=== PATIENT | male | born 1930 | race Caucasian/White ===

== ENCOUNTER 2017-07-23 19:34 | Inpatient (IN) | payer MEDICARE, OTHER ==
[~2017-07-23] VITALS: Ht 172.7 cm; Wt 128.9 kg
--- NOTE | 2017-07-23 19:27 | ER Report ---
History and Physical Time Seen By MD: 19:31 HPI/ROS CHIEF COMPLAINT: Fever, lethargy HISTORY OF PRESENT ILLNESS: 87-year-old male brought in by EMS from home with fever and lethargy since this morning. Patient states he was feeling well yesterday. Patient has a history of COPD, chronic renal failure, coronary artery disease, type II diabetes, insulin required, chronic lower extremity edema with cellulitis. Patient reports several family members have influenza. Patient was last seen back in December which time he had cellulitis of the left lower extremity and elevated white blood cell count and CRP. He was transferred over to the [facility] in [place]. He has a large bulky dressing on his left lower extremity at this time. He states that dressing was placed on Thursday of this week over at the [facility] in [place]. REVIEW OF SYSTEMS: Respiratory: As above Cardiovascular: No chest pain, no palpitations. Gastrointestinal: No vomiting, no abdominal pain. Musculoskeletal: No back pain. Allergies: Coded Allergies: No Known Drug Allergies (Unverified , 07/23/17) Home Meds Reported Medications Triamcinolone Acetonide 0.1% Cr 15 Gm Tube (TRIAMCINOLONE ACETONIDE 0.1% CREAM) 15 Gm Cream..g., 15 GM TP TID, TUBE 07/24/17 Sodium Chloride (SALINE NASAL SPRAY) 30 Ml [place], 2 SPRAY NS Q2H Y for CONGESTION, SPRAY 07/24/17 Lisinopril (LISINOPRIL) 10 Mg Tablet, 10 MG PO QDAY, TAB 07/24/17 Hum Insulin Nph/Reg Insulin Hm (NOVOLIN 70-30 100 UNIT/ML VIAL) 100 Unit/1 Ml Vial, 55 UNIT SQ BIDAC, VIAL 07/24/17 Hum Insulin Nph/Reg Insulin Hm (NOVOLIN 70-30 100 UNIT/ML VIAL) 100 Unit/1 Ml Vial, 70 UNIT SQ QAM, VIAL 07/24/17 Ammonium Lactate (Ammonium Lactate) 12 % Cream..g., 1 SHIV TOP BIDAC 07/24/17 Furosemide (FUROSEMIDE) 20 Mg Tablet, 3 TAB PO BID, TAB 07/24/17 Clobetasol Propionate 0.05% Lotion (CLOBETASOL PROPIONATE 0.05% LOTION) 59 Ml Lotion, 0 TP BID, BOT 01/29/16 Diphenhydramine Hcl (DIPHENHYDRAMINE HCL) 25 Mg Capsule, 25 MG PO BID Y for ITCHING, CAPSULE 01/29/16 Terazosin Hcl (TERAZOSIN HCL) 2 Mg Capsule, 2 MG PO BID, CAPSULE 01/29/16 Albuterol Sul Hfa 90 Mcg 8 Gm (VENTOLIN HFA 90 MCG 8 GM) 8.5 Gm Hfa.aer.ad, 1-2 PUFF IH Q3-4H Y for SHORTNESS OF BREATH 08/19/14 Acetaminophen With Codeine # 3 (TYLENOL WITH CODEINE #3 TABLET) 1 Each Tablet, 1 EACH PO QHS, TAB 01/18/14 Ranitidine Hcl (ZANTAC) 150 Mg Tablet, 150 MG PO QHS 01/18/14 Levothyroxine Sodium (SYNTHROID) 125 Mcg Tablet, 125 MCG PO QDAY 01/18/14 Simvastatin (SIMVASTATIN) 40 Mg Tablet, 20 MG PO HS, TAB 01/18/14 Aspirin (ASPIRIN EC) 81 Mg Tablet.dr, 81 MG PO QDAY, TAB 01/18/14 Allopurinol (ZYLOPRIM 300 MG TAB (OR EQUIV)) 300 Mg Tab, 300 MG PO DAILY, TAB 01/18/14 Gabapentin (GABAPENTIN) 300 Mg Capsule, 600 MG PO DAILY, CAPSULE 2 CAPS AM AND 1 CAP HS 01/18/14 Discontinued Reported Medications Insulin NPH Hum/Reg Insulin Hm (Humulin 70-30 Vial) 100 Unit/Ml (70-30) Vial, 70 UNITS SQ DAILY 12/22/16 Polyvinyl Alcohol (POLYVINYL ALCOHOL) 15 Ml Drops, 1-2 GTT OP BID Y for DRY EYE 12/22/16 Cyclosporine (RESTASIS) 1 Each Droperette, 1 EACH OP BID 12/22/16 Guaifenesin (Guaifenesin ER) 600 Mg Tab.er.12h, 400 MG PO TID Y for CONGESTION 01/29/16 Hydrocodone/Acetaminophen (Lortab 7.5-325 mg Tablet) 1 Each Tablet, 1 TAB PO Q4H Y for PAIN 01/29/16 Insulin Human Isophan/Regular (HUMULIN 70-30 VIAL) 100 Unit/Ml Vial, 60 UNIT SUBQ QHS, VIAL 01/18/14 Discontinued Scripts Vancomycin/0.9 % Sod Chloride (Vanco 1.5 gm/250 ml-0.9% NaCl) 1.5 Gram/250 Ml Plast..bag, 1.5 GM IV Q24H for 10 Days, BAG Prov:NORBERTO OBREGON MD 12/22/16 Piperacillin Sodium/Tazobactam (ZOSYN 2.25 GRAM VIAL) 2.25 Gm Vial, 2.25 GM IV Q6H for 10 Days, VIAL Prov:NORBERTO OBREGON MD 12/22/16 Enoxaparin Sodium (LOVENOX) 40 Mg/0.4 Ml Disp.syrin, 40 MG SC Q24H for 30 Days, Prov:NROBERTO OBREGON MD 12/22/16 Furosemide (LASIX) 40 Mg Tablet, 3 TAB PO DAILY for 30 Days, TAB Currently holding Lasix Prov:NORBERTO OBREGON MD 12/22/16 Past Medical/Surgical History Past medical history significant for oxygen-dependent COPD, hypothyroidism, coronary artery disease status post stent placement, hypertension, cholecystectomy, appendectomy, osteoarthritis, chronic back pain, left wrist fracture, diabetes mellitus type 2, and skin cancer since, cellulitis of lower extremities 12/29, transferred to [facility] in [place] Reviewed Nurses Notes: Yes Old Medical Records Reviewed: Yes Hx Smoking: No Smoking Status: Never Smoker Exposure to Second Hand Smoke?: No Hx Substance Use Disorder: No Hx Alcohol Use: No Constitutional Vital Sign - Last 24 Hours 07/23/17 07/23/17 07/23/17 07/23/17 19:37 19:43 19:46 19:49 Temp 100.7 Pulse 96 ??? Resp 20 23 B/P (MAP) 156/66 156/66 (96) Pulse Ox 96 97 O2 Delivery Nasal Cannula O2 Flow Rate 5.0 07/23/17 07/23/17 07/23/17 07/23/17 20:04 20:09 20:19 20:30 Pulse 91 90 Resp 15 32 B/P (MAP) 145/60 (88) 145/59 (87) Pulse Ox 96 96 07/23/17 07/23/17 07/23/17 07/23/17 20:34 20:45 20:45 20:49 Temp 98.7 98.7 Pulse 86 87 Resp 22 16 Pulse Ox 98 96 07/23/17 07/23/17 07/23/17 07/23/17 21:00 21:04 21:19 21:30 Pulse 87 84 Resp 29 11 B/P (MAP) 117/50 (72) 123/56 (78) Pulse Ox 97 96 07/23/17 07/23/17 07/23/17 07/23/17 21:35 21:50 22:00 22:05 Pulse 81 82 82 Resp 8 29 29 B/P (MAP) 120/70 (87) Pulse Ox 96 96 95 07/23/17 07/23/17 07/23/17 07/23/17 22:20 22:30 22:35 22:50 Pulse 82 82 81 Resp 31 30 27 B/P (MAP) 120/59 (79) Pulse Ox 94 95 97 07/23/17 07/23/17 07/23/17 07/23/17 22:55 23:00 23:10 23:25 Pulse 82 81 81 Resp 28 28 26 B/P (MAP) 147/70 (95) Pulse Ox 96 96 96 07/23/17 07/23/17 07/23/17 07/24/17 23:30 23:40 23:55 00:00 Pulse 80 76 Resp 28 26 B/P (MAP) 149/61 (90) 139/75 (96) Pulse Ox 99 97 07/24/17 07/24/17 07/24/17 00:10 00:25 00:30 Pulse 77 77 Resp 25 12 B/P (MAP) 140/47 (78) Pulse Ox 95 95 Physical Exam General Appearance: The patient is alert, has no immediate need for airway protection and no current signs of toxicity. Fever 101.9 HEENT: Pupils equal and round no injection. Oropharynx with mild erythema, no exudate or petechiae. Membranes are moist Respiratory: Chest is non tender, lungs are clear to auscultation. No wheezing or rails Cardiac: regular rate and rhythm Gastrointestinal: Abdomen is soft and non tender, no masses, bowel sounds normal. Musculoskeletal: Neck: Neck is supple and non tender. No lymphadenopathy, no JVD Extremities have full range of motion and are non tender. There is a large bulky dressing on the left lower extremity. There are chronic edematous changes. 2+ edema Skin: No rashes or lesions. DIFFERENTIAL DIAGNOSIS: After history and physical exam differential diagnosis was considered for adult fever including but not limited to viral syndromes including influenza, urinary tract infection, pneumonia and sepsis. Medical Decision Making Data Points Result Diagram: 07/23/17191407/23/171914 Laboratory Hematology Test 07/23/17 19:15 07/23/17 20:41 07/23/17 20:59 Red Blood Count 4.35 M/uL (4.00-5.60) Mean Corpuscular Volume 91.6 fL (80.0-96.0) Mean Corpuscular Hemoglobin 31.0 pg (26.0-33.0) Mean Corpuscular Hemoglobin Concent 33.8 g/dL (32.0-36.0) Red Cell Distribution Width 14.0 % (11.5-14.5) Mean Platelet Volume 6.9 fL (7.2-11.1) Neutrophils (%) (Auto) 69.8 % (39.4-72.5) Lymphocytes (%) (Auto) 15.5 % (17.6-49.6) Monocytes (%) (Auto) 12.5 % (4.1-12.4) Eosinophils (%) (Auto) 1.5 % (0.4-6.7) Basophils (%) (Auto) 0.7 % (0.3-1.4) Nucleated RBC Relative Count (auto) 0.0 /100WBC Neutrophils # (Auto) 7.3 K/uL (2.0-7.4) Lymphocytes # (Auto) 1.6 K/uL (1.3-3.6) Monocytes # (Auto) 1.3 K/uL (0.3-1.0) Eosinophils # (Auto) 0.2 K/uL (0.0-0.5) Basophils # (Auto) 0.1 K/uL (0.0-0.1) Nucleated RBC Absolute Count (auto) 0.00 K/uL Sodium Level 137 mmol/L (137-145) Potassium Level 4.1 mmol/L (3.5-5.0) Chloride Level 97 mmol/L (98-107) Carbon Dioxide Level 34 mmol/L (22-30) Blood Urea Nitrogen 27 mg/dl (9-21) Creatinine 2.10 mg/dl (0.66-1.25) Glomerular Filtration Rate Calc 30.2 Random Glucose 150 mg/dl (75-110) Lactate 1.0 mmol/L (0.7-2.1) Calcium Level 8.9 mg/dl (8.4-10.2) Total Bilirubin 0.4 mg/dl (0.2-1.3) Aspartate Amino Transf (AST/SGOT) 21 U/L (0-35) Alanine Aminotransferase (ALT/SGPT) 26 U/L (0-56) Alkaline Phosphatase 96 U/L (0-126) Troponin I < 0.012 ng/ml C-Reactive Protein 2.2 mg/dl (<1.0) Total Protein 7.0 gm/dl (6.3-8.2) Albumin 3.5 g/dl (3.5-5.0) Urine Color Yellow Urine Clarity Clear Urine pH 6.0 pH (4.8-9.5) Urine Specific [place] 1.009 Urine Protein 100 mg/dL (NEGATIVE) Urine Glucose (UA) Negative mg/dL (NEGATIVE) Urine Ketones Negative mg/dL (NEGATIVE) Urine Blood Large (NEGATIVE) Urine Nitrite Negative (NEGATIVE) Urine Bilirubin Negative (NEGATIVE) Urine Urobilinogen Negative mg/dL (0.2-1.9) Urine Leukocyte Esterase Negative (NEGATIVE) Urine RBC 337 /HPF (0-2/HPF) Urine WBC 4 /HPF (0-5/HPF) Urine Squamous Epithelial Cells None /LPF (</=FEW) Urine Bacteria Negative /HPF (NONE-FEW) Urine Hyaline Casts Few /LPF (NONE-FEW) Urine Mucus None /HPF (NONE-FEW) Influenza Virus Type A (PCR) Negative (NEGATIVE) Influenza Virus Type B (PCR) Negative (NEGATIVE) Chemistry Test 07/23/17 19:15 07/23/17 20:41 07/23/17 20:59 White Blood Count 10.5 k/uL (4.5-11.0) Red Blood Count 4.35 M/uL (4.00-5.60) Hemoglobin 13.5 g/dL (14.0-18.0) Hematocrit 39.9 % (42.0-52.0) Mean Corpuscular Volume 91.6 fL (80.0-96.0) Mean Corpuscular Hemoglobin 31.0 pg (26.0-33.0) Mean Corpuscular Hemoglobin Concent 33.8 g/dL (32.0-36.0) Red Cell Distribution Width 14.0 % (11.5-14.5) Platelet Count 223 K/uL (150-450) Mean Platelet Volume 6.9 fL (7.2-11.1) Neutrophils (%) (Auto) 69.8 % (39.4-72.5) Lymphocytes (%) (Auto) 15.5 % (17.6-49.6) Monocytes (%) (Auto) 12.5 % (4.1-12.4) Eosinophils (%) (Auto) 1.5 % (0.4-6.7) Basophils (%) (Auto) 0.7 % (0.3-1.4) Nucleated RBC Relative Count (auto) 0.0 /100WBC Neutrophils # (Auto) 7.3 K/uL (2.0-7.4) Lymphocytes # (Auto) 1.6 K/uL (1.3-3.6) Monocytes # (Auto) 1.3 K/uL (0.3-1.0) Eosinophils # (Auto) 0.2 K/uL (0.0-0.5) Basophils # (Auto) 0.1 K/uL (0.0-0.1) Nucleated RBC Absolute Count (auto) 0.00 K/uL Glomerular Filtration Rate Calc 30.2 Lactate 1.0 mmol/L (0.7-2.1) Calcium Level 8.9 mg/dl (8.4-10.2) Total Bilirubin 0.4 mg/dl (0.2-1.3) Aspartate Amino Transf (AST/SGOT) 21 U/L (0-35) Alanine Aminotransferase (ALT/SGPT) 26 U/L (0-56) Alkaline Phosphatase 96 U/L (0-126) Troponin I < 0.012 ng/ml C-Reactive Protein 2.2 mg/dl (<1.0) Total Protein 7.0 gm/dl (6.3-8.2) Albumin 3.5 g/dl (3.5-5.0) Urine Color Yellow Urine Clarity Clear Urine pH 6.0 pH (4.8-9.5) Urine Specific [place] 1.009 Urine Protein 100 mg/dL (NEGATIVE) Urine Glucose (UA) Negative mg/dL (NEGATIVE) Urine Ketones Negative mg/dL (NEGATIVE) Urine Blood Large (NEGATIVE) Urine Nitrite Negative (NEGATIVE) Urine Bilirubin Negative (NEGATIVE) Urine Urobilinogen Negative mg/dL (0.2-1.9) Urine Leukocyte Esterase Negative (NEGATIVE) Urine RBC 337 /HPF (0-2/HPF) Urine WBC 4 /HPF (0-5/HPF) Urine Squamous Epithelial Cells None /LPF (</=FEW) Urine Bacteria Negative /HPF (NONE-FEW) Urine Hyaline Casts Few /LPF (NONE-FEW) Urine Mucus None /HPF (NONE-FEW) Influenza Virus Type A (PCR) Negative (NEGATIVE) Influenza Virus Type B (PCR) Negative (NEGATIVE) Urinalysis Test 07/23/17 20:41 Urine Color Yellow Urine Clarity Clear Urine pH 6.0 pH (4.8-9.5) Urine Specific [place] 1.009 Urine Protein 100 mg/dL (NEGATIVE) Urine Glucose (UA) Negative mg/dL (NEGATIVE) Urine Ketones Negative mg/dL (NEGATIVE) Urine Blood Large (NEGATIVE) Urine Nitrite Negative (NEGATIVE) Urine Bilirubin Negative (NEGATIVE) Urine Urobilinogen Negative mg/dL (0.2-1.9) Urine Leukocyte Esterase Negative (NEGATIVE) Urine RBC 337 /HPF (0-2/HPF) Urine WBC 4 /HPF (0-5/HPF) Urine Squamous Epithelial Cells None /LPF (</=FEW) Urine Bacteria Negative /HPF (NONE-FEW) Urine Hyaline Casts Few /LPF (NONE-FEW) Urine Mucus None /HPF (NONE-FEW) EKG/Imaging EKG Interpretation 12 lead EK Rhythm: normal sinus rhythm with first-degree AV block [place]: normal QRS: normal ST segments: Diffuse nonspecific ST and T-wave changes, comparison to previous EKG dated 12/22/16, no significant overall change Imaging X-ray: Single view portable chest x-ray was obtained. I viewed the images myself on the PACS system. My interpretation of the images is: No infiltrate, no effusion, normal mediastinum, comparison to previous chest x-ray dated , no significant change. The radiologist interpretation had no clinically significant variation from this interpretation. ED Course/Re-evaluation Clinical Indication for ER IV: Hydration, IV Access ED Course Patient was admitted to an examination room and H&P was done. The differential diagnoses was considered. On clinical examination. Patient has stable vital signs on arrival. His pulse ox is normal at his usual 5 L. Saturations 96%. Patient with a fever noted by EMS of 101.9. Here we document 100.7. Patient's had altered mental status throughout the day. He has chronic open wounds in his left lower extremity being managed at the [facility] in [place]. Patient was transferred in December 2016 2 [facility] for cellulitis of his left lower extremity with an elevated white blood cell count of nearly 17,000, and elevated CRP. Tonight extensive evaluation shows a normal WBC count without left shift. His chest x- ray is clear. His urinalysis shows a scopic, hematuria without evidence of infection. A rapid influenza is negative. Patient was treated with 500 of normal saline IV and Tylenol. His fevers come down. His vital signs remained stable. I spoke with his family after all the diagnostic studies were performed. Discussed the results with them. His family is reluctant to take him home. They state he is unable to ambulate and care for himself. I stated that I do not see any fdc needs. At this time here. We will consider admission. [facility] not [facility] or see medical mean, I will speak with our hospitalist here at [facility] [place]. 07/23/2017 11:32:01 pm case was discussed with Dr. Roman medical staff command and control officer over at [facility] who declined to accept the patient for admission. She states she sees no obvious fdc needs. Decision to Disposition Date: Jul 23, 2017 Decision to Disposition Time: 22:14 Depart Departure Latest Vital Signs Vital Signs Date Time Temp Pulse Resp B/P (MAP) Pulse Ox O2 Delivery O2 Flow Rate FiO2 07/24/17 00:30 140/47 (78) 07/24/17 00:25 77 12 95 07/23/17 20:45 98.7 07/23/17 19:46 5.0 07/23/17 19:37 Nasal Cannula Impression: Primary Impression: Fever Additional Impressions: Weakness COPD (chronic obstructive pulmonary disease) Diabetes mellitus, type II, insulin dependent Condition: Improved Disposition: Admitted from ER Problem Qualifiers Primary Impression: Fever Fever type: unspecified Qualified Codes: R50.9 - Fever, unspecified Additional Impressions: COPD (chronic obstructive pulmonary disease) COPD type: unspecified COPD Qualified Codes: J44.9 - Chronic obstructive pulmonary disease, unspecified LIYA HERNANDEZ DO Jul 23, 2017 19:27
[~2017-07-23 19:34] MED LIST changes: -FURO-45 PO; -HUM100VI15 SQ; -LISI-362 PO; -OSEL30CA PO; -SODI30SP6 NS; -TRIA15CR40 TP; -[UNRECOGNIZED DRUG - CODE] TOP
[2017-07-23] MEDS ORDERED: ACETAMINOPHEN 325 MG TAB PO ONE (19:40)
[2017-07-23] MEDS ORDERED: NS(*) 0.9% 500 ML BAG 500 ML IV ONE (19:40)
[2017-07-23 19:54] LABS: PLATELET COUNT, AUTOMATED 223 K/uL (150-450)
[2017-07-23] MEDS ORDERED: SODIUM CHLORIDE 0.9% IV ONE (19:55)
--- NOTE | 2017-07-23 20:27 | EKG ---
FACILITY: [facility] PATIENT NAME: YUMIKO MONIQUE : [id number] MR: [id number] V: [id number] EXAM DATE: ORDERING PHYSICIAN: LIYA HERNANDEZ TECHNOLOGIST: PRESTON Test Reason : FEVER DYSPNEA Blood Pressure : / mmHG Vent. Rate : 094 BPM Atrial Rate : 094 BPM P-R Int : 258 ms QRS Dur : 102 ms QT Int : 356 ms P-R-T Axes : 056 -28 064 degrees QTc Int : 445 ms Sinus rhythm with 1st degree AV block Left axis deviation Nonspecific ST abnormality Abnormal ECG Confirmed by NORBERTO OBREGON ([id number] on 07/24/2017 6:04:01 AM Referred By: Confirmed By:NORBERTO OBREGON
--- NOTE | 2017-07-23 20:36 | RADIOLOGY IMAGING REPORT ---
[place] [facility] [place] NAME: Rizwan Huertas : 1930 MR: [id number] V: [id number] EXAM DATE: ORDERING PHYSICIAN: LIYA HERNANDEZ TECHNOLOGIST: Location: [facility] Patient: Rizwan Huertas : 1930 Visit/Account:[id number] Date of Sevice: 07/23/2017 Examination: CHEST SINGLE AP Comparison: 12/22/2016 and earlier. History: Fever. Findings: Cardiac silhouette is prominent but unchanged. Mild chronic interstitial thickening with n o definite new or enlarging consolidation or evidence of acute peribronchial inflammation. No pneumot horax, edema, or effusion. Osseous structures are intact. IMPRESSION: Chronic changes with no definite evidence of acute cardiopulmonary disease. Report Dictated By: Boo Dominguez MD at 07/23/2017 8:31 PM Report E-Signed By: Boo Dominguez MD at 07/23/2017 8:32 PM [id number]
[2017-07-24] MEDS ORDERED: HUM100VI15 SQ ×2 (00:39)
[2017-07-24] MEDS ORDERED: LISI-362 PO (00:39)
[2017-07-24] MEDS ORDERED: SODI30SP6 NS (00:39)
[2017-07-24] MEDS ORDERED: FURO-45 PO (00:39)
[2017-07-24] MEDS ORDERED: [UNRECOGNIZED DRUG - CODE] TOP (00:39)
[2017-07-24 01:09] VITALS: BP 148/57
--- NOTE | 2017-07-24 02:08 | History & Physical ---
History of Present Illness Chief Complaint Weak History of Present Illness 87yo male with PMHx significant for chronic lymphedema, type 2 DM, HTN, chronic renal failure, COPD, CAD, hypothyroidism. He reports onset of minimally productive cough, sore throat, feeling feverish, and weak over past 24-48 hours. He is usually able to ambulate around his home, but had become weak and unable to ambulate. He denies any N/V/diarrhea. He has chronic lymphedema of both LE and has wraps applied "every Thursday". He denied any significant changes in his legs.He denies any urinary complaints such as frequency, urgency, dysuria , hematuria. He was evaluated in the ER and found to have temperature of 100.7F. His WBC count was at upper limits of normal. CXR showed some chronic changes, but no definite infiltrate. His UA was remarkable for only a few WBCs, but significant hematuria. His influenza screen was negative. He was recommended for admission. History Problems: (1) Type 2 diabetes mellitus Status: Chronic (2) Diabetic neuropathy Status: Chronic (3) Gout Status: Chronic (4) Hypothyroid Status: Chronic (5) Coronary artery disease Status: Chronic (6) Essential hypertension Status: Chronic (7) COPD exacerbation Status: Chronic (8) BPH (benign prostatic hyperplasia) Status: Chronic (9) Chronic kidney disease (CKD) stage G3b/A1, moderately decreased glomerular filtration rate (GFR) between 30-44 mL/min/1.73 square meter and albuminuria creatinine ratio less than 30 mg/g Status: Chronic (10) Stented coronary artery Status: Chronic (11) History of cholecystectomy Status: Resolved (12) History of appendectomy Status: Resolved (13) History of tonsillectomy Status: Resolved Home Meds Reported Medications Sodium Chloride (SALINE NASAL SPRAY) 30 Ml [place], 2 SPRAY NS Q2H Y for CONGESTION, SPRAY 07/24/17 Lisinopril (LISINOPRIL) 10 Mg Tablet, 10 MG PO QDAY, TAB 07/24/17 Hum Insulin Nph/Reg Insulin Hm (NOVOLIN 70-30 100 UNIT/ML VIAL) 100 Unit/1 Ml Vial, 55 UNIT SQ BIDAC, VIAL 07/24/17 Hum Insulin Nph/Reg Insulin Hm (NOVOLIN 70-30 100 UNIT/ML VIAL) 100 Unit/1 Ml Vial, 70 UNIT SQ QAM, VIAL 07/24/17 Ammonium Lactate (Ammonium Lactate) 12 % Cream..g., 1 SHIV TOP BIDAC 07/24/17 Furosemide (FUROSEMIDE) 20 Mg Tablet, 3 TAB PO BID, TAB 07/24/17 Clobetasol Propionate 0.05% Lotion (CLOBETASOL PROPIONATE 0.05% LOTION) 59 Ml Lotion, 0 TP BID, BOT 01/29/16 Diphenhydramine Hcl (DIPHENHYDRAMINE HCL) 25 Mg Capsule, 25 MG PO BID Y for ITCHING, CAPSULE 01/29/16 Terazosin Hcl (TERAZOSIN HCL) 2 Mg Capsule, 2 MG PO BID, CAPSULE 01/29/16 Albuterol Sul Hfa 90 Mcg 8 Gm (VENTOLIN HFA 90 MCG 8 GM) 8.5 Gm Hfa.aer.ad, 1-2 PUFF IH Q3-4H Y for SHORTNESS OF BREATH 08/19/14 Acetaminophen With Codeine # 3 (TYLENOL WITH CODEINE #3 TABLET) 1 Each Tablet, 1 EACH PO QHS, TAB 01/18/14 Ranitidine Hcl (ZANTAC) 150 Mg Tablet, 150 MG PO QHS 01/18/14 Levothyroxine Sodium (SYNTHROID) 125 Mcg Tablet, 125 MCG PO QDAY 01/18/14 Simvastatin (SIMVASTATIN) 40 Mg Tablet, 20 MG PO HS, TAB 01/18/14 Aspirin (ASPIRIN EC) 81 Mg Tablet.dr, 81 MG PO QDAY, TAB 01/18/14 Allopurinol (ZYLOPRIM 300 MG TAB (OR EQUIV)) 300 Mg Tab, 300 MG PO DAILY, TAB 01/18/14 Gabapentin (GABAPENTIN) 300 Mg Capsule, 600 MG PO DAILY, CAPSULE 2 CAPS AM AND 1 CAP HS 01/18/14 Discontinued Reported Medications Insulin NPH Hum/Reg Insulin Hm (Humulin 70-30 Vial) 100 Unit/Ml (70-30) Vial, 70 UNITS SQ DAILY 12/22/16 Polyvinyl Alcohol (POLYVINYL ALCOHOL) 15 Ml Drops, 1-2 GTT OP BID Y for DRY EYE 12/22/16 Cyclosporine (RESTASIS) 1 Each Droperette, 1 EACH OP BID 12/22/16 Guaifenesin (Guaifenesin ER) 600 Mg Tab.er.12h, 400 MG PO TID Y for CONGESTION 01/29/16 Hydrocodone/Acetaminophen (Lortab 7.5-325 mg Tablet) 1 Each Tablet, 1 TAB PO Q4H Y for PAIN 01/29/16 Insulin Human Isophan/Regular (HUMULIN 70-30 VIAL) 100 Unit/Ml Vial, 60 UNIT SUBQ QHS, VIAL 01/18/14 Discontinued Scripts Vancomycin/0.9 % Sod Chloride (Vanco 1.5 gm/250 ml-0.9% NaCl) 1.5 Gram/250 Ml Plast..bag, 1.5 GM IV Q24H for 10 Days, BAG Prov:NORBERTO OBREGON MD 12/22/16 Piperacillin Sodium/Tazobactam (ZOSYN 2.25 GRAM VIAL) 2.25 Gm Vial, 2.25 GM IV Q6H for 10 Days, VIAL Prov:NORBERTO OBREGON MD 12/22/16 Enoxaparin Sodium (LOVENOX) 40 Mg/0.4 Ml Disp.syrin, 40 MG SC Q24H for 30 Days, Prov:NORBERTO OBREGON MD 12/22/16 Furosemide (LASIX) 40 Mg Tablet, 3 TAB PO DAILY for 30 Days, TAB Currently holding Lasix Prov:NORBERTO OBREGON MD 12/22/16 Allergies: Coded Allergies: No Known Drug Allergies (Unverified , 07/23/17) Patient History: FH: cancer Hx Smoking: Yes Smoking Status: Former Smoker Exposure to Second Hand Smoke?: No Caffeine Intake: Soda Caffeine/Cups Per Day: 2-3 Hx Alcohol Use: No Hx Substance Use Disorder: No Review of Systems Constitutional: Fever, Chills, No Weight Loss Neurological: Weakness, No Syncope Eyes: No Vision Change, No Loss of Vision ENT: Sinus Congestion, Sore Throat, No Hearing Loss Cardiovascular: No Chest Pain, No Palpitations Respiratory: Cough, Wheezing, No Shortness of Breath Gastrointestinal: No Nausea, No Vomiting, No Diarrhea, No Constipation, No Hematemesis, No Hematochezia, No Melena, No Abdominal Pain Genitourinary: No Dysuria, No Hematuria, No Urinary Incontinence Musculoskeletal: Pain, Impaired Mobility Exam Vital Signs Vital Signs Date Time Temp Pulse Resp B/P (MAP) Pulse Ox O2 Delivery O2 Flow Rate FiO2 07/24/17 01:09 98.6 70 18 148/57 (87) 97 Nasal Cannula 3.0 General Appearance: Alert, Awake, No Acute Distress Neuro: Other (generalized weakness, buit no focal motor deficits) Eyes: PERRLA ENT: Oropharynx Clear Neck: No Masses Cardiovascular: Regular Rate and Rhythm (with distant tones and soft systolic murmur) Respiratory: Other (fine rales at both bases with soft expiratory wheezes bilaterally) GI: Abd Soft and Non-Tender (obese) : No CVA Tenderness Lymph: No Adenopathy Extremities: Warm, Perfused, Edema (both LE) Integumentary: Other (chronic lymphedema changes both feet/toes with warty appearing changes to several toes/no open areas or drainage noted) Psych: Alert & Oriented X3 Medical Decision Making Data Points Result Diagram: 07/23/17191407/23/171914 Item Value Date Time Albumin 3.5 g/dl 07/23/171914 Total Protein 7.0 gm/dl 07/23/171914 Troponin I < 0.012 ng/ml 07/23/171914 Alkaline Phosphatase 96 U/L 07/23/171914 Alanine Aminotransferase (ALT/SGPT) 26 U/L 07/23/171914 Aspartate Amino Transf (AST/SGOT) 21 U/L 07/23/171914 Total Bilirubin 0.4 mg/dl 07/23/171914 Calcium Level 8.9 mg/dl 07/23/171914 Lactate 1.0 mmol/L 07/23/171914 Urine Color Yellow 07/23/172040 Urine Clarity Clear 07/23/172040 Urine pH 6.0 pH 07/23/17 204 Urine Specific [place] 1.009 07/23/172040 Urine Protein 100 mg/dL 07/23/17 204 Urine Glucose (UA) Negative mg/dL 07/23/17 2041 Urine Ketones Negative mg/dL 07/23/17 2041 Urine Blood Large 07/23/17 204 Urine Nitrite Negative 07/23/17 204 Urine Bilirubin Negative 07/23/17 204 Urine Urobilinogen Negative mg/dL 07/23/172040 Urine Leukocyte Esterase Negative 07/23/17 2041 Urine RBC 337 /HPF 07/23/172040 Urine WBC 4 /HPF 07/23/17 2041 Urine Squamous Epithelial Cells None /LPF 07/23/17 204 Urine Bacteria Negative /HPF 07/23/17 2041 Urine Hyaline Casts Few /LPF 07/23/172040 Urine Mucus None /HPF 07/23/172040 Influenza Virus Type A (PCR) Negative 07/23/172058 Influenza Virus Type B (PCR) Negative 07/23/172058 EKG / Imaging Imaging PATIENT NAME: Rizwan Huertas : 1930 MR: [id number] V: [id number] EXAM DATE: ORDERING PHYSICIAN: LIYA HERNANDEZ TECHNOLOGIST: Location: [facility] Patient: Rizwan Huertas : 1930 Visit/Account:[id number] Date of Sevice: 07/23/2017 Examination: CHEST SINGLE AP Comparison: 12/22/2016 and earlier. History: Fever. Findings: Cardiac silhouette is prominent but unchanged. Mild chronic interstitial thickening with no definite new or enlarging consolidation or evidence of acute peribronchial inflammation. No pneumothorax, edema, or effusion. Osseous structures are intact. IMPRESSION: Chronic changes with no definite evidence of acute cardiopulmonary disease. Report Dictated By: Boo Dominguez MD at 07/23/2017 8:31 PM Report E-Signed By: Boo Dominguez MD at 07/23/2017 8:32 PM [id number] Assessment and Plan Problems: (1) Fever Status: Acute Assessment & Plan: No definite etiology, but appears he probably has an acute viral syndrome. Blood cultures have been done. Will get urine culture as well. Re-check CXR in AM also. I do not see a specific need for antibiotics at this time. Watch closely. (2) Weakness Status: Acute Assessment & Plan: Due to acute illness. Will give gentle IV fluids. Treat symptoms as needed. May need to have PT/OT see him if not improving., (3) Type 2 diabetes mellitus Status: Chronic Assessment & Plan: ADA diet. Continue Humulin 70/30 30 units BID. Monitor glucoses and use SSI as needed. (4) Hypothyroid Status: Chronic Assessment & Plan: Continue replacement therapy. Check TSH. (5) COPD (chronic obstructive pulmonary disease) Onset Date: 08/16/2014 Status: Chronic Assessment & Plan: He appears reasonably stable from this standpoint. He is at his baseline O2 requirement. Will continue his albuterol. (6) Essential hypertension Status: Chronic Assessment & Plan: His BPs are in upper limits of acceptable. Will hold his lisinopril and terazosin for now. Watch closely and resume as needed. (7) Chronic kidney disease (CKD) stage G3b/A1, moderately decreased glomerular filtration rate (GFR) between 30-44 mL/min/1.73 square meter and albuminuria creatinine ratio less than 30 mg/g Status: Chronic Assessment & Plan: His creatinine (2.1) is near his baseline. Gentle IV fluids. Watch labs. (8) Chronic acquired lymphedema Status: Chronic Assessment & Plan: Will have PT wound care see to help with management. His legs do not appear to be acutely infected. (9) CAD (coronary artery disease) Status: Chronic Assessment & Plan: He has had previous stent. He is on aspirin and statin therapy. Venous Thromboembolism Antithrombotics Is Pt On Any Antithrombotics?: Yes Exam Sepsis Risk: No Definite Risk Problem Qualifiers (1) Fever: Fever type: unspecified Qualified Codes: R50.9 - Fever, unspecified (2) COPD (chronic obstructive pulmonary disease): COPD type: unspecified COPD Qualified Codes: J44.9 - Chronic obstructive pulmonary disease, unspecified NORBERTO OBREGON MD Jul 24, 2017 02:08
[2017-07-24] MEDS ORDERED: ALBUTEROL 2.5 MG/3 ML NEB NEB PRN (02:10)
[2017-07-24] MEDS: NS(*) 0.9% 1000 ML BAG 1,000 ML IV PRN ×2 (02:25→20:46)
[2017-07-24] MEDS ORDERED: TRIA15CR40 TP (03:37)
[2017-07-24] MEDS: LEVOTHYROXINE SOD 0.125 MG TAB PO SCH (05:42)
[2017-07-24 06:08] LABS: PLATELET COUNT, AUTOMATED 205 K/uL (150-450)
--- NOTE | 2017-07-24 07:03 | RADIOLOGY IMAGING REPORT ---
FACILITY: [facility] PATIENT NAME: Rziwan Huertas : 1930 MR: [id number] V: [id number] EXAM DATE: ORDERING PHYSICIAN: NORBERTO OBREGON TECHNOLOGIST: [place] [facility] [place] Patient: Rizwan Huertas : 1930 Visit/Account:[id number] Date of Sevice: 07/24/2017 CHEST PA AND LAT COMPARISONS: Single view chest dated July 23, 2017 ADDITIONAL PERTINENT HISTORY: Fever and weakness. FINDINGS: Cardiomediastinal silhouette: Negative. Pulmonary vasculature: Mild atherosclerotic disease of the thoracic arch. Lung love: Bibasilar regions of scarring left greater than right. Otherwise negative Pleural spaces: Negative. Osseous structures: Negative. Surrounding soft tissues: Negative. IMPRESSION: 1. Bibasilar regions of scarring. 2. No evidence of acute cardiopulmonary disease. Report Dictated By: Gage Morfin MD at 07/24/2017 6:57 AM Report E-Signed By: Gage Morfin MD at 07/24/2017 6:58 AM [id number]
[2017-07-24 07:27] VITALS: BP 147/63
[2017-07-24] MEDS: GABAPENTIN 300 MG CAP PO SCH ×2 (08:24→20:35)
[2017-07-24] MEDS: RANITIDINE HCL 150 MG TAB PO SCH ×2 (08:24→20:35)
[2017-07-24] MEDS: ALLOPURINOL 300 MG TAB PO SCH (08:24)
[2017-07-24] MEDS: ASPIRIN 81 MG ENTERIC COATED PO SCH (08:24)
[2017-07-24] MEDS: INS HUMAN ISOPH/INS REG 70/30 100 UNIT/ML 3ML VIAL SUBQ SCH ×2 (08:24→17:01)
[2017-07-24] MEDS: INSULIN HUM LISPRO 100 UN/ML 3 ML VIAL SUBQ PRN ×2 (08:25→12:22)
[2017-07-24] MEDS: ENOXAPARIN 40 MG/0.4ML SYR SC SCH (08:25)
[2017-07-24 09:38] VITALS: Ht 172.7 cm; Wt 128.9 kg
--- NOTE | 2017-07-24 10:33 | Hospitalist Progress Note ---
Subjective Progress Notes Subjective The patient states he is feeling a bit better. No fever since admission. Physical Exam Vital Signs Date Time Temp Pulse Resp B/P (MAP) Pulse Ox O2 Delivery O2 Flow Rate FiO2 07/24/17 09:00 84 Nasal Cannula 1.0 07/24/17 07:27 98.5 71 24 147/63 (91) Intake and Output 07/25/17 07:00 Intake Total 400 ml Balance 400 ml Intake Oral 400 ml # Voids 1 # Bowel Movements 2 General Appearance: Alert, Awake, No Acute Distress Neuro: No Gross deficits Eyes: PERRLA ENT: Normal Cardiovascular: Regular Rate and Rhythm (With 2/6 RAPHAEL heard best at the RUSB.) Respiratory: No Respiratory Distress, Other (Decreased breath sounds thro) GI: Soft and Non-Tender Extremities: Warm, Perfused, Edema, Other (Both LE with brawny discoloration and thickening and scaling of the skin. No open lesions noted. Edema is 1-2+. Feet with thickening of the skin distally and 2-3+ edema. L second toe with open area distally. Drainage is clear yellow. No redness noted.) Integumentary: Other (See above.) Psych: Appropriate Mood & Affect Result Diagram: 07/24/1753807/24/17538 Assessment and Plan Problems: (1) Fever Status: Acute Assessment & Plan: No definite etiology, but appears he probably has an acute viral syndrome. Blood and urine cultures have been done. Blood cultures negative so far. Re-check CXR is without any acute cardiopulmonary issue. I do not see a specific need for antibiotics at this time. Watch closely. (2) Weakness Status: Acute Assessment & Plan: Due to acute illness. Will give gentle IV fluids. Treat symptoms as needed. PT/OT to see him. (3) Type 2 diabetes mellitus Status: Chronic Assessment & Plan: ADA diet. Continue Humulin 70/30 30 units BID. Monitor glucoses and use SSI as needed. (4) Hypothyroid Status: Chronic Assessment & Plan: Continue replacement therapy. TSH pending. (5) COPD (chronic obstructive pulmonary disease) Onset Date: 08/16/2014 Status: Chronic Assessment & Plan: He appears reasonably stable from this standpoint. He is at his baseline O2 requirement. Will continue his albuterol. (6) Essential hypertension Status: Chronic Assessment & Plan: His BPs are in upper limits of acceptable. Will hold his lisinopril and terazosin for now. Watch closely and resume as needed. (7) Chronic kidney disease (CKD) stage G3b/A1, moderately decreased glomerular filtration rate (GFR) between 30-44 mL/min/1.73 square meter and albuminuria creatinine ratio less than 30 mg/g Status: Chronic Assessment & Plan: His creatinine (1.8) is at his baseline. Gentle IV fluids. Watch labs. (8) Chronic acquired lymphedema Status: Chronic Assessment & Plan: Will have PT wound care see to help with management. His legs do not appear to be acutely infected but he does have an open area on his L second toe. (9) CAD (coronary artery disease) Status: Chronic Assessment & Plan: He has had previous stent. He is on aspirin and statin therapy. Time Spent on Plan of Care: < 30 min Exam Sepsis Risk: No Definite Risk Problem Qualifiers (1) Fever: Fever type: unspecified Qualified Codes: R50.9 - Fever, unspecified (2) COPD (chronic obstructive pulmonary disease): COPD type: unspecified COPD Qualified Codes: J44.9 - Chronic obstructive pulmonary disease, unspecified SHASHI OBREGON MD Jul 24, 2017 10:33
[2017-07-24 11:44] VITALS: BP 135/57
[2017-07-24 14:56] VITALS: BP 119/60
[2017-07-24 18:55] VITALS: BP 163/63
[2017-07-24] MEDS: SIMVASTATIN 40 MG TAB PO SCH (20:35)
[2017-07-24] MEDS: BENZOCAINE/MENTHOL 1 EACH LOZG PO PRN (20:36)
[2017-07-24] MEDS: ACETAMINOPHEN 325 MG TAB PO PRN (20:46)
[2017-07-25] MEDS: BENZOCAINE/MENTHOL 1 EACH LOZG PO PRN ×3 (00:17→20:21)
[2017-07-25 05:12] VITALS: BP 169/74
[2017-07-25 06:13] LABS: PLATELET COUNT, AUTOMATED 189 K/uL (150-450)
[2017-07-25] MEDS: LEVOTHYROXINE SOD 0.125 MG TAB PO SCH (06:30)
[2017-07-25 07:36] VITALS: BP 164/83
[2017-07-25] MEDS: ACETAMINOPHEN 325 MG TAB PO PRN (08:04)
[2017-07-25] MEDS: INS HUMAN ISOPH/INS REG 70/30 100 UNIT/ML 3ML VIAL SUBQ SCH ×2 (08:08→16:30)
[2017-07-25] MEDS: ENOXAPARIN 40 MG/0.4ML SYR SC SCH (09:00)
[2017-07-25] MEDS ORDERED: FUROSEMIDE 40 MG TAB PO SCH (09:05)
[2017-07-25] MEDS: GABAPENTIN 300 MG CAP PO SCH ×2 (09:40→20:22)
[2017-07-25] MEDS: ASPIRIN 81 MG ENTERIC COATED PO SCH (09:41)
[2017-07-25] MEDS: ALLOPURINOL 300 MG TAB PO SCH (09:41)
[2017-07-25] MEDS: RANITIDINE HCL 150 MG TAB PO SCH ×2 (09:41→20:21)
[2017-07-25] MEDS: TERAZOSIN HCL 1 MG CAP PO SCH ×2 (09:41→20:22)
--- NOTE | 2017-07-25 10:44 | Hospitalist Progress Note ---
Subjective Progress Notes Subjective He has had some recurrent low grade fever. Now having sore throat/sinus congestion/occasional cough. Physical Exam Vital Signs Date Time Temp Pulse Resp B/P (MAP) Pulse Ox O2 Delivery O2 Flow Rate FiO2 07/25/17 08:30 99.5 07/25/17 07:36 96 20 164/83 (110) 94 Nasal Cannula 3.0 Intake and Output 07/26/17 07:00 Intake Total 1001 ml Balance 1001 ml Intake Oral 211 ml IV Total 790 ml # Voids 2 # Bowel Movements 1 General Appearance: Alert, Awake ENT: Other (oropharynx with mild erythema and posterior drainage noted) Neck: Other (no obvious adenopathy) Cardiovascular: Other (Regular distant tones soft systolic murmur) Respiratory: Other (fine soft rales at bases/soft expiratory wheeze) Chest: No Tenderness GI: Soft and Non-Tender Extremities: Warm, Perfused, Edema Integumentary: Other (lower extremities dressed) Psych: Alert & Oriented X3 Result Diagram: 07/25/1760407/25/17604 Assessment and Plan Problems: (1) Fever Status: Acute Assessment & Plan: No definite etiology, but appears he probably has an acute viral syndrome. Blood and urine cultures are negative thus far. Re-check CXR is without any acute cardiopulmonary issue. Will check rapid strep and re-check influenza screen. I do not see a specific need for antibiotics at this time. Watch closely. (2) Weakness Status: Acute Assessment & Plan: Due to acute illness. He has improved. Treat symptoms as needed. PT/OT seeing him. (3) Type 2 diabetes mellitus Status: Chronic Assessment & Plan: Adequate control. Continue ADA diet. Continue Humulin 70/30 30 units BID (this is reduced dose for him). Monitor glucoses and use SSI as needed. (4) Hypothyroid Status: Chronic Assessment & Plan: Continue replacement therapy. TSH normal at 1.19. (5) COPD (chronic obstructive pulmonary disease) Onset Date: 08/16/2014 Status: Chronic Assessment & Plan: He appears reasonably stable from this standpoint. He is at his baseline O2 requirement. Will continue his albuterol. (6) Essential hypertension Status: Chronic Assessment & Plan: His BPs are in upper limits of acceptable. Will resume his terazosin, but continue to hold the lisinopril for now. Watch closely and resume as needed. (7) Chronic kidney disease (CKD) stage G3b/A1, moderately decreased glomerular filtration rate (GFR) between 30-44 mL/min/1.73 square meter and albuminuria creatinine ratio less than 30 mg/g Status: Chronic Assessment & Plan: His creatinine (1.7) is probably a little better than his baseline. Will stop IV fluids. Watch labs. (8) Chronic acquired lymphedema Status: Chronic Assessment & Plan: Will have PT wound care see to help with management. His legs do not appear to be acutely infected, but he does have a small open area on his left second toe. Will resume his Lasix at slightly lower dose (start at 40mg daily). (9) CAD (coronary artery disease) Status: Chronic Assessment & Plan: He has had previous stent. He is on aspirin and statin therapy. Exam Sepsis Risk: No Definite Risk Problem Qualifiers (1) Fever: Fever type: unspecified Qualified Codes: R50.9 - Fever, unspecified (2) COPD (chronic obstructive pulmonary disease): COPD type: unspecified COPD Qualified Codes: J44.9 - Chronic obstructive pulmonary disease, unspecified NORBERTO OBREGON MD Jul 25, 2017 10:44
[2017-07-25 11:23] VITALS: BP 99/45
[2017-07-25] MEDS: OSELTAMIVIR PHOS 30 MG CAP PO SCH ×2 (13:44→20:21)
[2017-07-25 15:12] VITALS: BP 114/56
[2017-07-25 19:02] VITALS: BP 154/61
[2017-07-25] MEDS: SIMVASTATIN 40 MG TAB PO SCH (20:22)
[2017-07-25 23:02] VITALS: BP 141/55
[2017-07-26 02:50] VITALS: BP 147/65
[2017-07-26 06:00] LABS: PLATELET COUNT, AUTOMATED 186 K/uL (150-450)
[2017-07-26] MEDS: LEVOTHYROXINE SOD 0.125 MG TAB PO SCH (06:22)
[2017-07-26 07:41] VITALS: BP 130/61
[2017-07-26] MEDS: INS HUMAN ISOPH/INS REG 70/30 100 UNIT/ML 3ML VIAL SUBQ SCH ×2 (08:05→16:27)
[2017-07-26] MEDS: ENOXAPARIN 40 MG/0.4ML SYR SC SCH (09:00)
[2017-07-26] MEDS: GABAPENTIN 300 MG CAP PO SCH ×2 (10:00→20:26)
[2017-07-26] MEDS: ALLOPURINOL 300 MG TAB PO SCH (10:01)
[2017-07-26] MEDS: RANITIDINE HCL 150 MG TAB PO SCH ×2 (10:01→20:27)
[2017-07-26] MEDS: ASPIRIN 81 MG ENTERIC COATED PO SCH (10:02)
[2017-07-26] MEDS: OSELTAMIVIR PHOS 30 MG CAP PO SCH ×2 (10:03→20:26)
[2017-07-26] MEDS: BENZOCAINE/MENTHOL 1 EACH LOZG PO PRN ×2 (10:03→11:07)
[2017-07-26] MEDS ORDERED: FUROSEMIDE 40 MG TAB PO ONE (10:05)
[2017-07-26] MEDS ORDERED: TERAZOSIN HCL 1 MG CAP PO ONE (10:10)
[2017-07-26 11:07] VITALS: BP 130/63
[2017-07-26] MEDS: ACETAMIN/CODEINE #3 300-30 MG PO PRN ×2 (11:07→17:45)
--- NOTE | 2017-07-26 12:28 | Hospitalist Progress Note ---
Subjective Progress Notes Subjective The patient continues to feel weak. Has a cough which is now productive of a green sputum. Has been sitting in the chair more and his leg swelling is worse today. Physical Exam Vital Signs Date Time Temp Pulse Resp B/P (MAP) Pulse Ox O2 Delivery O2 Flow Rate FiO2 07/26/17 12:13 87 Nasal Cannula 3.0 07/26/17 11:07 97.5 73 22 130/63 (85) Intake and Output 07/27/17 07:00 Intake Total 1420 ml Balance 1420 ml Intake Oral 1420 ml General Appearance: Alert, Awake, No Acute Distress Neuro: No Gross deficits Eyes: PERRLA ENT: Moist Mucous Membranes Neck: No Masses Cardiovascular: Regular Rate and Rhythm, Other (Both LE wrapped. More edematous today bilaterally.) Respiratory: No Respiratory Distress, Other (Diminished breath sounds throughout with scattered wheezes.) GI: Soft and Non-Tender Extremities: Other (Wrapped. Feet with 3+ edema. LE with 1-2+ edema.) Integumentary: Generalized Fragile Skin Psych: Appropriate Mood & Affect Result Diagram: 07/26/1753207/26/17532 Assessment and Plan Problems: (1) Fever Status: Acute Assessment & Plan: Repeat influenza testing performed 07/25 after fever recurred. He is now positive for influenza B. Blood and urine cultures are negative thus far. Re-check CXR is without any acute cardiopulmonary issue. Rapid strep negative. I do not see a specific need for antibiotics at this time. Watch closely. (2) Weakness Status: Acute Assessment & Plan: Due to acute illness. He has improved. Treat symptoms as needed. PT/OT seeing him. (3) Type 2 diabetes mellitus Status: Chronic Assessment & Plan: Adequate control. Continue ADA diet. Continue Humulin 70/30 30 units BID (this is reduced dose for him). Monitor glucoses and use SSI as needed. (4) Hypothyroid Status: Chronic Assessment & Plan: Continue replacement therapy. TSH normal at 1.19. (5) COPD (chronic obstructive pulmonary disease) Onset Date: 08/16/2014 Status: Chronic Assessment & Plan: He appears reasonably stable from this standpoint. He is at his baseline O2 requirement. Will continue his albuterol. (6) Essential hypertension Status: Chronic Assessment & Plan: His BPs are in upper limits of acceptable. Will resume his terazosin with parameters, but continue to hold the lisinopril for now. Watch closely and resume as needed. (7) Chronic kidney disease (CKD) stage G3b/A1, moderately decreased glomerular filtration rate (GFR) between 30-44 mL/min/1.73 square meter and albuminuria creatinine ratio less than 30 mg/g Status: Chronic Assessment & Plan: His creatinine (1.7) is probably a little better than his baseline. Will stop IV fluids. Watch labs. (8) Chronic acquired lymphedema Status: Chronic Assessment & Plan: Will have PT wound care see to help with management. His legs do not appear to be acutely infected, but he does have a small open area on his left second toe. Will resume his Lasix at slightly lower dose. He is on 60mg bid at home. Will increase to 40mg bid today. (9) CAD (coronary artery disease) Status: Chronic Assessment & Plan: He has had previous stent. He is on aspirin and statin therapy. Time Spent on Plan of Care: < 30 min Exam Sepsis Risk: No Definite Risk Problem Qualifiers (1) Fever: Fever type: unspecified Qualified Codes: R50.9 - Fever, unspecified (2) COPD (chronic obstructive pulmonary disease): COPD type: unspecified COPD Qualified Codes: J44.9 - Chronic obstructive pulmonary disease, unspecified SHASHI OBREGON MD Jul 26, 2017 12:28
[2017-07-26 14:26] VITALS: BP 126/57
[2017-07-26] MEDS: FUROSEMIDE 40 MG TAB PO SCH (14:35)
[2017-07-26 18:22] VITALS: BP 146/66
[2017-07-26] MEDS: SIMVASTATIN 40 MG TAB PO SCH (20:27)
[2017-07-26] MEDS: TERAZOSIN HCL 1 MG CAP PO SCH (20:27)
[2017-07-26 23:21] VITALS: BP 124/50
[2017-07-27] MEDS: ACETAMIN/CODEINE #3 300-30 MG PO PRN ×2 (00:34→08:04)
[2017-07-27 02:40] VITALS: BP 119/50
[2017-07-27] MEDS: LEVOTHYROXINE SOD 0.125 MG TAB PO SCH (05:28)
[2017-07-27 06:12] LABS: PLATELET COUNT, AUTOMATED 170 K/uL (150-450)
[2017-07-27 07:41] VITALS: BP 131/61
[2017-07-27] MEDS: BENZOCAINE/MENTHOL 1 EACH LOZG PO PRN (08:04)
[2017-07-27] MEDS: INS HUMAN ISOPH/INS REG 70/30 100 UNIT/ML 3ML VIAL SUBQ SCH (08:44)
[2017-07-27] MEDS: RANITIDINE HCL 150 MG TAB PO SCH (08:45)
[2017-07-27] MEDS: ALLOPURINOL 300 MG TAB PO SCH (08:45)
[2017-07-27] MEDS: GABAPENTIN 300 MG CAP PO SCH (08:45)
[2017-07-27] MEDS: ASPIRIN 81 MG ENTERIC COATED PO SCH (08:45)
[2017-07-27] MEDS: OSELTAMIVIR PHOS 30 MG CAP PO SCH (08:45)
[2017-07-27] MEDS: ENOXAPARIN 40 MG/0.4ML SYR SC SCH (08:46)
[2017-07-27] MEDS: FUROSEMIDE 40 MG TAB PO SCH (08:47)
[2017-07-27] MEDS: TERAZOSIN HCL 1 MG CAP PO SCH (08:48)
[2017-07-27 10:52] VITALS: BP 125/56
--- NOTE | 2017-07-27 11:26 | Hospitalist Progress Note ---
Subjective Progress Notes Subjective This patient was admitted for fever and was found to be positive for influenza. He had no acute issues overnight. Patient Complains of: Cardiovascular: No: Chest Pain Respiratory: No: Shortness of Breath Physical Exam Vital Signs Date Time Temp Pulse Resp B/P (MAP) Pulse Ox O2 Delivery O2 Flow Rate FiO2 07/27/17 10:52 97.6 74 20 125/56 (79) 87 Nasal Cannula 3.0 Intake and Output 07/28/17 07:00 Intake Total 600 ml Balance 600 ml Intake Oral 600 ml # Voids 1 Result Diagram: 07/27/1752807/27/17528 Assessment and Plan Problems: (1) Influenza due to influenza virus, type B Assessment & Plan: He did present with fever and flu like symptoms. His initial testing was negative, but subsequent testing was positive for Influenza B. He is on treatment with Tamiflu. (2) Weakness Status: Acute Assessment & Plan: Physical and occupational therapy consults are ongoing. He may require further therapy. (3) Type 2 diabetes mellitus Status: Chronic Assessment & Plan: He is on chronic treatment with 70/30 insulin. We currently have him on the 70/30 with sliding scale level #2. (4) Hypothyroid Status: Chronic Assessment & Plan: He is on chronic treatment with Synthroid. (5) COPD (chronic obstructive pulmonary disease) Onset Date: 08/16/2014 Status: Chronic Assessment & Plan: He is on chronic treatment with albuterol. (6) Essential hypertension Status: Chronic Assessment & Plan: He is on chronic treatment with lisinopril, which is currently on hold secondary to low blood pressure. (7) Chronic kidney disease (CKD) stage G3b/A1, moderately decreased glomerular filtration rate (GFR) between 30-44 mL/min/1.73 square meter and albuminuria creatinine ratio less than 30 mg/g Status: Chronic (8) Chronic acquired lymphedema Status: Chronic Assessment & Plan: He is on chronic treatment with Lasix for this. We have also requested wound care. (9) CAD (coronary artery disease) Status: Chronic Assessment & Plan: He is on chronic treatment with aspirin and simvastatin. Exam Sepsis Risk: No Definite Risk Problem Qualifiers (1) COPD (chronic obstructive pulmonary disease): COPD type: unspecified COPD Qualified Codes: J44.9 - Chronic obstructive pulmonary disease, unspecified HILARIA BARRETO DO Jul 27, 2017 11:26
[2017-07-27] MEDS ORDERED: OSEL30CA PO (13:47)
--- NOTE | 2017-07-27 13:49 | Hospitalist Depart ---
Discharge Summary Reason for Hosp/Final Diag: (1) Influenza due to influenza virus, type B Hospital Course & Plan: He did present with fever and flu like symptoms. His initial testing was negative, but subsequent testing was positive for Influenza B. He is on treatment with Tamiflu. (2) Weakness Status: Acute Hospital Course & Plan: Physical and occupational therapy consults are complete. He has refused any ongoing rehab. (3) Type 2 diabetes mellitus Status: Chronic Hospital Course & Plan: He is on chronic treatment with 70/30 insulin. (4) Hypothyroid Status: Chronic Hospital Course & Plan: He is on chronic treatment with Synthroid. (5) COPD (chronic obstructive pulmonary disease) Onset Date: 08/16/2014 Status: Chronic Hospital Course & Plan: He is on chronic treatment with albuterol. (6) Essential hypertension Status: Chronic Hospital Course & Plan: He is on chronic treatment with lisinopril. (7) Chronic kidney disease (CKD) stage G3b/A1, moderately decreased glomerular filtration rate (GFR) between 30-44 mL/min/1.73 square meter and albuminuria creatinine ratio less than 30 mg/g Status: Chronic (8) Chronic acquired lymphedema Status: Chronic Hospital Course & Plan: He is on chronic treatment with Lasix for this. (9) CAD (coronary artery disease) Status: Chronic Hospital Course & Plan: He is on chronic treatment with aspirin and simvastatin. Departure Latest Vital Signs Vital Signs 07/27/17 10:52 Temp 97.6 Pulse 74 Resp 20 B/P (MAP) 125/56 (79) Pulse Ox 87 O2 Delivery Nasal Cannula O2 Flow Rate 3.0 Weight (Pounds): 284 Weight (Ounces): 2.0 Result Diagram: 07/27/1729 07/27/17528 Condition: Improved Discharge: Home, Self Care Discharge Instructions Home Meds Active Scripts Oseltamivir Phosphate (Oseltamivir Phosphate) 30 Mg Capsule, 30 MG PO BID, #10 CAPSULE Prov:ESTEVANHILARIA DO 07/27/17 Reported Medications Triamcinolone Acetonide 0.1% Cr 15 Gm Tube (TRIAMCINOLONE ACETONIDE 0.1% CREAM) 15 Gm Cream..g., 15 GM TP TID, TUBE 07/24/17 Sodium Chloride (SALINE NASAL SPRAY) 30 Ml [place], 2 SPRAY NS Q2H Y for CONGESTION, SPRAY 07/24/17 Lisinopril (LISINOPRIL) 10 Mg Tablet, 10 MG PO QDAY, TAB 07/24/17 Hum Insulin Nph/Reg Insulin Hm (NOVOLIN 70-30 100 UNIT/ML VIAL) 100 Unit/1 Ml Vial, 55 UNIT SQ BIDAC, VIAL 07/24/17 Hum Insulin Nph/Reg Insulin Hm (NOVOLIN 70-30 100 UNIT/ML VIAL) 100 Unit/1 Ml Vial, 70 UNIT SQ QAM, VIAL 07/24/17 Ammonium Lactate (Ammonium Lactate) 12 % Cream..g., 1 SHIV TOP BIDAC 07/24/17 Furosemide (FUROSEMIDE) 20 Mg Tablet, 3 TAB PO BID, TAB 07/24/17 Clobetasol Propionate 0.05% Lotion (CLOBETASOL PROPIONATE 0.05% LOTION) 59 Ml Lotion, 0 TP BID, BOT 01/29/16 Diphenhydramine Hcl (DIPHENHYDRAMINE HCL) 25 Mg Capsule, 25 MG PO BID Y for ITCHING, CAPSULE 01/29/16 Terazosin Hcl (TERAZOSIN HCL) 2 Mg Capsule, 2 MG PO BID, CAPSULE 01/29/16 Albuterol Sul Hfa 90 Mcg 8 Gm (VENTOLIN HFA 90 MCG 8 GM) 8.5 Gm Hfa.aer.ad, 1-2 PUFF IH Q3-4H Y for SHORTNESS OF BREATH 08/19/14 Ranitidine Hcl (ZANTAC) 150 Mg Tablet, 150 MG PO QHS 01/18/14 Levothyroxine Sodium (SYNTHROID) 125 Mcg Tablet, 125 MCG PO QDAY 01/18/14 Simvastatin (SIMVASTATIN) 40 Mg Tablet, 20 MG PO HS, TAB 01/18/14 Aspirin (ASPIRIN EC) 81 Mg Tablet.dr, 81 MG PO QDAY, TAB 01/18/14 Allopurinol (ZYLOPRIM 300 MG TAB (OR EQUIV)) 300 Mg Tab, 300 MG PO DAILY, TAB 01/18/14 Gabapentin (GABAPENTIN) 300 Mg Capsule, 600 MG PO DAILY, CAPSULE 2 CAPS AM AND 1 CAP HS 01/18/14 Discontinued Reported Medications Acetaminophen With Codeine # 3 (TYLENOL WITH CODEINE #3 TABLET) 1 Each Tablet, 1 EACH PO QHS, TAB 01/18/14 Insulin NPH Hum/Reg Insulin Hm (Humulin 70-30 Vial) 100 Unit/Ml (70-30) Vial, 70 UNITS SQ DAILY 12/22/16 Polyvinyl Alcohol (POLYVINYL ALCOHOL) 15 Ml Drops, 1-2 GTT OP BID Y for DRY EYE 12/22/16 Cyclosporine (RESTASIS) 1 Each Droperette, 1 EACH OP BID 12/22/16 Guaifenesin (Guaifenesin ER) 600 Mg Tab.er.12h, 400 MG PO TID Y for CONGESTION 01/29/16 Hydrocodone/Acetaminophen (Lortab 7.5-325 mg Tablet) 1 Each Tablet, 1 TAB PO Q4H Y for PAIN 01/29/16 Insulin Human Isophan/Regular (HUMULIN 70-30 VIAL) 100 Unit/Ml Vial, 60 UNIT SUBQ QHS, VIAL 01/18/14 Discontinued Scripts Vancomycin/0.9 % Sod Chloride (Vanco 1.5 gm/250 ml-0.9% NaCl) 1.5 Gram/250 Ml Plast..bag, 1.5 GM IV Q24H for 10 Days, BAG Prov:NORBERTO OBREGON MD 12/22/16 Piperacillin Sodium/Tazobactam (ZOSYN 2.25 GRAM VIAL) 2.25 Gm Vial, 2.25 GM IV Q6H for 10 Days, VIAL Prov:NORBERTO OBREGON MD 12/22/16 Enoxaparin Sodium (LOVENOX) 40 Mg/0.4 Ml Disp.syrin, 40 MG SC Q24H for 30 Days, Prov:NORBERTO OBREGON MD 12/22/16 Furosemide (LASIX) 40 Mg Tablet, 3 TAB PO DAILY for 30 Days, TAB Currently holding Lasix Prov:NORBERTO OBREGON MD 12/22/16 Diet: Diabetic Activity: As Tolerated Venous Thromboembolism Antithrombotics Is Pt On Any Antithrombotics?: Yes Problem Qualifiers (1) COPD (chronic obstructive pulmonary disease): COPD type: unspecified COPD Qualified Codes: J44.9 - Chronic obstructive pulmonary disease, unspecified HILARIA BARRETO DO Jul 27, 2017 13:49
== END 2017-07-27 14:41 | disposition home or self-care (01) | DRG 194 ==
LOC: ER 19:43 → MED 07-24 00:37 → OBSVTOIN 07-24 00:37 → INTOOBSV 07-24 00:37
PROVIDERS: ADMIT Internal Medicine; ATTEND Internal Medicine
DX: J10.1 Influenza due to other identified influenza virus with other respiratory manifestations (principal); Z68.41 Body mass index [BMI] 40.0-44.9, adult; E11.22 Type 2 diabetes mellitus with diabetic chronic kidney disease; I12.9 Hypertensive chronic kidney disease with stage 1 through stage 4 chronic kidney disease, or unspecified chronic kidney disease; N18.3 Chronic kidney disease, stage 3 (moderate); I25.10 Atherosclerotic heart disease of native coronary artery without angina pectoris; E03.9 Hypothyroidism, unspecified; J44.9 Chronic obstructive pulmonary disease, unspecified; E66.9 Obesity, unspecified; I89.0 Lymphedema, not elsewhere classified; E11.40 Type 2 diabetes mellitus with diabetic neuropathy, unspecified; Z99.81 Dependence on supplemental oxygen; Z95.1 Presence of aortocoronary bypass graft; Z79.4 Long term (current) use of insulin; Z90.49 Acquired absence of other specified parts of digestive tract; Z85.828 Personal history of other malignant neoplasm of skin
CPT/HCPCS: 36415; 36416; 71045; 71046; 81001; 82040; 82247; 82310; 82374; 82435; 82565; 82947; 82948; 83605; 84075; 84132; 84155; 84295; 84443; 84450; 84460; 84484; 84520; 85025; 86140; 87040; 87070; 87081; 87088; 87205; 87502; 87880; 93005; 94640; 96360; 96372; 97161; 97165; 99285; J7030; J7613

== ENCOUNTER → 2017-07-23 | Outpatient (CLI) | payer MEDICARE, OTHER ==
[~2017-07-23] MED LIST: ACET-3017 PO; ALBU8.5H12 IH; ALL300 PO; ASPI81TA86 PO; CEPH-13 PO; CETI-169 PO; CLOB59LO4 TP; CLOP75TA43 PO; CYCL1DRO6 OP; DIPH-464 PO; DIPH-740 PO; ENOX40DI8 SC; FURO-45 PO; FURO40TA35 PO; GABA-549 PO; GUAI600T84 PO; HUM100VI15 SQ; HUM100VI2 SQ; HUM100VI2 SUBQ; HYDR-318 PO; IBUP600T22 PO; KETC15T TP; LEVO-85 PO; LEVO125T77 PO; LISI-362 PO; LISI-374 PO; LOR5/325 PO; METO-257 PO; METO2.5T15 PO; MOX400 PO; ONDA4TAB PO; OSEL30CA PO; PIPE2.2512 IV; PRED-420 PO; PRED20TA6 PO; PROM-110 PO; RANI-324 PO; SIMV-54 PO; SODI30SP6 NS; TERA2CAP54 PO; TRIA100A TP; TRIA15CR40 TP; VANC1.5P9 IV; [UNRECOGNIZED DRUG - CODE] OP; [UNRECOGNIZED DRUG - CODE] PO; [UNRECOGNIZED DRUG - CODE] TOP
[2017-07-29 09:50] VITALS: BMI 39.6
== END ==
LOC: AMB 18:44
PROVIDERS: ATTEND Nurse Practitioner
DX: R53.1 Weakness (principal); R53.83 Other fatigue; R50.9 Fever, unspecified; R05 Cough; E11.9 Type 2 diabetes mellitus without complications; I10 Essential (primary) hypertension
CPT/HCPCS: A0425; A0427

== ENCOUNTER 2017-07-28 22:56 | Observation (INO) | payer MEDICARE, OTHER ==
[~2017-07-28] VITALS: Ht 180.3 cm; Wt 128.9 kg
[~2017-07-28 22:56] MED LIST changes: +FURO-45 PO; +HUM100VI15 SQ; +LISI-362 PO; +OSEL30CA PO; +SODI30SP6 NS; +TRIA15CR40 TP; +[UNRECOGNIZED DRUG - CODE] TOP
--- NOTE | 2017-07-28 23:06 | ER Report ---
History and Physical Time Seen By MD: 23:05 HPI/ROS CHIEF COMPLAINT: Weakness and disorientation HISTORY OF PRESENT ILLNESS: 87-year-old male with a history of COPD O2 dependent on 5 L by nasal cannula. Patient's a insulin-dependent diabetic. He was seen here recently abruptly 3 days ago and admitted for generalized weakness. Initial evaluation was unremarkable for any signs of infection. Repeat influenza test returned positive for flu B. He was discharged home yesterday on Tamiflu. Tonight his family notices he is weak and disoriented. Patient notes a mild cough. He's had some mild shortness of breath. He denies chest pain. REVIEW OF SYSTEMS: Respiratory: No cough, no dyspnea. Cardiovascular: No chest pain, no palpitations. Gastrointestinal: No vomiting, no abdominal pain. Musculoskeletal: No back pain. Allergies: Coded Allergies: No Known Drug Allergies (Unverified , 07/28/17) Home Meds Active Scripts Oseltamivir Phosphate (Oseltamivir Phosphate) 30 Mg Capsule, 30 MG PO BID, #10 CAPSULE Prov:HILARIA BARRETO DO 07/27/17 Reported Medications Triamcinolone Acetonide 0.1% Cr 15 Gm Tube (TRIAMCINOLONE ACETONIDE 0.1% CREAM) 15 Gm Cream..g., 15 GM TP TID, TUBE 07/24/17 Sodium Chloride (SALINE NASAL SPRAY) 30 Ml [place], 2 SPRAY NS Q2H Y for CONGESTION, SPRAY 07/24/17 Lisinopril (LISINOPRIL) 10 Mg Tablet, 10 MG PO QDAY, TAB 07/24/17 Hum Insulin Nph/Reg Insulin Hm (NOVOLIN 70-30 100 UNIT/ML VIAL) 100 Unit/1 Ml Vial, 55 UNIT SQ BIDAC, VIAL 07/24/17 Hum Insulin Nph/Reg Insulin Hm (NOVOLIN 70-30 100 UNIT/ML VIAL) 100 Unit/1 Ml Vial, 70 UNIT SQ QAM, VIAL 07/24/17 Ammonium Lactate (Ammonium Lactate) 12 % Cream..g., 1 SHIV TOP BIDAC 07/24/17 Furosemide (FUROSEMIDE) 20 Mg Tablet, 3 TAB PO BID, TAB 07/24/17 Clobetasol Propionate 0.05% Lotion (CLOBETASOL PROPIONATE 0.05% LOTION) 59 Ml Lotion, 0 TP BID, BOT 01/29/16 Diphenhydramine Hcl (DIPHENHYDRAMINE HCL) 25 Mg Capsule, 25 MG PO BID Y for ITCHING, CAPSULE 01/29/16 Terazosin Hcl (TERAZOSIN HCL) 2 Mg Capsule, 2 MG PO BID, CAPSULE 01/29/16 Albuterol Sul Hfa 90 Mcg 8 Gm (VENTOLIN HFA 90 MCG 8 GM) 8.5 Gm Hfa.aer.ad, 1-2 PUFF IH Q3-4H Y for SHORTNESS OF BREATH 08/19/14 Ranitidine Hcl (ZANTAC) 150 Mg Tablet, 150 MG PO QHS 01/18/14 Levothyroxine Sodium (SYNTHROID) 125 Mcg Tablet, 125 MCG PO QDAY 01/18/14 Simvastatin (SIMVASTATIN) 40 Mg Tablet, 20 MG PO HS, TAB 01/18/14 Aspirin (ASPIRIN EC) 81 Mg Tablet.dr, 81 MG PO QDAY, TAB 01/18/14 Allopurinol (ZYLOPRIM 300 MG TAB (OR EQUIV)) 300 Mg Tab, 300 MG PO DAILY, TAB 01/18/14 Gabapentin (GABAPENTIN) 300 Mg Capsule, 600 MG PO DAILY, CAPSULE 2 CAPS AM AND 1 CAP HS 01/18/14 Discontinued Reported Medications Acetaminophen With Codeine # 3 (TYLENOL WITH CODEINE #3 TABLET) 1 Each Tablet, 1 EACH PO QHS, TAB 01/18/14 Insulin NPH Hum/Reg Insulin Hm (Humulin 70-30 Vial) 100 Unit/Ml (70-30) Vial, 70 UNITS SQ DAILY 12/22/16 Polyvinyl Alcohol (POLYVINYL ALCOHOL) 15 Ml Drops, 1-2 GTT OP BID Y for DRY EYE 12/22/16 Cyclosporine (RESTASIS) 1 Each Droperette, 1 EACH OP BID 12/22/16 Guaifenesin (Guaifenesin ER) 600 Mg Tab.er.12h, 400 MG PO TID Y for CONGESTION 01/29/16 Hydrocodone/Acetaminophen (Lortab 7.5-325 mg Tablet) 1 Each Tablet, 1 TAB PO Q4H Y for PAIN 01/29/16 Insulin Human Isophan/Regular (HUMULIN 70-30 VIAL) 100 Unit/Ml Vial, 60 UNIT SUBQ QHS, VIAL 01/18/14 Discontinued Scripts Vancomycin/0.9 % Sod Chloride (Vanco 1.5 gm/250 ml-0.9% NaCl) 1.5 Gram/250 Ml Plast..bag, 1.5 GM IV Q24H for 10 Days, BAG Prov:NORBERTO OBREGON MD 12/22/16 Piperacillin Sodium/Tazobactam (ZOSYN 2.25 GRAM VIAL) 2.25 Gm Vial, 2.25 GM IV Q6H for 10 Days, VIAL Prov:NORBERTO OBREGON MD 12/22/16 Enoxaparin Sodium (LOVENOX) 40 Mg/0.4 Ml Disp.syrin, 40 MG SC Q24H for 30 Days, Prov:NORBERTO OBREGON MD 12/22/16 Furosemide (LASIX) 40 Mg Tablet, 3 TAB PO DAILY for 30 Days, TAB Currently holding Lasix Prov:NORBERTO OBREGON MD 12/22/16 Reviewed Nurses Notes: Yes Old Medical Records Reviewed: Yes Hx Smoking: Yes Smoking Status: Former Smoker Exposure to Second Hand Smoke?: No Hx Substance Use Disorder: No Hx Alcohol Use: No Constitutional Vital Sign - Last 24 Hours 07/28/17 07/28/17 07/28/17 07/28/17 22:56 23:06 23:09 23:11 Temp 98.6 Pulse ??? 63 60 Resp 24 B/P (MAP) 161/62 (95) 161/62 Pulse Ox 97 98 O2 Delivery Nasal Cannula 07/28/17 07/28/17 07/28/17 07/28/17 23:26 23:32 23:41 23:42 Pulse 61 54 Resp 75 B/P (MAP) 162/69 (100) Pulse Ox 97 100 O2 Flow Rate 4.0 07/28/17 07/28/17 07/28/17 07/28/17 23:45 23:45 23:56 23:57 Pulse 58 59 55 Resp 16 8 16 Pulse Ox 98 96 O2 Delivery Nasal Cannula O2 Flow Rate 4.0 07/29/17 07/29/17 07/29/17 07/29/17 00:00 00:11 00:26 00:30 Pulse 57 59 Resp 6 7 B/P (MAP) 162/69 (100) 160/72 (101) Pulse Ox 96 97 07/29/17 07/29/17 07/29/17 07/29/17 00:45 01:00 01:15 01:30 Pulse 61 54 60 61 Resp 20 10 10 16 B/P (MAP) 150/63 (92) 157/67 (97) Pulse Ox 97 97 98 96 07/29/17 07/29/17 07/29/17 01:45 02:30 02:35 Pulse 56 55 Resp 16 23 B/P (MAP) 174/60 (98) Pulse Ox 97 95 Physical Exam Vital signs stable, afebrile, pulse ox normal on his baseline O2 of 5 liters General Appearance: The patient is alert, has no immediate need for airway protection and no current signs of toxicity. Skin warm, dry, pink, alert and oriented HEENT: Pupils equal and round no injection. Oropharynx without redness or exudate, mucous. Membranes are moist Respiratory: Chest is non tender, faint expiratory wheezing throughout all lung love, no rales or rhonchi noted Cardiac: regular rate and rhythm Gastrointestinal: Abdomen is soft and non tender, no masses, bowel sounds normal. Musculoskeletal: Neck: Neck is supple and non tender. No JVD, no lymphadenopathy Extremities have full range of motion and are non tender. 2+ chronic edema bilaterally, unchanged from previous exam. 3 days ago. There are dressings on his left foot with serosanguineous drainage. Skin: No rashes or lesions. DIFFERENTIAL DIAGNOSIS: After history and physical exam differential diagnosis was considered for weakness including but not limited to electrolyte abnormality , depression, anxiety, CVA, spinal cord abnormality, and infectious causes. Medical Decision Making Data Points Result Diagram: 07/28/17232907/28/17 2330 Laboratory Hematology Test 07/28/17 23:30 Red Blood Count 3.95 M/uL (4.00-5.60) Mean Corpuscular Volume 91.6 fL (80.0-96.0) Mean Corpuscular Hemoglobin 30.5 pg (26.0-33.0) Mean Corpuscular Hemoglobin Concent 33.3 g/dL (32.0-36.0) Red Cell Distribution Width 13.7 % (11.5-14.5) Mean Platelet Volume 6.7 fL (7.2-11.1) Neutrophils (%) (Auto) 52.7 % (39.4-72.5) Lymphocytes (%) (Auto) 33.0 % (17.6-49.6) Monocytes (%) (Auto) 11.1 % (4.1-12.4) Eosinophils (%) (Auto) 2.4 % (0.4-6.7) Basophils (%) (Auto) 0.8 % (0.3-1.4) Nucleated RBC Relative Count (auto) 0.1 /100WBC Neutrophils # (Auto) 2.8 K/uL (2.0-7.4) Lymphocytes # (Auto) 1.8 K/uL (1.3-3.6) Monocytes # (Auto) 0.6 K/uL (0.3-1.0) Eosinophils # (Auto) 0.1 K/uL (0.0-0.5) Basophils # (Auto) 0.0 K/uL (0.0-0.1) Nucleated RBC Absolute Count (auto) 0.00 K/uL Sodium Level 138 mmol/L (137-145) Potassium Level 4.3 mmol/L (3.5-5.0) Chloride Level 99 mmol/L (98-107) Carbon Dioxide Level 31 mmol/L (22-30) Blood Urea Nitrogen 25 mg/dl (9-21) Creatinine 1.70 mg/dl (0.66-1.25) Glomerular Filtration Rate Calc 38.5 Random Glucose 74 mg/dl (75-110) Calcium Level 8.3 mg/dl (8.4-10.2) Total Bilirubin 0.2 mg/dl (0.2-1.3) Aspartate Amino Transf (AST/SGOT) 29 U/L (0-35) Alanine Aminotransferase (ALT/SGPT) 34 U/L (0-56) Alkaline Phosphatase 74 U/L (0-126) Troponin I < 0.012 ng/ml B-Type Natriuretic Peptide 68 pg/ml (0-100) Total Protein 5.7 gm/dl (6.3-8.2) Albumin 2.9 g/dl (3.5-5.0) Chemistry Test 07/28/17 23:30 White Blood Count 5.3 k/uL (4.5-11.0) Red Blood Count 3.95 M/uL (4.00-5.60) Hemoglobin 12.1 g/dL (14.0-18.0) Hematocrit 36.2 % (42.0-52.0) Mean Corpuscular Volume 91.6 fL (80.0-96.0) Mean Corpuscular Hemoglobin 30.5 pg (26.0-33.0) Mean Corpuscular Hemoglobin Concent 33.3 g/dL (32.0-36.0) Red Cell Distribution Width 13.7 % (11.5-14.5) Platelet Count 173 K/uL (150-450) Mean Platelet Volume 6.7 fL (7.2-11.1) Neutrophils (%) (Auto) 52.7 % (39.4-72.5) Lymphocytes (%) (Auto) 33.0 % (17.6-49.6) Monocytes (%) (Auto) 11.1 % (4.1-12.4) Eosinophils (%) (Auto) 2.4 % (0.4-6.7) Basophils (%) (Auto) 0.8 % (0.3-1.4) Nucleated RBC Relative Count (auto) 0.1 /100WBC Neutrophils # (Auto) 2.8 K/uL (2.0-7.4) Lymphocytes # (Auto) 1.8 K/uL (1.3-3.6) Monocytes # (Auto) 0.6 K/uL (0.3-1.0) Eosinophils # (Auto) 0.1 K/uL (0.0-0.5) Basophils # (Auto) 0.0 K/uL (0.0-0.1) Nucleated RBC Absolute Count (auto) 0.00 K/uL Glomerular Filtration Rate Calc 38.5 Calcium Level 8.3 mg/dl (8.4-10.2) Total Bilirubin 0.2 mg/dl (0.2-1.3) Aspartate Amino Transf (AST/SGOT) 29 U/L (0-35) Alanine Aminotransferase (ALT/SGPT) 34 U/L (0-56) Alkaline Phosphatase 74 U/L (0-126) Troponin I < 0.012 ng/ml B-Type Natriuretic Peptide 68 pg/ml (0-100) Total Protein 5.7 gm/dl (6.3-8.2) Albumin 2.9 g/dl (3.5-5.0) EKG/Imaging EKG Interpretation 12 lead EK Rhythm: Sinus bradycardia with first-degree AV block [place]: Left axis deviation QRS: normal ST segments: normal, comparison to previous EKG dated 07/23/16, no significant morphologic change. Previous rate was noted in the 90s Imaging X-ray: Single view portable chest x-ray was obtained. I viewed the images myself on the PACS system. My interpretation of the images is: Clear lung love, atelectasis left base, comparison to previous film 07/24/17, no significant change. The radiologist interpretation had no clinically significant variation from this interpretation. Results: CT scan of the head was obtained. The results of the study are Head CT scan without contrast COMPARISONS: January 17, 2014 HISTORY: Weakness, dizziness TECHNIQUE: Non-contrast head CT was performed with sagittal and coronal reformations. One of the following dose optimization techniques was utilized in the performance of this exam: automated exposure control; adjustment of the mA and/ or kV according to patient size; or use of iterative reconstruction technique. Specific details can be referenced in the facility's radiology CT exam operational policy. FINDINGS: There is no intracranial hemorrhage, hydrocephalus or midline shift. The basal cisterns, petty-white differentiation, and convexity sulci are maintained. Vascular calcifications noted. Cataract postsurgical change. Mild patchy white matter hypoattenuation. Clear mastoid air cells. Small focal dural calcification versus focal hyperostosis in the right lateral temporal region. Trace bilateral maxillary sinus fluid. Ethmoid sinus and left frontal sinus mucosal thickening. No acute osseous abnormality. Left frontal scalp dense sebaceous cyst noted. IMPRESSION: 1. No acute intracranial abnormality. 2. Mild chronic small vessel ischemic change. 3. Ethmoid and left frontal sinus mucosal thickening and trace bilateral maxillary sinus fluid. The study was read by the radiologist. I viewed the images myself on the PACS system. ED Course/Re-evaluation Clinical Indication for ER IV: Hydration, IV Access ED Course Patient was admitted to an examination room and H&P was done. The dental diagnoses was considered. Patient complaining of continued weakness. He has brief periods of disorientation of unclear etiology. Tonight his blood sugar was slightly low at 74. He was given apple juice. His glucose was rechecked at 84. There were no significant improvement of his mental status. I do not think that this is the etiology. Patient has influenza B. He is been taking Tamiflu as prescribed. Remainder of his diagnostic studies are unremarkable. Chest x-ray is clear. EKG is unremarkable. Head CT is performed. She is negative as well. 07/29/2017 12:51:50 am case discussed with Dr. Young Garcia hospitalist on- call, who will evaluate the patient and consider admission. Decision to Disposition Date: Jul 29, 2017 Decision to Disposition Time: 00:17 Depart Departure Latest Vital Signs Vital Signs Date Time Temp Pulse Resp B/P (MAP) Pulse Ox O2 Delivery O2 Flow Rate FiO2 07/29/17 02:35 55 23 95 07/29/17 02:30 174/60 (98) 07/28/17 23:45 Nasal Cannula 4.0 07/28/17 23:09 98.6 Impression: Primary Impression: Weakness Additional Impressions: Altered mental status Influenza B COPD exacerbation Hypoglycemia Condition: Improved Disposition: Admitted from ER Problem Qualifiers Additional Impressions: Altered mental status Altered mental status type: disorientation Qualified Codes: R41.0 - Disorientation, unspecified LIYA HERNANDEZ DO Jul 28, 2017 23:06
[2017-07-28] MEDS ORDERED: NS(*) 0.9% 500 ML BAG 500 ML IV ONE (23:16)
[2017-07-28] MEDS ORDERED: ALBUTEROL/IPRATROPIUM 3 ML NEB NEB ONE (23:20)
[2017-07-28 23:45] LABS: PLATELET COUNT, AUTOMATED 173 K/uL (150-450)
--- NOTE | 2017-07-29 00:13 | RADIOLOGY IMAGING REPORT ---
FACILITY: [facility] [place] PATIENT NAME: Rizwan Huertas : 1930 MR: [id number] V: [id number] EXAM DATE: ORDERING PHYSICIAN: LIYA HERNANDEZ TECHNOLOGIST: Location: [facility] Patient: Rizwan Huertas : 1930 Visit/Account:[id number] Date of Sevice: 07/28/2017 SINGLE AP RADIOGRAPH OF THE CHEST 07/28/2017 11:47 PM. INDICATION: Respiratory distress. COMPARISON: 07/24/2017. FINDINGS: Mild elevation of the left hemidiaphragm similar to prior. Mild streaky left basilar opacification i s also similar to prior, likely scarring/atelectasis. No pleural effusion or pneumothorax. Heart size is normal. IMPRESSION: No acute abnormality or significant change. Report Dictated By: Eugene Sutton MD at 07/29/2017 12:08 AM Report E-Signed By: Eugene Sutton MD at 07/29/2017 12:09 AM WSN:[id number]
--- NOTE | 2017-07-29 00:36 | EKG ---
[facility] PATIENT NAME: YUMIKO MONIQUE : [id number] MR: [id number] V: [id number] EXAM DATE: ORDERING PHYSICIAN: LIYA HERNANDEZ TECHNOLOGIST: TIMA Test Reason : DYSPNEA, WEAKNESS Blood Pressure : / mmHG Vent. Rate : 055 BPM Atrial Rate : 055 BPM P-R Int : 384 ms QRS Dur : 106 ms QT Int : 432 ms P-R-T Axes : 041 -30 046 degrees QTc Int : 413 ms Sinus bradycardia with 1st degree AV block Left axis deviation Nonspecific ST findings Abnormal ECG Confirmed by NORBERTO OBREGON ([id number]) on 07/29/2017 2:00:24 PM Referred By: Confirmed By:NORBERTO OBREGON
[2017-07-29] MEDS ORDERED: ALBUTEROL 2.5 MG/3 ML NEB NEB PRN (01:35)
[2017-07-29] MEDS ORDERED: SALINE 0.65% NAS SPR 44 ML BTL ENA PRN (01:35)
[2017-07-29] MEDS ORDERED: INFLUENZA VIRUS VAC 0.5 ML SYR IM ONLY ONE (01:35)
--- NOTE | 2017-07-29 02:07 | History & Physical ---
History of Present Illness History of Present Illness 87yo male with PMHx significant for chronic lymphedema, type 2 DM, chronic renal failure and recent admission for influenza B who came to the ER for disorientation. Most of the history is from the [id number]. He was admitted 5 days ago and discharged 2 days ago on Tamiflu. Yesterday morning, he was a bit disorientated but improved throughout the day. Then last evening, he came to her door and said that something was wrong. They brought him to the ER. The patient reports that he has been having cough, chills and sweats at home. He reports that he doesn't feel like he can be taken care of at home the way he feels. The family hasn't noted any focal deficits. History Problems: (1) HTN (hypertension) Status: Chronic (2) Diabetic neuropathy Status: Chronic (3) Gout Status: Chronic (4) BPH (benign prostatic hyperplasia) Status: Chronic (5) Chronic acquired lymphedema Status: Chronic (6) CAD (coronary artery disease) Status: Chronic (7) Hypothyroid Status: Chronic Home Meds Active Scripts Oseltamivir Phosphate (Oseltamivir Phosphate) 30 Mg Capsule, 30 MG PO BID, #10 CAPSULE Prov:HILARIA BARRETO 07/27/17 Reported Medications Triamcinolone Acetonide 0.1% Cr 15 Gm Tube (TRIAMCINOLONE ACETONIDE 0.1% CREAM) 15 Gm Cream..g., 15 GM TP TID, TUBE 07/24/17 Sodium Chloride (SALINE NASAL SPRAY) 30 Ml [place], 2 SPRAY NS Q2H Y for CONGESTION, SPRAY 07/24/17 Lisinopril (LISINOPRIL) 10 Mg Tablet, 10 MG PO QDAY, TAB 07/24/17 Hum Insulin Nph/Reg Insulin Hm (NOVOLIN 70-30 100 UNIT/ML VIAL) 100 Unit/1 Ml Vial, 55 UNIT SQ BIDAC, VIAL 07/24/17 Hum Insulin Nph/Reg Insulin Hm (NOVOLIN 70-30 100 UNIT/ML VIAL) 100 Unit/1 Ml Vial, 70 UNIT SQ QAM, VIAL 07/24/17 Ammonium Lactate (Ammonium Lactate) 12 % Cream..g., 1 SHIV TOP BIDAC 07/24/17 Furosemide (FUROSEMIDE) 20 Mg Tablet, 3 TAB PO BID, TAB 07/24/17 Clobetasol Propionate 0.05% Lotion (CLOBETASOL PROPIONATE 0.05% LOTION) 59 Ml Lotion, 0 TP BID, BOT 01/29/16 Diphenhydramine Hcl (DIPHENHYDRAMINE HCL) 25 Mg Capsule, 25 MG PO BID Y for ITCHING, CAPSULE 01/29/16 Terazosin Hcl (TERAZOSIN HCL) 2 Mg Capsule, 2 MG PO BID, CAPSULE 01/29/16 Albuterol Sul Hfa 90 Mcg 8 Gm (VENTOLIN HFA 90 MCG 8 GM) 8.5 Gm Hfa.aer.ad, 1-2 PUFF IH Q3-4H Y for SHORTNESS OF BREATH 08/19/14 Ranitidine Hcl (ZANTAC) 150 Mg Tablet, 150 MG PO QHS 01/18/14 Levothyroxine Sodium (SYNTHROID) 125 Mcg Tablet, 125 MCG PO QDAY 01/18/14 Simvastatin (SIMVASTATIN) 40 Mg Tablet, 20 MG PO HS, TAB 01/18/14 Aspirin (ASPIRIN EC) 81 Mg Tablet.dr, 81 MG PO QDAY, TAB 01/18/14 Allopurinol (ZYLOPRIM 300 MG TAB (OR EQUIV)) 300 Mg Tab, 300 MG PO DAILY, TAB 01/18/14 Gabapentin (GABAPENTIN) 300 Mg Capsule, 600 MG PO DAILY, CAPSULE 2 CAPS AM AND 1 CAP HS 01/18/14 Discontinued Reported Medications Acetaminophen With Codeine # 3 (TYLENOL WITH CODEINE #3 TABLET) 1 Each Tablet, 1 EACH PO QHS, TAB 01/18/14 Insulin NPH Hum/Reg Insulin Hm (Humulin 70-30 Vial) 100 Unit/Ml (70-30) Vial, 70 UNITS SQ DAILY 12/22/16 Polyvinyl Alcohol (POLYVINYL ALCOHOL) 15 Ml Drops, 1-2 GTT OP BID Y for DRY EYE 12/22/16 Cyclosporine (RESTASIS) 1 Each Droperette, 1 EACH OP BID 12/22/16 Guaifenesin (Guaifenesin ER) 600 Mg Tab.er.12h, 400 MG PO TID Y for CONGESTION 01/29/16 Hydrocodone/Acetaminophen (Lortab 7.5-325 mg Tablet) 1 Each Tablet, 1 TAB PO Q4H Y for PAIN 01/29/16 Insulin Human Isophan/Regular (HUMULIN 70-30 VIAL) 100 Unit/Ml Vial, 60 UNIT SUBQ QHS, VIAL 01/18/14 Discontinued Scripts Vancomycin/0.9 % Sod Chloride (Vanco 1.5 gm/250 ml-0.9% NaCl) 1.5 Gram/250 Ml Plast..bag, 1.5 GM IV Q24H for 10 Days, BAG Prov:NORBERTO OBREGON MD 12/22/16 Piperacillin Sodium/Tazobactam (ZOSYN 2.25 GRAM VIAL) 2.25 Gm Vial, 2.25 GM IV Q6H for 10 Days, VIAL Prov:NORBERTO OBREGON MD 12/22/16 Enoxaparin Sodium (LOVENOX) 40 Mg/0.4 Ml Disp.syrin, 40 MG SC Q24H for 30 Days, Prov:NORBERTO OBREGON MD 12/22/16 Furosemide (LASIX) 40 Mg Tablet, 3 TAB PO DAILY for 30 Days, TAB Currently holding Lasix Prov:NORBERTO OBREGON MD 12/22/16 Allergies: Coded Allergies: No Known Drug Allergies (Unverified , 07/28/17) Patient History: FH: cancer Hx Smoking: Yes Smoking Status: Former Smoker Exposure to Second Hand Smoke?: No Caffeine Intake: Soda Caffeine/Cups Per Day: 2-3 Hx Alcohol Use: No Hx Substance Use Disorder: No Review of Systems All Systems Reviewed/Normal: Yes, Except as Noted Exam Vital Signs Vital Signs Date Time Temp Pulse Resp B/P (MAP) Pulse Ox O2 Delivery O2 Flow Rate FiO2 07/28/17 23:57 55 16 07/28/17 23:45 98 Nasal Cannula 4.0 07/28/17 23:09 98.6 161/62 General Appearance: Alert, Awake, No Acute Distress Neuro: No Gross deficits, Other (He is slow to answer questions. He knows where he is, why he is here, the month and year. 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 No S1 or S2 audible) Respiratory: Clear to Auscultation GI: Other (Soft, non-distended. He reports diffuse tenderness with palpation, but it isn't reproducible. Hypoactive BS.) Extremities: Edema (He has nylons over the wraps. No soaking noted in the wrap. ) Medical Decision Making Data Points Result Diagram: 07/28/17232907/28/172329 Item Value Date Time White Blood Count 5.3 k/uL 07/28/172329 Neutrophils (%) (Auto) 52.7 % 07/28/172329 Lymphocytes (%) (Auto) 33.0 % 07/28/172329 Creatinine 1.90 mg/dl H 07/27/17 0529 Creatinine 1.70 mg/dl H 07/26/17 0533 Whole Blood Glucose 93 mg/DL 07/26/17 0745 Whole Blood Glucose 118 mg/DL H 07/26/17 1147 Whole Blood Glucose 115 mg/DL H 07/26/17 1625 Whole Blood Glucose 65 mg/DL L 07/26/172020 Random Glucose 61 mg/dl L 07/27/17 0529 Calcium Level 8.3 mg/dl L 07/28/172329 Total Bilirubin 0.2 mg/dl 07/28/172329 Aspartate Amino Transf (AST/SGOT) 29 U/L 07/28/172329 Alanine Aminotransferase (ALT/SGPT) 34 U/L 07/28/172329 Alkaline Phosphatase 74 U/L 07/28/172329 Creatinine 1.70 mg/dl H 07/28/172329 B-Type Natriuretic Peptide 68 pg/ml 07/28/172329 Troponin I < 0.012 ng/ml 07/28/172329 EKG / Imaging EKG Interpretation sinus arianne with 1st deg AV block. No obvious ST abnormalities. Imaging Head CT - pending CXR - No acute abnormality or significant change. Assessment and Plan Problems: (1) Altered mental status Status: Acute Assessment & Plan: It is difficult to discern if he is at his baseline. He knows where he is and why he is here. He also knows the date. His family is concerned that he is more confused. His labs appear at baseline. He has a non- focal exam. Will get a head CT. Will stop Tamiflu. (2) Influenza B Status: Acute Assessment & Plan: Tamiflu to be stopped for concern of causing "disorientation ". He will be in droplet isolation. (3) Type 2 diabetes mellitus Status: Chronic Assessment & Plan: His glucose is 74, which his family is concerned is low. The patient was that low during his previous admission without problems. Will hold the NPH for now and follow glucose AC and HS with SSI level 2 to cover. (4) Chronic acquired lymphedema Status: Chronic Assessment & Plan: He hasn't had his compression wraps or nylon changed since discharge. There is no obvious seepage through the dressing. He is afebrile and has a normal WBC. I can see through the nylon to the toes that don't appear cellulitic. Because of the extensive wraps and dressings, will ask PT to reevaluate the wraps and chronic wounds. Continue Lasix bid. (5) Diabetic neuropathy Status: Chronic Assessment & Plan: Continue gabapentin. (6) CAD (coronary artery disease) Status: Chronic Assessment & Plan: Continue ASA and simvastatin. (7) HTN (hypertension) Status: Chronic Assessment & Plan: Continue lisinopril with parameters. (8) BPH (benign prostatic hyperplasia) Status: Chronic Assessment & Plan: Continue terazosin. (9) Chronic kidney disease (CKD) stage G3b/A1, moderately decreased glomerular filtration rate (GFR) between 30-44 mL/min/1.73 square meter and albuminuria creatinine ratio less than 30 mg/g Status: Chronic Assessment & Plan: Baseline creatinine is 1.7-2.1. Will follow. Copies to: [facility] Venous Thromboembolism Antithrombotics Is Pt On Any Antithrombotics?: No Exam Sepsis Risk: No Definite Risk Problem Qualifiers (1) Altered mental status: Altered mental status type: disorientation Qualified Codes: R41.0 - Disorientation, unspecified SALVADOR GUEVARA MD Jul 29, 2017 02:07
--- NOTE | 2017-07-29 02:25 | RADIOLOGY IMAGING REPORT ---
FACILITY: [facility] [place] PATIENT NAME: Rizwan Huertas : 1930 MR: [id number] V: [id number] EXAM DATE: ORDERING PHYSICIAN: LIYA HERNANDEZ TECHNOLOGIST: Location: [facility] [place] Patient: Rizwan Huertas : 1930 Visit/Account:[id number] Date of Sevice: 07/29/[address] scan without contrast COMPARISONS: January 17, 2014 HISTORY: Weakness, dizziness TECHNIQUE: Non-contrast head CT was performed with sagittal and coronal reformations. One of the following dose optimization techniques was utilized in the performance of this exam: autom ated exposure control; adjustment of the mA and/or kV according to patient size; or use of iterative reconstruction technique. Specific details can be referenced in the facility's radiology CT exam ope rational policy. FINDINGS: There is no intracranial hemorrhage, hydrocephalus or midline shift. The basal cisterns, petty-white differentiation, and convexity sulci are maintained. Vascular calcifications noted. Cataract postsurg ical change. Mild patchy white matter hypoattenuation. Clear mastoid air cells. Small focal dural calcification versus focal hyperostosis in the right later al temporal region. Trace bilateral maxillary sinus fluid. Ethmoid sinus and left frontal sinus mucos al thickening. No acute osseous abnormality. Left frontal scalp dense sebaceous cyst noted. IMPRESSION: 1. No acute intracranial abnormality. 2. Mild chronic small vessel ischemic change. 3. Ethmoid and left frontal sinus mucosal thickening and trace bilateral maxillary sinus fluid. Report Dictated By: Raúl Goldberg MD at 07/29/2017 2:17 AM Report E-Signed By: Raúl Goldberg MD at 07/29/2017 2:21 AM WSN:[id number]
[2017-07-29 03:06] VITALS: BP 153/57
[2017-07-29] MEDS: LEVOTHYROXINE SOD 0.125 MG TAB PO SCH (06:21)
[2017-07-29] MEDS: ACETAMINOPHEN 325 MG TAB PO PRN ×2 (06:21→22:27)
[2017-07-29 07:35] VITALS: BP 136/55
[2017-07-29] MEDS: FUROSEMIDE 20 MG TAB PO SCH ×2 (08:45→13:21)
[2017-07-29] MEDS: ALLOPURINOL 300 MG TAB PO SCH (08:45)
[2017-07-29] MEDS: TERAZOSIN HCL 1 MG CAP PO SCH ×2 (08:45→22:28)
[2017-07-29] MEDS: LISINOPRIL 10 MG TAB PO SCH (08:45)
[2017-07-29] MEDS: GABAPENTIN 300 MG CAP PO SCH (08:45)
[2017-07-29] MEDS: ENOXAPARIN 30 MG/0.3 ML SYR SC SCH ×2 (08:45→08:50)
[2017-07-29] MEDS: ASPIRIN 81 MG ENTERIC COATED PO SCH (08:45)
[2017-07-29 09:50] VITALS: Ht 180.3 cm; Wt 128.9 kg
--- NOTE | 2017-07-29 12:05 | Hospitalist Progress Note ---
Subjective Progress Notes Subjective He is awake and alert. He reports feeling improved as compared to yesterday. Physical Exam Vital Signs Date Time Temp Pulse Resp B/P (MAP) Pulse Ox O2 Delivery O2 Flow Rate FiO2 07/29/17 07:41 94 Nasal Cannula 3.5 07/29/17 07:35 98.4 48 20 136/55 (82) Intake and Output 07/30/17 07:00 Intake Total 120 ml Balance 120 ml Intake Oral 120 ml # Voids 1 General Appearance: Alert, Awake Cardiovascular: Regular Rate and Rhythm (distant tones systolic murmur) Respiratory: Other (diminished breath sounds bilaterally) Chest: No Tenderness GI: Soft and Non-Tender Extremities: Warm, Edema Integumentary: Other (both lower extremities dressed/no drainage noted) Psych: Alert & Oriented X3 Result Diagram: 07/28/17232907/28/172329 Assessment and Plan Problems: (1) Altered mental status Status: Acute Assessment & Plan: He now appears at his baseline. His family is concerned that he has been more confused. His labs appear at baseline. He has a non- focal exam. Head CT is unremarkable. We did stop Tamiflu, which may have contributed to his decline. (2) Influenza B Status: Acute Assessment & Plan: Tamiflu has been stopped for concern of causing "disorientation". He has not had any fever. He is in droplet isolation. (3) Type 2 diabetes mellitus Status: Chronic Assessment & Plan: He has had some mild hypoglycemia (mid-70s). We will hold the NPH for now and follow glucose AC and HS with SSI level 2 to cover. (4) Chronic acquired lymphedema Status: Chronic Assessment & Plan: He hasn't had his compression wraps or nylon changed since discharge. There is no drainage through the dressing. He is afebrile and has a normal WBC. Will have PT reevaluate the wraps and chronic wounds. Continue Lasix. (5) Diabetic neuropathy Status: Chronic Assessment & Plan: Continue gabapentin. (6) CAD (coronary artery disease) Status: Chronic Assessment & Plan: Continue ASA and simvastatin. (7) HTN (hypertension) Status: Chronic Assessment & Plan: Continue lisinopril with parameters. (8) BPH (benign prostatic hyperplasia) Status: Chronic Assessment & Plan: Continue terazosin. (9) Chronic kidney disease (CKD) stage G3b/A1, moderately decreased glomerular filtration rate (GFR) between 30-44 mL/min/1.73 square meter and albuminuria creatinine ratio less than 30 mg/g Status: Chronic Assessment & Plan: Baseline creatinine is 1.7-2.1 and is 1.7 today. Will follow. Exam Sepsis Risk: No Definite Risk Problem Qualifiers (1) Altered mental status: Altered mental status type: disorientation Qualified Codes: R41.0 - Disorientation, unspecified NORBERTO OBREGON MD Jul 29, 2017 12:05
[2017-07-29 15:17] VITALS: BP 154/68
[2017-07-29 19:59] VITALS: BP 156/67
[2017-07-29] MEDS: RANITIDINE HCL 150 MG TAB PO SCH (22:27)
[2017-07-29] MEDS: SIMVASTATIN 40 MG TAB PO SCH (22:27)
[2017-07-29] MEDS: INSULIN HUM LISPRO 100 UN/ML 3 ML VIAL SUBQ PRN (22:30)
[2017-07-29 23:19] VITALS: BP 166/67
[2017-07-30 03:24] VITALS: BP 164/77
[2017-07-30] MEDS: LEVOTHYROXINE SOD 0.125 MG TAB PO SCH (05:56)
[2017-07-30] MEDS: ACETAMINOPHEN 325 MG TAB PO PRN (05:56)
[2017-07-30 06:16] LABS: PLATELET COUNT, AUTOMATED 181 K/uL (150-450)
[2017-07-30 08:11] VITALS: BP 171/68
[2017-07-30] MEDS: ASPIRIN 81 MG ENTERIC COATED PO SCH (08:15)
[2017-07-30] MEDS: LISINOPRIL 10 MG TAB PO SCH (08:15)
[2017-07-30] MEDS: GABAPENTIN 300 MG CAP PO SCH (08:15)
[2017-07-30] MEDS: ENOXAPARIN 30 MG/0.3 ML SYR SC SCH (08:16)
[2017-07-30] MEDS: TERAZOSIN HCL 1 MG CAP PO SCH ×2 (08:16→21:18)
[2017-07-30] MEDS: FUROSEMIDE 20 MG TAB PO SCH ×2 (08:16→13:38)
[2017-07-30] MEDS: ALLOPURINOL 300 MG TAB PO SCH (08:16)
--- NOTE | 2017-07-30 09:52 | EKG ---
FACILITY: [facility] [place] PATIENT NAME: YUMIKO MONIQUE : [id number] MR: [id number] V: [id number] EXAM DATE: ORDERING PHYSICIAN: SALVADOR GUEVARA TECHNOLOGIST: KAITLIN Taveras Reason : BRADYCARDIA Blood Pressure : / mmHG Vent. Rate : 050 BPM Atrial Rate : 046 BPM P-R Int : 000 ms QRS Dur : 100 ms QT Int : 450 ms P-R-T Axes : 000 -21 038 degrees QTc Int : 410 ms Sinus bradycardia with a second degree AV block mobitz II No ST-T abnormalities Now with a second degree AV block mobitz II Confirmed by SALVADOR GUEVARA ([id number]) on 07/30/2017 4:05:11 PM Referred By: PAOLA Confirmed By:SALVADOR GUEVARA
[2017-07-30 11:02] VITALS: BP 165/63
[2017-07-30] MEDS: INSULIN HUM LISPRO 100 UN/ML 3 ML VIAL SUBQ PRN ×2 (11:38→16:40)
[2017-07-30 15:06] VITALS: BP 173/74
--- NOTE | 2017-07-30 16:13 | Hospitalist Progress Note ---
Subjective Progress Notes Subjective The patient is without any specific complaints. He had heart rates down to the low 30's overnight with 2 second pauses, per staff. Physical Exam Vital Signs Date Time Temp Pulse Resp B/P (MAP) Pulse Ox O2 Delivery O2 Flow Rate FiO2 07/30/17 15:06 98.1 55 20 173/74 (107) 96 Nasal Cannula 2.5 Intake and Output 07/31/17 07:00 Intake Total 0 ml Balance 0 ml Intake Oral 0 ml # Voids 3 General Appearance: Alert, Awake, No Acute Distress Neuro: Other (Slow to answer questions, but answers them appropriately. He knows where he is and why he is here) Cardiovascular: Other (Bradycardic) Result Diagram: 07/30/1753507/30/17535 Assessment and Plan Problems: (1) Altered mental status Status: Acute Assessment & Plan: He now appears at his baseline. His family is concerned that he has been more confused. His labs appear at baseline. He has a non- focal exam. Head CT is unremarkable. We did stop Tamiflu, which may have contributed to his decline. He has been bradycardic overnight. See below. (2) Bradycardia Status: Acute Assessment & Plan: He was noted to have heart rates down to the low 30's occasionally overnight. His BP has been stable and his mental status unchanged. BUN/Cr is at his baseline or better. ECG is c/w a new 2nd degree AV block Mobitz II. The patient baseline has a 1st AV block, and was not this bradycardic on his recent admission last week. Certainly, it could be from Tamiflu. I spoke with the patient about the potential need for a pacemaker and he refused. I spoke with the patient's son and he is coming to the hospital from [place] to speak with the patient. [facility] (3) Influenza B Status: Acute Assessment & Plan: Tamiflu has been stopped for concern of causing "disorientation". He has not had any fever. He is in droplet isolation. (4) Type 2 diabetes mellitus Status: Chronic Assessment & Plan: He has had some mild hypoglycemia (mid-70s). We are holding the NPH for now and following glucose AC and HS with SSI level 2 to cover. (5) Chronic acquired lymphedema Status: Chronic Assessment & Plan: Therapy is doing the dressing changes and applying the wraps. No concern for infection. Continue Lasix. (6) Diabetic neuropathy Status: Chronic Assessment & Plan: Continue gabapentin. (7) CAD (coronary artery disease) Status: Chronic Assessment & Plan: Continue ASA and simvastatin. (8) HTN (hypertension) Status: Chronic Assessment & Plan: Continue lisinopril with parameters. (9) BPH (benign prostatic hyperplasia) Status: Chronic Assessment & Plan: Continue terazosin. (10) Chronic kidney disease (CKD) stage G3b/A1, moderately decreased glomerular filtration rate (GFR) between 30-44 mL/min/1.73 square meter and albuminuria creatinine ratio less than 30 mg/g Status: Chronic Assessment & Plan: Baseline creatinine is 1.7-2.1 and is 1.5 today. Will follow. Exam Sepsis Risk: No Definite Risk Problem Qualifiers (1) Altered mental status: Altered mental status type: disorientation Qualified Codes: R41.0 - Disorientation, unspecified SALVADOR GUEVARA MD Jul 30, 2017 16:13
[2017-07-30 20:39] VITALS: BP 158/57
[2017-07-30] MEDS: SIMVASTATIN 40 MG TAB PO SCH (21:18)
[2017-07-30] MEDS: RANITIDINE HCL 150 MG TAB PO SCH (21:18)
[2017-07-30 22:35] VITALS: BP 161/62
[2017-07-31 03:23] VITALS: BP 134/109
[2017-07-31] MEDS: LEVOTHYROXINE SOD 0.125 MG TAB PO SCH (05:50)
[2017-07-31 07:32] VITALS: BP 156/69
[2017-07-31] MEDS: GABAPENTIN 300 MG CAP PO SCH (08:37)
[2017-07-31] MEDS: FUROSEMIDE 20 MG TAB PO SCH (08:37)
[2017-07-31] MEDS: ALLOPURINOL 300 MG TAB PO SCH (08:37)
[2017-07-31] MEDS: LISINOPRIL 10 MG TAB PO SCH (08:37)
[2017-07-31] MEDS: TERAZOSIN HCL 1 MG CAP PO SCH (08:37)
[2017-07-31] MEDS: ENOXAPARIN 30 MG/0.3 ML SYR SC SCH (08:38)
[2017-07-31] MEDS: ASPIRIN 81 MG ENTERIC COATED PO SCH (08:38)
--- NOTE | 2017-07-31 10:53 | Hospitalist Depart ---
Discharge Summary Reason for Hosp/Final Diag: (1) Altered mental status Status: Acute Hospital Course & Plan: He did present with altered mental status. His head CT was unremarkable. There was concern that Tamiflu was contributing to the confusion, this was discontinued. He mental status is now at baseline. (2) Bradycardia Status: Acute Hospital Course & Plan: He was noted to be bradycardic at times. He was noticed to have second degree type one block. His heart rate is now stable in the 50-60's and is asymptomatic. Pharmacy did not that Tamiflu can contribute to bradycardia. This medication was discontinued as above. He will follow up with cardiology as an outpatient. (3) Influenza B Status: Acute Hospital Course & Plan: He was diagnosed with Influenza type B during his last admission. Tamiflu was discontinued as noted above secondary to confusion. (4) Type 2 diabetes mellitus Status: Chronic Hospital Course & Plan: He did report taking 70-30 Insulin as an outpatient. This was held on admission secondary to hypoglycemia. His sugars were stable during admission. His 70-30 Insulin will be stopped and recommend further outpatient monitoring. (5) Chronic acquired lymphedema Status: Chronic Hospital Course & Plan: He is on chronic treatment with Lasix. (6) Diabetic neuropathy Status: Chronic Hospital Course & Plan: He is on chronic treatment with gabapentin. (7) CAD (coronary artery disease) Status: Chronic Hospital Course & Plan: He is on chronic treatment with ASA and simvastatin. (8) HTN (hypertension) Status: Chronic Hospital Course & Plan: He is on chronic treatment with lisinopril. (9) BPH (benign prostatic hyperplasia) Status: Chronic Hospital Course & Plan: He is on chronic treatment with terazosin. (10) Chronic kidney disease (CKD) stage G3b/A1, moderately decreased glomerular filtration rate (GFR) between 30-44 mL/min/1.73 square meter and albuminuria creatinine ratio less than 30 mg/g Status: Chronic Hospital Course & Plan: Baseline creatinine is 1.7-2.1 and is 1.5 yesterday. Departure Latest Vital Signs Vital Signs 07/31/17 07/31/17 07:32 07:36 Temp 98.4 Pulse 62 Resp 20 B/P (MAP) 156/69 (98) Pulse Ox 91 O2 Delivery Nasal Cannula O2 Flow Rate 3.0 Weight (Pounds): 284 Weight (Ounces): 2.0 Result Diagram: 07/30/17 0536 07/30/1736 Condition: Improved Discharge: Home, Self Care PT/OT Follow Up For: PT Evaluation and Treat, OT Evaluation and Treat Home Health RN Follow Up For: Nursing Assessment Discharge Instructions Home Meds Reported Medications Triamcinolone Acetonide 0.1% Cr 15 Gm Tube (TRIAMCINOLONE ACETONIDE 0.1% CREAM) 15 Gm Cream..g., 15 GM TP TID, TUBE 07/24/17 Sodium Chloride (SALINE NASAL SPRAY) 30 Ml [place], 2 SPRAY NS Q2H Y for CONGESTION, SPRAY 07/24/17 Lisinopril (LISINOPRIL) 10 Mg Tablet, 10 MG PO QDAY, TAB 07/24/17 Ammonium Lactate (Ammonium Lactate) 12 % Cream..g., 1 SHIV TOP BIDAC 07/24/17 Furosemide (FUROSEMIDE) 20 Mg Tablet, 3 TAB PO BID, TAB 07/24/17 Clobetasol Propionate 0.05% Lotion (CLOBETASOL PROPIONATE 0.05% LOTION) 59 Ml Lotion, 0 TP BID, BOT 01/29/16 Terazosin Hcl (TERAZOSIN HCL) 2 Mg Capsule, 2 MG PO BID, CAPSULE 01/29/16 Albuterol Sul Hfa 90 Mcg 8 Gm (VENTOLIN HFA 90 MCG 8 GM) 8.5 Gm Hfa.aer.ad, 1-2 PUFF IH Q3-4H Y for SHORTNESS OF BREATH 08/19/14 Ranitidine Hcl (ZANTAC) 150 Mg Tablet, 150 MG PO QHS 01/18/14 Levothyroxine Sodium (SYNTHROID) 125 Mcg Tablet, 125 MCG PO QDAY 01/18/14 Simvastatin (SIMVASTATIN) 40 Mg Tablet, 20 MG PO HS, TAB 01/18/14 Aspirin (ASPIRIN EC) 81 Mg Tablet.dr, 81 MG PO QDAY, TAB 01/18/14 Allopurinol (ZYLOPRIM 300 MG TAB (OR EQUIV)) 300 Mg Tab, 300 MG PO DAILY, TAB 01/18/14 Gabapentin (GABAPENTIN) 300 Mg Capsule, 600 MG PO DAILY, CAPSULE 2 CAPS AM AND 1 CAP HS 01/18/14 Discontinued Reported Medications Hum Insulin Nph/Reg Insulin Hm (NOVOLIN 70-30 100 UNIT/ML VIAL) 100 Unit/1 Ml Vial, 55 UNIT SQ BIDAC, VIAL 07/24/17 Hum Insulin Nph/Reg Insulin Hm (NOVOLIN 70-30 100 UNIT/ML VIAL) 100 Unit/1 Ml Vial, 70 UNIT SQ QAM, VIAL 07/24/17 Diphenhydramine Hcl (DIPHENHYDRAMINE HCL) 25 Mg Capsule, 25 MG PO BID Y for ITCHING, CAPSULE 01/29/16 Acetaminophen With Codeine # 3 (TYLENOL WITH CODEINE #3 TABLET) 1 Each Tablet, 1 EACH PO QHS, TAB 01/18/14 Insulin NPH Hum/Reg Insulin Hm (Humulin 70-30 Vial) 100 Unit/Ml (70-30) Vial, 70 UNITS SQ DAILY 12/22/16 Polyvinyl Alcohol (POLYVINYL ALCOHOL) 15 Ml Drops, 1-2 GTT OP BID Y for DRY EYE 12/22/16 Cyclosporine (RESTASIS) 1 Each Droperette, 1 EACH OP BID 12/22/16 Guaifenesin (Guaifenesin ER) 600 Mg Tab.er.12h, 400 MG PO TID Y for CONGESTION 01/29/16 Hydrocodone/Acetaminophen (Lortab 7.5-325 mg Tablet) 1 Each Tablet, 1 TAB PO Q4H Y for PAIN 01/29/16 Insulin Human Isophan/Regular (HUMULIN 70-30 VIAL) 100 Unit/Ml Vial, 60 UNIT SUBQ QHS, VIAL 01/18/14 Discontinued Scripts Oseltamivir Phosphate (Oseltamivir Phosphate) 30 Mg Capsule, 30 MG PO BID, #10 CAPSULE Prov:HILARIA BARRETO DO 07/27/17 Vancomycin/0.9 % Sod Chloride (Vanco 1.5 gm/250 ml-0.9% NaCl) 1.5 Gram/250 Ml Plast..bag, 1.5 GM IV Q24H for 10 Days, BAG Prov:NORBERTO OBREGON MD 12/22/16 Piperacillin Sodium/Tazobactam (ZOSYN 2.25 GRAM VIAL) 2.25 Gm Vial, 2.25 GM IV Q6H for 10 Days, VIAL Prov:NORBERTO OBREGON MD 12/22/16 Enoxaparin Sodium (LOVENOX) 40 Mg/0.4 Ml Disp.syrin, 40 MG SC Q24H for 30 Days, Prov:NORBERTO OBREGON MD 12/22/16 Furosemide (LASIX) 40 Mg Tablet, 3 TAB PO DAILY for 30 Days, TAB Currently holding Lasix Prov:NORBERTO OBREGON MD 12/22/16 Diet: Diabetic Activity: As Tolerated Venous Thromboembolism Antithrombotics Is Pt On Any Antithrombotics?: No [id number] Certification Face to Face Home Health Certification Institutional Provider conducted the [id number] encounter. Electronic Undersigning Physician Certifies Home Health. I certify that the patient has been under my care and that I had a [id number] encounter that meets the physician [id number] encounter requirements with this patient. This patient is home-bound due to safety issues and continues to require assistance with ADL's. I certify that based on my findings, that Nursing, Aides and the following Home Health services are medically necessary: Medical Necessity: Nursing, Rehab Date Face to Face Conducted: Jul 31, 2017 Problem Qualifiers (1) Altered mental status: Altered mental status type: disorientation Qualified Codes: R41.0 - Disorientation, unspecified (2) HTN (hypertension): Hypertension type: essential hypertension Qualified Codes: I10 - Essential ( primary) hypertension HILARIA BARRETO DO Jul 31, 2017 10:53
== END 2017-07-31 10:38 | disposition home health service (06) ==
LOC: ER 23:17 → INTOOBSV 07-29 02:45 → MED 07-29 02:45
PROVIDERS: ADMIT Internal Medicine; ATTEND Internal Medicine
DX: J11.1 Influenza due to unidentified influenza virus with other respiratory manifestations (principal); J44.1 Chronic obstructive pulmonary disease with (acute) exacerbation; E11.649 Type 2 diabetes mellitus with hypoglycemia without coma; F41.0 Panic disorder [episodic paroxysmal anxiety]; R53.1 Weakness; I44.0 Atrioventricular block, first degree; R00.1 Bradycardia, unspecified; I25.10 Atherosclerotic heart disease of native coronary artery without angina pectoris; I10 Essential (primary) hypertension; I89.0 Lymphedema, not elsewhere classified; E11.40 Type 2 diabetes mellitus with diabetic neuropathy, unspecified; N40.0 Benign prostatic hyperplasia without lower urinary tract symptoms; E11.22 Type 2 diabetes mellitus with diabetic chronic kidney disease; I12.9 Hypertensive chronic kidney disease with stage 1 through stage 4 chronic kidney disease, or unspecified chronic kidney disease; N18.3 Chronic kidney disease, stage 3 (moderate)
CPT/HCPCS: 36415; 36416; 70450; 71045; 81001; 82948; 83880; 84484; 85025; 87088; 93005; 94640; 96372; 97110; 97116; 97161; 97165; 97597; 99285; A9270; G0378; J1815; J7040; J7620; 82040; 82247; 82310; 82374; 82435; 82565; 82947; 84075; 84132; 84155; 84295; 84450; 84460; 84520; J1650

== ENCOUNTER 2017-08-17 22:57 | Inpatient (IN) | payer MEDICARE, OTHER ==
[~2017-08-17] VITALS: Ht 180.3 cm; Wt 129.8 kg
--- NOTE | 2017-08-18 00:33 | RADIOLOGY IMAGING REPORT ---
FACILITY: [facility] PATIENT NAME: Rizwan Huertas : 1930 MR: [id number] V: [id number] EXAM DATE: ORDERING PHYSICIAN: TONY JOHNSON TECHNOLOGIST: Location: [facility] Patient: Rizwan Huertas : 1930 Visit/Account:[id number] Date of Sevice: 08/17/2017 PORTABLE CHEST: Indication: Altered mental status and weakness. Technique: A single frontal film was obtained. Comparison: 07/28/2017 Skeletal and soft tissue structures: Intact and unremarkable. Heart and mediastinum: There is stable mild cardiomegaly. Lung love: Fairly well expanded. There are stable chronic interstitial changes. There is stable par enchymal scarring at the left base. No acute parenchymal process is clearly identified. Pleural spaces: Unremarkable and unchanged. Impression: No acute interval change. Report Dictated By: Matthew Luevano MD at 08/18/2017 12:27 AM Report E-Signed By: Matthew Luevano MD at 08/18/2017 12:29 AM WSN:[id number]
[2017-08-18 00:51] LABS: PLATELET COUNT, AUTOMATED 224 K/uL (150-450)
[2017-08-18 00:54] LABS: INR 1.25
--- NOTE | 2017-08-18 01:00 | ER Report ---
History and Physical Time Seen By MD: 00:57 (Initial time not accurate patient seen at time of arrival) Hx. of Stated Complaint: Family reports weakness. HPI/ROS Patient presents with significant generalized weakness and confusion. Patient's grandson states patient has been significantly weak all day and has gotten worse as the day progressed. He was scheduled be seen at the [facility] in [place] earlier today but he was so weak they were unable to get him into the car to transfer him there for his appointment. At one point he was found what I understand is lying on the couch somewhat confused with his oxygen off. Just prior to arrival he was requiring significant assistance to get up and get to the bathroom which is not his normal baseline. He also seems somewhat confused throughout the day. Apparently he's had no nausea or vomiting. Unclear in his urine output. He's got chronic lower extremity swelling with wraps and the grandson doesn't believe that the swelling is any significantly different or the redness that he notes. Patient has had no significant cough or shortness of breath. He is not complaining of a headache to his family but patient does tell me his had a little bit of a headache but he doesn't have one. History of present illness limited 2nd to patient's altered mental status. When I did obtain was obtained from family members. Allergies: Coded Allergies: No Known Drug Allergies (Unverified , 07/28/17) Home Meds Reported Medications Triamcinolone Acetonide 0.1% Cr 15 Gm Tube (TRIAMCINOLONE ACETONIDE 0.1% CREAM) 15 Gm Cream..g., 15 GM TP TID, TUBE 07/24/17 Sodium Chloride (SALINE NASAL SPRAY) 30 Ml [place], 2 SPRAY NS Q2H Y for CONGESTION, SPRAY 07/24/17 Lisinopril (LISINOPRIL) 10 Mg Tablet, 10 MG PO QDAY, TAB 07/24/17 Ammonium Lactate (Ammonium Lactate) 12 % Cream..g., 1 SHIV TOP BIDAC 07/24/17 Furosemide (FUROSEMIDE) 20 Mg Tablet, 3 TAB PO BID, TAB 07/24/17 Clobetasol Propionate 0.05% Lotion (CLOBETASOL PROPIONATE 0.05% LOTION) 59 Ml Lotion, 0 TP BID, BOT 01/29/16 Terazosin Hcl (TERAZOSIN HCL) 2 Mg Capsule, 2 MG PO BID, CAPSULE 01/29/16 Albuterol Sul Hfa 90 Mcg 8 Gm (VENTOLIN HFA 90 MCG 8 GM) 8.5 Gm Hfa.aer.ad, 1-2 PUFF IH Q3-4H Y for SHORTNESS OF BREATH 08/19/14 Ranitidine Hcl (ZANTAC) 150 Mg Tablet, 150 MG PO QHS 01/18/14 Levothyroxine Sodium (SYNTHROID) 125 Mcg Tablet, 125 MCG PO QDAY 01/18/14 Simvastatin (SIMVASTATIN) 40 Mg Tablet, 20 MG PO HS, TAB 01/18/14 Aspirin (ASPIRIN EC) 81 Mg Tablet.dr, 81 MG PO QDAY, TAB 01/18/14 Allopurinol (ZYLOPRIM 300 MG TAB (OR EQUIV)) 300 Mg Tab, 300 MG PO DAILY, TAB 01/18/14 Gabapentin (GABAPENTIN) 300 Mg Capsule, 600 MG PO DAILY, CAPSULE 2 CAPS AM AND 1 CAP HS 01/18/14 Past Medical/Surgical History Reviewed in EMR Reviewed Nurses Notes: Yes Old Medical Records Reviewed: Yes Social History of Was at home with family Hx Smoking: Yes Smoking Status: Former Smoker Exposure to Second Hand Smoke?: No Hx Substance Use Disorder: No Hx Alcohol Use: No Constitutional Vital Sign - Last 24 Hours 08/17/17 08/17/17 08/17/17 08/17/17 23:09 23:11 23:12 23:20 Temp 98.8 Pulse 66 66 Resp 16 17 B/P (MAP) 112/52 112/42 (65) 113/82 (92) Pulse Ox 92 92 O2 Delivery Nasal Cannula 08/17/17 08/17/17 08/17/17 08/18/17 23:27 23:42 23:57 00:00 Pulse 65 64 63 Resp 22 10 B/P (MAP) 119/46 (70) Pulse Ox 92 92 08/18/17 08/18/17 08/18/17 08/18/17 00:05 00:20 00:25 00:54 Pulse 63 63 64 Resp 6 16 21 B/P (MAP) 110/44 (66) Pulse Ox 93 93 93 08/18/17 08/18/17 08/18/17 08/18/17 01:00 01:05 01:20 01:37 Pulse ??? B/P (MAP) 106/40 (62) ???/??? (1517) 99/37 (57) Pulse Ox 91 08/18/17 08/18/17 08/18/17 08/18/17 01:40 01:47 01:50 02:00 Pulse 61 Resp 25 B/P (MAP) 100/39 (59) 100/43 (62) 97/52 (67) Pulse Ox 94 08/18/17 08/18/17 08/18/17 08/18/17 02:05 02:20 02:23 02:35 Pulse 59 61 63 Resp 10 B/P (MAP) 65/51 (56) 113/51 (71) Pulse Ox 94 94 93 Physical Exam Physical exam: Vital signs noted. General: Patient alert [and in no acute distress]. Appears somewhat ill. Skin: Warm, dry marked erythema and edema bilateral lower extremities no noted warmth. Lower extremities when wrapped mild drainage noted in the wrapping the left lower extremity but no obvious purulent discharge or drainage noted.. Head: [Normocephalic, atraumatic]. Eye: [Normal conjunctiva]. ENMT: [Oral mucosa moist, no pharyngeal erythema or exudate]. Neck: [Supple, trachea midline]. Cardiovascular: [Regular rate and rhythm without gallops murmurs or rubs.]. Respiratory: [Lungs clear to auscultation bilaterally with nonlabored respirations. Breath sounds are equal with symmetric expansion]. Gastrointestinal: [Abdomen soft, nontender. Normal bowel sounds with no organomegaly. No guarding or rebound]. Musculoskeletal: Moves all extremities equally. Marked edema in the lower extremities no focal unilateral weakness. Neurologic: Patient is alert oriented to person and place but can't give me the exact date. No focal neurologic abnormalities. Cranial nerves grossly intact Psychiatric: Patient is cooperative with a somewhat flat affect Medical Decision Making Data Points Result Diagram: 08/18/17 0015 08/18/17 0015 Laboratory Hematology Test 08/18/17 00:15 Red Blood Count 3.85 M/uL (4.00-5.60) Mean Corpuscular Volume 92.0 fL (80.0-96.0) Mean Corpuscular Hemoglobin 30.4 pg (26.0-33.0) Mean Corpuscular Hemoglobin Concent 33.0 g/dL (32.0-36.0) Red Cell Distribution Width 14.3 % (11.5-14.5) Mean Platelet Volume 7.9 fL (7.2-11.1) Neutrophils (%) (Auto) 83.0 % (39.4-72.5) Lymphocytes (%) (Auto) 10.2 % (17.6-49.6) Monocytes (%) (Auto) 6.3 % (4.1-12.4) Eosinophils (%) (Auto) 0.1 % (0.4-6.7) Basophils (%) (Auto) 0.4 % (0.3-1.4) Nucleated RBC Relative Count (auto) 0.0 /100WBC Neutrophils # (Auto) 22.1 K/uL (2.0-7.4) Lymphocytes # (Auto) 2.7 K/uL (1.3-3.6) Monocytes # (Auto) 1.7 K/uL (0.3-1.0) Eosinophils # (Auto) 0.0 K/uL (0.0-0.5) Basophils # (Auto) 0.1 K/uL (0.0-0.1) Nucleated RBC Absolute Count (auto) 0.00 K/uL Peripheral Blood Smear Yes Y/N Prothrombin Time 15.9 seconds (12.0-14.4) Prothromb Time International Ratio 1.25 Activated Partial Thromboplast Time 33 seconds (23-35) Sodium Level 136 mmol/L (137-145) Potassium Level 4.6 mmol/L (3.5-5.0) Chloride Level 100 mmol/L (98-107) Carbon Dioxide Level 25 mmol/L (22-30) Blood Urea Nitrogen 38 mg/dl (9-21) Creatinine 2.80 mg/dl (0.66-1.25) Glomerular Filtration Rate Calc 21.6 Random Glucose 246 mg/dl (75-110) Lactate 2.5 mmol/L (0.7-2.1) Calcium Level 8.6 mg/dl (8.4-10.2) Total Bilirubin 0.4 mg/dl (0.2-1.3) Aspartate Amino Transf (AST/SGOT) 23 U/L (0-35) Alanine Aminotransferase (ALT/SGPT) 26 U/L (0-56) Alkaline Phosphatase 68 U/L (0-126) Troponin I 2.250 ng/ml Total Protein 5.5 gm/dl (6.3-8.2) Albumin 2.8 g/dl (3.5-5.0) Chemistry Test 08/18/17 00:15 White Blood Count 26.6 k/uL (4.5-11.0) Red Blood Count 3.85 M/uL (4.00-5.60) Hemoglobin 11.7 g/dL (14.0-18.0) Hematocrit 35.5 % (42.0-52.0) Mean Corpuscular Volume 92.0 fL (80.0-96.0) Mean Corpuscular Hemoglobin 30.4 pg (26.0-33.0) Mean Corpuscular Hemoglobin Concent 33.0 g/dL (32.0-36.0) Red Cell Distribution Width 14.3 % (11.5-14.5) Platelet Count 224 K/uL (150-450) Mean Platelet Volume 7.9 fL (7.2-11.1) Neutrophils (%) (Auto) 83.0 % (39.4-72.5) Lymphocytes (%) (Auto) 10.2 % (17.6-49.6) Monocytes (%) (Auto) 6.3 % (4.1-12.4) Eosinophils (%) (Auto) 0.1 % (0.4-6.7) Basophils (%) (Auto) 0.4 % (0.3-1.4) Nucleated RBC Relative Count (auto) 0.0 /100WBC Neutrophils # (Auto) 22.1 K/uL (2.0-7.4) Lymphocytes # (Auto) 2.7 K/uL (1.3-3.6) Monocytes # (Auto) 1.7 K/uL (0.3-1.0) Eosinophils # (Auto) 0.0 K/uL (0.0-0.5) Basophils # (Auto) 0.1 K/uL (0.0-0.1) Nucleated RBC Absolute Count (auto) 0.00 K/uL Peripheral Blood Smear Yes Y/N Prothrombin Time 15.9 seconds (12.0-14.4) Prothromb Time International Ratio 1.25 Activated Partial Thromboplast Time 33 seconds (23-35) Glomerular Filtration Rate Calc 21.6 Lactate 2.5 mmol/L (0.7-2.1) Calcium Level 8.6 mg/dl (8.4-10.2) Total Bilirubin 0.4 mg/dl (0.2-1.3) Aspartate Amino Transf (AST/SGOT) 23 U/L (0-35) Alanine Aminotransferase (ALT/SGPT) 26 U/L (0-56) Alkaline Phosphatase 68 U/L (0-126) Troponin I 2.250 ng/ml Total Protein 5.5 gm/dl (6.3-8.2) Albumin 2.8 g/dl (3.5-5.0) Coagulation Test 08/18/17 00:15 Prothrombin Time 15.9 seconds Prothromb Time International Ratio 1.25 Activated Partial Thromboplast Time 33 seconds ED Course/Re-evaluation ED Course 87-year-old gentleman with generalized weakness and confusion. Afebrile at home and afebrile here. His denied any significant chest pain or shortness of breath. EKG without any acute changes. Labs show a elevated white count with left shift, acute on chronic renal insufficiency bump in his creatinine and a markedly elevated troponin. I don't believe at this time patient has any significant acute acute coronary syndrome or indications for thrombolytics emergent transfer to cardiology. Patient has chronic lower extremity redness and swelling in no obvious evidence of acute cellulitis or infection at this time. Chest x-ray clear without evidence of pneumonia. He did recently have influenza so not repeated today. Discussed with Dr. Hernández about possible antibiotics and without obvious source will often this time. Started IV fluids secondary to acute on chronic renal insufficiency and admitted in stable condition. Decision to Disposition Date: Aug 18, 2017 Decision to Disposition Time: 01:00 Depart Departure Latest Vital Signs Vital Signs Date Time Temp Pulse Resp B/P (MAP) Pulse Ox O2 Delivery O2 Flow Rate FiO2 08/18/17 02:35 63 10 93 08/18/17 02:23 113/51 (71) 08/17/17 23:09 98.8 Nasal Cannula Impression: Primary Impression: Acute on chronic renal insufficiency Additional Impressions: Confusion Generalized weakness Elevated troponin Condition: Improved Disposition: Admitted from ER Problem Qualifiers TONY JOHNSON MD Aug 18, 2017 01:00
[2017-08-18] MEDS ORDERED: NS(*) 0.9% 1000 ML BAG 1,000 ML IV ONE (02:10)
--- NOTE | 2017-08-18 03:21 | EKG ---
FACILITY: [facility] - [place] PATIENT NAME: YUMIKO MONIQUE : [id number] MR: [id number] V: [id number] EXAM DATE: ORDERING PHYSICIAN: TONY JOHNSON TECHNOLOGIST: TIMA Test Reason : WEAKNESS Blood Pressure : / mmHG Vent. Rate : 065 BPM Atrial Rate : 258 BPM P-R Int : 324 ms QRS Dur : 102 ms QT Int : 392 ms P-R-T Axes : 032 -24 040 degrees QTc Int : 407 ms Junctional rhythm Abnormal ECG When compared with ECG of 30-JUL-2017 09:29, Previous ECG has undetermined rhythm, needs review Confirmed by HILARIA BARRETO ([id number]) on 08/18/2017 4:13:56 AM Referred By: Confirmed By:HILARIA BARRETO
[2017-08-18 03:39] VITALS: BP 104/84
--- NOTE | 2017-08-18 03:39 | History & Physical ---
History of Present Illness Chief Complaint Altered mental status History of Present Illness This patient was brought to the emergency room after family found him disoriented and without his oxygen. It is believed that he was without oxygen for several hours through the night. The family put it back on him, but he remained confused so they brought him in for evaluation. This has been his third admission for similar symptoms in the last 2 months. History Problems: (1) CAD (coronary artery disease) Status: Chronic (2) Chronic acquired lymphedema Status: Chronic (3) COPD exacerbation Status: Chronic (4) Essential hypertension Status: Chronic (5) Chronic kidney disease (CKD) stage G3b/A1, moderately decreased glomerular filtration rate (GFR) between 30-44 mL/min/1.73 square meter and albuminuria creatinine ratio less than 30 mg/g Status: Chronic (6) BPH (benign prostatic hyperplasia) Status: Chronic (7) Type 2 diabetes mellitus Status: Chronic (8) Hypothyroid Status: Chronic (9) Stented coronary artery Status: Chronic (10) History of cholecystectomy Status: Resolved (11) History of appendectomy Status: Resolved (12) History of tonsillectomy Status: Resolved Home Meds Reported Medications Triamcinolone Acetonide 0.1% Cr 15 Gm Tube (TRIAMCINOLONE ACETONIDE 0.1% CREAM) 15 Gm Cream..g., 15 GM TP TID, TUBE 07/24/17 Sodium Chloride (SALINE NASAL SPRAY) 30 Ml [place], 2 SPRAY NS Q2H Y for CONGESTION, SPRAY 07/24/17 Lisinopril (LISINOPRIL) 10 Mg Tablet, 10 MG PO QDAY, TAB 07/24/17 Ammonium Lactate (Ammonium Lactate) 12 % Cream..g., 1 SHIV TOP BIDAC 07/24/17 Furosemide (FUROSEMIDE) 20 Mg Tablet, 3 TAB PO BID, TAB 07/24/17 Clobetasol Propionate 0.05% Lotion (CLOBETASOL PROPIONATE 0.05% LOTION) 59 Ml Lotion, 0 TP BID, BOT 01/29/16 Terazosin Hcl (TERAZOSIN HCL) 2 Mg Capsule, 2 MG PO BID, CAPSULE 01/29/16 Albuterol Sul Hfa 90 Mcg 8 Gm (VENTOLIN HFA 90 MCG 8 GM) 8.5 Gm Hfa.aer.ad, 1-2 PUFF IH Q3-4H Y for SHORTNESS OF BREATH 08/19/14 Ranitidine Hcl (ZANTAC) 150 Mg Tablet, 150 MG PO QHS 01/18/14 Levothyroxine Sodium (SYNTHROID) 125 Mcg Tablet, 125 MCG PO QDAY 01/18/14 Simvastatin (SIMVASTATIN) 40 Mg Tablet, 20 MG PO HS, TAB 01/18/14 Aspirin (ASPIRIN EC) 81 Mg Tablet.dr, 81 MG PO QDAY, TAB 01/18/14 Allopurinol (ZYLOPRIM 300 MG TAB (OR EQUIV)) 300 Mg Tab, 300 MG PO DAILY, TAB 01/18/14 Gabapentin (GABAPENTIN) 300 Mg Capsule, 600 MG PO DAILY, CAPSULE 2 CAPS AM AND 1 CAP HS 01/18/14 Allergies: Coded Allergies: No Known Drug Allergies (Unverified , 07/28/17) Patient History: FH: cancer Hx Smoking: Yes Smoking Status: Former Smoker Exposure to Second Hand Smoke?: No Caffeine Intake: Soda Caffeine/Cups Per Day: 2-3 Hx Alcohol Use: No Hx Substance Use Disorder: No Review of Systems All Systems Reviewed/Normal: Yes, Except as Noted Neurological: Confusion, Weakness Exam Vital Signs Vital Signs Date Time Temp Pulse Resp B/P (MAP) Pulse Ox O2 Delivery O2 Flow Rate FiO2 08/18/17 03:39 97.9 57 20 104/84 (91) 99 Nasal Cannula 3.0 Neuro: No Gross deficits Eyes: PERRLA Cardiovascular: Regular Rate and Rhythm, No JVD Respiratory: Clear to Auscultation Extremities: Edema Integumentary: No Cyanosis Medical Decision Making Data Points Result Diagram: 08/18/17 0015 08/18/17 001 Item Value Date Time Lactate 2.5 mmol/L H 08/18/17 001 Item Value Date Time Troponin I 2.250 ng/ml *H 08/18/17 001 EKG / Imaging EKG Interpretation EKG reviewed. Imaging Chest x-ray reviewed. Assessment and Plan Problems: (1) Altered mental status Status: Acute Assessment & Plan: He did present with altered mental status. This is now his third admission since the beginning of the year with a similar presentation. He had a head CT during his last admission, and this was normal. His grandson reports that his mentation has improved since being back on oxygen and receiving IV fluids. (2) Elevated troponin Status: Acute Assessment & Plan: His initial troponin is elevated, but he had no complaints of chest pain and his EKG shows only nonspecific findings. He was off his oxygen for an extended period of time and also has renal failure. We will trend his troponin and continue his aspirin. (3) Generalized weakness Status: Acute Assessment & Plan: Physical and occupational therapy consults have been ordered. (4) Acute renal failure Assessment & Plan: He does have an acute rise in his creatinine above baseline. We are treating him with IV fluids and repeat chemistries are pending. (5) Bradycardia Status: Acute Assessment & Plan: He was noted to have bradycardia during his last admission and was scheduled to have a Holter monitor at the [facility] yesterday. He was unable to keep that appointment. (6) CAD (coronary artery disease) Status: Chronic Assessment & Plan: He is on chronic treatment with aspirin and simvastatin. (7) Essential hypertension Status: Chronic Assessment & Plan: He is on chronic treatment with lisinopril, which has been held secondary to renal failure. (8) Chronic acquired lymphedema Status: Chronic Assessment & Plan: He is on chronic treatment with Lasix, which has been held secondary to renal failure. (9) Hypothyroid Status: Chronic Assessment & Plan: He is on chronic treatment with Synthroid. A TSH was normal during his last admission. (10) Type 2 diabetes mellitus Status: Chronic Assessment & Plan: He had been on insulin, but this was stopped during his last admission secondary to hypoglycemia. His family reports that his sugars have been less than 200 without treatment. (11) BPH (benign prostatic hyperplasia) Status: Chronic Assessment & Plan: He is on chronic treatment with terazosin. Venous Thromboembolism Antithrombotics Is Pt On Any Antithrombotics?: No Exam Sepsis Risk: Severe Sepsis Risk HILARIA BARRETO DO Aug 18, 2017 03:39
[2017-08-18 07:18] LABS: PLATELET COUNT, AUTOMATED 214 K/uL (150-450)
[2017-08-18 07:43] VITALS: BP 120/53
[2017-08-18] MEDS: ALLOPURINOL 300 MG TAB PO SCH (08:30)
[2017-08-18] MEDS: ASPIRIN 81 MG ENTERIC COATED PO SCH (08:30)
[2017-08-18] MEDS: LEVOTHYROXINE SOD 0.125 MG TAB PO SCH (08:31)
[2017-08-18] MEDS: GABAPENTIN 300 MG CAP PO SCH (08:32)
[2017-08-18] MEDS: INSULIN HUM LISPRO 100 UN/ML 3 ML VIAL SUBQ PRN ×3 (08:33→20:44)
[2017-08-18] MEDS ORDERED: INFLUENZA VIRUS VAC 0.5 ML SYR IM ONLY ONE (09:00)
[2017-08-18] MEDS: CILASTATIN IVPB SCH ×3 (10:44→22:51)
[2017-08-18] MEDS: NS 0.9% IVPB SCH ×3 (10:44→22:51)
[2017-08-18] MEDS: IMIPENEM IVPB SCH ×3 (10:44→22:51)
[2017-08-18 10:55] VITALS: BP 128/46
[2017-08-18] MEDS ORDERED: VANCOMYCIN IVPB ONE (11:00)
[2017-08-18] MEDS ORDERED: [UNRECOGNIZED DRUG - OTHER] IVPB ONE (11:00)
--- NOTE | 2017-08-18 12:10 | Hospitalist Progress Note ---
Subjective Progress Notes Subjective He is without complaints, but staff report that he continues to not be very interactive. No problems overnight. Physical Exam Vital Signs Date Time Temp Pulse Resp B/P (MAP) Pulse Ox O2 Delivery O2 Flow Rate FiO2 08/18/17 10:55 97.8 64 26 128/46 (73) 95 Nasal Cannula 2.5 Intake and Output 08/19/17 07:00 Intake Total 800 ml Output Total 200 ml Balance 600 ml Intake Oral 800 ml Output Urine Total 200 ml General Appearance: Alert, Awake, No Acute Distress Neuro: Other (He answers simple questions, but not speaking much.) Extremities: Other (Left dorado and foot are erythematous and warm. He reports pain with squeezing of the right foot/dorado. Most caudal erythema border marked. ) Result Diagram: 08/18/17 0705 08/18/17 1106 Assessment and Plan Problems: (1) Cellulitis Status: Acute Assessment & Plan: He has erythema, warmth and it tender in the LLE. He has an elevated wbc with bandemia. BP/P stable. Primaxin and Vancomycin started. (2) Altered mental status Status: Acute Assessment & Plan: Likely, secondary to cellulitis. This is now his third admission since the beginning of the year with a similar presentation. He had a head CT during his last admission, and this was normal. His grandson reported in the ER that his mentation was improving since being back on oxygen and receiving IV fluids. He will need a OT/PT when mental status a bit more improved. (3) Elevated troponin Status: Acute Assessment & Plan: His initial troponin is elevated, but he had no complaints of chest pain and his EKG shows only nonspecific findings. He was off his oxygen for an extended period of time and also has renal failure. LIkely, cellulitis has put a strain on the heart. We will trend his troponin and continue his aspirin. He might need a stress test as an outpatient. (4) Generalized weakness Status: Acute Assessment & Plan: Physical and occupational therapy consults have been ordered. (5) Acute renal failure Assessment & Plan: He does have an acute rise in his creatinine above baseline. Potassium stable. Will follow closely. (6) Bradycardia Status: Acute Assessment & Plan: He was noted to have bradycardia during his last admission and was scheduled to have a Holter monitor at the CT yesterday. He was unable to keep that appointment. His family would, potentially, like Cardiology to see him when he is an inpatient. The patient is too confused at this time and it likely be more appropriate as an outpatient. (7) CAD (coronary artery disease) Status: Chronic Assessment & Plan: He is on chronic treatment with aspirin and simvastatin. (8) Essential hypertension Status: Chronic Assessment & Plan: He is on chronic treatment with lisinopril, which has been held secondary to renal failure. (9) Chronic acquired lymphedema Status: Chronic Assessment & Plan: He is on chronic treatment with Lasix, which has been held secondary to renal failure. (10) Hypothyroid Status: Chronic Assessment & Plan: He is on chronic treatment with Synthroid. A TSH was normal during his last admission. (11) Type 2 diabetes mellitus Status: Chronic Assessment & Plan: He had been on insulin, but this was stopped during his last admission secondary to hypoglycemia. His family reports that his sugars have been less than 200 without treatment. Will follow [facility] HS glucose with SSI to cover. (12) BPH (benign prostatic hyperplasia) Status: Chronic Assessment & Plan: He is on chronic treatment with terazosin. Exam Sepsis Risk: Severe Sepsis Risk Problem Qualifiers (1) Cellulitis: Site of cellulitis of extremity: lower extremity Laterality: left SALVADOR GUEVARA MD Aug 18, 2017 12:09
[2017-08-18 13:01] VITALS: Ht 180.3 cm; Wt 129.8 kg
[2017-08-18] MEDS: NS(*) 0.9% 1000 ML BAG 1,000 ML IV PRN (15:40)
[2017-08-18 15:41] VITALS: BP 120/54
[2017-08-18] MEDS ORDERED: NS(*) 0.9% 500 ML BAG 500 ML IV ONE (17:00)
[2017-08-18] MEDS: TERAZOSIN HCL 1 MG CAP PO SCH (20:41)
[2017-08-18] MEDS: SIMVASTATIN 20 MG TAB PO SCH (20:41)
[2017-08-18 20:51] VITALS: BP 124/53
[2017-08-18 22:49] VITALS: BP 123/56
[2017-08-19] MEDS: NS(*) 0.9% 1000 ML BAG 1,000 ML IV PRN (03:44)
[2017-08-19] MEDS: NS 0.9% IVPB SCH ×4 (03:45→21:24)
[2017-08-19] MEDS: IMIPENEM IVPB SCH ×4 (03:45→21:24)
[2017-08-19] MEDS: CILASTATIN IVPB SCH ×4 (03:45→21:24)
[2017-08-19 03:46] VITALS: BP 126/56
[2017-08-19 05:45] LABS: PLATELET COUNT, AUTOMATED 202 K/uL (150-450)
[2017-08-19 07:39] VITALS: BP 126/60
[2017-08-19] MEDS: TERAZOSIN HCL 1 MG CAP PO SCH ×2 (08:27→21:23)
[2017-08-19] MEDS: LEVOTHYROXINE SOD 0.125 MG TAB PO SCH (08:27)
[2017-08-19] MEDS: ALLOPURINOL 300 MG TAB PO SCH (08:27)
[2017-08-19] MEDS: ASPIRIN 81 MG ENTERIC COATED PO SCH (08:27)
[2017-08-19] MEDS: GABAPENTIN 300 MG CAP PO SCH (08:27)
[2017-08-19] MEDS: INSULIN HUM LISPRO 100 UN/ML 3 ML VIAL SUBQ PRN ×4 (08:28→21:32)
[2017-08-19] MEDS ORDERED: NS(*) 0.9% 1000 ML BAG 1,000 ML IV PRN (11:42)
[2017-08-19 12:14] VITALS: BP 116/56
[2017-08-19] MEDS: ACETAMIN/CODEINE #3 300-30 MG PO PRN ×2 (12:22→18:26)
[2017-08-19] MEDS ORDERED: VANCOMYCIN(*) 1 GM VIAL 2 GM in NS(*) 0.9% 250 ML BAG 250 ML IVPB SCH (15:00)
--- NOTE | 2017-08-19 15:20 | Hospitalist Progress Note ---
Subjective Progress Notes Subjective He reports feeling improved today. He denies any CP. Physical Exam Vital Signs Date Time Temp Pulse Resp B/P (MAP) Pulse Ox O2 Delivery O2 Flow Rate FiO2 08/19/17 12:14 97.8 75 14 116/56 (76) 96 Nasal Cannula 2.5 Intake and Output 08/20/17 07:00 Intake Total 1822 ml Balance 1822 ml Intake Oral 480 ml IV Total 1342 ml # Voids 3 # Bowel Movements 1 General Appearance: Alert, Awake Cardiovascular: Other (distant tones with systolic murmur) Respiratory: Other (decreased breath sounds bilaterally) Extremities: Warm, Perfused, Edema (with dramatic chronic lymphedema changes both LE with worse on left) Integumentary: Other (erythema has receded slightly from margins marked yesterday) Result Diagram: 08/19/1751408/19/17514 Assessment and Plan Problems: (1) Cellulitis Status: Acute Assessment & Plan: He presented with erythema, warmth and tenderness in the LLE. He had an elevated WBC count. He is currently on IV Primaxin and Vancomycin. He is clinically improving. (2) Altered mental status Status: Acute Assessment & Plan: Improved. Likely, secondary to cellulitis. This is now his third admission since the beginning of the year with a similar presentation. He had a head CT during his last admission and this was normal. His grandson reported in the ER that his mentation was improving since being back on oxygen and receiving IV fluids. OT/PT to see. (3) Elevated troponin Status: Acute Assessment & Plan: His initial troponin was significantly elevated. He had no complaints of chest pain. His EKG showed only nonspecific findings. He was off his oxygen for an extended period of time. This could potentially be a primary ischemic event, but could also be :strain" related to the acute illness. He might need a stress test as an outpatient after acute illness is resolved. (4) Generalized weakness Status: Acute Assessment & Plan: Physical and occupational therapy consults have been ordered. (5) Acute renal failure Assessment & Plan: Improved. Creatinine is 2.8 today. He did have an acute rise in his creatinine above baseline (~2.0). Potassium stable. Will follow closely. (6) Bradycardia Status: Acute Assessment & Plan: He was noted to have bradycardia during his last admission and was scheduled to have a Holter monitor at the [place] yesterday. He was unable to keep that appointment. May be able to have cardiology see him while an inpatient. (7) CAD (coronary artery disease) Status: Chronic Assessment & Plan: He is on chronic treatment with aspirin and simvastatin. (8) Essential hypertension Status: Chronic Assessment & Plan: He is on chronic treatment with lisinopril, which has been held secondary to renal failure. (9) Chronic acquired lymphedema Status: Chronic Assessment & Plan: He is on chronic treatment with Lasix, which has been held secondary to renal failure. (10) Hypothyroid Status: Chronic Assessment & Plan: He is on chronic treatment with Synthroid. A TSH was normal during his last admission. (11) Type 2 diabetes mellitus Status: Chronic Assessment & Plan: He had been on insulin, but this was stopped during his last admission secondary to hypoglycemia. His family reports that his sugars have been less than 200 without treatment. Will follow [facility] HS glucose with SSI to cover. (12) BPH (benign prostatic hyperplasia) Status: Chronic Assessment & Plan: He is on chronic treatment with terazosin. Exam Sepsis Risk: No Definite Risk Problem Qualifiers (1) Cellulitis: Site of cellulitis of extremity: lower extremity Laterality: left NORBERTO OBREGON MD Aug 19, 2017 15:20
[2017-08-19 15:50] VITALS: BP 123/58
--- NOTE | 2017-08-19 16:09 | Medical Nutrition Therapy ---
Nutrition Anthropometrics Height (Inches): 71.00 Height (Calculated Centimeters: 180.707249 Weight (Pounds): 286 Weight (Calculated Kilograms): 129.784 BMI Calculated: 39.88 Francisco Nutrition Score: Adequate Francisco Nutrition Risk Score: 17 Dietary Referral Nutrition Risk Factors: Nutrition Risk Comment: Physical Findings Physical Appearance: Obese BMI 30-39 Skin Appearance Skin Appearance: Edema Edema Location Modifier: Both Edema Location: Lower Extremity Type of Edema: Degree of Edema: 3+ Gastrointestinal Symptoms GI Symtoms: Tube Present: Bowel Sounds: Recent Bowel Pattern: Stool Characteristics: Nutritional Diagnosis Nutritional Risk Acuity 1: Acute/ES Renal Nutritional Risk Acuity 3: Fair Appetite Past Medical History: Skin Cam CAD, T2DM, hypercholesterolemia, COPD, CKD-3, HTN, hypothyroidism, chronic aquired lymphedema, BPH, Gout, diabetic neuropathy Nutritional Acuity: 1-High Nutrition Diagnosis: Inconsistent Carb. Intake Nutrition Etiology: Physiological Causes Nutrition Problem/Etiology/Sym: AEB BG ranging 170-240's Adjusted Energy Requirement Re: 2085 (H-B) Protein Requirement: 78 (.6gm/kg) Fluid Requirement: 2580 (20ml/kg) Diet Type: Diabetic Nutrition Intervention: Cont diet as ordered, Encourage intake Nutrition Monitoring & Eval Nutrition Goals: Eat 75-100% Meal Nutrition Follow-Up: Fair Intake RD Patient Assessment Time: [address] Assessment Type: RD Assessment Patient Nutrition Acuity: 1-High Follow Up Date: Aug 21, 2017 Nutritional Comment: 3 Pt admitted for AMS. Pt had been off O2 for several hours. Pt has hx of CKD and currenly is being treated for ARF. Alb 2.8, BUN43, Creat 3.2 BG 200's. Pt on ADA diet, no intake reported at this time. Will cont to monitor and encourage intake. 08/19 Pt cont on diabetic diet eating 25- 100% of meals. ARF is improving Creat 2.8. BG cont elevated ranging 170-240's. Pt cont on insulin. BMI in class 2 obesity range. Pt has 3+ edema LE. Anticipate wt loss when edema resolves. Will cont to monitor and encourage intake. DONALD GROVES Aug 19, 2017 16:09
[2017-08-19] MEDS: SIMVASTATIN 20 MG TAB PO SCH (21:24)
[2017-08-19 21:55] VITALS: BP 123/49
[2017-08-19 23:08] VITALS: BP 124/55
[2017-08-20] MEDS: ACETAMIN/CODEINE #3 300-30 MG PO PRN (01:05)
[2017-08-20 03:11] VITALS: BP 143/54
[2017-08-20] MEDS: CILASTATIN IVPB SCH ×4 (03:19→23:13)
[2017-08-20] MEDS: NS 0.9% IVPB SCH ×4 (03:19→23:13)
[2017-08-20] MEDS: IMIPENEM IVPB SCH ×4 (03:19→23:13)
[2017-08-20 06:20] LABS: PLATELET COUNT, AUTOMATED 192 K/uL (150-450)
[2017-08-20 07:43] VITALS: BP 135/62
[2017-08-20] MEDS: ALLOPURINOL 300 MG TAB PO SCH (08:55)
[2017-08-20] MEDS: LEVOTHYROXINE SOD 0.125 MG TAB PO SCH (08:55)
[2017-08-20] MEDS: GABAPENTIN 300 MG CAP PO SCH (08:55)
[2017-08-20] MEDS: ASPIRIN 81 MG ENTERIC COATED PO SCH (08:55)
[2017-08-20] MEDS: TERAZOSIN HCL 1 MG CAP PO SCH ×2 (08:56→20:37)
[2017-08-20] MEDS: INSULIN HUM LISPRO 100 UN/ML 3 ML VIAL SUBQ PRN ×4 (08:56→20:41)
[2017-08-20 11:51] VITALS: BP 118/53
--- NOTE | 2017-08-20 12:21 | Hospitalist Progress Note ---
Subjective Progress Notes Subjective No new complaints. Physical Exam Vital Signs Date Time Temp Pulse Resp B/P (MAP) Pulse Ox O2 Delivery O2 Flow Rate FiO2 08/20/17 11:51 97.6 54 16 118/53 (74) 94 Nasal Cannula 2.0 Intake and Output 08/21/17 07:00 Intake Total 120 ml Balance 120 ml Intake Oral 120 ml # Voids 1 General Appearance: Alert, Awake, No Acute Distress, Other (Sitting in the chair.) Neuro: No Gross deficits Cardiovascular: Regular Rate and Rhythm Respiratory: Clear to Auscultation GI: Soft and Non-Tender Lymph: Cervical Nodes Benign Extremities: Warm, Perfused, Edema (Lymphedema bilaterally. ), Other (L leg with redness and increased warmth lower leg laterally. Redness has receded from previously drawn lines.) Integumentary: Other (See above.) Psych: Alert & Oriented X3, Appropriate Mood & Affect Result Diagram: 08/20/1761408/20/17614 Assessment and Plan Problems: (1) Cellulitis Status: Acute Assessment & Plan: He presented with erythema, warmth and tenderness in the LLE. He had an elevated WBC count. He is currently on IV Primaxin and Vancomycin. He is clinically improving. (2) Altered mental status Status: Acute Assessment & Plan: Improved. Likely, secondary to cellulitis. This is now his third admission since the beginning of the year with a similar presentation. He had a head CT during his last admission and this was normal. His grandson reported in the ER that his mentation was improving since being back on oxygen and receiving IV fluids. OT/PT to see. (3) Elevated troponin Status: Acute Assessment & Plan: His initial troponin was significantly elevated. He had no complaints of chest pain. His EKG showed only nonspecific findings. He was off his oxygen for an extended period of time. This could potentially be a primary ischemic event, but could also be :strain" related to the acute illness. He might need a stress test as an outpatient after acute illness is resolved. (4) Generalized weakness Status: Acute Assessment & Plan: Physical and occupational therapy consults have been ordered. (5) Acute renal failure Assessment & Plan: Improved. Creatinine is 2.7 today. He did have an acute rise in his creatinine above baseline (~2.0). Potassium stable. Will follow closely. (6) Bradycardia Status: Acute Assessment & Plan: He was noted to have bradycardia during his last admission and was scheduled to have a Holter monitor at the [place] yesterday. He was unable to keep that appointment. May be able to have cardiology see him while an inpatient. (7) CAD (coronary artery disease) Status: Chronic Assessment & Plan: He is on chronic treatment with aspirin and simvastatin. (8) Essential hypertension Status: Chronic Assessment & Plan: He is on chronic treatment with lisinopril, which has been held secondary to renal failure. (9) Chronic acquired lymphedema Status: Chronic Assessment & Plan: He is on chronic treatment with Lasix, which has been held secondary to renal failure. (10) Hypothyroid Status: Chronic Assessment & Plan: He is on chronic treatment with Synthroid. A TSH was normal during his last admission. (11) Type 2 diabetes mellitus Status: Chronic Assessment & Plan: He had been on insulin, but this was stopped during his last admission secondary to hypoglycemia. His family reports that his sugars have been less than 200 without treatment. Will follow AC HS glucose with SSI to cover. (12) BPH (benign prostatic hyperplasia) Status: Chronic Assessment & Plan: He is on chronic treatment with terazosin. Time Spent on Plan of Care: < 30 min Exam Sepsis Risk: No Definite Risk Problem Qualifiers (1) Cellulitis: Site of cellulitis of extremity: lower extremity Laterality: left SHASHI OBREGON MD Aug 20, 2017 12:21
[2017-08-20] MEDS ORDERED: LIDOCAINE MPF 1% 5 ML VIAL ONE (15:29)
[2017-08-20] MEDS ORDERED: NS 0.9% 20 ML SDV 20 ML ONE (15:29)
--- NOTE | 2017-08-20 17:03 | RADIOLOGY IMAGING REPORT ---
FACILITY: [facility] PATIENT NAME: Rizwan Huertas : 1930 MR: [id number] V: [id number] EXAM DATE: ORDERING PHYSICIAN: TETE MULLER TECHNOLOGIST: Location: [facility] - [place] Patient: Rizwan Huertas : 1930 Visit/Account:[id number] Date of Sevice: 08/20/2017 Exam type: PICC LINE INSERTION, PICC LINE PLACEMENT History: Need IV antibiotics, unable to obtain IV Comparison: None. Findings: Informed consent was obtained. The patient's left arm was prepped and draped in usual sterile fashio n. Local anesthesia was accomplished with 1% lidocaine. Under sonographic and fluoroscopic guidance a 44 cm long trimmed 5 Guinean double lumen power PICC was inserted via the patent left basilic vein with the distal tip resting in the superior vena cava. Both lumens of power PICC were flushed with 5 mL of saline flush. Proximal portion PICC line was adhered to the patient's arm with a sterile dres sing. The procedure was accomplished without apparent cortication. The sonographic images were save d to PACS. The fluoroscopy dose area product was 136.38 micro-Hunt per meter squared. IMPRESSION: 1. Successful placement of a 44 cm long trimmed 5 Guinean double lumen power PICC inserted via the pa tent left basilic vein with the distal tip resting in superior vena cava. Report Dictated By: Yumiko Gaytan MD at 08/20/2017 4:56 PM Report E-Signed By: Yumiko Gaytan MD at 08/20/2017 4:58 PM WSN:[email or web address]
--- NOTE | 2017-08-20 17:03 | RADIOLOGY IMAGING REPORT ---
FACILITY: [facility] - [place] PATIENT NAME: Rizwan Huertas : 1930 MR: [id number] V: [id number] EXAM DATE: ORDERING PHYSICIAN: TETE MULLER TECHNOLOGIST: Location: [facility] - [place] Patient: Rizwan Huertas : 1930 Visit/Account:[id number] Date of Sevice: 08/20/2017 Exam type: PICC LINE INSERTION, PICC LINE PLACEMENT History: Need IV antibiotics, unable to obtain IV Comparison: None. Findings: Informed consent was obtained. The patient's left arm was prepped and draped in usual sterile fashio n. Local anesthesia was accomplished with 1% lidocaine. Under sonographic and fluoroscopic guidance a 44 cm long trimmed 5 Azerbaijani double lumen power PICC was inserted via the patent left basilic vein with the distal tip resting in the superior vena cava. Both lumens of power PICC were flushed with 5 mL of saline flush. Proximal portion PICC line was adhered to the patient's arm with a sterile dres sing. The procedure was accomplished without apparent cortication. The sonographic images were save d to PACS. The fluoroscopy dose area product was 136.38 micro-Hunt per meter squared. IMPRESSION: 1. Successful placement of a 44 cm long trimmed 5 Azerbaijani double lumen power PICC inserted via the pa tent left basilic vein with the distal tip resting in superior vena cava. Report Dictated By: Yumiko Gaytan MD at 08/20/2017 4:56 PM Report E-Signed By: Yumiko Gaytan MD at 08/20/2017 4:58 PM WSN:[email or web address]
[2017-08-20] MEDS ORDERED: VANCOMYCIN(*) 1 GM VIAL 2 GM in NS(*) 0.9% 250 ML BAG 250 ML IVPB SCH (18:00)
[2017-08-20 19:36] VITALS: BP 119/98
[2017-08-20] MEDS: SIMVASTATIN 20 MG TAB PO SCH (20:37)
[2017-08-21] MEDS: IMIPENEM IVPB SCH ×4 (03:24→22:14)
[2017-08-21] MEDS: CILASTATIN IVPB SCH ×4 (03:24→22:14)
[2017-08-21] MEDS: NS 0.9% IVPB SCH ×4 (03:24→22:14)
[2017-08-21 05:44] LABS: PLATELET COUNT, AUTOMATED 218 K/uL (150-450)
[2017-08-21 06:29] VITALS: BP 131/55
[2017-08-21] MEDS: LEVOTHYROXINE SOD 0.125 MG TAB PO SCH (08:36)
[2017-08-21] MEDS: TERAZOSIN HCL 1 MG CAP PO SCH ×2 (08:36→21:08)
[2017-08-21] MEDS: GABAPENTIN 300 MG CAP PO SCH (08:36)
[2017-08-21] MEDS: ALLOPURINOL 300 MG TAB PO SCH (08:36)
[2017-08-21] MEDS: ASPIRIN 81 MG ENTERIC COATED PO SCH (08:38)
[2017-08-21] MEDS: INSULIN HUM LISPRO 100 UN/ML 3 ML VIAL SUBQ PRN ×3 (11:33→21:09)
--- NOTE | 2017-08-21 11:41 | Hospitalist Progress Note ---
Subjective Progress Notes Subjective He reports no significant changes. No fever. No chest pain. He wants to start "moving". Physical Exam Vital Signs Date Time Temp Pulse Resp B/P (MAP) Pulse Ox O2 Delivery O2 Flow Rate FiO2 08/21/17 08:36 94 Nasal Cannula 2.0 08/21/17 06:29 98.4 64 18 131/55 (80) Intake and Output 08/22/17 07:00 Intake Total 236 ml Balance 236 ml Intake Oral 236 ml General Appearance: Alert, Awake Cardiovascular: Other (Fairly regular with distant tones possible soft systolic murmur) Respiratory: Other (decreased breath sounds bilaterally) GI: Soft and Non-Tender Extremities: Warm, Perfused, Edema (chronic 2-3+ both LE, but worse on left) Integumentary: Other (Chronic lymphedema changes with some persistent erythema left lower extremity - slightly less than marked margins) Result Diagram: 08/21/1734 08/21/17533 Assessment and Plan Problems: (1) Cellulitis Status: Acute Assessment & Plan: He presented with erythema, warmth and tenderness in the LLE. He had an elevated WBC count. He is currently on IV Primaxin and Vancomycin. He is clinically improving, albeit slowly. Will most likely need ongoing IV antibiotics. (2) Altered mental status Status: Acute Assessment & Plan: Improved. Likely, secondary to cellulitis. This is now his third admission since the beginning of the year with a similar presentation. He had a head CT during his last admission and this was normal. His grandson reported in the ER that his mentation was improving since being back on oxygen and receiving IV fluids. OT/PT seeing him. They are recommending short term subacute rehab - will see if he can go to [facility]. (3) Elevated troponin Status: Acute Assessment & Plan: His initial troponin was significantly elevated. He had no complaints of chest pain. His EKG showed only nonspecific findings. He was off his oxygen for an extended period of time. This could potentially be a primary ischemic event, but could also be "strain" related to the acute illness. He might need a stress test as an outpatient after acute illness is resolved. (4) Generalized weakness Status: Acute Assessment & Plan: Physical and occupational therapy consults have been ordered. (5) Acute renal failure Assessment & Plan: Improved. Creatinine is 2.2 today. He did have an acute rise in his creatinine above baseline (~2.0). Potassium stable. Will follow closely. (6) Bradycardia Status: Acute Assessment & Plan: He was noted to have bradycardia during his last admission and was scheduled to have a Holter monitor at the [place] yesterday. He was unable to keep that appointment. May be able to have cardiology see him while an inpatient. (7) CAD (coronary artery disease) Status: Chronic Assessment & Plan: He is on chronic treatment with aspirin and simvastatin. (8) Essential hypertension Status: Chronic Assessment & Plan: He is on chronic treatment with lisinopril, which has been held secondary to renal failure. (9) Chronic acquired lymphedema Status: Chronic Assessment & Plan: He is on chronic treatment with Lasix, which has been held secondary to renal failure. (10) Hypothyroid Status: Chronic Assessment & Plan: He is on chronic treatment with Synthroid. A TSH was normal during his last admission. (11) Type 2 diabetes mellitus Status: Chronic Assessment & Plan: He had been on insulin, but this was stopped during his last admission secondary to hypoglycemia. His family reports that his sugars have been less than 200 without treatment. Most readings here have been 180- 230. Will add low dose Lantus. Will follow AC HS glucose with SSI to cover. (12) BPH (benign prostatic hyperplasia) Status: Chronic Assessment & Plan: He is on chronic treatment with terazosin. Exam Sepsis Risk: No Definite Risk Problem Qualifiers (1) Cellulitis: Site of cellulitis of extremity: lower extremity Laterality: left NORBERTO OBREGON MD Aug 21, 2017 11:41
[2017-08-21 15:08] VITALS: BP 157/79
--- NOTE | 2017-08-21 16:01 | Medical Nutrition Therapy ---
Nutrition Anthropometrics Height (Inches): 71.00 Height (Calculated Centimeters: 180.672275 Weight (Pounds): 286 Weight (Calculated Kilograms): 129.784 BMI Calculated: 39.88 Francisco Nutrition Score: Adequate Francisco Nutrition Risk Score: 20 Dietary Referral Nutrition Risk Factors: Nutrition Risk Comment: Physical Findings Physical Appearance: Obese BMI 30-39 Skin Appearance Skin Appearance: Edema Edema Location Modifier: Both Edema Location: Lower Extremity Type of Edema: Degree of Edema: 4+ Gastrointestinal Symptoms GI Symtoms: Tube Present: Bowel Sounds: Recent Bowel Pattern: Stool Characteristics: Nutritional Diagnosis Nutritional Risk Acuity 1: Acute/ES Renal Nutritional Risk Acuity 3: Fair Appetite Past Medical History: Skin Cam CAD, T2DM, hypercholesterolemia, COPD, CKD-3, HTN, hypothyroidism, chronic aquired lymphedema, BPH, Gout, diabetic neuropathy Nutritional Acuity: 1-High Nutrition Diagnosis: Inconsistent Carb. Intake Nutrition Etiology: Physiological Causes Nutrition Problem/Etiology/Sym: AEB BG ranging 170-240's Adjusted Energy Requirement Re: 2085 (H-B) Protein Requirement: 78 (.6gm/kg) Fluid Requirement: 2580 (20ml/kg) Diet Type: Diabetic Nutrition Intervention: Cont diet as ordered, Encourage intake Nutrition Monitoring & Eval Nutrition Goals: Eat 75-100% Meal RD Patient Assessment Time: [address] Assessment Type: RD Re-Assessment Patient Nutrition Acuity: 1-High Follow Up Date: Aug 24, 2017 Nutritional Comment: 3 Pt admitted for AMS. Pt had been off O2 for several hours. Pt has hx of CKD and currenly is being treated for ARF. Alb 2.8, BUN43, Creat 3.2 BG 200's. Pt on ADA diet, no intake reported at this time. Will cont to monitor and encourage intake. 08/19 Pt cont on diabetic diet eating 25- 100% of meals. ARF is improving Creat 2.8. BG cont elevated ranging 170-240's. Pt cont on insulin. BMI in class 2 obesity range. Pt has 3+ edema LE. Anticipate wt loss when edema resolves. Will cont to monitor and encourage intake. 08/21 Pt cont on diabetic diet. Intake averge 68%. Creatinine has improved but cont elevated at 2.2. BG ranging in 200's. Edema has increased to 4+ LE. No new wt. Anticipate wt loss when edema resolved. Cont to monitor and encourage intake. DONALD GROVES Aug 21, 2017 16:01
[2017-08-21] MEDS ORDERED: VANCOMYCIN(*) 1 GM VIAL 1 GM, VANCOMYCIN (*) 0.5 GM VIAL 0.5 GM in NS(*) 0.9% 250 ML BA... IVPB SCH (18:30)
[2017-08-21 20:53] VITALS: BP 163/60
[2017-08-21] MEDS ORDERED: INSULIN GLARGINE 100 U/ML 3 ML PEN SUBQ SCH (21:00)
[2017-08-21] MEDS: SIMVASTATIN 20 MG TAB PO SCH (21:08)
[2017-08-21 23:00] VITALS: BP 154/65
[2017-08-22] MEDS: IMIPENEM IVPB SCH ×2 (03:50→09:58)
[2017-08-22] MEDS: CILASTATIN IVPB SCH ×2 (03:50→09:58)
[2017-08-22] MEDS: NS 0.9% IVPB SCH ×2 (03:50→09:58)
[2017-08-22 05:42] VITALS: BP 149/69
[2017-08-22 06:18] LABS: PLATELET COUNT, AUTOMATED 247 K/uL (150-450)
[2017-08-22 07:23] VITALS: BP 159/71
[2017-08-22] MEDS: ALLOPURINOL 300 MG TAB PO SCH (08:45)
[2017-08-22] MEDS: LEVOTHYROXINE SOD 0.125 MG TAB PO SCH (08:45)
[2017-08-22] MEDS: ASPIRIN 81 MG ENTERIC COATED PO SCH (08:45)
[2017-08-22] MEDS: GABAPENTIN 300 MG CAP PO SCH (08:46)
[2017-08-22] MEDS: TERAZOSIN HCL 1 MG CAP PO SCH (08:46)
--- NOTE | 2017-08-22 10:14 | Hospitalist Depart ---
Discharge Summary Reason for Hosp/Final Diag: (1) Cellulitis Status: Acute Hospital Course & Plan: He was found to have a cellulitis of the left lower leg. He has been on treatment with Primaxin and vancomycin. His cultures have been negative. (2) Altered mental status Status: Acute Hospital Course & Plan: Improved. Likely, secondary to cellulitis. This is now his third admission since the beginning of the year with a similar presentation. He had a head CT during his last admission and this was normal. (3) Elevated troponin Status: Acute Hospital Course & Plan: His initial troponin was significantly elevated. He had no complaints of chest pain. His EKG showed only nonspecific findings. He was off his oxygen for an extended period of time. This could potentially be a primary ischemic event, but could also be "strain" related to the acute illness. He might need a stress test as an outpatient after acute illness is resolved. (4) Generalized weakness Status: Acute Hospital Course & Plan: Physical and occupational therapy consults have been ordered. (5) Acute renal failure Hospital Course & Plan: Improved with IV fluids. (6) Bradycardia Status: Acute Hospital Course & Plan: He was noted to have bradycardia during his last admission and was scheduled to have a Holter monitor at the [place], but was unable to keep that appointment. (7) CAD (coronary artery disease) Status: Chronic Hospital Course & Plan: He is on chronic treatment with aspirin and simvastatin. (8) Essential hypertension Status: Chronic Hospital Course & Plan: He is on chronic treatment with lisinopril, which has been held secondary to renal failure. (9) Chronic acquired lymphedema Status: Chronic Hospital Course & Plan: He is on chronic treatment with Lasix, which has been held secondary to renal failure. (10) Hypothyroid Status: Chronic Hospital Course & Plan: He is on chronic treatment with Synthroid. A TSH was normal during his last admission. (11) Type 2 diabetes mellitus Status: Chronic Hospital Course & Plan: He had been on insulin, but this was stopped during his last admission secondary to hypoglycemia. His family reports that his sugars have been less than 200 without treatment. He is currently on Lantus and sliding scale level #1. (12) BPH (benign prostatic hyperplasia) Status: Chronic Hospital Course & Plan: He is on chronic treatment with terazosin. Departure Latest Vital Signs Vital Signs 08/22/17 07:23 Temp 98.2 Pulse 69 Resp 14 B/P (MAP) 159/71 (100) Pulse Ox 94 O2 Delivery Nasal Cannula O2 Flow Rate 2.0 Weight (Pounds): 286 Weight (Ounces): 2.0 Result Diagram: 08/22/1755408/22/17554 Condition: Improved Discharge: [facility] PT/OT Follow Up For: PT Evaluation and Treat, OT Evaluation and Treat Follow-Up Labs: Finger Sticks Discharge Instructions Home Meds Reported Medications Triamcinolone Acetonide 0.1% Cr 15 Gm Tube (TRIAMCINOLONE ACETONIDE 0.1% CREAM) 15 Gm Cream..g., 15 GM TP TID, TUBE 07/24/17 Sodium Chloride (SALINE NASAL SPRAY) 30 Ml [place], 2 SPRAY NS Q2H Y for CONGESTION, SPRAY 07/24/17 Lisinopril (LISINOPRIL) 10 Mg Tablet, 10 MG PO QDAY, TAB 07/24/17 Ammonium Lactate (Ammonium Lactate) 12 % Cream..g., 1 SHIV TOP BIDAC 07/24/17 Furosemide (FUROSEMIDE) 20 Mg Tablet, 3 TAB PO BID, TAB 07/24/17 Clobetasol Propionate 0.05% Lotion (CLOBETASOL PROPIONATE 0.05% LOTION) 59 Ml Lotion, 0 TP BID, BOT 01/29/16 Terazosin Hcl (TERAZOSIN HCL) 2 Mg Capsule, 2 MG PO BID, CAPSULE 01/29/16 Albuterol Sul Hfa 90 Mcg 8 Gm (VENTOLIN HFA 90 MCG 8 GM) 8.5 Gm Hfa.aer.ad, 1-2 PUFF IH Q3-4H Y for SHORTNESS OF BREATH 08/19/14 Ranitidine Hcl (ZANTAC) 150 Mg Tablet, 150 MG PO QHS 01/18/14 Levothyroxine Sodium (SYNTHROID) 125 Mcg Tablet, 125 MCG PO QDAY 01/18/14 Simvastatin (SIMVASTATIN) 40 Mg Tablet, 20 MG PO HS, TAB 01/18/14 Aspirin (ASPIRIN EC) 81 Mg Tablet.dr, 81 MG PO QDAY, TAB 01/18/14 Allopurinol (ZYLOPRIM 300 MG TAB (OR EQUIV)) 300 Mg Tab, 300 MG PO DAILY, TAB 01/18/14 Gabapentin (GABAPENTIN) 300 Mg Capsule, 600 MG PO DAILY, CAPSULE 2 CAPS AM AND 1 CAP HS 01/18/14 Diet: Regular Activity: With Walker Special Instructions: Venous Thromboembolism Antithrombotics Is Pt On Any Antithrombotics?: No Problem Qualifiers (1) Cellulitis: Site of cellulitis of extremity: lower extremity Laterality: left HILARIA BARRETO DO Aug 22, 2017 10:14
[2017-08-22] MEDS: INSULIN HUM LISPRO 100 UN/ML 3 ML VIAL SUBQ PRN (11:40)
[2017-08-22 11:49] VITALS: BP 165/68
== END 2017-08-22 14:16 | DRG 603 ==
LOC: ER 23:14 → MED 08-18 02:37
PROVIDERS: ADMIT Family Medicine; ATTEND Family Medicine
DX: L03.116 Cellulitis of left lower limb (principal); N17.9 Acute kidney failure, unspecified; E11.22 Type 2 diabetes mellitus with diabetic chronic kidney disease; E11.65 Type 2 diabetes mellitus with hyperglycemia; I12.9 Hypertensive chronic kidney disease with stage 1 through stage 4 chronic kidney disease, or unspecified chronic kidney disease; N18.3 Chronic kidney disease, stage 3 (moderate); I25.10 Atherosclerotic heart disease of native coronary artery without angina pectoris; R00.1 Bradycardia, unspecified; I89.0 Lymphedema, not elsewhere classified; R53.1 Weakness; E03.9 Hypothyroidism, unspecified; N40.0 Benign prostatic hyperplasia without lower urinary tract symptoms; J44.9 Chronic obstructive pulmonary disease, unspecified; R79.89 Other specified abnormal findings of blood chemistry; Z95.5 Presence of coronary angioplasty implant and graft; Z87.891 Personal history of nicotine dependence; Z90.49 Acquired absence of other specified parts of digestive tract; Z99.81 Dependence on supplemental oxygen
CPT/HCPCS: 36415; 36416; 36569; 71045; 76937; 80202; 81001; 82040; 82247; 82310; 82374; 82435; 82550; 82565; 82947; 82948; 83605; 84075; 84132; 84155; 84295; 84450; 84460; 84484; 84520; 85025; 85610; 85730; 87040; 87088; 93005; 96360; 97161; 97165; 99285; C1751; J0743; J1815; J2001; J3370; J7030; J7040; J7050

== ENCOUNTER → 2017-08-17 | Outpatient (CLI) | payer MEDICARE, OTHER ==
[2017-08-18 13:01] VITALS: BMI 39.9
== END ==
LOC: AMB 22:24
PROVIDERS: ATTEND Nurse Practitioner
DX: R41.0 Disorientation, unspecified (principal); R53.1 Weakness; R53.83 Other fatigue; R60.9 Edema, unspecified; E10.65 Type 1 diabetes mellitus with hyperglycemia
CPT/HCPCS: A0425; A0427

== ENCOUNTER 2017-08-22 14:12 | Inpatient (IN) | payer MEDICARE, OTHER ==
[2017-08-18 13:01] VITALS: Ht 180.3 cm; Wt 140.6 kg
[~2017-08-22] VITALS: Ht 180.3 cm; Wt 140.6 kg
[2017-08-22 14:37] VITALS: BP 155/63
[2017-08-22] MEDS ORDERED: LEVOTHYROXINE SOD 0.125 MG TAB PO SCH (14:58)
[2017-08-22] MEDS ORDERED: VANCOMYCIN(*) 1 GM VIAL 1 GM, VANCOMYCIN (*) 0.5 GM VIAL 0.5 GM in NS(*) 0.9% 250 ML BA... IVPB SCH (14:58)
--- NOTE | 2017-08-22 15:29 | Consultant Pharmacy Review ---
[employer] Review Medication Review Do All Mecications have a Diag: Yes Beers Criteria Medication 2014 Alpha 1 Blockers: Terazosin (BPH) Sliding Scale Insulin: Slidin Scale Insulin (Type 2 Diabetes) Disease-Drug Interactions History of Falls/Fractures: Opioids Other General Cautions Lexicomp Interaction Analysis A = No known interaction C = Monitor therapy X = Avoid combination B = No action needed D = Consider therapy modification Drugs in this analysis: Allopurinol; Aspirin; HumaLOG; Hytrin (CAN); Lantus; Neurontin; Primaxin (CAN); Simvastatin; Synthroid; Tylenol with Codeine #3; Vancomycin * Drug-Drug Interactions D Neurontin (TECHNICIAN INVENTORY SPECIALIST Depressants) Tylenol with Codeine #3 (Opioid Analgesics) C Aspirin (Salicylates) HumaLOG (Blood Glucose Lowering Agents) Depends on Dose C Aspirin (Salicylates) Lantus (Blood Glucose Lowering Agents) Depends on Dose C HumaLOG (Hypoglycemia-Associated Agents) Lantus (Antidiabetic Agents) C HumaLOG (Hypoglycemia-Associated Agents) Lantus (Hypoglycemia-Associated Agents) Pneumococcal Vaccine HX Pneumo Vac ([id number]): Yes (@VA) Comments Regarding the Review Patient is a candidate for the Pneumovax 23 if it has been at least 1 year from Prevnar 13 vaccine. Re-evaluate Tylenol #3 use in 2 weeks. Recommend checking WBG levels as it doesn't appear that they are ordered and patient is on Lantus at bedtime and Humalog sliding scale. Notified? MD Notified?: No TORY GUILLERMO Aug 22, 2017 15:29
[2017-08-22] MEDS: NS(*) 0.9% 250 ML BAG 250 ML IVPB PRN (16:19)
[2017-08-22] MEDS: IMIPENEM IVPB SCH ×2 (16:19→21:47)
[2017-08-22] MEDS: CILASTATIN IVPB SCH ×2 (16:19→21:47)
[2017-08-22] MEDS: NS 0.9% IVPB SCH ×2 (16:19→21:47)
[2017-08-22] MEDS: ACETAMIN/CODEINE #3 300-30 MG PO PRN (17:42)
[2017-08-22] MEDS: INSULIN HUM LISPRO 100 UN/ML 3 ML VIAL SUBQ PRN ×2 (17:42→21:47)
[2017-08-22] MEDS: INSULIN GLARGINE 100 U/ML 3 ML PEN SUBQ SCH (21:46)
[2017-08-22] MEDS: TERAZOSIN HCL 1 MG CAP PO SCH (21:46)
[2017-08-22] MEDS: SIMVASTATIN 20 MG TAB PO SCH (21:46)
[2017-08-23] MEDS: NS 0.9% IVPB SCH ×4 (04:40→21:42)
[2017-08-23] MEDS: IMIPENEM IVPB SCH ×4 (04:40→21:42)
[2017-08-23] MEDS: CILASTATIN IVPB SCH ×4 (04:40→21:42)
[2017-08-23] MEDS: ACETAMIN/CODEINE #3 300-30 MG PO PRN ×3 (05:38→22:48)
[2017-08-23] MEDS: LEVOTHYROXINE SOD 0.125 MG TAB PO SCH (05:38)
--- NOTE | 2017-08-23 06:32 | ECF H&P BLANK ---
[facility] H&P UPDATE History of Present Illness Chief Complaint Altered mental status History of Present Illness This patient was brought to the emergency room after family found him disoriented and without his oxygen. It is believed that he was without oxygen for several hours through the night. The family put it back on him, but he remained confused so they brought him in for evaluation. This has been his third admission for similar symptoms in the last 2 months. History Problems: (1) CAD (coronary artery disease) Status: Chronic (2) Chronic acquired lymphedema Status: Chronic (3) COPD exacerbation Status: Chronic (4) Essential hypertension Status: Chronic (5) Chronic kidney disease (CKD) stage G3b/A1, moderately decreased glomerular filtration rate (GFR) between 30-44 mL/min/1.73 square meter and albuminuria creatinine ratio less than 30 mg/g Status: Chronic (6) BPH (benign prostatic hyperplasia) Status: Chronic (7) Type 2 diabetes mellitus Status: Chronic (8) Hypothyroid Status: Chronic (9) Stented coronary artery Status: Chronic (10) History of cholecystectomy Status: Resolved (11) History of appendectomy Status: Resolved (12) History of tonsillectomy Status: Resolved Home Meds Reported Medications Triamcinolone Acetonide 0.1% Cr 15 Gm Tube (TRIAMCINOLONE ACETONIDE 0.1% CREAM) 15 Gm Cream..g., 15 GM TP TID, TUBE 07/24/17 Sodium Chloride (SALINE NASAL SPRAY) 30 Ml [place], 2 SPRAY NS Q2H Y for CONGESTION, SPRAY 07/24/17 Lisinopril (LISINOPRIL) 10 Mg Tablet, 10 MG PO QDAY, TAB 07/24/17 Ammonium Lactate (Ammonium Lactate) 12 % Cream..g., 1 SHIV TOP BIDAC 07/24/17 Furosemide (FUROSEMIDE) 20 Mg Tablet, 3 TAB PO BID, TAB 07/24/17 Clobetasol Propionate 0.05% Lotion (CLOBETASOL PROPIONATE 0.05% LOTION) 59 Ml Lotion, 0 TP BID, BOT 01/29/16 Terazosin Hcl (TERAZOSIN HCL) 2 Mg Capsule, 2 MG PO BID, CAPSULE 01/29/16 Albuterol Sul Hfa 90 Mcg 8 Gm (VENTOLIN HFA 90 MCG 8 GM) 8.5 Gm Hfa.aer.ad, 1-2 PUFF IH Q3-4H Y for SHORTNESS OF BREATH 3//15 Ranitidine Hcl (ZANTAC) 150 Mg Tablet, 150 MG PO QHS 01/18/14 Levothyroxine Sodium (SYNTHROID) 125 Mcg Tablet, 125 MCG PO QDAY 01/18/14 Simvastatin (SIMVASTATIN) 40 Mg Tablet, 20 MG PO HS, TAB 01/18/14 Aspirin (ASPIRIN EC) 81 Mg Tablet.dr, 81 MG PO QDAY, TAB 01/18/14 Allopurinol (ZYLOPRIM 300 MG TAB (OR EQUIV)) 300 Mg Tab, 300 MG PO DAILY, TAB 01/18/14 Gabapentin (GABAPENTIN) 300 Mg Capsule, 600 MG PO DAILY, CAPSULE 2 CAPS AM AND 1 CAP HS 01/18/14 Allergies: Coded Allergies: No Known Drug Allergies (Unverified , 07/28/17) Patient History: FH: cancer Hx Smoking: Yes Smoking Status: Former Smoker Exposure to Second Hand Smoke?: No Caffeine Intake: Soda Caffeine/Cups Per Day: 2-3 Hx Alcohol Use: No Hx Substance Use Disorder: No Review of Systems All Systems Reviewed/Normal: Yes, Except as Noted Neurological: Confusion, Weakness Exam Vital Signs Vital Signs Date Time Temp Pulse Resp B/P (MAP) Pulse Ox O2 Delivery O2 Flow Rate FiO2 08/18/17 03:39 97.9 57 20 104/84 (91) 99 Nasal Cannula 3.0 Neuro: No Gross deficits Eyes: PERRLA Cardiovascular: Regular Rate and Rhythm, No JVD Respiratory: Clear to Auscultation Extremities: Edema Integumentary: No Cyanosis Medical Decision Making Data Points Result Diagram: 08/18/175 08/18/1714 Item Value Date Time Lactate 2.5 mmol/L H 08/18/17 001 Item Value Date Time Troponin I 2.250 ng/ml *H 08/18/17 001 EKG / Imaging EKG Interpretation EKG reviewed. Imaging Chest x-ray reviewed. Assessment and Plan Problems: (1) Altered mental status Status: Acute Assessment & Plan: He did present with altered mental status. This is now his third admission since the beginning of the year with a similar presentation. He had a head CT during his last admission, and this was normal. His grandson reports that his mentation has improved since being back on oxygen and receiving IV fluids. (2) Elevated troponin Status: Acute Assessment & Plan: His initial troponin is elevated, but he had no complaints of chest pain and his EKG shows only nonspecific findings. He was off his oxygen for an extended period of time and also has renal failure. We will trend his troponin and continue his aspirin. (3) Generalized weakness Status: Acute Assessment & Plan: Physical and occupational therapy consults have been ordered. (4) Acute renal failure Assessment & Plan: He does have an acute rise in his creatinine above baseline. We are treating him with IV fluids and repeat chemistries are pending. (5) Bradycardia Status: Acute Assessment & Plan: He was noted to have bradycardia during his last admission and was scheduled to have a Holter monitor at the [place] yesterday. He was unable to keep that appointment. (6) CAD (coronary artery disease) Status: Chronic Assessment & Plan: He is on chronic treatment with aspirin and simvastatin. (7) Essential hypertension Status: Chronic Assessment & Plan: He is on chronic treatment with lisinopril, which has been held secondary to renal failure. (8) Chronic acquired lymphedema Status: Chronic Assessment & Plan: He is on chronic treatment with Lasix, which has been held secondary to renal failure. (9) Hypothyroid Status: Chronic Assessment & Plan: He is on chronic treatment with Synthroid. A TSH was normal during his last admission. (10) Type 2 diabetes mellitus Status: Chronic Assessment & Plan: He had been on insulin, but this was stopped during his last admission secondary to hypoglycemia. His family reports that his sugars have been less than 200 without treatment. (11) BPH (benign prostatic hyperplasia) Status: Chronic Assessment & Plan: He is on chronic treatment with terazosin. Venous Thromboembolism Antithrombotics Is Pt On Any Antithrombotics?: No Exam Sepsis Risk: Severe Sepsis Risk HILARIA BARRETO DO Aug 18, 2017 03:39 <Electronically signed by HILARIA BARRETO DO> D/ [id number] BARAK/BRAN CC: The above acute care issues are resolving and/or stable. Patient requires correction and/or skilled rehabilitation and is ready for admission to Extended Care. Any change in condition is described below. HILARIA BARRETO DO Aug 23, 2017 06:32
[2017-08-23 08:00] VITALS: BP 145/63
[2017-08-23] MEDS: ALLOPURINOL 300 MG TAB PO SCH (08:35)
[2017-08-23] MEDS: ASPIRIN 81 MG ENTERIC COATED PO SCH (08:36)
[2017-08-23] MEDS: GABAPENTIN 300 MG CAP PO SCH (08:36)
[2017-08-23] MEDS: TERAZOSIN HCL 1 MG CAP PO SCH ×2 (08:37→21:42)
--- NOTE | 2017-08-23 08:48 | Medical Nutrition Therapy ---
Nutrition Anthropometrics Height (Inches): 71 Weight (Pounds): 306 Weight (Calculated Kilograms): 138.799 BMI Calculated: 39.88 Francisco Nutrition Score: Adequate Francisco Nutrition Risk Score: 17 Dietary Referral Nutrition Risk Factors: Nutrition Risk Comment: Physical Findings Physical Appearance: Morbidly Obese 40+ Skin Appearance Skin Appearance: Edema Edema Location Modifier: Both Edema Location: Lower Extremity Type of Edema: Degree of Edema: 3+ Gastrointestinal Symptoms GI Symtoms: Tube Present: Bowel Sounds: Recent Bowel Pattern: Stool Characteristics: Nutritional Diagnosis Nutritional Risk Acuity 1: Acute/ES Renal Nutritional Risk Acuity 3: Fair Appetite Past Medical History: Skin Cam CAD, T2DM, hypercholesterolemia, COPD, CKD-3, HTN, hypothyroidism, chronic aquired lymphedema, BPH, Gout, diabetic neuropathy Nutritional Acuity: 1-High Nutrition Diagnosis: Decreased Nutrient Needs Nutrition Etiology: Physiological Causes Nutrition Problem/Etiology/Sym: Decreased protein needs related to physiological causes as evidenced by ARF and lab values; creatinine 1.9 and BUN 34 Adjusted Energy Requirement Re: 2074 ([id number]) Protein Requirement: 64 (64-103 (.5-.8 g/kg for ARF)) Fluid Requirement: 2580 (20 ml/kg) Diet Type: Diabetic Nutrition Intervention: Cont diet as ordered, Encourage intake Nutrition Monitoring & Eval RD Patient Assessment Time: [address] Assessment Type: RD Assessment Patient Nutrition Acuity: 1-High Follow Up Date: Aug 25, 2017 Nutritional Comment: 08/23 Pt transferred to [facility] for ongoing rehab. Original admit was for AMS, cellulitis and ARF. PMH of T2DM with BG ranges from 170-240's. Currently on ADA diet. BMI in morbid obesity category but pt has lost around 30# since admit in December 2016. Please obtain new wt. Notable labs include low H/H, Na 135, BUN 34, creatinine 1.9, glc 150, tot pro 5.1 and alb 2.4. Will cont to monitor and encourage intake. ROSEANN LOCKETT Aug 23, 2017 08:48
[2017-08-23] MEDS: INSULIN HUM LISPRO 100 UN/ML 3 ML VIAL SUBQ PRN ×3 (11:56→21:42)
[2017-08-23 15:15] VITALS: BP 152/63
[2017-08-23] MEDS: VANCOMYCIN(*) 1 GM VIAL 1 GM, VANCOMYCIN (*) 0.5 GM VIAL 0.25 GM in NS(*) 0.9% 250 ML B... IVPB SCH (18:30)
[2017-08-23] MEDS: SIMVASTATIN 20 MG TAB PO SCH (21:42)
[2017-08-23] MEDS: INSULIN GLARGINE 100 U/ML 3 ML PEN SUBQ SCH (21:42)
[2017-08-24] MEDS: NS 0.9% IVPB SCH ×4 (04:27→21:41)
[2017-08-24] MEDS: CILASTATIN IVPB SCH ×4 (04:27→21:41)
[2017-08-24] MEDS: IMIPENEM IVPB SCH ×4 (04:27→21:41)
[2017-08-24] MEDS: LEVOTHYROXINE SOD 0.125 MG TAB PO SCH (06:13)
[2017-08-24] MEDS: ACETAMIN/CODEINE #3 300-30 MG PO PRN ×2 (06:13→21:40)
[2017-08-24 07:50] VITALS: BP 127/51
[2017-08-24] MEDS: ALLOPURINOL 300 MG TAB PO SCH (09:06)
[2017-08-24] MEDS: GABAPENTIN 300 MG CAP PO SCH (09:06)
[2017-08-24] MEDS: TERAZOSIN HCL 1 MG CAP PO SCH ×2 (09:06→21:40)
[2017-08-24] MEDS: ASPIRIN 81 MG ENTERIC COATED PO SCH (09:06)
[2017-08-24] MEDS: INSULIN HUM LISPRO 100 UN/ML 3 ML VIAL SUBQ PRN ×2 (12:37→21:40)
[2017-08-24 15:43] VITALS: BP 158/62
--- NOTE | 2017-08-24 16:03 | OT ECF NOTE ---
Type of Note: Initial Note Primary Medical Diagnosis: Generalized weakness s/p hospital admission for cellulitis, AMS, elevated troponin, acute renal failure Occupational Therapy Evaluation Date: 08/24/17 SUBJECTIVE: [facility]. Admission to [facility] 08/22/17. Prior Level of Function: Pt reports independence with bathing and toileting. His son/family assist with all LB dressing and all IADLs. Prior Living Status: Single level house Living with family Assist by family Community Services: Home health care No known needs Home Accessibility: Stairs with rails All needs on one level Walk-in shower Tub/shower combination Equipment Owned: Front wheeled walker Cane Tub/shower chair Extended tub bench-Pt reports bench is too large for bathtub Medical Complications/Past Medical History: Bradycardia, CAD, HTN, chronic lymphedema, hypothyroid, Type 2 DM Psychosocial Support: Supportive son and family who patient lives with Pain Scale (0-10): Pt reports "pain all over" No numerical rating provided OBJECTIVE: Strength: MMT: Right Left Shoulder Flexion WFL WFL Elbow Flexion WFL WFL Wrist Extension WFL WFL Distribution Collection Operator WFL WFL (5= normal, 4= good, 3= fair, 2= poor, 1= trace) ROM: Both upper extremities, WFL Functional Transfer: Assistive Device: Front wheeled walker, Gait belt Transfer Ability: SBA ADL: Upper body dressing: Assistive device: Upper body dressing ability: N/T Lower body dressing: Assistive device: None Lower body dressing ability: Minimum assistance Toileting: Assistive device: Toileting ability: N/T Grooming/hygiene: Assistive device: Grooming ability: N/T Bathing: Assistive device: Bathing ability: Refusing shower date of evaluation Standardized Assessment: Margareth Index of Activities of Daily Livin/20 upon initial evaluation () ASSESSMENT: Rizwan presents to [facility] with generalized weakness and decreased ability to safety ambulate functional distances and complete ADLs (I)ly. At [facility] , pt was (I) with toileting and bathing. Currently, he requires SBA for ambulation and Min A for ADLs. He will benefit from skilled OT services to improve activity tolerance and optimize (I) for engagement in ADLs prior to discharge home. Problem List/Current Limitations: Pain Decreased activity tolerance Generalized weakness Short Term Goals: 1) Pt will be independent UB dressing. 2) Pt will be Min A LB dressing. 3) Pt will be Mod (I) toileting. 4) Pt will be Independent grooming. 5) Pt Margareth Index of ADLs score will improve by 2 points. 6) Pt will be Min A shower task. Skilled Nursing Goals: Discharge home with assist from family and services. Patient Goals: "Walk again" Rehabilitation Prognosis: Good Barriers to Discharge: Pain, Medical history PLAN: The patient will benefit from skilled occupational therapy services 5 times per week for 2 weeks including: Ther ex ADL training Safety training Ther act IADL training Transfer training Bed mobility Thank you for this referral. If you have any questions, concerns, or comments about this report or plan, please contact me at . Melinda Monson MS, OTR/L Occupational Therapist [facility]
--- NOTE | 2017-08-24 16:44 | PT ECF NOTE ---
Type of Note: Initial Note Primary Medical Diagnosis: Altered Mental Status, Generalize Weakness Physical Therapy Evaluation Date: 08/24/17 SUBJECTIVE: [facility]ization: [facility] 08/18/17-08/22/17 Prior Level of Function: SBA/Maria L with RW and assistance from family Prior Living Status: Single level house, Living with family, Assist by family Community Services: Home health assisted Accessibility: 5 stairs with rails Equipment Owned: Front wheeled walker, Cane Medical Complications/Past Medical History: See EMR Psychosocial Support: Supportive son and family Pain Scale (0-10): 8/10 bilateral LEs OBJECTIVE: Strength: Right Lower Extremity: DF: 5/5 Knee flexion: 4/5 Knee extension: 4/5 Hip flexion: 3+/5 Left Lower Extremity: DF: 5/5 Knee flexion: 4/5 Knee extension: 4/5 Hip flexion:<3/5 ROM: WFL Sensation: Not formally assessed, bilateral compression wraps in place Other Neuro findings: N/A Bed Mobility: NT, pt up in chair Transfers: SBA with RW Gait: SBA/CGA with RW Stairs: NT Timed Up and Go (>12 seconds indicated increased risk for falls): 25 seconds , decreased safety with turns ASSESSMENT: Pt presents today with overall decreased tolerance to functional activity and increased fall risk. Pt demonstrates good sequencing with STS transfers but requires increased time, SBA. CGA provided during TUG test as the pt demonstrates decreased safety and impaired dynamic balance with attempt at rapid turns with RW. SBA for ambulation x200' with use of RW, pt required 2 standing rest breaks with SPO2 88% on 2L O2. Pt will benefit from skilled PT services to increase independence with functional mobility and decrease risk of falls prior to d/c home. 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 PT completed conservative, selective debridement of non-viable tissue and slough with tweezers and scissors to the depth of the subcutaneous tissue. Wound base revealed with granulation present in base. PT placed collagen with silver in the wound base and covered the wound with a bandaid. PT to f/u 08/28/17. Pt with chronic lymphedema related changes to bilateral distal LEs and feet. Today the patient's LE demonstrate diffuse weeping edema with large blisters on bilateral shins. All blisters were open at time of evaluation therefore PT assisted in evacuating areas of serous fluid prior to application of LE wraps. Bilateral LEs cleansed with sterile gauze and saline and then treated with vaseline based moisture barrier cream. Bilateral LEs wrapped in retrograde fashion with coflex 2 stage compression wraps. PT recommends that wraps remain in place until Thursday, and educated nursing on alerting PT if the wraps become saturated prior to that time. Problem List/Current Limitations: Pain Decreased activity stephan Decreased strength Decreased balance Short Term Goals: 1: Pt to complete bed mobility with Maria L 2: Pt to complete transfers with Maria L and least restrictive AD 3: Pt to ambulate 400' with SBA and least restrictive AD 4: Pt to ambulate 50' with Maria L and least restrictive AD 5: Pt to asc/desc 4 stairs with SBA [facility] Goals: Pt to discharge home with a decreased need of assistance from others Patient Goals: Discharge Home Rehabilitation Prognosis: Good Barriers for Discharge: Decreased safety awareness at times. PLAN: The patient will benefit from skilled physical therapy services 5 times per week for 2 weeks including: Therapeutic Exercise Therapeutic Activities Transfer Training Gait Training Stair Training Manual Therapy Safety Training Neuromuscular Re-educ. Pt/Caregiver Training Bed Mobility Thank you for this referral. If you have any questions, concerns, or comments about this report or plan, please contact me at . Jennifer Mittal, PT, DPT MTDD
[2017-08-24] MEDS: VANCOMYCIN(*) 1 GM VIAL 1 GM, VANCOMYCIN (*) 0.5 GM VIAL 0.25 GM in NS(*) 0.9% 250 ML B... IVPB SCH (18:28)
[2017-08-24] MEDS: SIMVASTATIN 20 MG TAB PO SCH (21:40)
[2017-08-24] MEDS: INSULIN GLARGINE 100 U/ML 3 ML PEN SUBQ SCH (21:40)
[2017-08-24] MEDS: NS(*) 0.9% 250 ML BAG 250 ML IVPB PRN (21:53)
[2017-08-25] MEDS: CILASTATIN IVPB SCH (04:43)
[2017-08-25] MEDS: IMIPENEM IVPB SCH (04:43)
[2017-08-25] MEDS: NS 0.9% IVPB SCH (04:43)
[2017-08-25] MEDS: LEVOTHYROXINE SOD 0.125 MG TAB PO SCH (05:44)
[2017-08-25] MEDS: ACETAMIN/CODEINE #3 300-30 MG PO PRN (05:44)
[2017-08-25 07:45] VITALS: BP 120/54
[2017-08-25] MEDS: TERAZOSIN HCL 1 MG CAP PO SCH ×2 (08:46→20:47)
[2017-08-25] MEDS: GABAPENTIN 300 MG CAP PO SCH (08:46)
[2017-08-25] MEDS: ASPIRIN 81 MG ENTERIC COATED PO SCH (08:46)
[2017-08-25] MEDS: ALLOPURINOL 300 MG TAB PO SCH (08:46)
[2017-08-25] MEDS: IMIPENEM/CILASTA(*) 500MG VIAL 300 MG in NS(*) 0.9% 100 ML BAG 100 ML IVPB SCH ×3 (10:11→21:18)
[2017-08-25] MEDS: INSULIN HUM LISPRO 100 UN/ML 3 ML VIAL SUBQ PRN ×2 (12:09→20:50)
--- NOTE | 2017-08-25 12:52 | Medical Nutrition Therapy ---
Nutrition Anthropometrics Height (Inches): 71 Weight (Pounds): 306 Weight (Calculated Kilograms): 138.799 BMI Calculated: 39.88 Francisco Nutrition Score: Adequate Francisco Nutrition Risk Score: 17 Dietary Referral Nutrition Risk Factors: Nutrition Risk Comment: Physical Findings Physical Appearance: Morbidly Obese 40+ Skin Appearance Skin Appearance: Edema Edema Location Modifier: Both Edema Location: Lower Extremity Type of Edema: Degree of Edema: 3+ Gastrointestinal Symptoms GI Symtoms: Tube Present: Bowel Sounds: Recent Bowel Pattern: Stool Characteristics: Nutrition/Food History Good Nutritional Diagnosis Nutritional Risk Acuity 1: Acute/ES Renal Nutritional Risk Acuity 4: Good Appetite Past Medical History: Skin Cam CAD, T2DM, hypercholesterolemia, COPD, CKD-3, HTN, hypothyroidism, chronic aquired lymphedema, BPH, Gout, diabetic neuropathy Nutritional Acuity: 1-High Nutrition Diagnosis: Decreased Nutrient Needs Nutrition Etiology: Physiological Causes Nutrition Problem/Etiology/Sym: Decreased protein needs related to physiological causes as evidenced by ARF and lab values; creatinine 1.9 and BUN 34 Adjusted Energy Requirement Re: 2074 ([id number]) Protein Requirement: 64 (64-103 (.5-.8 g/kg for ARF)) Fluid Requirement: 2580 (20 ml/kg) Diet Type: Diabetic Nutrition Intervention: Cont diet as ordered, Encourage intake Nutrition Monitoring & Eval Nutrition Goals: Eat 50-100% Meal RD Patient Assessment Time: [address] Assessment Type: RD Re-Assessment Patient Nutrition Acuity: 1-High Follow Up Date: Sep 01, 2017 Nutritional Comment: 08/23 Pt transferred to [facility] for ongoing rehab. Original admit was for AMS, cellulitis and ARF. PMH of T2DM with BG ranges from 170-240's. Currently on ADA diet. BMI in morbid obesity category but pt has lost around 30# since admit in December 2016. Please obtain new wt. Notable labs include low H/H, Na 135, BUN 34, creatinine 1.9, glc 150, tot pro 5.1 and alb 2.4. Will cont to monitor and encourage intake. 08/25 Alb 2.4, Glu 159. Lantus 10u q HS, Lispro SSI. Continues receiving Diabetic diet. Appetite and intake excellent with meals consumed at 75-100%. Monitor intake, labs, etc. LES RICARDO Aug 25, 2017 12:52
[2017-08-25 16:30] VITALS: BP 152/59
[2017-08-25] MEDS ORDERED: VANCOMYCIN 1 GM ADDVIAL 1 GM in NS(*) 0.9% 250 ML ADDVAN BAG 250 ML IVPB SCH (18:35)
[2017-08-25] MEDS: VANCOMYCIN 1 GM ADDVIAL 1 GM in NS(*) 0.9% 250 ML ADDVAN BAG 250 ML IVPB SCH (18:46)
[2017-08-25] MEDS: SIMVASTATIN 20 MG TAB PO SCH (20:48)
[2017-08-25] MEDS: INSULIN GLARGINE 100 U/ML 3 ML PEN SUBQ SCH (20:50)
[2017-08-26] MEDS: IMIPENEM/CILASTA(*) 500MG VIAL 300 MG in NS(*) 0.9% 100 ML BAG 100 ML IVPB SCH ×4 (03:49→21:50)
[2017-08-26] MEDS: LEVOTHYROXINE SOD 0.125 MG TAB PO SCH (05:52)
[2017-08-26 08:00] VITALS: BP 155/61
[2017-08-26] MEDS ORDERED: PNEUMOCOC VAC POLY 25MCG/0.5ML IM ONLY ONE (09:00)
[2017-08-26] MEDS: ASPIRIN 81 MG ENTERIC COATED PO SCH (09:07)
[2017-08-26] MEDS: GABAPENTIN 300 MG CAP PO SCH (09:07)
[2017-08-26] MEDS: TERAZOSIN HCL 1 MG CAP PO SCH ×2 (09:07→20:47)
[2017-08-26] MEDS: ALLOPURINOL 300 MG TAB PO SCH (09:08)
[2017-08-26 15:35] VITALS: BP 147/62
--- NOTE | 2017-08-26 16:11 | Hospitalist Progress Note ---
Subjective Progress Notes Subjective The patient denies new complaints. Legs are swelling a bit off of Lasix. Physical Exam Vital Signs Date Time Temp Pulse Resp B/P (MAP) Pulse Ox O2 Delivery O2 Flow Rate FiO2 08/26/17 13:05 93 Nasal Cannula 1.5 08/26/17 08:00 98.8 80 20 155/61 (92) Intake and Output 08/27/17 07:00 Intake Total 163 ml Balance 163 ml IV Total 163 ml # Voids 1 General Appearance: Alert, Awake, No Acute Distress, Afebrile Eyes: PERRLA Cardiovascular: Regular Rate and Rhythm (Loud systolic murmur without thrill.) , Other (Edema is 2+ to knee. ) Respiratory: No Respiratory Distress, Clear to Auscultation GI: Soft and Non-Tender, Other (Obese.) Lymph: Cervical Nodes Benign Extremities: Warm, Edema (2+. Feet wrapped. Unwrapped upper L leg. No further redness noted. ) Integumentary: Other (Chronic venous stasis changes.) Psych: Appropriate Mood & Affect Assessment and Plan Problems: (1) Generalized weakness Status: Acute Assessment & Plan: The patient was transferred to [facility] for ongoing IV abs and rehabilitation. Physical and occupational therapy are working with him. (2) Cellulitis Status: Acute Assessment & Plan: He was found to have a cellulitis of the left lower leg. He has been on treatment with Primaxin and vancomycin. His cultures have been negative. He will need to complete a 14 day course of antibiotics and his initial day of abs was 08/18. (3) Elevated troponin Status: Acute Assessment & Plan: His initial troponin was significantly elevated. He had no complaints of chest pain. His EKG showed only nonspecific findings. He was off his oxygen for an extended period of time. This could potentially be a primary ischemic event, but could also be "strain" related to the acute illness. He might need a stress test as an outpatient after acute illness is resolved. (4) Altered mental status Status: Acute Assessment & Plan: Improved. Likely, secondary to cellulitis. This is now his third admission since the beginning of the year with a similar presentation. He had a head CT during his last admission and this was normal. (5) Acute renal failure Assessment & Plan: Improved with IV fluids. Will repeat labs in am. (6) Bradycardia Status: Acute Assessment & Plan: He was noted to have bradycardia during his last admission and was scheduled to have a Holter monitor at the [place], but was unable to keep that appointment. (7) CAD (coronary artery disease) Status: Chronic Assessment & Plan: He is on chronic treatment with aspirin and simvastatin. (8) Essential hypertension Status: Chronic Assessment & Plan: He is on chronic treatment with lisinopril, which has been held secondary to renal failure. (9) Chronic acquired lymphedema Status: Chronic Assessment & Plan: He is on chronic treatment with Lasix, which has been held secondary to renal failure. (10) Hypothyroid Status: Chronic Assessment & Plan: He is on chronic treatment with Synthroid. A TSH was normal during his last admission. (11) Type 2 diabetes mellitus Status: Chronic Assessment & Plan: He had been on insulin, but this was stopped during his last admission secondary to hypoglycemia. His family reports that his sugars have been less than 200 without treatment. He is currently on Lantus 10u at HS and sliding scale level #1. (12) BPH (benign prostatic hyperplasia) Status: Chronic Assessment & Plan: He is on chronic treatment with terazosin. Time Spent on Plan of Care: < 30 min SHASHI OBREGON MD Aug 26, 2017 16:11
[2017-08-26] MEDS: INSULIN HUM LISPRO 100 UN/ML 3 ML VIAL SUBQ PRN (16:48)
[2017-08-26] MEDS: VANCOMYCIN 1 GM ADDVIAL 1 GM in NS(*) 0.9% 250 ML ADDVAN BAG 250 ML IVPB SCH (19:01)
[2017-08-26] MEDS: INSULIN GLARGINE 100 U/ML 3 ML PEN SUBQ SCH (20:47)
[2017-08-26] MEDS: ACETAMIN/CODEINE #3 300-30 MG PO PRN (20:47)
[2017-08-26] MEDS: SIMVASTATIN 20 MG TAB PO SCH (20:48)
[2017-08-27] MEDS: IMIPENEM/CILASTA(*) 500MG VIAL 300 MG in NS(*) 0.9% 100 ML BAG 100 ML IVPB SCH ×4 (03:38→21:08)
[2017-08-27] MEDS: LEVOTHYROXINE SOD 0.125 MG TAB PO SCH (05:38)
[2017-08-27 06:14] LABS: PLATELET COUNT, AUTOMATED 282 K/uL (150-450)
[2017-08-27 08:00] VITALS: BP 153/59
[2017-08-27] MEDS: FUROSEMIDE 40 MG TAB PO SCH (09:00)
[2017-08-27] MEDS: ASPIRIN 81 MG ENTERIC COATED PO SCH (09:00)
[2017-08-27] MEDS: TERAZOSIN HCL 1 MG CAP PO SCH ×2 (09:01→21:08)
[2017-08-27] MEDS: GABAPENTIN 300 MG CAP PO SCH (09:01)
[2017-08-27] MEDS: ALLOPURINOL 300 MG TAB PO SCH (09:01)
[2017-08-27] MEDS: ACETAMIN/CODEINE #3 300-30 MG PO PRN ×2 (09:02→21:08)
[2017-08-27] MEDS ORDERED: ALTEPLASE RECOMB 2 MG VIAL IVP PRN (15:05)
[2017-08-27] MEDS ORDERED: WATER STERILE 10 ML VIAL IVP PRN (15:15)
[2017-08-27 16:00] VITALS: BP 156/60
[2017-08-27] MEDS: INSULIN HUM LISPRO 100 UN/ML 3 ML VIAL SUBQ PRN (16:27)
[2017-08-27] MEDS: VANCOMYCIN 1 GM ADDVIAL 1 GM in NS(*) 0.9% 250 ML ADDVAN BAG 250 ML IVPB SCH (19:00)
[2017-08-27] MEDS: INSULIN GLARGINE 100 U/ML 3 ML PEN SUBQ SCH (21:08)
[2017-08-27] MEDS: SIMVASTATIN 20 MG TAB PO SCH (21:09)
[2017-08-28] MEDS: IMIPENEM/CILASTA(*) 500MG VIAL 300 MG in NS(*) 0.9% 100 ML BAG 100 ML IVPB SCH ×4 (04:00→21:31)
[2017-08-28] MEDS: NS(*) 0.9% 250 ML BAG 250 ML IVPB PRN (04:27)
[2017-08-28] MEDS: LEVOTHYROXINE SOD 0.125 MG TAB PO SCH (05:58)
[2017-08-28 08:00] VITALS: BP 141/56
--- NOTE | 2017-08-28 08:34 | OT ECF NOTE ---
Type of Note: Discharge Note Primary Medical Diagnosis: Generalized weakness s/p hospital admission for cellulitis, AMS, elevated troponin, acute renal failure Occupational Therapy Evaluation Date: 08/24/17 SUBJECTIVE: Prior Hospitalization: [facility] 08/17/17-08/22/17. Admission to [facility] 08/22/17. Prior Level of Function: Pt reports independence with bathing and toileting. His son/family assist with all LB dressing and all IADLs. Prior Living Status: Single level house Living with family Assist by family Community Services: Home health care No known needs Home Accessibility: Stairs with rails All needs on one level Walk-in shower Tub/shower combination Equipment Owned: Front wheeled walker Cane Tub/shower chair Extended tub bench-Pt reports bench is too large for bathtub Medical Complications/Past Medical History: Bradycardia, CAD, HTN, chronic lymphedema, hypothyroid, Type 2 DM Psychosocial Support: Supportive son and family who patient lives with Pain Scale (0-10): Pt reports "pain all over" No numerical rating provided OBJECTIVE: Strength: MMT: Right Left Shoulder Flexion WFL WFL Elbow Flexion WFL WFL Wrist Extension WFL WFL Pot Feeder WFL WFL (5= normal, 4= good, 3= fair, 2= poor, 1= trace) ROM: Both upper extremities, WFL Functional Transfer: Assistive Device: Front wheeled walker, Gait belt Transfer Ability: Mod I ADL: Upper body dressing: Assistive device: Upper body dressing ability: I Lower body dressing: Assistive device: None Lower body dressing ability: Minimum assistance Toileting: Assistive device: Toileting ability: Mod I Grooming/hygiene: Assistive device: Grooming ability: I Bathing: Assistive device: Bathing ability: Refusing shower date of evaluation Standardized Assessment: Margareth Index of Activities of Daily Livin/20 upon initial evaluation (). on 08/28/16. ASSESSMENT: Rizwan presents to [facility] with generalized weakness and decreased ability to safety ambulate functional distances and complete ADLs (I)ly. At [facility] , pt was (I) with toileting and bathing. Currently, he requires SBA for ambulation and Min A for ADLs. He will benefit from skilled OT services to improve activity tolerance and optimize (I) for engagement in ADLs prior to discharge home. Problem List/Current Limitations: Pain Decreased activity tolerance Generalized weakness Short Term Goals: 1) Pt will be independent UB dressing. Goal Met. 2) Pt will be Min A LB dressing. Goal Met. 3) Pt will be Mod (I) toileting. Goal Met. 4) Pt will be Independent grooming. Goal met. 5) Pt Margareth Index of ADLs score will improve by 2 points.Goal met. . 6) Pt will be Min A shower task. Not performed with OT. Usp Goals: Discharge home with assist from family and HH services. Patient Goals: "Walk again" Rehabilitation Prognosis: Good Barriers to Discharge: Pain, Medical history PLAN: The patient will d/c to home with HH care when cleared medically and by PT services. Thank you for this referral. If you have any questions, concerns, or comments about this report or plan, please contact me at . Sigrid Garcia, OTR/L Occupational Therapy [facility]
[2017-08-28] MEDS: ALLOPURINOL 300 MG TAB PO SCH (09:21)
[2017-08-28] MEDS: ASPIRIN 81 MG ENTERIC COATED PO SCH (09:21)
[2017-08-28] MEDS: FUROSEMIDE 40 MG TAB PO SCH (09:21)
[2017-08-28] MEDS: GABAPENTIN 300 MG CAP PO SCH (09:21)
[2017-08-28] MEDS: TERAZOSIN HCL 1 MG CAP PO SCH ×2 (09:21→21:07)
[2017-08-28 16:45] VITALS: BP 126/76
[2017-08-28] MEDS: VANCOMYCIN 1 GM ADDVIAL 1 GM in NS(*) 0.9% 250 ML ADDVAN BAG 250 ML IVPB SCH (18:43)
[2017-08-28] MEDS: INSULIN GLARGINE 100 U/ML 3 ML PEN SUBQ SCH (21:07)
[2017-08-28] MEDS: SIMVASTATIN 20 MG TAB PO SCH (21:11)
[2017-08-29] MEDS: ACETAMIN/CODEINE #3 300-30 MG PO PRN ×2 (04:45→21:23)
[2017-08-29] MEDS: IMIPENEM/CILASTA(*) 500MG VIAL 300 MG in NS(*) 0.9% 100 ML BAG 100 ML IVPB SCH ×4 (04:45→21:23)
[2017-08-29] MEDS: LEVOTHYROXINE SOD 0.125 MG TAB PO SCH (06:22)
[2017-08-29 07:35] VITALS: BP 133/54
[2017-08-29] MEDS: FUROSEMIDE 40 MG TAB PO SCH (09:38)
[2017-08-29] MEDS: GABAPENTIN 300 MG CAP PO SCH (09:38)
[2017-08-29] MEDS: ALLOPURINOL 300 MG TAB PO SCH (09:38)
[2017-08-29] MEDS: ASPIRIN 81 MG ENTERIC COATED PO SCH (09:38)
[2017-08-29] MEDS: TERAZOSIN HCL 1 MG CAP PO SCH ×2 (09:43→21:23)
[2017-08-29 17:32] VITALS: BP 151/64
[2017-08-29 18:49] LABS: PLATELET COUNT, AUTOMATED 262 K/uL (150-450)
[2017-08-29] MEDS: VANCOMYCIN 1 GM ADDVIAL 1 GM in NS(*) 0.9% 250 ML ADDVAN BAG 250 ML IVPB SCH (19:38)
[2017-08-29] MEDS: SIMVASTATIN 20 MG TAB PO SCH (21:23)
[2017-08-29] MEDS: INSULIN HUM LISPRO 100 UN/ML 3 ML VIAL SUBQ PRN (21:24)
[2017-08-29] MEDS: INSULIN GLARGINE 100 U/ML 3 ML PEN SUBQ SCH (21:24)
[2017-08-30] MEDS: IMIPENEM/CILASTA(*) 500MG VIAL 300 MG in NS(*) 0.9% 100 ML BAG 100 ML IVPB SCH ×4 (04:29→21:38)
[2017-08-30] MEDS: LEVOTHYROXINE SOD 0.125 MG TAB PO SCH (05:19)
[2017-08-30 07:30] VITALS: BP 116/40
[2017-08-30] MEDS: TERAZOSIN HCL 1 MG CAP PO SCH ×2 (09:04→21:38)
[2017-08-30] MEDS: ASPIRIN 81 MG ENTERIC COATED PO SCH (09:05)
[2017-08-30] MEDS: ALLOPURINOL 300 MG TAB PO SCH (09:05)
[2017-08-30] MEDS: FUROSEMIDE 40 MG TAB PO SCH (09:05)
[2017-08-30] MEDS: GABAPENTIN 300 MG CAP PO SCH (09:05)
[2017-08-30] MEDS: ACETAMIN/CODEINE #3 300-30 MG PO PRN ×2 (12:01→21:38)
[2017-08-30 16:40] VITALS: BP 161/53
[2017-08-30] MEDS: VANCOMYCIN 1 GM ADDVIAL 1 GM in NS(*) 0.9% 250 ML ADDVAN BAG 250 ML IVPB SCH (18:43)
[2017-08-30] MEDS: SIMVASTATIN 20 MG TAB PO SCH (21:38)
[2017-08-30] MEDS: INSULIN GLARGINE 100 U/ML 3 ML PEN SUBQ SCH (21:38)
[2017-08-30] MEDS: INSULIN HUM LISPRO 100 UN/ML 3 ML VIAL SUBQ PRN (21:39)
[2017-08-31] MEDS: IMIPENEM/CILASTA(*) 500MG VIAL 300 MG in NS(*) 0.9% 100 ML BAG 100 ML IVPB SCH ×4 (04:20→21:42)
[2017-08-31] MEDS: NS(*) 0.9% 250 ML BAG 250 ML IVPB PRN (04:20)
[2017-08-31] MEDS: LEVOTHYROXINE SOD 0.125 MG TAB PO SCH (05:13)
[2017-08-31] MEDS: ACETAMIN/CODEINE #3 300-30 MG PO PRN ×2 (05:13→21:43)
[2017-08-31 07:30] VITALS: BP 143/56
[2017-08-31] MEDS: GABAPENTIN 300 MG CAP PO SCH (08:57)
[2017-08-31] MEDS: ALLOPURINOL 300 MG TAB PO SCH (08:57)
[2017-08-31] MEDS: ASPIRIN 81 MG ENTERIC COATED PO SCH (08:58)
[2017-08-31] MEDS: FUROSEMIDE 40 MG TAB PO SCH (08:58)
[2017-08-31] MEDS: TERAZOSIN HCL 1 MG CAP PO SCH ×2 (08:58→21:43)
[2017-08-31] MEDS ORDERED: PNEUMOCOC VAC POLY 25MCG/0.5ML IM ONLY ONE (09:00)
[2017-08-31 16:20] VITALS: BP 156/58
[2017-08-31] MEDS: VANCOMYCIN 1 GM ADDVIAL 1 GM in NS(*) 0.9% 250 ML ADDVAN BAG 250 ML IVPB SCH (19:31)
[2017-08-31] MEDS: SIMVASTATIN 20 MG TAB PO SCH (21:43)
[2017-08-31] MEDS: INSULIN GLARGINE 100 U/ML 3 ML PEN SUBQ SCH (21:43)
[2017-08-31] MEDS: INSULIN HUM LISPRO 100 UN/ML 3 ML VIAL SUBQ PRN (21:45)
[2017-09-01] MEDS: IMIPENEM/CILASTA(*) 500MG VIAL 300 MG in NS(*) 0.9% 100 ML BAG 100 ML IVPB SCH ×2 (04:11→10:01)
[2017-09-01] MEDS: LEVOTHYROXINE SOD 0.125 MG TAB PO SCH (06:25)
[2017-09-01 08:05] VITALS: BP 139/59
[2017-09-01] MEDS: ACETAMIN/CODEINE #3 300-30 MG PO PRN (08:28)
[2017-09-01] MEDS: FUROSEMIDE 40 MG TAB PO SCH (09:23)
[2017-09-01] MEDS: ALLOPURINOL 300 MG TAB PO SCH (09:23)
[2017-09-01] MEDS: GABAPENTIN 300 MG CAP PO SCH (09:24)
[2017-09-01] MEDS: ASPIRIN 81 MG ENTERIC COATED PO SCH (09:25)
[2017-09-01] MEDS: TERAZOSIN HCL 1 MG CAP PO SCH ×2 (09:25→21:29)
--- NOTE | 2017-09-01 10:26 | Medical Nutrition Therapy ---
Nutrition Anthropometrics Height (Inches): 71 Weight (Pounds): 310 Weight (Calculated Kilograms): 140.614 BMI Calculated: 39.88 Francisco Nutrition Score: Adequate Francisco Nutrition Risk Score: 17 Dietary Referral Nutrition Risk Factors: Nutrition Risk Comment: Physical Findings Physical Appearance: Morbidly Obese 40+ Skin Appearance Skin Appearance: Edema Edema Location Modifier: Both Edema Location: Upper Extremity Type of Edema: Degree of Edema: 1+ Gastrointestinal Symptoms GI Symtoms: Tube Present: Bowel Sounds: Recent Bowel Pattern: Stool Characteristics: Nutritional Diagnosis Nutritional Risk Acuity 1: Acute/ES Renal Nutritional Risk Acuity 4: Good Appetite Past Medical History: Skin Cam CAD, T2DM, hypercholesterolemia, COPD, CKD-3, HTN, hypothyroidism, chronic aquired lymphedema, BPH, Gout, diabetic neuropathy Nutritional Acuity: 1-High Nutrition Diagnosis: Decreased Nutrient Needs Nutrition Etiology: Physiological Causes Nutrition Problem/Etiology/Sym: Decreased protein needs related to physiological causes as evidenced by ARF and lab values; creatinine 1.9 and BUN 34 Adjusted Energy Requirement Re: 2074 ([id number]) Protein Requirement: 64 (64-103 (.5-.8 g/kg for ARF)) Fluid Requirement: 2580 (20 ml/kg) Diet Type: Diabetic Nutrition Intervention: Cont diet as ordered, Encourage intake Nutrition Monitoring & Eval Nutrition Goals: Eat 75-100% Meal Nutrition Follow-Up: Good Intake RD Patient Assessment Time: [address] Assessment Type: RD Re-Assessment Patient Nutrition Acuity: 1-High Follow Up Date: Sep 08, 2017 Nutritional Comment: 08/23 Pt transferred to [facility] for ongoing rehab. Original admit was for AMS, cellulitis and ARF. PMH of T2DM with BG ranges from 170-240's. Currently on ADA diet. BMI in morbid obesity category but pt has lost around 30# since admit in December 2016. Please obtain new wt. Notable labs include low H/H, Na 135, BUN 34, creatinine 1.9, glc 150, tot pro 5.1 and alb 2.4. Will cont to monitor and encourage intake. 08/25 Alb 2.4, Glu 159. Lantus 10u q HS, Lispro SSI. Continues receiving Diabetic diet. Appetite and intake excellent with meals consumed at 75-100%. Monitor intake, labs, etc. 09/01 Pt cont good intake ranging 95-100%. Pt on ADA diet. BG is WNR before brkft then is mildly elevated up to 180's. Alb 2.4. wt is up 4#. pt cont 3+ edema LE, 1+ UE. Pt is on a duiretic. Anticipate wt loss when edema resolves. Cont to monitor and encourage intake. DONALD GROVES Sep 01, 2017 10:25
[2017-09-01 17:00] VITALS: BP 150/60
[2017-09-01] MEDS: SIMVASTATIN 20 MG TAB PO SCH (21:29)
[2017-09-01] MEDS: INSULIN GLARGINE 100 U/ML 3 ML PEN SUBQ SCH (21:29)
[2017-09-02] MEDS: LEVOTHYROXINE SOD 0.125 MG TAB PO SCH (05:06)
[2017-09-02] MEDS: ACETAMIN/CODEINE #3 300-30 MG PO PRN (07:18)
[2017-09-02 07:20] VITALS: BP 156/57
[2017-09-02] MEDS: ALLOPURINOL 300 MG TAB PO SCH (08:48)
[2017-09-02] MEDS: ASPIRIN 81 MG ENTERIC COATED PO SCH (08:48)
[2017-09-02] MEDS: FUROSEMIDE 40 MG TAB PO SCH (08:48)
[2017-09-02] MEDS: GABAPENTIN 300 MG CAP PO SCH (08:48)
[2017-09-02] MEDS: TERAZOSIN HCL 1 MG CAP PO SCH ×2 (08:51→20:41)
[2017-09-02] MEDS: INSULIN HUM LISPRO 100 UN/ML 3 ML VIAL SUBQ PRN (12:11)
[2017-09-02] MEDS ORDERED: FUROSEMIDE 20 MG TAB PO SCH (16:00)
--- NOTE | 2017-09-02 16:01 | Hospitalist Progress Note ---
Subjective Progress Notes Subjective The patient is concerned about leaving due to increased weight. Physical Exam Vital Signs Date Time Temp Pulse Resp B/P (MAP) Pulse Ox O2 Delivery O2 Flow Rate FiO2 09/02/17 07:27 92 Nasal Cannula 2.0 09/02/17 07:20 98.2 70 18 156/57 (90) Intake and Output 09/03/17 07:00 Intake Total 720 ml Balance 720 ml Intake Oral 720 ml # Voids 1 General Appearance: Alert, Awake, No Acute Distress, Afebrile Neuro: No Gross deficits Eyes: PERRLA Cardiovascular: Regular Rate and Rhythm (With loud systolic murmur.) Respiratory: No Respiratory Distress, Other (Decreased breath sounds throughout. No rales, rhonchi or wheezing.) GI: Soft and Non-Tender Extremities: Warm, Edema (Bilaterally. Both LE wrapped.) Integumentary: Other (Both LE wrapped. L arm with bandage in place.) Psych: Alert & Oriented X3, Appropriate Mood & Affect Result Diagram: 08/29/17182608/29/171826 Assessment and Plan Problems: (1) Generalized weakness Status: Acute Assessment & Plan: The patient was transferred to [facility] for ongoing IV abs and rehabilitation. Physical and occupational therapy are working with him. (2) Cellulitis Status: Acute Assessment & Plan: He was found to have a cellulitis of the left lower leg. He has been on treatment with Primaxin and vancomycin. His cultures have been negative. He has completed a 14 day course of antibiotics and his initial day of abs was 08/18. Will recheck labs in the am. (3) Elevated troponin Status: Acute Assessment & Plan: His initial troponin was significantly elevated. He had no complaints of chest pain. His EKG showed only nonspecific findings. He was off his oxygen for an extended period of time. This could potentially be a primary ischemic event, but could also be "strain" related to the acute illness. He might need a stress test as an outpatient after acute illness is resolved. (4) Altered mental status Status: Acute Assessment & Plan: Improved. Likely, secondary to cellulitis. This is now his third admission since the beginning of the year with a similar presentation. He had a head CT during his last admission and this was normal. (5) Acute renal failure Assessment & Plan: Improved with IV fluids. Will repeat labs in am. (6) Bradycardia Status: Acute Assessment & Plan: He was noted to have bradycardia during his last admission and was scheduled to have a Holter monitor at the [facility], but was unable to keep that appointment. (7) CAD (coronary artery disease) Status: Chronic Assessment & Plan: He is on chronic treatment with aspirin and simvastatin. (8) Essential hypertension Status: Chronic Assessment & Plan: He is on chronic treatment with lisinopril, which has been held secondary to renal failure. (9) Chronic acquired lymphedema Status: Chronic Assessment & Plan: He is on chronic treatment with Lasix, which was held initially secondary to renal failure and severe pulmonary hyertension. Restarted last week. Will increase dose today. (10) Hypothyroid Status: Chronic Assessment & Plan: He is on chronic treatment with Synthroid. A TSH was normal during his last admission. (11) Type 2 diabetes mellitus Status: Chronic Assessment & Plan: He had been on insulin, but this was stopped during his last admission secondary to hypoglycemia. His family reports that his sugars have been less than 200 without treatment. He is currently on Lantus 10u at HS and sliding scale level #1. (12) BPH (benign prostatic hyperplasia) Status: Chronic Assessment & Plan: He is on chronic treatment with terazosin. Time Spent on Plan of Care: < 30 min SHASHI OBREGON MD Sep 02, 2017 16:01
[2017-09-02 17:00] VITALS: BP 148/68
[2017-09-02] MEDS: INSULIN GLARGINE 100 U/ML 3 ML PEN SUBQ SCH (20:41)
[2017-09-02] MEDS: SIMVASTATIN 20 MG TAB PO SCH (20:41)
[2017-09-03] MEDS: LEVOTHYROXINE SOD 0.125 MG TAB PO SCH (05:40)
--- NOTE | 2017-09-03 07:11 | Pharmacy Note ---
Pharmacy Note Note: Patient still with significant pain so will renew Tylenol #3 for another 14 days. TORY GUILLERMO Sep 03, 2017 07:10
[2017-09-03 07:39] LABS: PLATELET COUNT, AUTOMATED 231 K/uL (150-450)
[2017-09-03] MEDS ORDERED: INSU100I30 SUBQ (07:51)
[2017-09-03 08:05] VITALS: BP 144/58
--- NOTE | 2017-09-03 08:05 | Hospitalist Depart ---
Discharge Summary Reason for Hosp/Final Diag: (1) Generalized weakness Status: Acute Hospital Course & Plan: The patient was transferred to [facility] for ongoing IV antibiotics and rehabilitation. Physical and occupational therapy worked with him throughout his stay. He showed slow, but continual improvement. He will continue to have home health for nursing and PT at home. (2) Cellulitis Status: Acute Hospital Course & Plan: He was found to have a cellulitis of the left lower leg. He completed treatment with Primaxin and vancomycin. His cultures have been negative. His WBC count has remained normal. He has not had any fever. He does have chronic lymphedema, which has complicated his resolution. (3) Elevated troponin Status: Acute Hospital Course & Plan: His initial troponin was significantly elevated. He had no complaints of chest pain. His EKG showed only nonspecific findings. He was off his oxygen for an extended period of time. This could potentially be a primary ischemic event, but could also be "strain" related to the acute illness and hypoxia. He might need a stress test as an outpatient. He will follow up with the [facility] and/or Dr. Kramer to discuss ongoing management. (4) Altered mental status Status: Acute Hospital Course & Plan: Resolved. Likely, secondary to cellulitis and/or hypoxia. This is now his third admission since the beginning of the year with a similar presentation. He had a head CT during his last admission and this was normal. (5) Acute renal failure Hospital Course & Plan: Improved with IV fluids. His baseline creatinine is in 1.7-1.9 range. His creatinine at the time of discharge is 1.8. (6) Bradycardia Status: Acute Hospital Course & Plan: He was noted to have bradycardia during his last admission and was scheduled to have a Holter monitor at the [facility], but was unable to keep that appointment. He will be following up with the [facility] and/or Dr. Kramer as an outpatient (7) CAD (coronary artery disease) Status: Chronic Hospital Course & Plan: He is on chronic treatment with aspirin and simvastatin. (8) Essential hypertension Status: Chronic Hospital Course & Plan: He had previously been on chronic treatment with lisinopril, which has been held secondary to renal failure. His BPs have been under reasonable control off the lisinopril. (9) Chronic acquired lymphedema Status: Chronic Hospital Course & Plan: He is on chronic treatment with Lasix, which was held initially secondary to renal failure. Restarted last week. His electrolytes and renal function have remained fairly stable. [facility] Kramer as an outpatient. (10) Hypothyroid Status: Chronic Hospital Course & Plan: He is on chronic treatment with Synthroid. A TSH was normal during his last admission. (11) Type 2 diabetes mellitus Status: Chronic Hospital Course & Plan: He had been on insulin, but this was stopped during his last admission secondary to hypoglycemia. His family reports that his sugars have been less than 200 without treatment. He is currently on Lantus 10units at . (12) BPH (benign prostatic hyperplasia) Status: Chronic Hospital Course & Plan: He is on chronic treatment with terazosin. Departure Weight (Pounds): 310 Weight (Ounces): 2.0 Result Diagram: 09/03/17 0727 09/03/17 0657 Item Value Date Time Albumin 2.4 g/dl L 08/29/17 182 Total Protein 5.1 gm/dl L 08/29/17 182 Alkaline Phosphatase 83 U/L 08/29/171826 Alanine Aminotransferase (ALT/SGPT) 26 U/L 08/29/171826 Aspartate Amino Transf (AST/SGOT) 13 U/L 08/29/171826 Total Bilirubin 0.2 mg/dl 08/29/171826 Calcium Level 8.2 mg/dl L 08/29/171826 Random Glucose 131 mg/dl H 08/29/171826 Glomerular Filtration Rate Calc 31.9 08/29/17 182 Creatinine 2.00 mg/dl H 08/29/17 182 Blood Urea Nitrogen 15 mg/dl 08/29/171826 Carbon Dioxide Level 28 mmol/L 08/29/171826 Chloride Level 103 mmol/L 08/29/171826 Potassium Level 4.5 mmol/L 08/29/171826 Sodium Level 138 mmol/L 08/29/171826 White Blood Count 10.1 k/uL 08/29/171826 Hemoglobin 11.4 g/dL L 08/29/171826 Hematocrit 33.3 % L 08/29/171826 Platelet Count 262 K/uL 08/29/171826 Condition: Improved PT/OT Follow Up For: PT For Strengthening Home Health RN Follow Up For: Nursing Assessment Home Health [facility] O[facility]ATOR Follow Up For: ADL Assistance Follow-Up Labs: Finger Sticks (4 times a day (before meals and at bedtime)) Time Spent: > 30 min Discharge Instructions Home Meds Active Scripts Insulin Glargine,Hum.rec.anlog (LANTUS SOLOSTAR) 100 Unit/1 Ml Insuln.pen, 10 UNIT SUBQ QHS, #1 VIAL 1 Refill Prov:NORBERTO OBREGON MD 09/03/17 Reported Medications Triamcinolone Acetonide 0.1% Cr 15 Gm Tube (TRIAMCINOLONE ACETONIDE 0.1% CREAM) 15 Gm Cream..g., 15 GM TP TID, TUBE 07/24/17 Sodium Chloride (SALINE NASAL SPRAY) 30 Ml [place], 2 SPRAY NS Q2H Y for CONGESTION, SPRAY 07/24/17 Ammonium Lactate (Ammonium Lactate) 12 % Cream..g., 1 SHIV TOP BIDAC 07/24/17 Furosemide (FUROSEMIDE) 20 Mg Tablet, 3 TAB PO BID, TAB 07/24/17 Clobetasol Propionate 0.05% Lotion (CLOBETASOL PROPIONATE 0.05% LOTION) 59 Ml Lotion, 0 TP BID, BOT 01/29/16 Terazosin Hcl (TERAZOSIN HCL) 2 Mg Capsule, 2 MG PO BID, CAPSULE 01/29/16 Albuterol Sul Hfa 90 Mcg 8 Gm (VENTOLIN HFA 90 MCG 8 GM) 8.5 Gm Hfa.aer.ad, 1-2 PUFF IH Q3-4H Y for SHORTNESS OF BREATH 08/19/14 Ranitidine Hcl (ZANTAC) 150 Mg Tablet, 150 MG PO QHS 01/18/14 Levothyroxine Sodium (SYNTHROID) 125 Mcg Tablet, 125 MCG PO QDAY 01/18/14 Simvastatin (SIMVASTATIN) 40 Mg Tablet, 20 MG PO HS, TAB 01/18/14 Aspirin (ASPIRIN EC) 81 Mg Tablet.dr, 81 MG PO QDAY, TAB 01/18/14 Allopurinol (ZYLOPRIM 300 MG TAB (OR EQUIV)) 300 Mg Tab, 300 MG PO DAILY, TAB 01/18/14 Gabapentin (GABAPENTIN) 300 Mg Capsule, 600 MG PO DAILY, CAPSULE 2 CAPS AM AND 1 CAP HS 01/18/14 Discontinued Reported Medications Lisinopril (LISINOPRIL) 10 Mg Tablet, 10 MG PO QDAY, TAB 07/24/17 Diet: Diabetic, No Added Salt (ELENO) Activity: As Tolerated Special Instructions: follow up appointment made with Dr Kramer September 14, at 1040 Continue home oxygen Copies to: [facility]; HILARIA KRAMER MD Venous Thromboembolism Antithrombotics Is Pt On Any Antithrombotics?: Yes (aspirin) [id number] Certification Face to Face Home Health Certification Institutional Provider conducted the [id number] encounter. Electronic Undersigning Physician Certifies Home Health. I certify that the patient has been under my care and that I had a [id number] encounter that meets the physician [id number] encounter requirements with this patient. This patient is home-bound due to safety issues and continues to require assistance with ADL's. I certify that based on my findings, that Nursing, Aides and the following Home Health services are medically necessary: Nursing and Physical Therapy Medical Necessity: Nursing, Rehab Date Face to Face Conducted: Sep 03, 2017 NORBERTO OBREGON MD Sep 03, 2017 08:05
[2017-09-03] MEDS: GABAPENTIN 300 MG CAP PO SCH (08:22)
[2017-09-03] MEDS: ASPIRIN 81 MG ENTERIC COATED PO SCH (08:22)
[2017-09-03] MEDS: ALLOPURINOL 300 MG TAB PO SCH (08:22)
[2017-09-03] MEDS: ACETAMIN/CODEINE #3 300-30 MG PO PRN (08:22)
[2017-09-03] MEDS: TERAZOSIN HCL 1 MG CAP PO SCH (08:22)
--- NOTE | 2017-09-03 14:21 | PT ECF NOTE ---
Type of Note: Discharge Summary Primary Medical Diagnosis: Altered Mental Status, Generalized Weakness Physical Therapy Evaluation Date: 09/03/17 SUBJECTIVE: Prior Hospitalization: [facility] 08/18/17-08/22/17 Prior Level of Function: SBA/Jacky with RW and assistance from family Prior Living Status: Single level house, Living with family, Assist by family Community Services: Home health correction Accessibility: 5 stairs with rails Equipment Owned: Front wheeled walker, Cane Medical Complications/Past Medical History: See EMR Psychosocial Support: Supportive son and family Pain Scale (0-10): 8/10 bilateral LEs OBJECTIVE: Strength: Right Lower Extremity: DF: 5/5 Knee flexion: 4/5 Knee extension: 4/5 Hip flexion: 3+/5 Left Lower Extremity: DF: 5/5 Knee flexion: 4/5 Knee extension: 4/5 Hip flexion:<3/5 ROM: WFL Sensation: WNL Other Neuro findings: N/A Bed Mobility: ModA, pt plans to sleep in recliner Transfers: Jacky with RW Gait: Jacky x50 with RW', SBA x400' with RW Stairs: SBA x 4 stairs Timed Up and Go (>12 seconds indicated increased risk for falls): 17 seconds ASSESSMENT: The patient met all PT functional mobility goals and is safe to d/c home from a mobility standpoint with [facility] services and assistance from family. He demonstrates improved functional activity tolerance and decreased risk of falls. His LEs demonstrate decreased edema and improvement in wound size. Information has been shared with [facility] services regarding wound care, it is recommended that he f/u with outpatient lymphedema treatment upon d/c from [facility]. Problem List/Current Limitations: Pain Decreased activity stephan Decreased strength Decreased balance Short Term Goals: (all goals met) 1: Pt to complete bed mobility with Jacky 2: Pt to complete transfers with Jacky and least restrictive AD 3: Pt to ambulate 400' with SBA and least restrictive AD 4: Pt to ambulate 50' with Jacky and least restrictive AD 5: Pt to asc/desc 4 stairs with SBA Long-Term Goals: Pt to discharge home with a decreased need of assistance from others (met) Patient Goals: Discharge Home (met) PLAN: The patient will be discharged home with [facility] services as well as assistance from family. Thank you for this referral. If you have any questions, concerns, or comments about this report or plan, please contact me at . Jennifer Mittal, PT, DPT [facility]
== END 2017-09-03 10:45 | disposition home or self-care (01) | DRG 603 ==
LOC: ECF 14:12
PROVIDERS: ADMIT Family Medicine; ATTEND Family Medicine
PROC: 0JDR3ZZ Extraction of Left Foot Subcutaneous Tissue and Fascia, Percutaneous Approach (ICD-10-PCS; 2017-08-24)
PROC: 0JDP3ZZ Extraction of Left Lower Leg Subcutaneous Tissue and Fascia, Percutaneous Approach (ICD-10-PCS; principal; 2017-08-26)
PROC: 0JDR3ZZ Extraction of Left Foot Subcutaneous Tissue and Fascia, Percutaneous Approach (ICD-10-PCS; 2017-08-28)
PROC: 0HDLXZZ Extraction of Left Lower Leg Skin, External Approach (ICD-10-PCS; 2017-08-28)
PROC: 0JDP3ZZ Extraction of Left Lower Leg Subcutaneous Tissue and Fascia, Percutaneous Approach (ICD-10-PCS; 2017-09-01)
PROC: 0JDR3ZZ Extraction of Left Foot Subcutaneous Tissue and Fascia, Percutaneous Approach (ICD-10-PCS; 2017-09-01)
PROC: 0HDLXZZ Extraction of Left Lower Leg Skin, External Approach (ICD-10-PCS; 2017-09-01)
DX: L03.116 Cellulitis of left lower limb (principal); N17.9 Acute kidney failure, unspecified; E11.22 Type 2 diabetes mellitus with diabetic chronic kidney disease; I12.9 Hypertensive chronic kidney disease with stage 1 through stage 4 chronic kidney disease, or unspecified chronic kidney disease; N18.3 Chronic kidney disease, stage 3 (moderate); I25.10 Atherosclerotic heart disease of native coronary artery without angina pectoris; R53.1 Weakness; I89.0 Lymphedema, not elsewhere classified; R09.02 Hypoxemia; E03.9 Hypothyroidism, unspecified; N40.0 Benign prostatic hyperplasia without lower urinary tract symptoms; R00.1 Bradycardia, unspecified; Z95.5 Presence of coronary angioplasty implant and graft; Z90.49 Acquired absence of other specified parts of digestive tract; Z99.81 Dependence on supplemental oxygen; Z87.891 Personal history of nicotine dependence
CPT/HCPCS: 36415; 36416; 80202; 82040; 82247; 82310; 82374; 82435; 82565; 82947; 82948; 84075; 84132; 84155; 84295; 84450; 84460; 84520; 85025; 97161; 97165; J0743; J1815; J2997; J3370; J7050

== ENCOUNTER → 2017-12-29 | Outpatient (CLI) | payer MEDICARE, OTHER ==
[2017-08-18 13:01] VITALS: BMI 39.9
[~2017-12-29] MED LIST changes: +INSU100I30 SUBQ; -RANI-324 PO; +RANI-366 PO
--- NOTE | 2017-12-29 13:49 | RADIOLOGY IMAGING REPORT ---
FACILITY: [facility] PATIENT NAME: Rizwan Huertas : 1930 MR: [id number] V: [id number] EXAM DATE: ORDERING PHYSICIAN: JUNAID MAX TECHNOLOGIST: [place] [facility] [place]iz[place] Hu[place] : 1930 Visit/Account:[id number] Date of Sevice: 12/29/2017 ABDOMEN/PELVIS W/O CONTRAST HISTORY: Hematuria TECHNIQUE: CT abdomen and pelvis without intravenous contrast. Contiguous axial images of the abdom en and pelvis was performed from the lung bases to the symphysis pubis. One of the following dose optimization techniques was utilized in the performance of this exam: Autom ated exposure control; adjustment of the mA and/or kV according to the patient's size; or use of an i terative reconstruction technique. Specific details can be referenced in the facility's radiology C T exam operational policy. CONTRAST: None. COMPARISON: CT scan 11/15/2014 FINDINGS: Visualized lung bases: There is significant calcified atherosclerotic disease of the LAD and aortic valve. 6 mm left lower lobe micronodule is stable. Hepatobiliary: Gallbladder is absent. Spleen: Negative. Adrenals: 9 mm left adrenal nodule is noted likely an adenoma and stable from prior exam. 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 Kidneys/: High density material in the right kidney and collecting system suggestive of hemorrhage . 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 Lesion is n ot well characterized without contrast. Probable cyst superior pole right kidney image 57 measures 3.9 x 2.6 cm. Probable cyst anterior lowe r pole right kidney image 74 measures 4.2 x 3 cm. Pancreas: Negative. GI: Negative. Vessels/spaces/nodes: Atherosclerotic calcifications noted. Bones/soft tissues: Sclerotic foci in the L2 and L3 vertebral bodies are stable dating back to 2014. IMPRESSION: 1. 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 Study was performed without contrast slightly limiting interpretation. Despite this limi tation, there is hemorrhage in the right renal collecting system emanating from the lower pole and ex tending into the right renal pelvis. Subtle mass in the right kidney lower pole collecting system is noted. Recommend urologic consultation for management. 2. 2 probable benign right renal cortical cysts. 3. Numerous other chronic findings detailed above. Report Dictated By: Jacob Mejia MD at 12/29/2017 1:29 PM Report E-Signed By: Jacob Mejia MD at 12/29/2017 1:45 PM WSN:[email or web address]
== END ==
LOC: CT 12:10
PROVIDERS: ATTEND Physician Assistant Medical
DX: Q61.8 Other cystic kidney diseases (principal); Z90.49 Acquired absence of other specified parts of digestive tract
CPT/HCPCS: 74176

== ENCOUNTER 2017-12-30 23:01 | Emergency (ER) | payer MEDICARE, OTHER ==
[2017-08-18 13:01] VITALS: Wt 114.8 kg
--- NOTE | 2017-12-30 23:16 | ER Report ---
History and Physical Time Seen By MD: 23:16 Hx. of Stated Complaint: Pt fell backwards and hit head. HPI/ROS CHIEF COMPLAINT: fell and hit head HISTORY OF PRESENT ILLNESS: This is an 87 year old male. He fell backward when the steps broke down and threw him back. He hit his head, but did not lose consciousness. He denies any other pain other than a cut on the back of his head. He could not get up so ended up laying there for several hours, perhaps about 3 hours. He has some diffuse aches and pains, but nothing severe. He denies shortness of breath or chest pain. He has no abdominal pain. No headache. No nausea or vomiting. No vision changes. He says he has chronic kidney problems. He has some swelling in legs chronically and tender growths on his feet which do cause some balance problems for him. Allergies: Coded Allergies: No Known Drug Allergies (Unverified , 07/28/17) Home Meds Active Scripts Insulin Glargine 100 Un/Ml Pen (LANTUS SOLOSTAR PEN) 100 Unit/1 Ml Insuln.pen, 10 UNIT SUBQ QHS, #1 VIAL 1 Refill Prov:NORBERTO OBREGON MD 09/03/17 Reported Medications Triamcinolone Acetonide 0.1% Cr 15 Gm Tube (TRIAMCINOLONE ACETONIDE 0.1% CREAM) 15 Gm Cream..g., 15 GM TP TID, TUBE 07/24/17 Sodium Chloride (SALINE NASAL SPRAY) 30 Ml [employer] Mdl, 2 SPRAY NS Q2H Y for CONGESTION, SPRAY 07/24/17 Ammonium Lactate (Ammonium Lactate) 12 % Cream..g., 1 SHIV TOP BIDAC 07/24/17 Furosemide (FUROSEMIDE) 20 Mg Tablet, 3 TAB PO BID, TAB 07/24/17 Clobetasol Propionate 0.05% Lotion (CLOBETASOL PROPIONATE 0.05% LOTION) 59 Ml Lotion, 0 TP BID, BOT 01/29/16 Terazosin Hcl (TERAZOSIN HCL) 2 Mg Capsule, 2 MG PO BID, CAPSULE 01/29/16 Albuterol Sul Hfa 90 Mcg 8 Gm (VENTOLIN HFA 90 MCG 8 GM) 8.5 Gm Hfa.aer.ad, 1-2 PUFF IH Q3-4H Y for SHORTNESS OF BREATH 08/19/14 Ranitidine Hcl (ZANTAC) 150 Mg Tablet, 150 MG PO QHS 01/18/14 Levothyroxine Sodium (SYNTHROID) 125 Mcg Tablet, 125 MCG PO QDAY 01/18/14 Simvastatin (SIMVASTATIN) 40 Mg Tablet, 20 MG PO HS, TAB 01/18/14 Allopurinol (ZYLOPRIM 300 MG TAB (OR EQUIV)) 300 Mg Tab, 300 MG PO DAILY, TAB 01/18/14 Gabapentin (GABAPENTIN) 300 Mg Capsule, 600 MG PO DAILY, CAPSULE 2 CAPS AM AND 1 CAP HS 01/18/14 Discontinued Reported Medications Aspirin (ASPIRIN EC) 81 Mg Tablet.dr, 81 MG PO QDAY, TAB 01/18/14 Reviewed Nurses Notes: Yes Hx Smoking: Yes Smoking Status: Former Smoker Exposure to Second Hand Smoke?: No Hx Substance Use Disorder: No Hx Alcohol Use: No Constitutional Vital Sign - Last 24 Hours 12/30/17 12/30/17 12/30/17 12/30/17 23:07 23:07 23:10 23:15 Temp 98.0 Pulse 75 Resp 16 B/P (MAP) 149/81 149/81 (103) 160/76 (104) Pulse Ox 89 O2 Delivery Nasal Cannula O2 Flow Rate 3.0 12/30/17 12/30/17 12/30/17 12/30/17 23:16 23:31 23:36 23:45 Pulse 68 65 64 B/P (MAP) 145/62 (89) Pulse Ox 98 98 98 12/31/17 12/31/17 12/31/17 12/31/17 00:00 00:06 00:15 00:21 Pulse 67 B/P (MAP) 153/65 (94) 149/69 (95) Pulse Ox 100 99 12/31/17 12/31/17 12/31/17 00:25 00:30 00:45 Pulse 64 76 B/P (MAP) 148/68 (94) 149/71 (97) Pulse Ox 100 Physical Exam General Appearance: The patient is alert. No acute distress. Non-toxic in appearance, but is disheveled. Eyes: Pupils are equal, round. Reactive to light. No pallor, injection or icterus. Extraocular movements are intact. ENT: Mucous membranes are moist. Normal oral mucosa. Posterior oropharynx is normal. Neck: Supple and non tender. No lymphadenopathy. Respiratory: Breathing easily and unlabored. Lungs are clear to auscultation. Cardiovascular: Regular rate and rhythm. Has a murmur present in the chest, holosystolic murmur, patient states this is chronic for years. Normal capillary refill. Has chronic edema in the lower legs bilaterally. Gastrointestinal: Abdomen is soft and non tender. Nondistended. Normal active bowel sounds. Neurological: Alert and oriented x3. No focal neurologic deficits Skin: Warm and dry. Laceration about 2cm posterior occipital scalp. Musculoskeletal: Diffuse discomfort, but no focal tenderness anywhere. DIFFERENTIAL DIAGNOSIS: After history and physical exam, differential diagnosis was considered for head injury after fall, cervical collar placed in room, and laying for a while with concern for possible rhabdo. Medical Decision Making Data Points Result Diagram: 12/30/17 1564 12/30/17 2334 Laboratory Hematology Test 12/30/17 23:34 Red Blood Count 4.39 M/uL (4.00-5.60) Mean Corpuscular Volume 89.2 fL (80.0-96.0) Mean Corpuscular Hemoglobin 29.7 pg (26.0-33.0) Mean Corpuscular Hemoglobin Concent 33.3 g/dL (32.0-36.0) Red Cell Distribution Width 14.1 % (11.5-14.5) Mean Platelet Volume 6.8 fL (7.2-11.1) Neutrophils (%) (Auto) 65.5 % (39.4-72.5) Lymphocytes (%) (Auto) 22.4 % (17.6-49.6) Monocytes (%) (Auto) 9.7 % (4.1-12.4) Eosinophils (%) (Auto) 1.4 % (0.4-6.7) Basophils (%) (Auto) 1.0 % (0.3-1.4) Nucleated RBC Relative Count (auto) 0.0 /100WBC Neutrophils # (Auto) 8.9 K/uL (2.0-7.4) Lymphocytes # (Auto) 3.0 K/uL (1.3-3.6) Monocytes # (Auto) 1.3 K/uL (0.3-1.0) Eosinophils # (Auto) 0.2 K/uL (0.0-0.5) Basophils # (Auto) 0.1 K/uL (0.0-0.1) Nucleated RBC Absolute Count (auto) 0.01 K/uL Sodium Level 137 mmol/L (137-145) Potassium Level 4.3 mmol/L (3.5-5.0) Chloride Level 97 mmol/L (98-107) Carbon Dioxide Level 34 mmol/L (22-30) Blood Urea Nitrogen 33 mg/dl (9-21) Creatinine 2.80 mg/dl (0.66-1.25) Glomerular Filtration Rate Calc 21.6 Random Glucose 204 mg/dl (75-110) Calcium Level 8.5 mg/dl (8.4-10.2) Total Bilirubin 0.3 mg/dl (0.2-1.3) Aspartate Amino Transf (AST/SGOT) 21 U/L (0-35) Alanine Aminotransferase (ALT/SGPT) 24 U/L (0-56) Alkaline Phosphatase 89 U/L (0-126) Total Creatine Kinase 211 U/L (55-170) Total Protein 6.3 g/dl (6.3-8.2) Albumin 3.4 g/dl (3.5-5.0) Chemistry Test 12/30/17 23:34 White Blood Count 13.6 k/uL (4.5-11.0) Red Blood Count 4.39 M/uL (4.00-5.60) Hemoglobin 13.0 g/dL (14.0-18.0) Hematocrit 39.1 % (42.0-52.0) Mean Corpuscular Volume 89.2 fL (80.0-96.0) Mean Corpuscular Hemoglobin 29.7 pg (26.0-33.0) Mean Corpuscular Hemoglobin Concent 33.3 g/dL (32.0-36.0) Red Cell Distribution Width 14.1 % (11.5-14.5) Platelet Count 245 K/uL (150-450) Mean Platelet Volume 6.8 fL (7.2-11.1) Neutrophils (%) (Auto) 65.5 % (39.4-72.5) Lymphocytes (%) (Auto) 22.4 % (17.6-49.6) Monocytes (%) (Auto) 9.7 % (4.1-12.4) Eosinophils (%) (Auto) 1.4 % (0.4-6.7) Basophils (%) (Auto) 1.0 % (0.3-1.4) Nucleated RBC Relative Count (auto) 0.0 /100WBC Neutrophils # (Auto) 8.9 K/uL (2.0-7.4) Lymphocytes # (Auto) 3.0 K/uL (1.3-3.6) Monocytes # (Auto) 1.3 K/uL (0.3-1.0) Eosinophils # (Auto) 0.2 K/uL (0.0-0.5) Basophils # (Auto) 0.1 K/uL (0.0-0.1) Nucleated RBC Absolute Count (auto) 0.01 K/uL Glomerular Filtration Rate Calc 21.6 Calcium Level 8.5 mg/dl (8.4-10.2) Total Bilirubin 0.3 mg/dl (0.2-1.3) Aspartate Amino Transf (AST/SGOT) 21 U/L (0-35) Alanine Aminotransferase (ALT/SGPT) 24 U/L (0-56) Alkaline Phosphatase 89 U/L (0-126) Total Creatine Kinase 211 U/L (55-170) Total Protein 6.3 g/dl (6.3-8.2) Albumin 3.4 g/dl (3.5-5.0) EKG/Imaging Imaging CT obtained: Head and cervical spine. Results: normal. The study was read by the radiologist and was discussed with me. ED Course/Re-evaluation ED Course Labs show the abnormal kidney function, and small elevation in the CPK. Gave a 500cc bolus of normal saline, but small amount so as not to overload him. CT scans of neck and head were negative. 3 brando placed in laceration of scalp after cleaning. Decision to Disposition Date: Dec 31, 2017 Decision to Disposition Time: 00:50 Depart Departure Latest Vital Signs Vital Signs Date Time Temp Pulse Resp B/P (MAP) Pulse Ox O2 Delivery O2 Flow Rate FiO2 12/31/17 00:45 76 149/71 (97) 100 12/30/17 23:07 3.0 12/30/17 23:07 98.0 16 Nasal Cannula Impression: Primary Impression: Occipital scalp laceration Condition: Improved Disposition: HOME OR SELF-CARE Patient Instructions: Laceration (ED) Additional Instructions: Wound Care: Wash the wound once a day with soap and water. Dry the wound and apply a small amount of antibiotic ointment with a clean dressing. If the dressing becomes wet or dirty, repeat cleaning and dressing as above. No soaking the wound; no swimming. Brando need to be removed in 7 days. Pain Control: Use Tylenol or ibuprofen for pain. Using and ice pack can help reduce swelling Problem Qualifiers Primary Impression: Occipital scalp laceration Encounter type: initial encounter Qualified Codes: S01.01XA - Laceration without foreign body of scalp, initial encounter JAD ROSARIO MD Dec 30, 2017 23:16
[2017-12-30 23:42] LABS: PLATELET COUNT, AUTOMATED 245 K/uL (150-450)
[2017-12-31] MEDS ORDERED: NS(*) 0.9% 500 ML BAG 500 ML IV ONE (00:05)
[2017-12-31] MEDS ORDERED: DIPHTH/TETANUS/ACEL. PERTUSSIS IM ONLY ONE (00:40)
[2017-12-31 00:45] VITALS: BP 149/71
--- NOTE | 2017-12-31 06:04 | RADIOLOGY IMAGING REPORT ---
[place] [facility] [place] NAME: Rizwan Huertas : 1930 MR: [id number] V: [id number] EXAM DATE: ORDERING PHYSICIAN: JAD ROSARIO TECHNOLOGIST: Location: [facility] Patient: Rizwan Huertas : 1930 Visit/Account:[id number] Date of Sevice: 12/30/[address] scan without contrast COMPARISONS: July 29, 2017 ADDITIONAL PERTINENT HISTORY: Fall, hitting head TECHNIQUE: Multiple axial images were obtained from the skull base to the vertex without IV contrast . One of the following dose optimization techniques was utilized in the performance of this exam: Aut omated exposure control; adjustment of the mA and/or kV according to the patient's size; or use of an iterative reconstruction technique. Specific details can be referenced in the facility's radiology CT exam operational policy. FINDINGS: Midline shift: Negative Ventricles: Negative Brain parenchyma: Patchy hypoattenuation within the periventricular and subcortical white matter, no nspecific but compatible with small vessel ischemic change on a chronic basis. No intraparenchymal he morrhage or mass effect. Extra-axial spaces: Mild to moderate cerebral atrophy. Intracranial vasculature: Cavernous internal carotid and distal vertebral artery calcifications. Oth erwise negative Osseous structures: Negative Paranasal sinuses and mastoid air cells: Mild lobular mucosal thickening involving both maxillary si nuses. Moderate mucosal thickening involving the left frontal sinus. Surrounding soft tissues and orbits: Left parietal scalp soft tissue hematoma. IMPRESSION: 1. Left parietal scalp soft tissue hematoma. 2. No evidence of acute intracranial pathology. 3. Age related changes as described above. Report Dictated By: Gage Morfin MD at 12/31/2017 12:18 AM Report E-Signed By: Gage Morfin MD at 12/31/2017 12:21 AM WSN:[id number]
--- NOTE | 2017-12-31 06:05 | RADIOLOGY IMAGING REPORT ---
FACILITY: [facility] - [place] PATIENT NAME: Rizwan Huertas : 1930 MR: [id number] V: [id number] EXAM DATE: ORDERING PHYSICIAN: JAD ROSARIO TECHNOLOGIST: Location: [facility] [place] Patient: Rizwan Huertas : 1930 Visit/Account:[id number] Date of Sevice: 12/30/2017 C-SPINE W/O CONTRAST COMPARISONS: None. ADDITIONAL PERTINENT HISTORY: Fall, hitting head TECHNIQUE: Multiple axial images were obtained from the skull base through the upper thoracic spine with coronal and sagittal reformatted images obtained without IV contrast. One of the following dose optimization techniques was utilized in the performance of this exam: Automated exposure control; adj ustment of the mA and/or kV according to the patient's size; or use of an iterative reconstruction t echnique. Specific details can be referenced in the facility's radiology CT exam operational policy. FINDINGS. Vertebral body heights and alignment: Mild anterior listhesis of C3 on C4. Vertebral bodies: Anteriorly directed osteophytes at multiple levels. Facet hypertrophic changes. No bony fractures involving the cervical spine. Disc spaces: Disc space narrowing at multiple levels. No significant disc bulge or disc protrusion. B allegra neural foraminal narrowing at multiple levels. Cranial cervical junction: Negative. Cervical thoracic junction: Negative. Surrounding soft tissues: Mild atherosclerotic disease of the arterial vasculature of the neck. Lung apices: Negative. IMPRESSION: 1. Spondylitic change involving the cervical spine. 2. No acute appearing bony abnormalities. Report Dictated By: Gage Morfin MD at 12/31/2017 12:27 AM Report E-Signed By: Gage Morfin MD at 12/31/2017 12:31 AM WSN:[id number]
== END 2017-12-31 00:56 | disposition home or self-care (01) ==
LOC: ER 23:09
DX: S01.01XA Laceration without foreign body of scalp, initial encounter (principal)
CPT/HCPCS: 12001; 70450; 72125; 82550; 85025; 90471; 90715; 99284; J7040; L0172; 82040; 82247; 82310; 82374; 82435; 82565; 82947; 84075; 84132; 84155; 84295; 84450; 84460; 84520

== ENCOUNTER → 2018-05-01 | Outpatient (CLI) | payer MEDICARE, OTHER ==
[~2018-05-01] MED LIST changes: +NPH,100V12 SQ; +[UNRECOGNIZED DRUG - MIXTURE]
[2018-05-02 10:57] VITALS: BMI 36.4
== END ==
LOC: AMB 14:03
PROVIDERS: ATTEND Nurse Practitioner
DX: R53.1 Weakness (principal); R50.9 Fever, unspecified; R61 Generalized hyperhidrosis
CPT/HCPCS: A0425; A0427

== ENCOUNTER → 2018-06-28 | Outpatient (CLI) | payer MEDICARE, OTHER ==
[2018-05-02 10:57] VITALS: BMI 36.4
[~2018-06-28] MED LIST changes: +ALLO100T70 PO; +FURO20TA19 PO; +INSU100I30 SQ; +TERA1CAP38 PO
== END ==
LOC: US 03:18
PROVIDERS: ATTEND Family Medicine
DX: I34.0 Nonrheumatic mitral (valve) insufficiency (principal); I35.0 Nonrheumatic aortic (valve) stenosis; I33.0 Acute and subacute infective endocarditis
CPT/HCPCS: 36415; 87040; 93306

== ENCOUNTER 2018-07-15 21:04 | Inpatient (IN) | payer MEDICARE, OTHER ==
[2018-05-02 10:57] VITALS: Ht 180.3 cm; Wt 116.6 kg
[~2018-07-15] VITALS: Ht 180.3 cm; Wt 116.6 kg
--- NOTE | 2018-07-15 21:01 | ER Report ---
History and Physical Time Seen By MD: 21:08 HPI/ROS CHIEF COMPLAINT: Fever, altered mental status HISTORY OF PRESENT ILLNESS: 88-year-old male brought in by EMS from home with altered mental status and fever. Patient's been having vomiting and diarrhea for 2 days. Tonight, the patient spiked a fever and became altered for his family. They called EMS to bring him in for evaluation. Usually has an infection. When he has altered mental status. Patient seems in good spirits. On arrival. He finished his IV antibiotics Rocephin for his endocarditis. He subsequently had an outpatient ultrasound/echo of his heart which was unremarkable. He was given the all clear by Dr. Espinoza. REVIEW OF SYSTEMS: Respiratory: No cough, no dyspnea. Cardiovascular: No chest pain, no palpitations. Gastrointestinal: No vomiting, no abdominal pain. Musculoskeletal: No back pain. Allergies: Coded Allergies: No Known Drug Allergies (Unverified , 07/28/17) Home Meds Active Scripts Furosemide (LASIX) 20 Mg Tablet, 3 TAB PO QDAY, #90 TAB Prov:TETE [facility] 05/31/18 Allopurinol (ALLOPURINOL) 100 Mg Tablet, 100 MG PO QDAY, #30 TAB Prov:TETE MULLER [facility] 05/31/18 Insulin Glargine 100 Un/Ml Pen (LANTUS SOLOSTAR PEN) 100 Unit/1 Ml Insuln.pen, 10 UNIT SQ QHS, #3 PEN Prov:TETE MULLER [facility] 05/31/18 Terazosin Hcl (TERAZOSIN HCL) 1 Mg Capsule, 3 MG PO BID, #180 CAPSULE Prov:TETE MULLER [facility] 05/31/18 Gabapentin (GABAPENTIN) 300 Mg Capsule, 300 MG PO BID, #60 CAPSULE Prov:TETE MULLER [facility] 05/31/18 Reported Medications Aspirin (ASPIRIN EC) 81 Mg Tablet.dr, 81 MG PO QDAY, TAB 05/17/18 Acetaminophen With Codeine # 3 (TYLENOL WITH CODEINE #3 TABLET) 1 Each Tablet, 1 EACH PO PRN for PAIN, TAB 05/07/18 Triamcinolone Acetonide 0.1% Cr 15 Gm Tube (TRIAMCINOLONE ACETONIDE 0.1% CREAM) 15 Gm Cream..g., 15 GM TP TID, TUBE 07/24/17 Sodium Chloride (SALINE NASAL SPRAY) 30 Ml [place], 2 SPRAY NS Q2H PRN for RINKUGE STION, SPRAY 07/24/17 Ammonium Lactate (Ammonium Lactate) 12 % Cream..g., 1 SHIV TOP BIDAC 07/24/17 Clobetasol Propionate 0.05% Lotion (CLOBETASOL PROPIONATE 0.05% LOTION) 59 Ml Lotion, 0 TP BID, BOT 01/29/16 Ranitidine Hcl (ZANTAC) 150 Mg Tablet, 150 MG PO QHS 01/18/14 Levothyroxine Sodium (SYNTHROID) 125 Mcg Tablet, 125 MCG PO QDAY 01/18/14 Simvastatin (SIMVASTATIN) 40 Mg Tablet, 20 MG PO HS, TAB 01/18/14 Past Medical/Surgical History Problem list copied from 05/31/18 discharge summary (1) Sepsis Status: Acute Hospital Course & Plan: He presented with confusion, fever, weakness and new erythema on his RLE extending to his anterior abdominal wall. He grew Streptococcus pseudoporcinus from 2 of 2 blood cultures in the aerobic and anaerobic bottles. He was in the ICU until 05/03. He was initially on treatment with cefepime and vancomycin, but was eventually switched to IV Rocephin based on susceptibilities. He was transferred to ECF for intermediate accountant antibiotic therapy. He has a PICC line in place in his left arm. Per ID, he will need 30 days of antibiotics starting when his blood cultures became negative (05/03/18). His last dose of Rocephin will be 06/01/18. He will follow up with [facility] ID clinic in [place]. (2) Cellulitis Status: Acute Hospital Course & Plan: As above. (3) Bacterial endocarditis Status: Acute Hospital Course & Plan: An echocardiogram was obtained when he was found to have positive cultures. This did show a vegetation on the aortic valve. He also has what we presume to be a new murmur. I did review his case with both cardiology and infectious disease. At this time he can follow up for a transesophageal echocardiogram as an outpatient. ID recommended that he be placed on ceftriaxone for 30 days and follow up with them as an outpatient. (Dr. Mitchell from the [facility]) He was transferred to ECF for ongoing antibiotics. (4) Chronic acquired lymphedema Status: Chronic Hospital Course & Plan: He has managed with wrapping his feet/legs. He has been on Lasix 60mg daily. His weight was up several Kgs so his Lasix was increased last week to 60mg bid during admission. He will resume his usual once daily Lasix dose secondary to increased creatinine level. This is his home dose although he admits that he often does not take the second dose so that does not have to get up to urinate as much at night. He agreed to increasing the dose last week to try and get the swelling down. His weight has improved daily. (5) Hypothyroid Status: Chronic Hospital Course & Plan: Continue replacement therapy. (6) Type 2 diabetes mellitus Status: Chronic Hospital Course & Plan: He is on chronic treatment with Lantus 10units at night. He will resume his usual regimen at home. He should follow up with PCP for blood sugars. (7) Chronic renal failure Status: Chronic Hospital Course & Plan: His last creatinine was 2.7, but appears to be similar to our only reading since his nephrectomy (2.8). I would suspect his new baseline is in this 2.5-3.0 range since his recent nephrectomy. He will lower his Lasix dose secondary to elevated creatinine. (8) Status post nephrectomy Status: Resolved Hospital Course & Plan: He had a right nephrectomy approximately 5 months ago in [place], [place] and appears to have done fairly well. This has contributed to his chronic renal failure. (9) CAD (coronary artery disease) Status: Chronic Hospital Course & Plan: He has had previous PTCA with stent and been managed with simvastatin. (10) HTN (hypertension) Status: Chronic Hospital Course & Plan: He has been on terazosin (presumably also for BPH), and Lasix. His BPs remain elevated. He has bradycardia at times as well as chronic swelling of his legs limiting choices of antihypertensives. His terazosin was increased to 3mg bid. He will follow up with his PCP for further evaluation. (11) Gout Status: Chronic Hospital Course & Plan: He has been on allopurinol 300mg daily. Due to renal failure, this was reduced to 100mg daily. Reviewed Nurses Notes: Yes Old Medical Records Reviewed: Yes Hx Smoking: Yes Smoking Status: Former Smoker Exposure to Second Hand Smoke?: No Hx Substance Use Disorder: No Hx Alcohol Use: No Constitutional Vital Sign - Last 24 Hours 1/07/15/18 07/15/18 07/15/18 21:04 21:10 21:13 21:24 Temp 100.1 Pulse ??? 82 Resp 20 B/P (MAP) 158/72 (100) 158/72 Pulse Ox 93 O2 Delivery Oxy Mask O2 Flow Rate 4.0 07/15/18 07/15/18 07/15/18 21:34 22:00 22:04 Pulse 78 76 B/P (MAP) 148/66 (93) Pulse Ox 98 97 Physical Exam Vital signs stable, fever 102.5 General Appearance: The patient is alert, has no immediate need for airway protection and no current signs of toxicity. No acute distress, alert and oriented HEENT: Pupils equal and round no injection. Respiratory: [Chest is non tender, lungs are clear to auscultation.] Cardiac: [regular rate and rhythm] [ ] Gastrointestinal: [Abdomen is soft and non tender, no masses, bowel sounds normal.] [Musculoskeletal:] [Neck:] [Neck is supple and non tender.] [Extremities have full range of motion and are non tender.] [Skin:] [No rashes or lesions.] [ ] [DIFFERENTIAL DIAGNOSIS: After history and physical exam differential diagnosis was considered for] [ ] Medical Decision Making Data Points Result Diagram: 07/15/18203907/15/182039 Laboratory Hematology Test 07/15/18 20:40 07/15/18 21:15 07/15/18 21:31 07/15/18 22:18 Red Blood Count 4.71 M/uL (4.00-5.60) Mean Corpuscular Volume 90.9 fL (80.0-96.0) Mean Corpuscular Hemoglobin 30.3 pg (26.0-33.0) Mean Corpuscular Hemoglobin Concent 33.3 g/dL (32.0-36.0) Red Cell Distribution Width 14.6 % (11.5-14.5) Mean Platelet Volume 6.9 fL (7.2-11.1) Neutrophils (%) (Auto) 80.2 % (39.4-72.5) Lymphocytes (%) (Auto) 11.1 % (17.6-49.6) Monocytes (%) (Auto) 7.4 % (4.1-12.4) Eosinophils (%) (Auto) 0.9 % (0.4-6.7) Basophils (%) (Auto) 0.4 % (0.3-1.4) Nucleated RBC Relative Count (auto) 0.0 /100WBC Neutrophils # (Auto) 7.8 K/uL (2.0-7.4) Lymphocytes # (Auto) 1.1 K/uL (1.3-3.6) Monocytes # (Auto) 0.7 K/uL (0.3-1.0) Eosinophils # (Auto) 0.1 K/uL (0.0-0.5) Basophils # (Auto) 0.0 K/uL (0.0-0.1) Nucleated RBC Absolute Count (auto) 0.00 K/uL Sodium Level 141 mmol/L (137-145) Potassium Level 4.0 mmol/L (3.5-5.0) Chloride Level 107 mmol/L (98-107) Carbon Dioxide Level 32 mmol/L (22-30) Blood Urea Nitrogen 50 mg/dl (9-21) Creatinine 3.20 mg/dl (0.66-1.25) Glomerular Filtration Rate Calc 18.5 Random Glucose 187 mg/dl (75-110) Calcium Level 9.0 mg/dl (8.4-10.2) Total Bilirubin 0.3 mg/dl (0.2-1.3) Aspartate Amino Transf (AST/SGOT) 19 U/L (0-35) Alanine Aminotransferase (ALT/SGPT) 26 U/L (0-56) Alkaline Phosphatase 89 U/L (0-126) C-Reactive Protein 1.8 mg/dl (<1.0) Total Protein 6.7 g/dl (6.3-8.2) Albumin 3.6 g/dl (3.5-5.0) Influenza Virus Type A (PCR) Negative (NEGATIVE) Influenza Virus Type B (PCR) Negative (NEGATIVE) Lactate 1.5 mmol/L (0.7-2.1) Urine Color Yellow Urine Clarity Clear Urine pH 5.0 pH (4.8-9.5) Urine Specific [place] 1.013 Urine Protein 100 mg/dL (NEGATIVE) Urine Glucose (UA) 50 mg/dL (NEGATIVE) Urine Ketones Negative mg/dL (NEGATIVE) Urine Blood Negative (NEGATIVE) Urine Nitrite Negative (NEGATIVE) Urine Bilirubin Negative (NEGATIVE) Urine Urobilinogen Negative mg/dL (0.2-1.9) Urine Leukocyte Esterase Negative (NEGATIVE) Urine RBC 1 /HPF (0-2/HPF) Urine WBC 1 /HPF (0-5/HPF) Urine Squamous Epithelial Cells None /LPF (NONE-FEW) Urine Bacteria Few /HPF (NONE-FEW) Urine Mucus None /HPF (NONE-FEW) Chemistry Test 07/15/18 20:40 07/15/18 21:15 07/15/18 21:31 07/15/18 22:18 White Blood Count 9.7 k/uL (4.5-11.0) Red Blood Count 4.71 M/uL (4.00-5.60) Hemoglobin 14.3 g/dL (14.0-18.0) Hematocrit 42.8 % (42.0-52.0) Mean Corpuscular Volume 90.9 fL (80.0-96.0) Mean Corpuscular Hemoglobin 30.3 pg (26.0-33.0) Mean Corpuscular Hemoglobin Concent 33.3 g/dL (32.0-36.0) Red Cell Distribution Width 14.6 % (11.5-14.5) Platelet Count 268 K/uL (150-450) Mean Platelet Volume 6.9 fL (7.2-11.1) Neutrophils (%) (Auto) 80.2 % (39.4-72.5) Lymphocytes (%) (Auto) 11.1 % (17.6-49.6) Monocytes (%) (Auto) 7.4 % (4.1-12.4) Eosinophils (%) (Auto) 0.9 % (0.4-6.7) Basophils (%) (Auto) 0.4 % (0.3-1.4) Nucleated RBC Relative Count (auto) 0.0 /100WBC Neutrophils # (Auto) 7.8 K/uL (2.0-7.4) Lymphocytes # (Auto) 1.1 K/uL (1.3-3.6) Monocytes # (Auto) 0.7 K/uL (0.3-1.0) Eosinophils # (Auto) 0.1 K/uL (0.0-0.5) Basophils # (Auto) 0.0 K/uL (0.0-0.1) Nucleated RBC Absolute Count (auto) 0.00 K/uL Glomerular Filtration Rate Calc 18.5 Calcium Level 9.0 mg/dl (8.4-10.2) Total Bilirubin 0.3 mg/dl (0.2-1.3) Aspartate Amino Transf (AST/SGOT) 19 U/L (0-35) Alanine Aminotransferase (ALT/SGPT) 26 U/L (0-56) Alkaline Phosphatase 89 U/L (0-126) C-Reactive Protein 1.8 mg/dl (<1.0) Total Protein 6.7 g/dl (6.3-8.2) Albumin 3.6 g/dl (3.5-5.0) Influenza Virus Type A (PCR) Negative (NEGATIVE) Influenza Virus Type B (PCR) Negative (NEGATIVE) Lactate 1.5 mmol/L (0.7-2.1) Urine Color Yellow Urine Clarity Clear Urine pH 5.0 pH (4.8-9.5) Urine Specific [place] 1.013 Urine Protein 100 mg/dL (NEGATIVE) Urine Glucose (UA) 50 mg/dL (NEGATIVE) Urine Ketones Negative mg/dL (NEGATIVE) Urine Blood Negative (NEGATIVE) Urine Nitrite Negative (NEGATIVE) Urine Bilirubin Negative (NEGATIVE) Urine Urobilinogen Negative mg/dL (0.2-1.9) Urine Leukocyte Esterase Negative (NEGATIVE) Urine RBC 1 /HPF (0-2/HPF) Urine WBC 1 /HPF (0-5/HPF) Urine Squamous Epithelial Cells None /LPF (NONE-FEW) Urine Bacteria Few /HPF (NONE-FEW) Urine Mucus None /HPF (NONE-FEW) Urinalysis Test 07/15/18 22:18 Urine Color Yellow Urine Clarity Clear Urine pH 5.0 pH (4.8-9.5) Urine Specific [place] 1.013 Urine Protein 100 mg/dL (NEGATIVE) Urine Glucose (UA) 50 mg/dL (NEGATIVE) Urine Ketones Negative mg/dL (NEGATIVE) Urine Blood Negative (NEGATIVE) Urine Nitrite Negative (NEGATIVE) Urine Bilirubin Negative (NEGATIVE) Urine Urobilinogen Negative mg/dL (0.2-1.9) Urine Leukocyte Esterase Negative (NEGATIVE) Urine RBC 1 /HPF (0-2/HPF) Urine WBC 1 /HPF (0-5/HPF) Urine Squamous Epithelial Cells None /LPF (NONE-FEW) Urine Bacteria Few /HPF (NONE-FEW) Urine Mucus None /HPF (NONE-FEW) ED Course/Re-evaluation ED Course Patient was admitted to an examination room. H&P was done. The differential diagnosis was considered. Patient with fever and weakness. Patient with altered mental status. Patient underwent an extensive evaluation. There is some atelectasis in his left lung base, but he has no symptoms. Patient's been having vomiting and diarrhea for 2 days. He's been on creatinine are significantly elevated over his previous numbers suggesting moderate dehydration. 07/15/2018 10:57:[address] Hernández hospitalist on-call, who accepts the patient for admission for treatment of his dehydration and fever. Decision to Disposition Date: Jul 15, 2018 Decision to Disposition Time: 23:06 Depart Departure Latest Vital Signs Vital Signs Date Time Temp Pulse Resp B/P (MAP) Pulse Ox O2 Delivery O2 Flow Rate FiO2 07/15/18 22:04 76 97 07/15/18 22:00 148/66 (93) 07/15/18 21:24 4.0 07/15/18 21:13 100.1 20 Oxy Mask Core Temperature (Celsius): ??? Impression: Primary Impression: Fever Additional Impressions: Dehydration Lower extremity edema Vomiting and diarrhea Type 2 diabetes mellitus Condition: Improved Disposition: Admitted from ER Referrals: HILARIA MEDINA MD (PCP) Problem Qualifiers Primary Impression: Fever Fever type: unspecified Qualified Codes: R50.9 - Fever, unspecified Additional Impressions: Type 2 diabetes mellitus Diabetes mellitus detention insulin use: unspecified intermediate accountant insulin use status Diabetes mellitus complication status: with unspecified complications Qualified Codes: E11.8 - Type 2 diabetes mellitus with unspecified complications LIYA HERNANDEZ DO Jul 15, 2018 21:01
[2018-07-15] MEDS ORDERED: NS(*) 0.9% 1000 ML BAG 1,000 ML IV ONE (21:05)
[2018-07-15 21:31] LABS: PLATELET COUNT, AUTOMATED 268 K/uL (150-450)
--- NOTE | 2018-07-15 21:48 | RADIOLOGY IMAGING REPORT ---
FACILITY: [facility] [place] PATIENT NAME: Rizwan Huertas : 1930 MR: [id number] V: [id number] EXAM DATE: ORDERING PHYSICIAN: LIYA HERNANDEZ TECHNOLOGIST: Location: [facility] Patient: Rizwan Huertas : 1930 Visit/Account:[id number] Date of Sevice: 07/15/2018 EXAMINATION: Portable chest radiograph single view at 9:21 PM HISTORY: Fever. COMPARISON: 05/01/2018. FINDINGS: A single portable AP view of the chest is obtained. Lines/tubes: None. Lungs/pleura: Streaky opacity at the left lung base. No evidence of pneumothorax. Pulmonary vascular ity is within normal limits. Heart: Stable heart size. Mediastinum: Stable mediastinal contours. Bony structures/body wall: Negative. IMPRESSION: Subsegmental atelectasis at the left lung base. A small superimposed infiltrate is not excluded. Report Dictated By: Tony Guadalupe MD at 07/15/2018 9:43 PM Report E-Signed By: Tony Guadalupe MD at 07/15/2018 9:45 PM [id number]
[2018-07-15 23:57] VITALS: BP 154/71
[2018-07-16] MEDS ORDERED: NS(*) 0.9% 1000 ML BAG 1,000 ML IV PRN (00:41)
[2018-07-16] MEDS ORDERED: cefTRIAXone 2 GM VIAL IVP SCH (00:45)
[2018-07-16] MEDS ORDERED: INFLUENZA VIRUS VAC 0.5ML SYR IM ONLY ONE (00:45)
[2018-07-16] MEDS ORDERED: ACETAMINOPHEN 500 MG TAB PO PRN (00:45)
--- NOTE | 2018-07-16 01:01 | History & Physical ---
History of Present Illness Chief Complaint Fever History of Present Illness This patient presented to the emergency room with reports of fever and altered mental status. He was discharged several months ago after inpatient treatment for endocarditis. He completed 30 days of treatment with ceftriaxone, and had been doing well. He continues to receive home health for chronic wounds on his lower extremities. About 3 days ago he developed diarrhea and then started to be more confused. Today he developed fevers. History Problems: (1) Skin cancer Status: Chronic (2) Chronic kidney disease (CKD) stage G3b/A1, moderately decreased glomerular filtration rate (GFR) between 30-44 mL/min/1.73 square meter and albuminuria creatinine ratio less than 30 mg/g Status: Chronic (3) Essential hypertension Status: Chronic (4) Coronary artery disease Status: Chronic (5) Diabetic neuropathy Status: Chronic (6) BPH (benign prostatic hyperplasia) Status: Chronic (7) Gout Status: Chronic (8) Hypothyroid Status: Chronic (9) Bacterial endocarditis Status: Chronic (10) Type 2 diabetes mellitus Status: Chronic Home Meds Active Scripts Furosemide (LASIX) 20 Mg Tablet, 3 TAB PO QDAY, #90 TAB Prov:[facility] 05/31/18 Allopurinol (ALLOPURINOL) 100 Mg Tablet, 100 MG PO QDAY, #30 TAB Prov:[facility] 05/31/18 Insulin Glargine 100 Un/Ml Pen (LANTUS SOLOSTAR PEN) 100 Unit/1 Ml Insuln.pen, 10 UNIT SQ QHS, #3 PEN Prov:[facility] 05/31/18 Terazosin Hcl (TERAZOSIN HCL) 1 Mg Capsule, 3 MG PO BID, #180 CAPSULE Prov:[facility] 05/31/18 Gabapentin (GABAPENTIN) 300 Mg Capsule, 300 MG PO BID, #60 CAPSULE Prov:[facility] 05/31/18 Reported Medications Aspirin (ASPIRIN EC) 81 Mg Tablet.dr, 81 MG PO QDAY, TAB 05/17/18 Acetaminophen With Codeine # 3 (TYLENOL WITH CODEINE #3 TABLET) 1 Each Tablet, 1 EACH PO PRN for PAIN, TAB 05/07/18 Triamcinolone Acetonide 0.1% Cr 15 Gm Tube (TRIAMCINOLONE ACETONIDE 0.1% CREAM) 15 Gm Cream..g., 15 GM TP TID, TUBE 07/24/17 Sodium Chloride (SALINE NASAL SPRAY) 30 Ml [place], 2 SPRAY NS Q2H PRN for CONGESTION, SPRAY 07/24/17 Ammonium Lactate (Ammonium Lactate) 12 % Cream..g., 1 SHIV TOP BIDAC 07/24/17 Clobetasol Propionate 0.05% Lotion (CLOBETASOL PROPIONATE 0.05% LOTION) 59 Ml Lotion, 0 TP BID, BOT 01/29/16 Ranitidine Hcl (ZANTAC) 150 Mg Tablet, 150 MG PO QHS 01/18/14 Levothyroxine Sodium (SYNTHROID) 125 Mcg Tablet, 125 MCG PO QDAY 01/18/14 Simvastatin (SIMVASTATIN) 40 Mg Tablet, 20 MG PO HS, TAB 01/18/14 Allergies: Coded Allergies: No Known Drug Allergies (Unverified , 07/28/17) Patient History: FH: cancer FATHER, Hx Smoking: Yes (quit 40 years ago) Smoking Status: Former Smoker Exposure to Second Hand Smoke?: No Caffeine Intake: Soda Caffeine/Cups Per Day: 2-3 Hx Alcohol Use: No Hx Substance Use Disorder: No Social Drug Use: Never Review of Systems All Systems Reviewed/Normal: Yes, Except as Noted Constitutional: Fever Gastrointestinal: Diarrhea Exam Vital Signs Vital Signs Date Time Temp Pulse Resp B/P (MAP) Pulse Ox O2 Delivery O2 Flow Rate FiO2 07/16/18 00:22 97 Nasal Cannula 4.0 07/15/18 23:57 99.1 72 18 154/71 (98) Neuro: No Gross deficits Eyes: PERRLA Cardiovascular: Regular Rate and Rhythm Respiratory: Clear to Auscultation GI: Abd Soft and Non-Tender Extremities: Edema Integumentary: No Cyanosis Medical Decision Making Data Points Result Diagram: 07/15/18203907/15/182039 Assessment and Plan Problems: (1) Fever Status: Acute Assessment & Plan: He did present with fever. His only symptoms are of diarrhea 3 days prior to admission. He does have a recent history of endocarditis and completed a 30 day treatment with ceftriaxone. We have placed him back on empiric treatment with ceftriaxone. Blood cultures are pending. (2) Acute renal failure Assessment & Plan: He has been started on IV fluids. A repeat chemistry panel is ordered for the morning. (3) Chronic kidney disease (CKD) stage G3b/A1, moderately decreased glomerular filtration rate (GFR) between 30-44 mL/min/1.73 square meter and albuminuria creatinine ratio less than 30 mg/g Status: Chronic (4) Chronic acquired lymphedema Status: Chronic Assessment & Plan: He is on chronic treatment with Lasix, which is currently on hold. He also receives daily wound care from home health. A wound care consult has been ordered. (5) Type 2 diabetes mellitus Status: Chronic Assessment & Plan: He is on chronic treatment with Lantus, which is currently on hold. We have placed him on sliding scale level #2. (6) Diabetic neuropathy Status: Chronic Assessment & Plan: He is on chronic treatment with gabapentin. (7) Coronary artery disease Status: Chronic Assessment & Plan: He is on chronic treatment with aspirin. (8) Hypothyroid Status: Chronic Assessment & Plan: He is on chronic treatment with Synthroid. (9) BPH (benign prostatic hyperplasia) Status: Chronic Assessment & Plan: He is on chronic treatment with terazosin. (10) Gout Status: Chronic Assessment & Plan: He is on chronic treatment with allopurinol. Copies to: HILARIA MEDINA MD ; Venous Thromboembolism Antithrombotics Is Pt On Any Antithrombotics?: No Exam Sepsis Risk: No Definite Risk Problem Qualifiers (1) Fever: Fever type: unspecified Qualified Codes: R50.9 - Fever, unspecified (2) Type 2 diabetes mellitus: Diabetes mellitus mcfp insulin use: unspecified mcfp insulin use status Diabetes mellitus complication status: with unspecified complications Qualified Codes: E11.8 - Type 2 diabetes mellitus with unspecified c omplications HILARIA BARRETO DO Jul 16, 2018 01:00
[2018-07-16 04:45] VITALS: BP 152/67
[2018-07-16 06:25] LABS: PLATELET COUNT, AUTOMATED 228 K/uL (150-450)
[2018-07-16 08:05] VITALS: BP 169/64
[2018-07-16] MEDS: TERAZOSIN HCL 1 MG CAP PO SCH ×2 (09:13→20:30)
[2018-07-16] MEDS: INSULIN HUM LISPRO 100 UN/ML 3 ML VIAL SUBQ PRN ×3 (09:14→20:31)
[2018-07-16] MEDS: LEVOTHYROXINE SOD 0.125 MG TAB PO SCH (09:14)
[2018-07-16] MEDS: ASPIRIN 81 MG ENTERIC COATED PO SCH (09:14)
[2018-07-16] MEDS: ALLOPURINOL 100 MG TAB PO SCH (09:14)
[2018-07-16] MEDS: GABAPENTIN 300 MG CAP PO SCH ×2 (09:14→20:30)
[2018-07-16] MEDS: ENOXAPARIN 30 MG/0.3 ML SYR SC SCH (09:16)
[2018-07-16] MEDS: FUROSEMIDE 20 MG TAB PO SCH (11:22)
[2018-07-16 12:23] VITALS: BP 167/98
[2018-07-16 15:05] VITALS: BP 155/72
--- NOTE | 2018-07-16 15:19 | Medical Nutrition Therapy ---
Nutrition Anthropometrics Height (Inches): 71.00 Height (Calculated Centimeters: 180.258686 Weight (Pounds): 257 Weight (Calculated Kilograms): 116.573 BMI: 35.8 [place] Nutrition Score: Adequate [place] Nutrition Risk Score: 17 Dietary Referral Nutrition Risk Factors: Nutrition Risk Comment: NA Physical Findings Physical Appearance: Obese BMI 30-39 Skin Appearance Skin Appearance: Edema Edema Location Modifier: Edema Location: Type of Edema: Degree of Edema: Gastrointestinal Symptoms GI Symtoms: Diarrhea Tube Present: Bowel Sounds: Recent Bowel Pattern: Diarrhea Stool Characteristics: Nutritional Diagnosis Nutritional Risk Acuity 1: Acute/ES Renal Nutritional Risk Acuity 4: Good Appetite Past Medical History: Skin Cam CAD, T2DM, hypercholesterolemia, COPD, CKD-3, HTN, hypothyroidism, chronic aquired lymphedema, BPH, Gout, diabetic neuropathy Nutritional Acuity: 1-High Nutrition Diagnosis: Decreased Nutrient Needs Nutrition Etiology: Physiological Causes Nutrition Problem/Etiology/Sym: Decreased protein, K+, phos, Na r/t dx ARF AEB BUN 49, creatinine 2.7 Adjusted Energy Requirement Re: 1979 (H-B adj for obesity) Protein Requirement: 79 (1gm/kg IBW) Fluid Requirement: 2320 (20ml/kg) Diet Type: Diabetic Nutrition Intervention: Cont diet as ordered, Encourage intake Food Likes: LIGHT COFFEE BLEND Food Dislikes: STRONG COFFEE Nutrition Monitoring & Eval Nutrition Goals: Eat 75-100% Meal RD Patient Assessment Time: [address] Assessment Type: RD Assessment Patient Nutrition Acuity: 1-High Follow Up Date: Jul 19, 2018 Nutritional Comment: 2/ Pt admitted for ARF. Pt on ADA diet and ate 100% of first meal in facility. BG ranign 154-187, alb 3.6, BUN 49, creatinine 2.7, hgb 12.8, Hct 39.2. Will cont to monitor and encourage intake. DONALD CHOUDHARY Jul 16, 2018 15:18
[2018-07-16 19:17] VITALS: BP 157/70
[2018-07-16] MEDS: SIMVASTATIN 20 MG TAB PO SCH (20:30)
[2018-07-16] MEDS: RANITIDINE HCL 150 MG TAB PO SCH (20:30)
[2018-07-16] MEDS: INSULIN GLARGINE 100 U/ML 3 ML PEN SUBQ SCH (20:31)
[2018-07-17 01:23] VITALS: BP 172/70
[2018-07-17] MEDS: cefTRIAXone 2 GM VIAL IVP SCH (01:32)
[2018-07-17 06:41] VITALS: BP 159/67
[2018-07-17] MEDS: ENOXAPARIN 30 MG/0.3 ML SYR SC SCH (08:26)
[2018-07-17] MEDS: GABAPENTIN 300 MG CAP PO SCH ×2 (08:26→20:34)
[2018-07-17] MEDS: TERAZOSIN HCL 1 MG CAP PO SCH ×2 (08:27→20:34)
[2018-07-17] MEDS: LEVOTHYROXINE SOD 0.125 MG TAB PO SCH (08:27)
[2018-07-17] MEDS: ASPIRIN 81 MG ENTERIC COATED PO SCH (08:27)
[2018-07-17] MEDS: ALLOPURINOL 100 MG TAB PO SCH (08:27)
[2018-07-17] MEDS: FUROSEMIDE 20 MG TAB PO SCH (08:28)
[2018-07-17 11:26] VITALS: BP 143/64
[2018-07-17] MEDS: INSULIN HUM LISPRO 100 UN/ML 3 ML VIAL SUBQ PRN (11:31)
--- NOTE | 2018-07-17 15:33 | Hospitalist Progress Note ---
Subjective Progress Notes Subjective He reports diarrhea/decreased appetite. No N/V. No fever. Physical Exam Vital Signs Date Time Temp Pulse Resp B/P (MAP) Pulse Ox O2 Delivery O2 Flow Rate FiO2 07/17/18 11:26 98.9 72 18 143/64 (90) 93 Nasal Cannula 2.0 Intake and Output 07/17/18 06:59 Intake Total 1491 ml Output Total 200 ml Balance 1291 ml Intake Oral 602 ml IV Total 889 ml Output Stool Total 200 ml # Voids 5 # Bowel Movements 3 General Appearance: Alert, Awake Cardiovascular: Other (Regular with systolic murmur) Respiratory: Other (fairly clear) GI: Other (obese/soft) Extremities: Warm, Edema (compression dressings are currently on) Result Diagram: 07/16/1851707/17/18524 Assessment and Plan Problems: (1) Fever Status: Acute Assessment & Plan: He did present with fever. His only symptoms are of diarrhea 3 days prior to admission. He does have a recent history of endocarditis and completed a 30 day treatment with ceftriaxone. We have placed him back on empiric treatment with ceftriaxone. Blood cultures are negative thus far. Stool for c. difficile negative, culture pending. (2) Acute renal failure Status: Acute Assessment & Plan: Acute on chronic. Improved on IV fluids. His creatinine is 2.7 this morning. (3) Chronic kidney disease (CKD) stage G3b/A1, moderately decreased glomerular filtration rate (GFR) between 30-44 mL/min/1.73 square meter and albuminuria creatinine ratio less than 30 mg/g Status: Chronic (4) Chronic acquired lymphedema Status: Chronic Assessment & Plan: He is on chronic treatment with Lasix, which is currently on hold. He also receives daily wound care from home health. Wound care team seeing him. (5) Type 2 diabetes mellitus Status: Chronic Assessment & Plan: He is on chronic treatment with Lantus, which is currently on hold. We have placed him on sliding scale level #2. (6) Diabetic neuropathy Status: Chronic Assessment & Plan: He is on chronic treatment with gabapentin. (7) Coronary artery disease Status: Chronic Assessment & Plan: He is on chronic treatment with aspirin. (8) Hypothyroid Status: Chronic Assessment & Plan: He is on chronic treatment with Synthroid. (9) BPH (benign prostatic hyperplasia) Status: Chronic Assessment & Plan: He is on chronic treatment with terazosin. (10) Gout Status: Chronic Assessment & Plan: He is on chronic treatment with allopurinol. 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
[2018-07-17] MEDS: RANITIDINE HCL 150 MG TAB PO SCH (20:34)
[2018-07-17] MEDS: SIMVASTATIN 20 MG TAB PO SCH (20:34)
[2018-07-17] MEDS: INSULIN GLARGINE 100 U/ML 3 ML PEN SUBQ SCH (20:35)
[2018-07-18] MEDS: cefTRIAXone 2 GM VIAL IVP SCH (01:33)
[2018-07-18 01:38] VITALS: BP 172/65
[2018-07-18 06:24] LABS: PLATELET COUNT, AUTOMATED 224 K/uL (150-450)
[2018-07-18 08:33] VITALS: BP 159/68
[2018-07-18] MEDS: TERAZOSIN HCL 1 MG CAP PO SCH (08:37)
[2018-07-18] MEDS: FUROSEMIDE 20 MG TAB PO SCH (08:37)
[2018-07-18] MEDS: ASPIRIN 81 MG ENTERIC COATED PO SCH (08:37)
[2018-07-18] MEDS: GABAPENTIN 300 MG CAP PO SCH (08:37)
[2018-07-18] MEDS: LEVOTHYROXINE SOD 0.125 MG TAB PO SCH (08:37)
[2018-07-18] MEDS: ENOXAPARIN 30 MG/0.3 ML SYR SC SCH (08:38)
[2018-07-18] MEDS: ALLOPURINOL 100 MG TAB PO SCH (08:38)
--- NOTE | 2018-07-18 08:46 | Hospitalist Depart ---
Discharge Summary Reason for Hosp/Final Diag: (1) Fever Status: Acute Hospital Course & Plan: He did present with fever. His only symptoms are of diarrhea 3 days prior to admission. He does have a recent history of end ocarditis and completed a 30 day treatment with ceftriaxone. We placed him back on empiric treatment with ceftriaxone. Blood cultures negative. Stool for c. difficile negative. Stopped antibiotics and will discharge home. (2) Acute renal failure Status: Acute Hospital Course & Plan: Acute on chronic. Improved on IV fluids. (3) Chronic kidney disease (CKD) stage G3b/A1, moderately decreased glomerular filtration rate (GFR) between 30-44 mL/min/1.73 square meter and albuminuria creatinine ratio less than 30 mg/g Status: Chronic (4) Chronic acquired lymphedema Status: Chronic Hospital Course & Plan: He is on chronic treatment with Lasix, which is currently on hold. He also receives daily wound care from home health. Continue wound care on discharge (5) Type 2 diabetes mellitus Status: Chronic Hospital Course & Plan: He is on chronic treatment with Lantus, resume regimen on discharge (6) Diabetic neuropathy Status: Chronic Hospital Course & Plan: He is on chronic treatment with gabapentin. (7) Coronary artery disease Status: Chronic Hospital Course & Plan: He is on chronic treatment with aspirin. (8) Hypothyroid Status: Chronic Hospital Course & Plan: He is on chronic treatment with Synthroid. (9) BPH (benign prostatic hyperplasia) Status: Chronic Hospital Course & Plan: He is on chronic treatment with terazosin. (10) Gout Status: Chronic Hospital Course & Plan: He is on chronic treatment with allopurinol. Departure Weight (Pounds): 257 Weight (Ounces): 2.0 Result Diagram: 07/18/1853907/18/18539 Condition: Improved Discharge: Home Health Discharge Instructions Home Meds Active Scripts Furosemide (LASIX) 20 Mg Tablet, 3 TAB PO QDAY, #90 TAB Prov:TETE MULLER [facility] 05/31/18 Allopurinol (ALLOPURINOL) 100 Mg Tablet, 100 MG PO QDAY, #30 TAB Prov:TETE MULLER [facility] 05/31/18 Insulin Glargine 100 Un/Ml Pen (LANTUS SOLOSTAR PEN) 100 Unit/1 Ml Insuln.pen, 10 UNIT SQ QHS, #3 PEN Prov:TETE MULLER [employer] 05/31/18 Terazosin Hcl (TERAZOSIN HCL) 1 Mg Capsule, 3 MG PO BID, #180 CAPSULE Prov:TETE MULLER [employer] 05/31/18 Gabapentin (GABAPENTIN) 300 Mg Capsule, 300 MG PO BID, #60 CAPSULE Prov:TETE MULLER [facility] 05/31/18 Reported Medications Aspirin (ASPIRIN EC) 81 Mg Tablet.dr, 81 MG PO QDAY, TAB 05/17/18 Acetaminophen With Codeine # 3 (TYLENOL WITH CODEINE #3 TABLET) 1 Each Tablet, 1 EACH PO PRN for PAIN, TAB 05/07/18 Triamcinolone Acetonide 0.1% Cr 15 Gm Tube (TRIAMCINOLONE ACETONIDE 0.1% CREAM) 15 Gm Cream..g., 15 GM TP TID, TUBE 07/24/17 Sodium Chloride (SALINE NASAL SPRAY) 30 Ml [place], 2 SPRAY NS Q2H PRN for CONGESTION, SPRAY 07/24/17 Ammonium Lactate (Ammonium Lactate) 12 % Cream..g., 1 SHIV TOP BIDAC 07/24/17 Clobetasol Propionate 0.05% Lotion (CLOBETASOL PROPIONATE 0.05% LOTION) 59 Ml Lotion, 0 TP BID, BOT 01/29/16 Ranitidine Hcl (ZANTAC) 150 Mg Tablet, 150 MG PO QHS 01/18/14 Levothyroxine Sodium (SYNTHROID) 125 Mcg Tablet, 125 MCG PO QDAY 01/18/14 Simvastatin (SIMVASTATIN) 40 Mg Tablet, 20 MG PO HS, TAB 01/18/14 Diet: Diabetic Copies to: HILARIA MEDINA MD ; Venous Thromboembolism Antithrombotics Is Pt On Any Antithrombotics?: No Problem Qualifiers (1) Fever: Fever type: unspecified Qualified Codes: R50.9 - Fever, unspecified (2) Type 2 diabetes mellitus: Diabetes mellitus [facility] insulin use: 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
== END 2018-07-18 09:45 | disposition home health service (06) | DRG 682 ==
LOC: ER 21:10 → MED 23:35
PROVIDERS: ADMIT Family Medicine; ATTEND Family Medicine
DX: N17.9 Acute kidney failure, unspecified (principal); I33.0 Acute and subacute infective endocarditis; E86.0 Dehydration; E11.22 Type 2 diabetes mellitus with diabetic chronic kidney disease; I12.9 Hypertensive chronic kidney disease with stage 1 through stage 4 chronic kidney disease, or unspecified chronic kidney disease; N18.3 Chronic kidney disease, stage 3 (moderate); I25.10 Atherosclerotic heart disease of native coronary artery without angina pectoris; E11.40 Type 2 diabetes mellitus with diabetic neuropathy, unspecified; N40.0 Benign prostatic hyperplasia without lower urinary tract symptoms; M1A.9XX0 Chronic gout, unspecified, without tophus (tophi); E03.9 Hypothyroidism, unspecified; I89.0 Lymphedema, not elsewhere classified; C44.90 Unspecified malignant neoplasm of skin, unspecified; Z79.4 Long term (current) use of insulin; Z87.891 Personal history of nicotine dependence
CPT/HCPCS: 36415; 36416; 71045; 81001; 82040; 82247; 82310; 82374; 82435; 82565; 82947; 82948; 83605; 83735; 84075; 84132; 84155; 84295; 84450; 84460; 84520; 85025; 86140; 87040; 87045; 87324; 87449; 87502; 96360; 97161; 99284; J0696; J1650; J1815; J7030

== ENCOUNTER → 2018-07-15 | Outpatient (CLI) | payer MEDICARE, OTHER ==
[2018-05-02 10:57] VITALS: BMI 36.4
== END ==
LOC: AMB 20:21
PROVIDERS: ATTEND Nurse Practitioner
DX: R41.82 Altered mental status, unspecified (principal); R53.1 Weakness; R50.9 Fever, unspecified; M79.662 Pain in left lower leg; M79.661 Pain in right lower leg
CPT/HCPCS: A0425; A0427

== ENCOUNTER 2018-07-28 15:33 | Inpatient (IN) | payer MEDICARE, OTHER ==
[2018-05-02 10:57] VITALS: Wt 113.5 kg
[~2018-07-28 15:33] MED LIST changes: -ACET-1966 PO; -ALBU8.5H IH; -AMLO-125 PO; -CLON-393 PO; -CLON1PAT20 TD; -ERTA1VIA IV; -FURO-47 PO; -[UNRECOGNIZED DRUG - CODE] TOP
[2018-07-28] MEDS ORDERED: NS(*) 0.9% 1000 ML BAG 1,000 ML IV ONE ×2 (15:58→18:00)
[2018-07-28] MEDS ORDERED: ACETAMINOPHEN 650 MG SUPP PR ONE (16:00)
--- NOTE | 2018-07-28 16:03 | ER Report ---
History and Physical Time Seen By MD: 16:03 Hx. of Stated Complaint: PATIENT FELL TWICE IN THE LAST DAY. UNWITNESSED FALL TODAY UNKNOWN HOW LONG HE WAS DOWN. HAD SEPSIS AND WAS ADMITTED ABOUT A MONTH AGO HPI/ROS CHIEF COMPLAINT: Weakness, redness of right upper leg HISTORY OF PRESENT ILLNESS: 88-year-old male patient presents to emergency room with complaint of weakness, redness to the right upper leg. Patient has been having fever today, 101 at home. Patient has not taken any Tylenol or ibuprofen for this. His grandson states they've tried giving him aspirin. Grandson states that he has had a couple bouts of incontinence. He states that he has had a fall. He does have blood to the left hand. Grandlisa also states that he has noted that he is not able to speak in full sentences because he speaks just a few words and then stops there. He states this is what's happened in the past recent septic. Patient has not had any nausea, vomiting or diarrhea. Grandson is noted a slight cough. Does have some concern about possible pneumonia. Grandson states he was admitted in the past for infection of the right leg. He states the right leg is gotten hot and swollen today. REVIEW OF SYSTEMS: Respiratory: No cough, no dyspnea. Cardiovascular: No chest pain, no palpitations. Gastrointestinal: No vomiting, no abdominal pain. Musculoskeletal: No back pain. Allergies: Coded Allergies: No Known Drug Allergies (Unverified , 07/28/17) Home Meds Active Scripts Furosemide (LASIX) 20 Mg Tablet, 3 TAB PO QDAY, #90 TAB Prov:TETE MULLER [facility] 05/31/18 Allopurinol (ALLOPURINOL) 100 Mg Tablet, 100 MG PO QDAY, #30 TAB Prov:TETE MULLER [facility] 05/31/18 Insulin Glargine 100 Un/Ml Pen (LANTUS SOLOSTAR PEN) 100 Unit/1 Ml Insuln.pen, 10 UNIT SQ QHS, #3 PEN Prov:TTEE MULLER [facility] 05/31/18 Terazosin Hcl (TERAZOSIN HCL) 1 Mg Capsule, 3 MG PO BID, #180 CAPSULE Prov:TETE MULLER [facility] 05/31/18 Gabapentin (GABAPENTIN) 300 Mg Capsule, 300 MG PO BID, #60 CAPSULE Prov:TETE MULLER [facility] 05/31/18 Reported Medications Aspirin (ASPIRIN EC) 81 Mg Tablet.dr, 81 MG PO QDAY, TAB 05/17/18 Acetaminophen With Codeine # 3 (TYLENOL WITH CODEINE #3 TABLET) 1 Each Tablet, 1 EACH PO PRN for PAIN, TAB 05/07/18 Triamcinolone Acetonide 0.1% Cr 15 Gm Tube (TRIAMCINOLONE ACETONIDE 0.1% CREAM) 15 Gm Cream..g., 15 GM TP TID, TUBE 07/24/17 Sodium Chloride (SALINE NASAL SPRAY) 30 Ml [place], 2 SPRAY NS Q2H PRN for CONGESTION, SPRAY 07/24/17 Ammonium Lactate (Ammonium Lactate) 12 % Cream..g., 1 SHIV TOP BIDAC 07/24/17 Clobetasol Propionate 0.05% Lotion (CLOBETASOL PROPIONATE 0.05% LOTION) 59 Ml Lotion, 0 TP BID, BOT 01/29/16 Ranitidine Hcl (ZANTAC) 150 Mg Tablet, 150 MG PO QHS 01/18/14 Levothyroxine Sodium (SYNTHROID) 125 Mcg Tablet, 125 MCG PO QDAY 01/18/14 Simvastatin (SIMVASTATIN) 40 Mg Tablet, 20 MG PO HS, TAB 01/18/14 Past Medical/Surgical History Patient has a past medical history of angina, heart murmur, hypertension, hyperlipidemia, wears oxygen all the time, cholecystitis, arthritis, left wrist fracture, back pain, type 2 diabetes, hypothyroidism, skin cancer. Patient has a surgical history of coronary stent, appendectomy, cholecystectomy, wrist surgery, tonsillectomy. Reviewed Nurses Notes: Yes Hx Smoking: Yes (quit 40 years ago) Smoking Status: Former Smoker Exposure to Second Hand Smoke?: No Hx Substance Use Disorder: No Hx Alcohol Use: No Constitutional Vital Sign - Last 24 Hours 07/28/18 07/28/18 07/28/18 07/28/18 15:33 15:38 15:48 16:00 Temp 101.5 Pulse 89 Resp 22 B/P (MAP) 138/58 138/58 (84) 133/51 (78) Pulse Ox 94 O2 Delivery Room Air 07/28/18 07/28/18 07/28/18 07/28/18 16:00 16:01 16:03 16:15 Pulse 100 92 90 Resp 36 10 26 B/P (MAP) 133/51 (78) Pulse Ox 82 95 95 O2 Flow Rate 3.0 07/28/18 07/28/18 07/28/18 07/28/18 16:18 16:30 16:45 17:00 Pulse 90 91 89 92 Resp 14 30 34 35 B/P (MAP) 130/84 (99) 154/68 (96) Pulse Ox 97 98 98 100 07/28/18 07/28/18 17:15 17:30 Pulse 92 85 Resp 20 32 B/P (MAP) 137/56 (83) Pulse Ox 96 96 Physical Exam General Appearance: The patient is alert, has no immediate need for airway protection and no current signs of toxicity. Respiratory: Chest is non tender, lungs are clear to auscultation. Cardiac: regular rate and rhythm Gastrointestinal: Abdomen is soft and non tender, no masses, bowel sounds normal. Musculoskeletal: Neck: Neck is supple and non tender. Extremities have full range of motion and are non tender. Skin: No rashes or lesions. Patient has erythema, warmth to the right leg, it does go from just below the knee up to the abdomen. Patient has fever here in the emergency room. DIFFERENTIAL DIAGNOSIS: After history and physical exam differential diagnosis was considered for cellulitis, abscess, sepsis. Medical Decision Making Data Points Result Diagram: 07/28/18 1621 07/28/18 1621 Laboratory Hematology Test 07/28/18 16:21 07/28/18 17:29 Red Blood Count 4.33 M/uL (4.00-5.60) Mean Corpuscular Volume 90.6 fL (80.0-96.0) Mean Corpuscular Hemoglobin 29.4 pg (26.0-33.0) Mean Corpuscular Hemoglobin Concent 32.5 g/dL (32.0-36.0) Red Cell Distribution Width 14.4 % (11.5-14.5) Mean Platelet Volume 6.8 fL (7.2-11.1) Neutrophils (%) (Auto) 89.3 % (39.4-72.5) Lymphocytes (%) (Auto) 6.1 % (17.6-49.6) Monocytes (%) (Auto) 4.3 % (4.1-12.4) Eosinophils (%) (Auto) 0.0 % (0.4-6.7) Basophils (%) (Auto) 0.3 % (0.3-1.4) Nucleated RBC Relative Count (auto) 0.0 /100WBC Neutrophils # (Auto) 26.0 K/uL (2.0-7.4) Lymphocytes # (Auto) 1.8 K/uL (1.3-3.6) Monocytes # (Auto) 1.3 K/uL (0.3-1.0) Eosinophils # (Auto) 0.0 K/uL (0.0-0.5) Basophils # (Auto) 0.1 K/uL (0.0-0.1) Nucleated RBC Absolute Count (auto) 0.01 K/uL Peripheral Blood Smear Yes Y/N Erythrocyte Sedimentation Rate 35 mm/HOUR (0-20) Sodium Level 137 mmol/L (137-145) Potassium Level 4.7 mmol/L (3.5-5.0) Chloride Level 101 mmol/L (98-107) Carbon Dioxide Level 30 mmol/L (22-30) Blood Urea Nitrogen 44 mg/dl (9-21) Creatinine 3.10 mg/dl (0.66-1.25) Glomerular Filtration Rate Calc 19.2 Random Glucose 200 mg/dl (75-110) Calcium Level 8.6 mg/dl (8.4-10.2) Total Bilirubin 0.5 mg/dl (0.2-1.3) Aspartate Amino Transf (AST/SGOT) 42 U/L (0-35) Alanine Aminotransferase (ALT/SGPT) 45 U/L (0-56) Alkaline Phosphatase 83 U/L (0-126) C-Reactive Protein 19.3 mg/dl (<1.0) Total Protein 5.7 g/dl (6.3-8.2) Albumin 3.1 g/dl (3.5-5.0) Urine Color Yellow Urine Clarity Clear Urine pH 5.0 pH (4.8-9.5) Urine Specific [place] 1.012 Urine Protein 100 mg/dL (NEGATIVE) Urine Glucose (UA) 50 mg/dL (NEGATIVE) Urine Ketones Negative mg/dL (NEGATIVE) Urine Blood Moderate (NEGATIVE) Urine Nitrite Negative (NEGATIVE) Urine Bilirubin Negative (NEGATIVE) Urine Urobilinogen Negative mg/dL (0.2-1.9) Urine Leukocyte Esterase Negative (NEGATIVE) Urine RBC 1 /HPF (0-2/HPF) Urine WBC <1 /HPF (0-5/HPF) Urine Squamous Epithelial Cells Few /LPF (NONE-FEW) Urine Bacteria Negative /HPF (NONE-FEW) Urine Hyaline Casts Few /LPF (NONE-FEW) Urine Mucus None /HPF (NONE-FEW) Chemistry Test 07/28/18 16:21 07/28/18 17:29 White Blood Count 29.1 k/uL (4.5-11.0) Red Blood Count 4.33 M/uL (4.00-5.60) Hemoglobin 12.7 g/dL (14.0-18.0) Hematocrit 39.2 % (42.0-52.0) Mean Corpuscular Volume 90.6 fL (80.0-96.0) Mean Corpuscular Hemoglobin 29.4 pg (26.0-33.0) Mean Corpuscular Hemoglobin Concent 32.5 g/dL (32.0-36.0) Red Cell Distribution Width 14.4 % (11.5-14.5) Platelet Count 282 K/uL (150-450) Mean Platelet Volume 6.8 fL (7.2-11.1) Neutrophils (%) (Auto) 89.3 % (39.4-72.5) Lymphocytes (%) (Auto) 6.1 % (17.6-49.6) Monocytes (%) (Auto) 4.3 % (4.1-12.4) Eosinophils (%) (Auto) 0.0 % (0.4-6.7) Basophils (%) (Auto) 0.3 % (0.3-1.4) Nucleated RBC Relative Count (auto) 0.0 /100WBC Neutrophils # (Auto) 26.0 K/uL (2.0-7.4) Lymphocytes # (Auto) 1.8 K/uL (1.3-3.6) Monocytes # (Auto) 1.3 K/uL (0.3-1.0) Eosinophils # (Auto) 0.0 K/uL (0.0-0.5) Basophils # (Auto) 0.1 K/uL (0.0-0.1) Nucleated RBC Absolute Count (auto) 0.01 K/uL Peripheral Blood Smear Yes Y/N Erythrocyte Sedimentation Rate 35 mm/HOUR (0-20) Glomerular Filtration Rate Calc 19.2 Calcium Level 8.6 mg/dl (8.4-10.2) Total Bilirubin 0.5 mg/dl (0.2-1.3) Aspartate Amino Transf (AST/SGOT) 42 U/L (0-35) Alanine Aminotransferase (ALT/SGPT) 45 U/L (0-56) Alkaline Phosphatase 83 U/L (0-126) C-Reactive Protein 19.3 mg/dl (<1.0) Total Protein 5.7 g/dl (6.3-8.2) Albumin 3.1 g/dl (3.5-5.0) Urine Color Yellow Urine Clarity Clear Urine pH 5.0 pH (4.8-9.5) Urine Specific [place] 1.012 Urine Protein 100 mg/dL (NEGATIVE) Urine Glucose (UA) 50 mg/dL (NEGATIVE) Urine Ketones Negative mg/dL (NEGATIVE) Urine Blood Moderate (NEGATIVE) Urine Nitrite Negative (NEGATIVE) Urine Bilirubin Negative (NEGATIVE) Urine Urobilinogen Negative mg/dL (0.2-1.9) Urine Leukocyte Esterase Negative (NEGATIVE) Urine RBC 1 /HPF (0-2/HPF) Urine WBC <1 /HPF (0-5/HPF) Urine Squamous Epithelial Cells Few /LPF (NONE-FEW) Urine Bacteria Negative /HPF (NONE-FEW) Urine Hyaline Casts Few /LPF (NONE-FEW) Urine Mucus None /HPF (NONE-FEW) Urinalysis Test 07/28/18 17:29 Urine Color Yellow Urine Clarity Clear Urine pH 5.0 pH (4.8-9.5) Urine Specific [place] 1.012 Urine Protein 100 mg/dL (NEGATIVE) Urine Glucose (UA) 50 mg/dL (NEGATIVE) Urine Ketones Negative mg/dL (NEGATIVE) Urine Blood Moderate (NEGATIVE) Urine Nitrite Negative (NEGATIVE) Urine Bilirubin Negative (NEGATIVE) Urine Urobilinogen Negative mg/dL (0.2-1.9) Urine Leukocyte Esterase Negative (NEGATIVE) Urine RBC 1 /HPF (0-2/HPF) Urine WBC <1 /HPF (0-5/HPF) Urine Squamous Epithelial Cells Few /LPF (NONE-FEW) Urine Bacteria Negative /HPF (NONE-FEW) Urine Hyaline Casts Few /LPF (NONE-FEW) Urine Mucus None /HPF (NONE-FEW) EKG/Imaging Imaging CHEST SINGLE AP Indication: Fever.. Comparison: 07/15/2018. Findings: Cardiomediastinal silhouette and pulmonary vessels within normal limits for the technique. There is no focal infiltrate or lobar consolidation. No pneumothorax or pleural effusion. No discrete nodules. There are couple vessel seen on end in the right lower quad rant. Upper abdomen is unremarkable. No acute bony abnormality. IMPRESSION: 1. No acute cardiopulmonary process. Report Dictated By: Jacob John at 07/28/2018 4:49 PM Report E-Signed By: Jacob John at 07/28/2018 4:50 PM ED Course/Re-evaluation ED Course Patient was admitted to an exam room, history and physical were obtained. Differential diagnoses were considered. On examination lungs are clear, heart is regular, abdomen soft nontender. Patient did have significant erythema to the right leg, starting just below the knee going up. Very warm to touch. Patient was not tachycardic, did not have old blood pressure. An IV was started, patient started a liter of normal saline. A CBC, CMP, urinalysis, lactate, blood cultures and chest x-ray were done. Chest x-ray was negative. CBC showed a white count 29,000 with a left shift. CMP showed significant renal failure with a GFR of 19. Urinalysis was unremarkable. Lactate was elevated at 2.4. I would the dennys forrest has a cellulitis that is resulting in sepsis. Patient was given a dose of Rocephin here in the emergency room. I did discuss the case with Dr. Garcia, hospitalist, who came and evaluated the patient in the emergency room. He did agree to accept the patient for admission. Patient will be admitted to the intensive care unit. Decision to Disposition Date: Jul 28, 2018 Decision to Disposition Time: 17:45 Depart Departure Latest Vital Signs Vital Signs Date Time Temp Pulse Resp B/P (MAP) Pulse Ox O2 Delivery O2 Flow Rate FiO2 07/28/18 17:30 85 32 137/56 (83) 96 07/28/18 16:01 3.0 07/28/18 15:33 101.5 Room Air Core Temperature (Celsius): ??? Impression: Primary Impression: Cellulitis Additional Impression: Sepsis Condition: Condition Unchanged Disposition: Admitted from ER Referrals: HILARIA MEDINA MD (PCP) Problem Qualifiers Primary Impression: Cellulitis Site of cellulitis: buttock Qualified Codes: L03.317 - Cellulitis of buttock Additional Impression: Sepsis Sepsis type: sepsis due to unspecified organism Qualified Codes: A41.9 - Sepsis, unspecified organism SOLOMON SHEPPARD Jul 28, 2018 16:03
[2018-07-28] MEDS ORDERED: EMS NS 0.9%(*) 1000 ML BAG 1,000 ML IV ONE (16:10)
[2018-07-28 16:31] LABS: PLATELET COUNT, AUTOMATED 282 K/uL (150-450)
[2018-07-28] MEDS ORDERED: cefTRIAXone 2 GM VIAL IVP ONE (16:35)
--- NOTE | 2018-07-28 16:55 | RADIOLOGY IMAGING REPORT ---
FACILITY: [facility] [place]IENT NAME: Rizwan Huertas : 1930 MR: [id number] V: [id number] EXAM DATE: ORDERING PHYSICIAN: SOLOMON SHEPPARD TECHNOLOGIST: Location: [facility] Patient: Rizwan Huertas : 1930 Visit/Account:[id number] Date of Sevice: 07/28/2018 CHEST SINGLE AP Indication: Fever.. Comparison: 07/15/2018. Findings: Cardiomediastinal silhouette and pulmonary vessels within normal limits for the technique. There is no focal infiltrate or lobar consolidation. No pneumothorax or pleural effusion. No discrete nodules. There are couple vessel seen on end in the right lower quadrant. Upper abdomen i s unremarkable. No acute bony abnormality. IMPRESSION: 1. No acute cardiopulmonary process. Report Dictated By: Jacob John at 07/28/2018 4:49 PM Report E-Signed By: Jacob John at 07/28/2018 4:50 PM WSN:[email or web address]
[2018-07-28] MEDS: HYDROCORTISONE 100 MG/2 ML IVP ONE ×2 (17:00→17:04)
[2018-07-28] MEDS ORDERED: ACETAMINOPHEN(*)1000 MG/100 ML 100 ML IVPB ONE (17:05)
[2018-07-28] MEDS ORDERED: VANCOMYCIN(*) 1 GM VIAL 2.5 GM in NS(*) 0.9% 250 ML BAG 250 ML IVPB ONE (17:30)
[2018-07-28] MEDS ORDERED: VANCOMYCIN(*) 1 GM VIAL 2.5 GM in NS(*) 0.9% 500 ML BAG 500 ML IVPB ONE (17:45)
[2018-07-28] MEDS ORDERED: ACETAMINOPHEN 500 MG TAB PO PRN (18:15)
[2018-07-28] MEDS ORDERED: FLUSH 10 ML SYR IVP PRN (18:15)
--- NOTE | 2018-07-28 18:18 | Pharmacy Note ---
Vancomycin Management Note Vanco Dosing Note Pharmacy Services Pharmacokinetic Dosing Consult, Vancomycin Pharmacy has been consulted for dosing and monitoring of vancomycin for 88 year old male for sepsis. Pertinent Past Medical History: recent hospital visits with sepsis, cellulitis, bacterial endocarditis. Antibiotics prior to admission; Rocephin 2 gm IV in ED. Patient Information: Height (cm): 180.34 cm Actual Body Weight (ABW): 113.4 kg Pertinent Lab Tests WHITE BLOOD COUNT 29.1 NEUTROPHILS% 89.3 SCR 3.1 Assessment: CrCl 21 ml/min (Ajbw) Renal function is acute on chronic renal insufficiency Vancomycin Monitoring Assessment Goal Vancomycin Trough Level: 15-20 Plan: 1) Vancomycin 25 mg/kg loading dose (based on ABW): 2500 mg IV x 1 in ED 2) Vancomycin maintenance dose (based on ABW): waiting on random level to dose 3) Vancomycin monitoring: random ordered for 0500 07/29/18 (approx 12 hours after ED dose) Pharmacy will continue to monitor daily and adjust regimen as appropriate. Thank you for the consult. TORY GUILLERMO Jul 28, 2018 18:18
[2018-07-28 18:27] VITALS: BP 126/47
--- NOTE | 2018-07-28 18:48 | History & Physical ---
History of Present Illness History of Present Illness 88yo male with chronic lymphedema, possible endocarditis, recent fever of unclear source and T2DM who was brought to the ER for progressive weakness, confusion, and right leg redness. Most of this history is from family in the room. He was discharged from [facility] 10 days ago (2/). He was in for a fever and there was no clear source of infection. He was placed on ceftriaxone for 3 days. His fever resolved and he went home. He did well until yesterday, when he became more weak. He did better in the evening. This morning he was weak and more confused. Family noticed that his right thigh had redness (like where he has had a cellulitis previously), so he was brought to the ER. The patient reports right hip discomfort. He has no other complaints. In the ER, he was give fluid resuscitation for sepsis, a dose of ceftriaxone and loading dose of vancomycin. History Problems: (1) CAD (coronary artery disease) Status: Chronic (2) HTN (hypertension) Status: Chronic (3) Chronic renal failure Status: Chronic (4) Lower extremity edema Status: Acute (5) Type 2 diabetes mellitus Status: Chronic (6) Diabetic neuropathy Status: Chronic (7) Gout Status: Chronic (8) Bacterial endocarditis Status: Chronic (9) BPH (benign prostatic hyperplasia) Status: Chronic (10) Hypothyroid Status: Chronic (11) Stented coronary artery Status: Chronic (12) History of cholecystectomy Status: Resolved (13) History of appendectomy Status: Resolved (14) History of tonsillectomy Status: Resolved Home Meds Active Scripts Furosemide (LASIX) 20 Mg Tablet, 3 TAB PO QDAY, #90 TAB Prov:TETE MULLER [facility] 05/31/18 Allopurinol (ALLOPURINOL) 100 Mg Tablet, 100 MG PO QDAY, #30 TAB Prov:TETE MULLER [facility] 05/31/18 Insulin Glargine 100 Un/Ml Pen (LANTUS SOLOSTAR PEN) 100 Unit/1 Ml Insuln.pen, 10 UNIT SQ QHS, #3 PEN Prov:TETE MULLER [facility] 05/31/18 Terazosin Hcl (TERAZOSIN HCL) 1 Mg Capsule, 3 MG PO BID, #180 CAPSULE Prov:TETE MULLER [facility] 05/31/18 Gabapentin (GABAPENTIN) 300 Mg Capsule, 300 MG PO BID, #60 CAPSULE Prov:TETE MULLER [employer] 05/31/18 Reported Medications Aspirin (ASPIRIN EC) 81 Mg Tablet.dr, 81 MG PO QDAY, TAB 05/17/18 Acetaminophen With Codeine # 3 (TYLENOL WITH CODEINE #3 TABLET) 1 Each Tablet, 1 EACH PO PRN for PAIN, TAB 05/07/18 Triamcinolone Acetonide 0.1% Cr 15 Gm Tube (TRIAMCINOLONE ACETONIDE 0.1% CREAM) 15 Gm Cream..g., 15 GM TP TID, TUBE 07/24/17 Sodium Chloride (SALINE NASAL SPRAY) 30 Ml [place], 2 SPRAY NS Q2H PRN for CONGESTION, SPRAY 07/24/17 Ammonium Lactate (Ammonium Lactate) 12 % Cream..g., 1 SHIV TOP BIDAC 07/24/17 Clobetasol Propionate 0.05% Lotion (CLOBETASOL PROPIONATE 0.05% LOTION) 59 Ml Lotion, 0 TP BID, BOT 01/29/16 Ranitidine Hcl (ZANTAC) 150 Mg Tablet, 150 MG PO QHS 01/18/14 Levothyroxine Sodium (SYNTHROID) 125 Mcg Tablet, 125 MCG PO QDAY 01/18/14 Simvastatin (SIMVASTATIN) 40 Mg Tablet, 20 MG PO HS, TAB 01/18/14 Allergies: Coded Allergies: No Known Drug Allergies (Unverified , 07/28/17) Patient History: FH: cancer FATHER, Hx Smoking: Yes (quit 40 years ago) Smoking Status: Former Smoker Exposure to Second Hand Smoke?: No Caffeine Intake: Soda Caffeine/Cups Per Day: 2-3 Hx Alcohol Use: No Hx Substance Use Disorder: No Social Drug Use: Never Exam Vital Signs Vital Signs Date Time Temp Pulse Resp B/P (MAP) Pulse Ox O2 Delivery O2 Flow Rate FiO2 07/28/18 18:27 102.1 81 24 126/47 (73) 93 Nasal Cannula 3.0 General Appearance: Other (Eyes closed, but answers questions. Breathing comfortably) Eyes: PERRLA ENT: Moist Mucous Membranes Cardiovascular: Regular Rate and Rhythm Respiratory: Clear to Auscultation GI: Abd Soft and Non-Tender Extremities: Other (Minimal edema, but chronic deformities in feet from chronic edema) Integumentary: Other (Erythema from just below the right knee extending on the outside of the leg to the right hip and abdomen. Also, extending across the buttock to the left hip. Warm. Borders marked) Medical Decision Making Data Points Result Diagram: 07/28/18 1621 07/28/18 1621 Item Value Date Time Neutrophils (%) (Auto) 89.3 % H 07/28/18 1621 Lymphocytes (%) (Auto) 6.1 % L 07/28/18 1621 Monocytes (%) (Auto) 4.3 % 07/28/18 1621 Eosinophils (%) (Auto) 0.0 % L 07/28/18 1621 Basophils (%) (Auto) 0.3 % 07/28/18 1621 Nucleated RBC Relative Count (auto) 0.0 /100WBC 07/28/18 1621 Lactate 2.4 mmol/L H 07/28/18 1621 Total Bilirubin 0.5 mg/dl 07/28/18 1621 Aspartate Amino Transf (AST/SGOT) 42 U/L H 07/28/18 1621 Alanine Aminotransferase (ALT/SGPT) 45 U/L 07/28/18 1621 Alkaline Phosphatase 83 U/L 07/28/18 1621 C-Reactive Protein 19.3 mg/dl H 07/28/18 1621 Total Protein 5.7 g/dl L 07/28/18 1621 Albumin 3.1 g/dl L 07/28/18 1621 Urine RBC 1 /HPF 07/28/18 1729 Urine WBC <1 /HPF 07/28/18 1729 Urine Squamous Epithelial Cells Few /LPF 07/28/18 1729 Urine Bacteria Negative /HPF 07/28/18 1729 Urine Leukocyte Esterase Negative 07/28/18 1729 Urine Glucose (UA) 50 mg/dL H 07/28/18 1729 Urine Ketones Negative mg/dL 07/28/18 1729 Urine Nitrite Negative 07/28/18 1729 Random Glucose 200 mg/dl H 07/28/18 1621 Creatinine 2.50 mg/dl H 07/18/18 0540 Blood Urea Nitrogen 50 mg/dl H 07/18/18 0540 EKG / Imaging Imaging CXR - 1. No acute cardiopulmonary process. Assessment and Plan Problems: (1) Cellulitis Status: Acute Assessment & Plan: He presented with 2 days of weakness, one day of confusion and right thigh redness. He is febrile, very elevated WBC and has erythema from just below the right knee to the buttock/abdomen/left hip. The borders have been marked. He was given a dose of Vancomycin and Ceftriaxone in the ER. Will follow Vancomycin random levels and change to Cefepime. Because he has had a very similar cellulitis in April and was on 4 weeks of Ceftriaxone for concern of endocarditis, will check an MRI of the right leg and pelvis. Blood cultures pending. See below. (2) Sepsis Status: Acute Assessment & Plan: He presented mildly confused and had an elevated lactate. The lactate has normalized with IVF. BP/P stable. Will follow closely. (3) Bacterial endocarditis Status: Chronic Assessment & Plan: He grew STREPTOCOCCUS PSEUDOPORCINUS in late April when he was admitted for the RLE cellulitis. He had a TTE that was concerning for an aortic vegetation. He was on ECF and received 4 weeks of Ceftriaxone. Repeat TTE in mid June didn't show the vegetation, but he never had a GWENDOLYN, which was supposed to be scheduled as an outpatient. He was admitted again from 07/16-07/18 for a fever of unclear source. It resolved with a few days of Ceftriaxone. (4) Lower extremity edema Status: Acute Assessment & Plan: Improved with wraps by home health. Holding chronic Lasix. (5) Type 2 diabetes mellitus Status: Chronic Assessment & Plan: Chronically on Lantus. Will hold for now and use SSI. (6) HTN (hypertension) Status: Chronic Assessment & Plan: Chronically on Terazosin, which will be held. (7) Chronic kidney disease (CKD) stage G3b/A1, moderately decreased glomerular filtration rate (GFR) between 30-44 mL/min/1.73 square meter and albuminuria creatinine ratio less than 30 mg/g Status: Chronic (8) Diabetic neuropathy Status: Chronic Assessment & Plan: Continue chronic Gabapentin. Copies to: HILARIA MEDINA MD ; Venous Thromboembolism Antithrombotics Is Pt On Any Antithrombotics?: No Exam Sepsis Risk: No Definite Risk Problem Qualifiers (1) Sepsis: Sepsis type: sepsis due to unspecified organism Qualified Codes: A41.9 - Sepsis, unspecified organism SALVADOR GUEVARA MD Jul 28, 2018 18:48
[2018-07-28] MEDS: NS(*) 0.9% 1000 ML BAG 1,000 ML IV PRN (19:50)
[2018-07-28] MEDS: CEFEPIME HCL 2 GM VIAL IVP SCH (19:51)
[2018-07-28] MEDS: RANITIDINE HCL 150 MG TAB PO SCH (20:56)
[2018-07-28] MEDS: GABAPENTIN 300 MG CAP PO SCH (20:56)
[2018-07-28] MEDS: INSULIN HUM LISPRO 100 UN/ML 3 ML VIAL SUBQ PRN (20:58)
[2018-07-28 21:16] VITALS: BP 128/49
[2018-07-28 23:48] VITALS: BP 130/53
[2018-07-29 04:22] VITALS: BP 126/50
[2018-07-29] MEDS: LEVOTHYROXINE SOD 0.125 MG TAB PO SCH (05:26)
[2018-07-29 06:26] LABS: PLATELET COUNT, AUTOMATED 245 K/uL (150-450)
[2018-07-29 06:42] VITALS: BP 150/68
[2018-07-29] MEDS: INSULIN HUM LISPRO 100 UN/ML 3 ML VIAL SUBQ PRN ×3 (07:36→21:09)
[2018-07-29] MEDS: ALLOPURINOL 100 MG TAB PO SCH (08:38)
[2018-07-29] MEDS: GABAPENTIN 300 MG CAP PO SCH ×2 (08:38→20:54)
[2018-07-29] MEDS: ENOXAPARIN 30 MG/0.3 ML SYR SC SCH (08:38)
[2018-07-29] MEDS: RANITIDINE HCL 150 MG TAB PO SCH ×2 (08:38→20:54)
--- NOTE | 2018-07-29 11:30 | NUR ---
Pt off unit to radiology. Addendum: 07/29/18 at 1255 by JESSICA JAMESON RN Amended: Links added.
--- NOTE | 2018-07-29 13:17 | NUR ---
Physical Therapy Impression PT/OT co eval complete. Pt is at or near baseline level of functional mobility and is safe to d/c from a mobility stand point when medically appropriate. SBA/CGA for transfers, CGA ambulation x150' with RW. Pt with good tolerance to up/down a platform stair with railing. Pt would benefit from [facility] PT upon d/c home. Physical Therapy Goals Patient's Goals
--- NOTE | 2018-07-29 14:20 | NUR ---
PT ordered to apply bilateral compression wraps to pt's LEs. Pt's has twice weekly wrap changes completed by [facility]. PT applied 4 layer compression wraps in a retrograde manner and will f/u in one week to change the wraps if the patient is still hospitalized. No wounds present at this time, pt agreeable to this POC.
--- NOTE | 2018-07-29 14:25 | Medical Nutrition Therapy ---
TATO GUILLERMO 07/29/18 1219: Nutrition Anthropometrics Weight (Pounds): 250 Weight (Calculated Kilograms): 113.455 Francisco Nutrition Score: Adequate Francisco Nutrition Risk Score: 16 Dietary Referral Nutrition Risk Factors: Nutrition Risk Comment: NA Physical Findings Physical Appearance: Obese BMI 30-39 Skin Appearance Skin Appearance: Edema Edema Location Modifier: Both Edema Location: Foot Type of Edema: Degree of Edema: 3+ Gastrointestinal Symptoms GI Symtoms: Tube Present: Bowel Sounds: Recent Bowel Pattern: Stool Characteristics: Nutritional Diagnosis Nutritional Risk Acuity 1: Acute/ES Renal Nutritional Risk Acuity 2: Chronic Renal Failure, Sepsis Nutritional Risk Acuity 4: Good Appetite, Modified Diet Past Medical History: Skin Cam CAD, T2DM, hypercholesterolemia, COPD, CKD-3, HTN, hypothyroidism, chronic aquired lymphedema, BPH, Gout, diabetic neuropathy Nutritional Acuity: 2-Moderate Nutrition Diagnosis: Increased Nutrient Needs Nutrition Etiology: Physiological Causes Nutrition Problem/Etiology/Sym: Increased nutrient needs related to physiological causes as evidenced by sepsis, DMT2, and CKD. Diet Type: Diabetic Nutrition Intervention: Cont diet as ordered, Encourage intake, Check glucose Diet Comment To RSA: Pt is taking enoxaparin (anticoagulant) Nutritional Education Nutrition Education Topic: Diabetic Nutrition Learning Readiness: Not Interested Teaching Methods: Discussion, Handout Response to Teaching: Verbalize understanding Teaching Recipient: Patient Nutrition Counseling: continuous improvement intern provided pt with DMT2 information handouts. Lead Solutions Architect and pt discussed meals and DMT2 foods. Pt did not seem actively engaged in conversation regarding nutrition but had opinions on the meals. Pt states he does not like chicken and green beans, inten put those on his dislikes list for RSA's. -GREGORY 07/29 Nutrition Monitoring & Eval Nutrition Goals: Eat 50-100% Meal, Drink > 2 liters/day RD Patient Assessment Time: [address] Assessment Type: RD Assessment Patient Nutrition Acuity: 2-Moderate Follow Up Date: Aug 01, 2018 Nutritional Comment: Pt dx was cellulitis, sepsis edema, DMt2, HTN, CKD, endocarditis. Pt hx of CAD, HTN, DMT2, BPH, CKD, gout, diabetic neuropathy, coronary artery, hypothyroid, and edema. Pt has low albumin, RBC, hgB, Hct levels. Pt has elevatd cratinine, WBG, RBG, and BUN levels. Pt is hard of hearing. Pt has been consuming 75-100% of meals regularily. -JJ MDS Due Date: Aug 26, 2018 SHAHNAZ MONTAGUE 07/30/18 0837: Nutrition Monitoring & Eval Nutritional Comment: On 07/29 called to request ht from nursing. 07/30 no ht recorded. Lead Solutions Architect note assessed and approved by RD.-TATO VALENTIN Jul 29, 2018 12:19 SHAHNAZ MONTAGUE Jul 30, 2018 08:37
--- NOTE | 2018-07-29 14:40 | Antimicrobial Stewardship ---
Antimicrobial Stewardship Empiricly appropriate: Yes (Vancomycin + Cefepime) Significant PMH: Yes (CAD, CRF, HTN, lymphedema, DM2, endocarditis Hx, R leg redness) Support empiric regimen: Yes (Cefepime + Vancomycin (secondary to risk of MDRO) ) Approriate Cultures done: Yes (Blood Cx x 2) Gram stain show Microbs: Yes (3/4 Blood Cx growing GPC) Renal/Hepatic dosing: Yes (CRF---CrCl< 30 ml/min) Determine cumulative duration: Today is day 2 Determine standard duration: Unknown source--duration undetermined Comment 88 yo M with a PMH of CAD, HTN, CRF, lymphedema, DM2, and endocarditis who presented with fever of unknown origin, weakness, confusion and R leg erythema. Tmax 102.1F WBC 29.1-23 (89%-82%) Lactate 2.4 -->1.9 CRP 26.5 ESR 35 HR 60-80s BP 150s/60s O2 2-3 L Scr 3.1-->3 Chest Xray - no infiltrates or infectious process UA - no signs of infection Blood Cx 3 of 4 cultures (+)--> GPC (prior admission grew s. pseudoporcinus, c eftriaxone NISHI 0.5 mcg/ml) Started on Vancomycin 2.5 g IV x 1 (CRF, so received a one time dose)--> 12 h random was 19.04, repeat at 1700 Plan continue broad spectrum antibiotics with Vancomycin and Cefepime both adjusted for renal function. Will watch cultures. MRI of pelvis and leg pending, Consider TTE to reassess endocarditis relapse. Currently afebrile and WBC trending down. Mavis Raman, PharmD, BCOP MAVIS RAMAN Jul 29, 2018 12:00
--- NOTE | 2018-07-29 14:40 | NUR ---
Occupational Therapy Impression Co-evalution with PT. Pt. at baseline functioning and no OT needs at this time. Pt. to d/c to home when medically appropriate with continued HH care. Occupational Therapy Goals Patient's Goal
--- NOTE | 2018-07-29 15:11 | RADIOLOGY IMAGING REPORT ---
FACILITY: [facility] PATIENT NAME: Rizwan Huertas : 1930 MR: [id number] V: [id number] EXAM DATE: ORDERING PHYSICIAN: SALVADOR GUEVARA TECHNOLOGIST: Location: [facility] Patient: Rizwan Huertas : 1930 Visit/Account:[id number] Date of Sevice: 07/29/2018 MR FEMUR W/O RT COMPARISON: None. HISTORY: recurrent right femur cellulitis. TECHNIQUE: Multiplanar MRI of the right femur utilizing T1 weighted and fluid sensitive sequences. Pl ease note that the right femoral neck/head were incompletely imaged. CONTRAST: None. FINDINGS: BONES : Normal marrow signal and alignment. No bone marrow edema, fracture or evidence of osteomyel itis. FLUID: Trace effusion at the knee. No appreciable effusion at the incompletely imaged right hip. SOFT TISSUES: Extensive, diffuse and circumferential subcutaneous fat edema. No visible soft tissue fluid collections. Focal susceptibility artifact in the medial subcutaneous fat of the distal thigh c ould represent soft tissue gas, foreign body such as a metallic clip, versus something on the patient 's skin. There is mild diffuse muscle edema which is most prominent in the hamstrings, gracilis musc le and tensor fascia anuel muscle. On the [id number] STIR coronal images of both thighs, there is si milar diffuse subcutaneous fat edema and muscle edema in the contralateral thigh. OTHER: Negative. IMPRESSION: 1. Extensive subcutaneous fat edema in the right thigh and visualized left thigh. 2. Diffuse muscle edema in the right thigh and visualized left thigh. 3. No evidence of osteomyelitis. Report Dictated By: Baldev Olmedo at 07/29/2018 2:54 PM Report E-Signed By: Baldev Olmedo at 07/29/2018 3:06 PM WSN:[id number]
--- NOTE | 2018-07-29 16:42 | RADIOLOGY IMAGING REPORT ---
FACILITY: [facility] PATIENT NAME: Rizwan Huertas : 1930 MR: [id number] V: [id number] EXAM DATE: ORDERING PHYSICIAN: SALVADOR GUEVARA TECHNOLOGIST: Location: [facility] Patient: Rizwan Huertas : 1930 Visit/Account:[id number] Date of Sevice: 07/29/2018 MR PELVIS W/O CON COMPARISON: None. HISTORY: recurrent cellulitis. TECHNIQUE: Noncontrast multiplanar MRI of the pelvis. CONTRAST: None. FINDINGS: There is extensive subcutaneous fat edema circumferentially without drainable soft tissue fluid colle ction. The femoral heads are well formed and seated within well formed acetabula. There is no femoral avascu lar necrosis or fracture. Degenerative cysts in the right acetabulum with associated chondral thinnin g consistent with osteoarthritis. Mild degenerative disc height loss at L4-L5 with probable posterior annular fissures at L4-5 and L5-S 1 when accounting for motion artifact on sagittal series. Mild facet hypertrophy bilaterally at L4-5 and L5-S1. Sacroiliac joints are normal. Pubic symphysis is unremarkable. No marrow replacing lesions. No bone marrow edema or other evidence of osteomyelitis. No acute fractu res. There is no hip effusion, iliopsoas or trochanteric bursitis. Mild, symmetric gluteus minimus muscle edema bilaterally. Moderate tensor fascia anuel muscle edema bi laterally. No significant muscle atrophy. The visualized tendinous origins and tendinous insertions of the gluteal and iliopsoas muscles, and t he origins of the quadriceps and adductor muscle groups are intact. Low-grade partial-thickness inter stitial tear at the left hamstrings origin. Right hamstrings origin is intact. No intrapelvic visceral abnormalities are seen. Veliz catheter in the decompressed bladder. IMPRESSION: 1. Diffuse subcutaneous fat edema consistent with cellulitis, no soft tissue fluid collections are i dentified. 2. No evidence of osteomyelitis. 3. 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 4. Degenerative disc disease and facet hypertrophy in the visualized lower lumbar spine with probabl e annular fissures within the L4-5 and L5-S1 discs posteriorly. 5. Mild gluteus minimus muscle, moderate tensor fascia anuel muscle edema bilaterally. 6. Low-grade partial-thickness interstitial tear at the left hamstrings origin. Report Dictated By: Baldev Olmedo at 07/29/2018 4:29 PM Report E-Signed By: Baldev Olmedo at 07/29/2018 4:36 PM WSN:[id number]
--- NOTE | 2018-07-29 17:51 | Pharmacy Note ---
Vancomycin Management Note Vanco Dosing Note Assessment & Plan: Patient has been receiving Vancomycin for 1 days for the treatment of sepsis. The current dose is intermittent based on levels due to acute on chronic kidney disease; the most recent dose was 2500 mg load on 07/28/18 at 2000. Estimated Creatinine Clearance: 22ml/min. Kidney function appears to be stable The random level today of 17.29 mcg/mL is therapeutic (goal 15-20 mcg/mL). Administer 1750mg dose now and redraw in 24 hours Further level will be ordered for 07/30/18 at 1700 Additional Information Allergies: NKDA Additional Antimicrobials: CEFEPIME 2G Q24H Start Date 07/28/18 Pertinent Lab Tests: SCr 3.0 WBC 23.0 Culture Results: PENDING Pharmacy will continue to monitor daily. Thank you for the consult FRANTZ SKELTON Jul 29, 2018 17:50
[2018-07-29] MEDS ORDERED: VANCOMYCIN(*) 1 GM VIAL 1 GM, VANCOMYCIN HCL 0.750 GM VIAL 0.75 GM in NS(*) 0.9% 250 ML... IVPB ONE (18:00)
[2018-07-29] MEDS: CEFEPIME HCL 2 GM VIAL IVP SCH (20:55)
[2018-07-29 21:01] VITALS: BP 161/74
[2018-07-29] MEDS: NS(*) 0.9% 1000 ML BAG 1,000 ML IV PRN (21:51)
[2018-07-29 23:34] VITALS: BP 165/60
[2018-07-30 03:44] VITALS: BP 149/69
[2018-07-30] MEDS: LEVOTHYROXINE SOD 0.125 MG TAB PO SCH (05:52)
[2018-07-30 05:53] LABS: PLATELET COUNT, AUTOMATED 235 K/uL (150-450)
[2018-07-30 07:29] VITALS: BP 161/71
[2018-07-30] MEDS: ENOXAPARIN 30 MG/0.3 ML SYR SC SCH (09:41)
[2018-07-30] MEDS: ALLOPURINOL 100 MG TAB PO SCH (09:41)
[2018-07-30] MEDS: GABAPENTIN 300 MG CAP PO SCH (09:41)
[2018-07-30] MEDS: RANITIDINE HCL 150 MG TAB PO SCH (09:41)
[2018-07-30] MEDS: NS(*) 0.9% 1000 ML BAG 1,000 ML IV PRN (10:57)
[2018-07-30 10:58] VITALS: BP 159/67
--- NOTE | 2018-07-30 12:00 | Hospitalist Progress Note ---
Subjective Progress Notes Subjective Patient seen and examined 07.29.2018, note entered late after noticed to be missing inadvertently. 88M admitted for sepsis 2/2 cellulitis, ELIDA overnight. Await culture results. Patient Complains of: Gastrointestinal: No Nausea, No Vomiting Physical Exam Vital Signs Date Time Temp Pulse Resp B/P (MAP) Pulse Ox O2 Delivery O2 Flow Rate FiO2 07/30/18 10:58 98.0 65 24 159/67 (97) 91 Nasal Cannula 1.5 Intake and Output 07/30/18 07:00 Intake Total 1580 ml Output Total 1951 ml Balance -371 ml Intake Oral 580 ml IV Total 1000 ml Output Urine Total 1950 ml Stool Total 1 ml General Appearance: Alert, Awake, No Acute Distress ENT: Normal Cardiovascular: Normal Rhythm & Peripheral Pulses Respiratory: No Respiratory Distress GI: Soft and Non-Tender Extremities: Soft and Non Tender, Warm, Edema, Other (Erythema of R and L upper legs, slight improvement from original outline) Result Diagram: 07/30/1853507/30/18535 Assessment and Plan Problems: (1) Cellulitis Status: Acute Assessment & Plan: He presented with 2 days of weakness, one day of confusion and right thigh redness. He was febrile, very elevated WBC with erythema from just below the right knee to the buttock/abdomen/left hip. The borders have been marked. He was given a dose of Vancomycin and Ceftriaxone in the ER. Will follow Vancomycin random levels and continue empiric Cefepime, blood Cx growing GPC. See below. (2) Sepsis Status: Acute Assessment & Plan: He presented mildly confused and had an elevated lactate. The lactate normalized with IVF. BP/P stable. Will follow closely. (3) Bacterial endocarditis Status: Chronic Assessment & Plan: He grew STREPTOCOCCUS PSEUDOPORCINUS in late April when he was admitted for the RLE cellulitis. He had a TTE that was concerning for an aortic vegetation. He was on ECF and received 4 weeks of Ceftriaxone. Repeat TTE in mid June didn't show the vegetation, but he never had a GWENDOLYN, which was supposed to be scheduled as an outpatient. He was admitted again from 07/16-07/18 for a fever of unclear source. It resolved with a few days of Ceftriaxone. Recommend outpatient ID consult to evaluate. (4) Lower extremity edema Status: Acute Assessment & Plan: Improved with wraps by home health. Holding chronic Lasix. (5) Type 2 diabetes mellitus Status: Chronic Assessment & Plan: Chronically on Lantus. Will hold for now and use SSI. (6) HTN (hypertension) Status: Chronic Assessment & Plan: Chronically on Terazosin, which will be held. (7) Chronic kidney disease (CKD) stage G3b/A1, moderately decreased glomerular filtration rate (GFR) between 30-44 mL/min/1.73 square meter and albuminuria creatinine ratio less than 30 mg/g Status: Chronic (8) Diabetic neuropathy Status: Chronic Assessment & Plan: Continue chronic Gabapentin. Exam Sepsis Risk: Severe Sepsis Risk Problem Qualifiers (1) Sepsis: Sepsis type: sepsis due to unspecified organism Qualified Codes: A41.9 - Sepsis, unspecified organism VON KRUSE DO Jul 30, 2018 12:00
[2018-07-30] MEDS: INSULIN HUM LISPRO 100 UN/ML 3 ML VIAL SUBQ PRN ×2 (12:02→17:02)
--- NOTE | 2018-07-30 14:00 | NUR ---
Physical Therapy Impression Hospitalist removed B) lower leg wraps on Thu07/30/18 and requested PT to reapply them prior to his transfer to another hospital. Non-billable visit completed to apply B) four layer compression wraps to address edema management. No open wounds noted at this time. Physical Therapy Goals Patient's Goals
--- NOTE | 2018-07-30 14:06 | Hospitalist Depart ---
Discharge Summary Reason for Hosp/Final Diag: (1) Bacteremia Status: Acute Hospital Course & Plan: He presented with 2 days of weakness, one day of confusion. He was febrile, very elevated WBC. He was given a dose of V ancomycin and Ceftriaxone in the ER. He was placed on Vancomycin and Cefepime, blood Cx growing GPC. He appears to be bacteremic again. Concern of recurrent bacterial endocarditis, as patient did not get GWENDOLYN after last admission per recommendations upon discharge. Spoke with Dr Dawson hospitalist at [facility], who accepts the patient for evaluation of possible endocarditis. Transfer could possibly be delayed secondary to decreased bed status at [facility]. (2) Cellulitis Status: Acute Hospital Course & Plan: Mild. He did have right thigh erythema from just below the right knee to the buttock/abdomen/left hip. The borders have been marked. He was given a dose of Vancomycin and Ceftriaxone in the ER. Will follow Vancomycin random levels and continue empiric Cefepime, blood Cx growing GPC. His lower extremities appear better than they have in the past admissions. (3) Sepsis Status: Acute Hospital Course & Plan: He presented mildly confused and had an elevated l actate. The lactate normalized with IVF. BP/P stable. (4) Bacterial endocarditis Status: Chronic Hospital Course & Plan: He grew STREPTOCOCCUS PSEUDOPORCINUS in late April when he was admitted for the RLE cellulitis. He had a TTE that was concerning for an aortic vegetation. He was on ECF and received 4 weeks of Ceftriaxone. Repeat TTE in mid June didn't show the vegetation, but he never had a GWENDOLYN, which was supposed to be scheduled as an outpatient. He was admitted again from 07/16-07/18 for a fever of unclear source. It resolved with a few days of Ceftriaxone. (5) Lower extremity edema Status: Acute Hospital Course & Plan: Improved with wraps by home health. Holding chronic Lasix. (6) Type 2 diabetes mellitus Status: Chronic Hospital Course & Plan: Chronically on Lantus. Will hold for now and use Sliding ScaIe insulin. (7) HTN (hypertension) Status: Chronic Hospital Course & Plan: Chronically on Terazosin, which will be held. (8) Chronic kidney disease (CKD) stage G3b/A1, moderately decreased glomerular filtration rate (GFR) between 30-44 mL/min/1.73 square meter and albuminuria creatinine ratio less than 30 mg/g Status: Chronic (9) Diabetic neuropathy Status: Chronic Hospital Course & Plan: Continue chronic Gabapentin. Departure Latest Vital Signs Vital Signs 07/30/18 10:58 Temp 98.0 Pulse 65 Resp 24 B/P (MAP) 159/67 (97) Pulse Ox 91 O2 Delivery Nasal Cannula O2 Flow Rate 1.5 Weight (Pounds): 250 Weight (Ounces): 2.0 Result Diagram: 07/30/1853507/30/18535 Condition: No Change Discharge: Another Hospital Discharge Instructions Home Meds Active Scripts Furosemide (LASIX) 20 Mg Tablet, 3 TAB PO QDAY, #90 TAB Prov:TETE MULLER [facility] 05/31/18 Allopurinol (ALLOPURINOL) 100 Mg Tablet, 100 MG PO QDAY, #30 TAB Prov:TETE MULLER [facility] 05/31/18 Insulin Glargine 100 Un/Ml Pen (LANTUS SOLOSTAR PEN) 100 Unit/1 Ml Insuln.pen, 10 UNIT SQ QHS, #3 PEN Prov:TETE MULLER [facility] 05/31/18 Terazosin Hcl (TERAZOSIN HCL) 1 Mg Capsule, 3 MG PO BID, #180 CAPSULE Prov:TETE MULLER [facility] 05/31/18 Gabapentin (GABAPENTIN) 300 Mg Capsule, 300 MG PO BID, #60 CAPSULE Prov:MULLERTETE FRITZ [facility] 05/31/18 Reported Medications Aspirin (ASPIRIN EC) 81 Mg Tablet.dr, 81 MG PO QDAY, TAB 05/17/18 Acetaminophen With Codeine # 3 (TYLENOL WITH CODEINE #3 TABLET) 1 Each Tablet, 1 EACH PO PRN for PAIN, TAB 05/07/18 Triamcinolone Acetonide 0.1% Cr 15 Gm Tube (TRIAMCINOLONE ACETONIDE 0.1% CREAM) 15 Gm Cream..g., 15 GM TP TID, TUBE 07/24/17 Sodium Chloride (SALINE NASAL SPRAY) 30 Ml Luana, 2 SPRAY NS Q2H PRN for CONGESTION, SPRAY 07/24/17 Ammonium Lactate (Ammonium Lactate) 12 % Cream..g., 1 SHIV TOP BIDAC 07/24/17 Clobetasol Propionate 0.05% Lotion (CLOBETASOL PROPIONATE 0.05% LOTION) 59 Ml Lotion, 0 TP BID, BOT 01/29/16 Ranitidine Hcl (ZANTAC) 150 Mg Tablet, 150 MG PO QHS 01/18/14 Levothyroxine Sodium (SYNTHROID) 125 Mcg Tablet, 125 MCG PO QDAY 01/18/14 Simvastatin (SIMVASTATIN) 40 Mg Tablet, 20 MG PO HS, TAB 01/18/14 Copies to: HILARIA MEDINA MD ; Venous Thromboembolism Antithrombotics Is Pt On Any Antithrombotics?: No Problem Qualifiers (1) Sepsis: Sepsis type: sepsis due to unspecified organism Qualified Codes: A41.9 - Sepsis, unspecified organism TETE MULLER [employer] MA[employer] Jul 30, 2018 14:06
[2018-07-30 16:03] VITALS: BP 182/75
== END 2018-07-30 17:10 | disposition short-term general hospital (02) | DRG 871 ==
LOC: ER 15:38 → ICU 17:42 → MED 17:43
PROVIDERS: ADMIT Internal Medicine; ATTEND Internal Medicine
DX: A41.9 Sepsis, unspecified organism (principal); I33.0 Acute and subacute infective endocarditis; L03.115 Cellulitis of right lower limb; L03.317 Cellulitis of buttock; L03.311 Cellulitis of abdominal wall; L03.116 Cellulitis of left lower limb; R53.1 Weakness; E78.5 Hyperlipidemia, unspecified; E11.22 Type 2 diabetes mellitus with diabetic chronic kidney disease; I12.9 Hypertensive chronic kidney disease with stage 1 through stage 4 chronic kidney disease, or unspecified chronic kidney disease; N18.3 Chronic kidney disease, stage 3 (moderate); E11.40 Type 2 diabetes mellitus with diabetic neuropathy, unspecified; I25.10 Atherosclerotic heart disease of native coronary artery without angina pectoris; M1A.9XX0 Chronic gout, unspecified, without tophus (tophi); N40.0 Benign prostatic hyperplasia without lower urinary tract symptoms; E11.65 Type 2 diabetes mellitus with hyperglycemia; E03.9 Hypothyroidism, unspecified; Z95.5 Presence of coronary angioplasty implant and graft; Z79.4 Long term (current) use of insulin; Z99.81 Dependence on supplemental oxygen; Z90.49 Acquired absence of other specified parts of digestive tract; Z87.891 Personal history of nicotine dependence
CPT/HCPCS: 36415; 36416; 71045; 72195; 80202; 81001; 82040; 82247; 82310; 82374; 82435; 82565; 82947; 82948; 83605; 83735; 84075; 84132; 84155; 84295; 84450; 84460; 84520; 85025; 85651; 86140; 87040; 87077; 87186; 96365; 96367; 96375; 97161; 97165; 99285; C1758; J0131; J0692; J0696; J1650; J1720; J3370; J7030; J7040; J7050

== ENCOUNTER → 2018-07-28 | Outpatient (CLI) | payer MEDICARE, OTHER ==
[2018-05-02 10:57] VITALS: BMI 36.4
[~2018-07-28] MED LIST changes: +ACET-1966 PO; +ALBU8.5H IH; +AMLO-125 PO; +CLON-393 PO; +CLON1PAT20 TD; +ERTA1VIA IV; +FURO-47 PO; +[UNRECOGNIZED DRUG - CODE] TOP
== END ==
LOC: AMB 14:57
PROVIDERS: ATTEND Nurse Practitioner
DX: R53.1 Weakness (principal); R60.1 Generalized edema; S30.1XXA Contusion of abdominal wall, initial encounter; S61.412A Laceration without foreign body of left hand, initial encounter; S61.411A Laceration without foreign body of right hand, initial encounter; W18.30XA Fall on same level, unspecified, initial encounter; Z91.81 History of falling; Y92.019 Unspecified place in single-family (private) house as the place of occurrence of the external cause; R15.9 Full incontinence of feces
CPT/HCPCS: A0425; A0427

== ENCOUNTER → 2018-07-30 | Outpatient (CLI) | payer MEDICARE, OTHER ==
[2018-05-02 10:57] VITALS: BMI 36.4
[~2018-07-30] MED LIST changes: +ACET-1966 PO; +ALBU8.5H IH; +AMLO-125 PO; +CLON-393 PO; +CLON1PAT20 TD; +ERTA1VIA IV; +FURO-47 PO; +[UNRECOGNIZED DRUG - CODE] TOP
== END ==
LOC: AMB 16:49
PROVIDERS: ATTEND Nurse Practitioner
DX: I38 Endocarditis, valve unspecified (principal); R07.9 Chest pain, unspecified

== ENCOUNTER 2018-08-06 09:12 | Inpatient (IN) | payer MEDICARE, OTHER ==
[2018-05-02 10:57] VITALS: Ht 180.3 cm; Wt 117.9 kg
[~2018-08-06] VITALS: Ht 180.3 cm; Wt 117.9 kg
[~2018-08-06 09:12] MED LIST changes: -ACET-1966 PO; -ALBU8.5H IH; -AMLO-125 PO; -CLON-393 PO; -CLON1PAT20 TD; -ERTA1VIA IV; -FURO-47 PO; -[UNRECOGNIZED DRUG - CODE] TOP
[2018-08-06] MEDS ORDERED: ALLO100T70 PO (09:42)
[2018-08-06] MEDS ORDERED: [UNRECOGNIZED DRUG - CODE] TOP (09:50)
[2018-08-06] MEDS ORDERED: FURO-47 PO (09:50)
[2018-08-06] MEDS ORDERED: GABA-549 PO ×2 (09:50)
[2018-08-06] MEDS ORDERED: ALBU8.5H IH (09:50)
[2018-08-06] MEDS ORDERED: TERA2CAP54 PO (09:54)
[2018-08-06] MEDS ORDERED: CLON-393 PO (09:59)
[2018-08-06] MEDS ORDERED: ACET-1966 PO (09:59)
[2018-08-06] MEDS ORDERED: CLON1PAT20 TD (09:59)
[2018-08-06] MEDS ORDERED: AMLO-125 PO (09:59)
[2018-08-06] MEDS ORDERED: ERTA1VIA IV (10:02)
[2018-08-06 12:45] VITALS: BP 95/40
[2018-08-06 14:10] VITALS: BP 114/37
--- NOTE | 2018-08-06 14:29 | OT ECF NOTE ---
Type of Note: Initial Note Primary Medical Diagnosis: Generalized weakness and antibiotics s/p sepsis/cellulitis Occupational Therapy Evaluation Date: 08/06/18 SUBJECTIVE: Prior Hospitalization: IM 05/01/18 thru 05/05/18. ECF 05/05/18 thru 06/01/18. [facility] 07/15/18 thru 07/18/18. IM 07/28/18-07/30/18. [facility] 07/30/18-08/06/18. Please refer to EMR for details regarding hospitalizations Prior Level of Function: Assist for lower body dressing, bathing and all IADLs. Independent with upper body dressing and toileting. Pt owns a RW but prefers to ambulate without it. Pt reports sleeping in power recliner and spending majority of day in recliner. Prior Living Status: Single level house Living with family Assist by family Community Services: Support adequate Home health care-1x/week for bathing and assist with lower extremity wraps No known needs Home Accessibility: All needs on one level Tub/shower combination Equipment Owned: Front wheeled walker Cane Tub/shower chair Extended tub bench Medical Complications/Past Medical History: Chronic acquired lymphedema, hypothyroid, Type 2 DM, chronic renal failure, CAD, HTN, gout Psychosocial Support: Pt resides with supportive son, [id number], and grandsons Pain Scale (0-10): None reported at time of evaluation OBJECTIVE: Strength: MMT: Right Left Shoulder Flexion WFL WFL Elbow Flexion WFL WFL Wrist Extension WFL WFL [place] WFL WFL (5= normal, 4= good, 3= fair, 2= poor, 1= trace) ROM: Both upper extremities, WFL Functional Transfer: Assistive Device: None Transfer Ability: SBA. SpO2 WNL on 2L during mobility. ADL: Upper body dressing: Assistive device: None Upper body dressing ability: Independent Lower body dressing: Assistive device: Declines education for LB AE education. Reports family assisted prior to admission and will assist upon discharge home. Lower body dressing ability: Moderate assistance, Maximum assistance Toileting: Assistive device: Grab rails Toileting ability: Modified Ind/AE Grooming/hygiene: Seated Assistive device: None Grooming ability: Independent Bathing: Assistive device: Shower chair. HomeHealth assists 1x/week with bathing. Bathing ability: Moderate assistance, Maximum assistance Standardized Assessment: Margareth Index of Activities of Daily Livin/20 upon initial evaluation. Pt is at baseline for engagement in ADLs. ASSESSMENT: Rizwan presents to [facility] with decreased activity tolerance for ADLs/IADLs s/p numerous recent hospital admissions. At [facility], family assisted with all ADLs/IADLs and resides with patient. Patient initially unable to identify specific concerns or needs for skilled OT services. After discussion and son's request, pt agreeable to OT services promote improved activity tolerance for engagement in ADLs/IADLs. Short Term Goals: 1) Pt will be Independent UB HEP. 2) Pt will be educated on energy conservation principles. 3) Pt will demonstrate improved activity tolerance indicated by engaging in 5 minutes of continuous standing activities. Fci Goals: Return home with continued to assist from family and Home Health services. Patient Goals: Return home after antibiotics Rehabilitation Prognosis: Good Barriers to Discharge: Non-compliance PLAN: The patient will benefit from skilled occupational therapy services 5 times per week for 2 weeks including: Ther ex ADL training Safety training Ther act IADL training Transfer training Adaptive equip training Bed mobility Energy conservation Thank you for this referral. If you have any questions, concerns, or comments about this report or plan, please contact me at . Melinda Monson MS, OTR/L Occupational Therapist [facility]
--- NOTE | 2018-08-06 15:46 | PT ECF NOTE ---
Type of Note: Initial Note Primary Medical Diagnosis: Generalized weakness and antibiotics s/p sepsis/cellulitis Physical Therapy Evaluation Date: 08/06/18 SUBJECTIVE: Prior Hospitalization: [facility] 05/01/18 thru 05/05/18. ECF 05/05/18 thru 06/01/18. IM 07/15/18 thru 07/18/18. IM 07/28/18-07/30/18. [facility] 07/30/18-08/06/18. Please refer to EMR for details regarding hospitalizations Prior Level of Function: Per Pt's son, Pt "motors around the house" using either a RW, cane, or no assistive device. Pt reports sleeping in power recliner and spending majority of day in recliner. Prior Living Status: Single level house, Living with family, Assist by family, 4 stairs with rail to enter Community Services: Support adequate, Home health care-1x/week for bathing and assist with lower extremity wraps Home Accessibility: 4 stairs with rail to enter, All needs on one level Equipment Owned: Front wheeled walker, Cane, Tub/shower chair, Extended tub bench Medical Complications/Past Medical History: Chronic acquired lymphedema, hypothyroid, Type 2 DM, chronic renal failure, CAD, HTN, gout Psychosocial Support: Pt resides with supportive son, [id number], and grandsons Pain Scale (0-10): None reported at time of evaluation OBJECTIVE: Pt declined all functional mobility stating he "just walked". ASSESSMENT: Pt presents with likely decline in independence with functional mobility related to multiple hospitalizations. PT to further evaluate functional mobility at next session. Pt will likely benefit from skilled PT for functional mobility training in order to return to prior level of function. In the event Pt is at prior level of function, PT will discharge. Problem List/Current Limitations: Pain, Decreased activity tolerance, Decreased strength, Decreased ROM, Generalized weakness Short Term Goals: 1. Mod I bed mobility. 2. Mod I transfers. 3. Mod I gait x 150' with appropriate assistive device. 4. SBA ascend/descend 4 stairs. Rotary Bar Operator Goals: Return home to currently living arrangements. Patient Goals: "Walk" Rehabilitation Prognosis: Fair Barriers for Discharge: none identified at this time. PLAN: The patient will benefit from skilled physical therapy services 5 times per week for 2 weeks including: Therapeutic Exercise, Therapeutic Activities, Transfer Training, Gait Training, Stair Training, Manual Therapy, ADL's, Safety Training, Neuromuscular Re-educ., Wound Care, Pt/Caregiver Training, Bed Mobility Thank you for this referral. If you have any questions, concerns, or comments about this report or plan, please contact me at . Urvashi Stauffer, PT, DPT, GCS MTDD
[2018-08-06] MEDS ORDERED: SALINE 0.65% NAS SPR 44 ML BTL PRN (16:35)
[2018-08-06] MEDS ORDERED: ALBUTEROL 8 GM INHALER INH PRN (16:35)
[2018-08-06] MEDS ORDERED: ACETAMINOPHEN 325 MG TAB PO PRN (16:35)
[2018-08-06] MEDS ORDERED: ACETAMIN/CODEINE #3 300-30 MG PO PRN (16:35)
[2018-08-06] MEDS: INSULIN HUM LISPRO 100 UN/ML 3 ML VIAL SUBQ PRN (17:39)
[2018-08-06] MEDS: ERTAPENEM(*) 1 GM VIAL 0.5 GM in NS(*) 0.9% 50 ML BAG 50 ML IVPB SCH (18:00)
[2018-08-06] MEDS ORDERED: NS(*) 0.9% 500 ML BAG 500 ML IV PRN (18:15)
--- NOTE | 2018-08-06 18:23 | History & Physical ---
History of Present Illness Chief Complaint bacteremia History of Present Illness 88M presented for completion of IV antibiotic course and continued PT and OT. Patient was transfered from [facility] after being found to be bacteremic over concern for endocarditis. GWENDOLYN was negative at [facility] and he had negative blood cultures. No other source of infection woutside original cellulitis was found. He is completing 2 weeks of imipenem. History Problems: (1) Hypoxia Status: Acute (2) Edema Status: Chronic (3) Coronary artery disease Status: Chronic Home Meds Active Scripts Furosemide (LASIX) 20 Mg Tablet, 3 TAB PO QDAY, #90 TAB Prov:TETE MULLER [facility] 05/31/18 Reported Medications Ertapenem (INVANZ) 1 Gm Injs, 0.5 GM IV Q24H INJECT 0.5G INTO VEIN Q24H FOR 8 DAYS 08/06/18 Clonidine Hcl (CATAPRES) 0.2 Mg Tablet, 0.2 MG PO BID, TAB 08/06/18 Amlodipine Besylate (AMLODIPINE BESYLATE) 5 Mg Tablet, 1 TAB PO DAILY, TAB 08/06/18 Acetaminophen (TYLENOL) 325 Mg Tablet, 2 TAB PO Q6H PRN for PAIN, TAB 08/06/18 Terazosin Hcl (TERAZOSIN HCL) 2 Mg Capsule, 2 MG PO BID, CAPSULE 08/06/18 Gabapentin (GABAPENTIN) 300 Mg Capsule, 300 MG PO QHS, CAPSULE 08/06/18 Gabapentin (GABAPENTIN) 300 Mg Capsule, 600 MG PO QAM, CAPSULE 08/06/18 Furosemide (FUROSEMIDE) 40 Mg Tablet, 60 MG PO DAILY, TAB 08/06/18 Ammonium Lactate (Lac-Hydrin Five) 5 % Lotion, TOP BID APPLY A MODERATE AMOUNT TOPICALLY TO AFFECTED AREA TWICE DAILY 08/06/18 Albuterol Sulfate 90 Mcg/Act (PROAIR HFA 90 MCG/ACT) 8.5 Gm Hfa.aer.ad, 2 PUFF IH Q4H PRN for SHORTNESS OF BREATH, INHALER 08/06/18 Allopurinol (ALLOPURINOL) 100 Mg Tablet, 1.5 TAB PO DAILY, #10 TAB 08/06/18 Aspirin (ASPIRIN EC) 81 Mg Tablet.dr, 81 MG PO QDAY, TAB 05/17/18 Acetaminophen With Codeine # 3 (TYLENOL WITH CODEINE #3 TABLET) 1 Each Tablet, 2 TAB PO HS PRN for PAIN, TAB 05/07/18 Triamcinolone Acetonide 0.1% Cr 15 Gm Tube (TRIAMCINOLONE ACETONIDE 0.1% CREAM) 15 Gm Cream..g., TP TID, TUBE APPLY TO AFFECTED AREA 3 TIMES DAILY 07/24/17 Sodium Chloride (SALINE NASAL SPRAY) 30 Ml [place], 2 SPRAY NS Q2H PRN for CONGESTION, SPRAY 07/24/17 Clobetasol Propionate 0.05% Lotion (CLOBETASOL PROPIONATE 0.05% LOTION) 59 Ml Lotion, 0 TP BID, BOT APPLY TOPICALLY TO AFFECTED AREA TWICE DAILY 01/29/16 Ranitidine Hcl (ZANTAC) 150 Mg Tablet, 150 MG PO DAILY 01/18/14 Levothyroxine Sodium (SYNTHROID) 125 Mcg Tablet, 125 MCG PO QDAY 01/18/14 Simvastatin (SIMVASTATIN) 40 Mg Tablet, 40 MG PO QAM, TAB 01/18/14 Discontinued Reported Medications Clonidine (CLONIDINE 0.2 MG/DAY) 1 Each Patch.tdwk, 1 EACH TD Q7DAY, PATCH.WK 08/06/18 Ammonium Lactate (Ammonium Lactate) 12 % Cream..g., 1 SHIV TOP BIDAC 07/24/17 Discontinued Scripts Allopurinol (ALLOPURINOL) 100 Mg Tablet, 100 MG PO QDAY, #30 TAB Prov:TETE MULLER [facility] 05/31/18 Insulin Glargine 100 Un/Ml Pen (LANTUS SOLOSTAR PEN) 100 Unit/1 Ml Insuln.pen, 10 UNIT SQ QHS, #3 PEN Prov:TETE MULLER [facility] 05/31/18 Terazosin Hcl (TERAZOSIN HCL) 1 Mg Capsule, 3 MG PO BID, #180 CAPSULE Prov:TETE MULLER [facility] 05/31/18 Gabapentin (GABAPENTIN) 300 Mg Capsule, 300 MG PO BID, #60 CAPSULE Prov:TETE MULLER [facility] 05/31/18 Allergies: Coded Allergies: No Known Drug Allergies (Unverified , 07/28/17) Patient History: FH: cancer FATHER, Hx Smoking: Yes (quit 40 years ago) Smoking Status: Former Smoker Exposure to Second Hand Smoke?: No Caffeine Intake: Soda Caffeine/Cups Per Day: 2-3 Hx Alcohol Use: No Hx Substance Use Disorder: No Social Drug Use: Never Review of Systems All Systems Reviewed/Normal: Yes, Except as Noted Constitutional: No Fever Cardiovascular: No Chest Pain, No Palpitations Exam Vital Signs Vital Signs Date Time Temp Pulse Resp B/P (MAP) Pulse Ox O2 Delivery O2 Flow Rate FiO2 08/06/18 14:10 45 114/37 (62) 08/06/18 12:53 Nasal Cannula 2.0 08/06/18 12:45 97.7 22 99 General Appearance: Alert, Awake, No Acute Distress, Afebrile Neuro: No Gross deficits ENT: Normal Respiratory: No Respiratory Distress GI: Abd Soft and Non-Tender Extremities: Soft and Non Tender, Warm, Pulses, Perfused, Edema Assessment and Plan Problems: (1) Bacteremia Status: Acute Assessment & Plan: Continue therapy with imipenem. To complete 2 weeks from negative blood culture through 08.14.2018. GWENDOLYN was negative for vegetations, BCx cleared. No other source found and it is presumed recurrent infections are due to chronic edema and leg wounds. (2) Type 2 diabetes mellitus Status: Chronic Assessment & Plan: Will monitor with accuchecks ACHS, SSI if necessary. (3) Edema Status: Chronic Assessment & Plan: Continue wraps and elevation when sitting. (4) HTN (hypertension) Status: Chronic Assessment & Plan: On terazosin, amlodipine, clonidine. Continue and monitor. Venous Thromboembolism Antithrombotics Is Pt On Any Antithrombotics?: Yes VON KRUSE DO Aug 06, 2018 18:04
[2018-08-06] MEDS ORDERED: INSULIN HUM LISPRO 100 UN/ML 3 ML VIAL SUBQ PRN (18:25)
[2018-08-06] MEDS: AMMONIUM LACTATE TP SCH (19:54)
[2018-08-06] MEDS: [UNRECOGNIZED DRUG - OTHER] TP SCH (19:54)
[2018-08-06] MEDS: cloNIDine HCL 0.1 MG TAB PO SCH (19:55)
[2018-08-06] MEDS: GABAPENTIN 300 MG CAP PO SCH (20:19)
--- NOTE | 2018-08-06 22:14 | NUR ---
Patient non-compliant with calling. Was found walking back from bathroom grabbing at furniture and mueller for support. Strongly encouraged to call for help before getting up. He verbalized understanding. He also continues to be noncompliant with keeping his lower extremities up while in the recliner stating he had had them up enough. He refuses to get into bed and states he will sleep in the chair. Will leave door to his room open as it can be seen from the nurse's station if he gets up without assistance. Will consider tabs unit if he continues to get up without calling. Call light in reach.
[2018-08-07] MEDS: LEVOTHYROXINE SOD 0.125 MG TAB PO SCH (06:02)
[2018-08-07 07:40] VITALS: BP 128/60
[2018-08-07] MEDS ORDERED: SIMVASTATIN 40 MG TAB PO SCH (09:00)
[2018-08-07] MEDS ORDERED: FUROSEMIDE 20 MG TAB PO SCH (09:00)
[2018-08-07] MEDS ORDERED: amLODIPine BESYL(*) 5 MG TAB PO SCH (09:00)
[2018-08-07] MEDS ORDERED: TERAZOSIN HCL 1 MG CAP PO SCH (09:00)
[2018-08-07 09:40] VITALS: BP 112/43
[2018-08-07] MEDS: RANITIDINE HCL 150 MG TAB PO SCH (09:40)
[2018-08-07] MEDS: GABAPENTIN 300 MG CAP PO SCH ×2 (09:40→20:34)
[2018-08-07] MEDS: ASPIRIN 81 MG ENTERIC COATED PO SCH (09:40)
[2018-08-07] MEDS: ALLOPURINOL 100 MG TAB PO SCH (09:41)
[2018-08-07] MEDS: cloNIDine HCL 0.1 MG TAB PO SCH ×2 (09:41→20:33)
[2018-08-07] MEDS: TRIAMCINOLONE ACE 0.1% CR 80GM TP SCH ×3 (09:41→20:34)
[2018-08-07] MEDS: AMMONIUM LACTATE TP SCH ×2 (09:42→20:32)
[2018-08-07] MEDS: [UNRECOGNIZED DRUG - OTHER] TP SCH ×2 (09:43→20:34)
[2018-08-07 10:11] VITALS: BP 114/52
--- NOTE | 2018-08-07 10:24 | Medical Nutrition Therapy ---
Nutrition Anthropometrics Weight (Pounds): 250 Francisco Nutrition Score: Probably Inadequate Francisco Nutrition Risk Score: 17 Dietary Referral Nutrition Risk Factors: Nutrition Risk Comment: NA Physical Findings Physical Appearance: Skin Appearance Skin Appearance: Edema Edema Location Modifier: Both Edema Location: Lower Extremity Type of Edema: Degree of Edema: 2+ Gastrointestinal Symptoms GI Symtoms: Tube Present: Bowel Sounds: Recent Bowel Pattern: Stool Characteristics: Nutritional Diagnosis Nutritional Risk Acuity 2: Sepsis Nutritional Risk Acuity 4: Good Appetite, Modified Diet Past Medical History: Skin Cam CAD, T2DM, hypercholesterolemia, COPD, CKD-3, HTN, hypothyroidism, chronic aquired lymphedema, BPH, Gout, diabetic neuropathy Nutritional Acuity: 3-Mild Nutrition Diagnosis: Increased Nutrient Needs Nutrition Etiology: Physiological Causes Nutrition Problem/Etiology/Sym: Increased nutrient needs as realted to physioloigcal causes as evidenced by bacteremia. Diet Type: Diabetic Nutrition Intervention: Cont diet as ordered, Encourage intake, Check glucose Drug: Diuretics Drug/Nutrition Recommendations: Check Serum K+ Nutrition Monitoring & Eval Nutrition Goals: Eat 50-100% Meal Nutritional Goals Comment: Continue to consume 50-100% of meals. Nutrition Follow-Up: Good Intake Nutrition Monitoring: Pt is currently consuming 100% of meals. RD Patient Assessment Time: [address] Assessment Type: RD Assessment Patient Nutrition Acuity: 3-Mild Follow Up Date: Aug 10, 2018 Nutritional Comment: Pt admitted to [facility] for management of bacteremia, PT, and OT. Hx of hypoxia, edema, CAD, T2DM, and HTN. Pt currently on ADA diet with 100% intakes. Whole blood glucose has ranged from 129-213. Pt has non-pitting edema in BLE. Pt on a K+ wasting diuretic, furosemide, monitor K+ levels, ranitidine, and two types of insulin. Continue to encourage adequate intake. Monitor blood glucose and serum K+. No ht or wt to assess nutritional needs as of 08/07. Follow up on 08/10 to assess nutritional needs. -SHAHNAZ VO Aug 07, 2018 10:24
--- NOTE | 2018-08-07 10:25 | NUR ---
Pt's blood pressures have been trending low. no blood pressure parameter was initially set for this morning's medication administration. due to this, pt's blood pressure was taken and medications were scanned. bp was 112/43 automatic pressure. medications were held per nursing judgement until MD could be notified for parameters. bp was then taken manually once parameter was initiated. pressure was 114/52 manually. pt did not receive 0900 dose of hytrin, clonidine, lasix, and amlodipine as pressure was below new bp parameter for these specific medications. unable to document non-administration of these meds due to the new order created for these medications.
[2018-08-07] MEDS: INSULIN HUM LISPRO 100 UN/ML 3 ML VIAL SUBQ PRN ×2 (12:04→20:35)
--- NOTE | 2018-08-07 12:45 | Consultant Pharmacy Review ---
Line Haul Owner Operator Review Medication Review Do All Mecications have a Diag: Yes Beers Criteria Medication 2014 Alpha 1 Blockers: Terazosin Sliding Scale Insulin: Slidin Scale Insulin Other General Cautions Simvastatin / AmLODIPine Dependencies: * Dose: Daily adult simvastatin doses greater than 20 mg should be avoided in amlodipine treated patients. Lower doses, when indicated, require enhanced monitoring for simvastatin toxicity. Risk Rating D: Consider therapy modification Summary AmLODIPine may increase the serum concentration of Simvastatin. Severity Major Reliability Rating Fair: Reported in the prescribing information Patient Management Avoid the concurrent use of amlodipine with simvastatin when possible. If used together, avoid doses of simvastatin greater than 20 mg/day, and monitor closely for signs of HMG-CoA reductase inhibitor toxicity (e.g., myositis, rhabdomyolysis). Discussion According to simvastatin prescribing information, the AUC of simvastatin (80 mg, single dose) and its active simvastatin acid metabolite were approximately 77% and 58% higher when given to subjects receiving amlodipine (10 mg/day x 10 days).1 Based on these data and evidence that increased simvastatin concentrations are associated with a signficant increase in the risk for adverse muscle effects, the prescribing information for both simvastatin and amlodipine recommend limiting the simvastatin dose to no more than 20 mg/day when used with amlodipine.1,2 The exact mechanism for this potential interaction is uncertain but might involve competition for CYP3A as both simvastatin and amlodipine are substrates of this enzyme. Footnotes 1. Zocor (simvastatin) [prescribing information]. [place], [place]: [employer] November 2010. 2. Norvasc (amlodipine) [prescribing information]. [place], [place]:[employer]; Aug. * Terms & Conditions // * Disclaimer// * Privacy Policy Pneumococcal Vaccine HX Pneumo Vac ([id number]): Yes (2016) HX Pneumo Vac (Pneumovax): Yes (@[place], 1998) Comments Regarding the Review Recommend decreasing the dose of simvastatin to 20 mg per day due to interaction with amlodipine, as amlodipine may increase the concentration of simvastatin. Monitor closely for myositis and rhabdomyolysis. Patient has not received the influenza vaccine for the 2017 season, and he may receive if he is agreeable. Between the acetaminophen and Tylenol #3, give no more than 4 gm of acetaminophen per 24 hours. Labs: Periodic LFTs, electrolyte levels, HgA1c, CBC, serum uric acid levels. SHASHI GUADARRAMA Aug 07, 2018 12:45
[2018-08-07 13:54] VITALS: BP 131/51
[2018-08-07] MEDS: FUROSEMIDE 20 MG TAB PO SCH (14:01)
--- NOTE | 2018-08-07 14:49 | NUR ---
Power Picc Protocol Here is an excerpt from policy 055 on Intravenous Access Protocols: "Power PICCS and Tunneled catheters (Mata/Broviac) must be locked with 5 ml heparin if being used less frequently than every 8 hours." Frequency of IV therapy will be changed to Q8 hours (opposed to Q shift) to ensure PICC is being used that often. Discussed with supervisor hide house. Addendum: 08/07/18 at 7 by ISAAK CABRAL RN Both PICC lines sluggish. Obtained order to heparin lock. Will lock and will flush every 24 hours when infusing IV abx.
[2018-08-07 15:46] VITALS: BP 128/51
[2018-08-07] MEDS: ERTAPENEM(*) 1 GM VIAL 0.5 GM in NS(*) 0.9% 50 ML BAG 50 ML IVPB SCH (17:43)
--- NOTE | 2018-08-07 19:17 | NUR ---
Power PICC Both PICC lines sluggish. Obtained order to heparin lock. Will lock and will flush every 24 hours when infusing IV abx
[2018-08-07 20:22] VITALS: BP 140/60
[2018-08-07] MEDS: SIMVASTATIN 40 MG TAB PO SCH (20:33)
[2018-08-07] MEDS: HEPARIN FLSH (PORT) 500 UN/5ML IVP PRN (23:19)
[2018-08-08] MEDS: LEVOTHYROXINE SOD 0.125 MG TAB PO SCH (05:27)
[2018-08-08 07:11] VITALS: BP 131/52
[2018-08-08] MEDS: TERAZOSIN HCL 1 MG CAP PO SCH (09:00)
[2018-08-08] MEDS: amLODIPine BESYL(*) 5 MG TAB PO SCH (09:00)
[2018-08-08] MEDS: [UNRECOGNIZED DRUG - OTHER] TP SCH ×2 (09:18→20:47)
[2018-08-08] MEDS: AMMONIUM LACTATE TP SCH ×2 (09:18→20:47)
[2018-08-08] MEDS: TRIAMCINOLONE ACE 0.1% CR 80GM TP SCH ×3 (09:18→20:47)
[2018-08-08] MEDS: FUROSEMIDE 20 MG TAB PO SCH ×2 (09:19→14:00)
[2018-08-08] MEDS: RANITIDINE HCL 150 MG TAB PO SCH (09:19)
[2018-08-08] MEDS: ASPIRIN 81 MG ENTERIC COATED PO SCH (09:19)
[2018-08-08] MEDS: cloNIDine HCL 0.1 MG TAB PO SCH ×2 (09:19→20:48)
[2018-08-08] MEDS: GABAPENTIN 300 MG CAP PO SCH ×2 (09:20→20:47)
[2018-08-08] MEDS: ALLOPURINOL 100 MG TAB PO SCH (09:20)
[2018-08-08] MEDS: INSULIN HUM LISPRO 100 UN/ML 3 ML VIAL SUBQ PRN ×3 (12:11→20:47)
[2018-08-08 14:40] VITALS: BP 108/53
[2018-08-08] MEDS: ERTAPENEM(*) 1 GM VIAL 0.5 GM in NS(*) 0.9% 50 ML BAG 50 ML IVPB SCH (17:45)
[2018-08-08] MEDS: HEPARIN FLSH (PORT) 500 UN/5ML IVP PRN (18:38)
[2018-08-08 20:35] VITALS: BP 134/64
[2018-08-08] MEDS: SIMVASTATIN 40 MG TAB PO SCH (20:47)
[2018-08-09] MEDS: LEVOTHYROXINE SOD 0.125 MG TAB PO SCH (05:25)
[2018-08-09 07:27] VITALS: BP 142/56
[2018-08-09] MEDS: amLODIPine BESYL(*) 5 MG TAB PO SCH (09:00)
[2018-08-09] MEDS: [UNRECOGNIZED DRUG - OTHER] TP SCH (09:33)
[2018-08-09] MEDS: AMMONIUM LACTATE TP SCH (09:33)
[2018-08-09] MEDS: ALLOPURINOL 100 MG TAB PO SCH (09:36)
[2018-08-09] MEDS: ASPIRIN 81 MG ENTERIC COATED PO SCH (09:36)
[2018-08-09] MEDS: TERAZOSIN HCL 1 MG CAP PO SCH ×3 (09:36→09:44)
[2018-08-09] MEDS: RANITIDINE HCL 150 MG TAB PO SCH (09:36)
[2018-08-09] MEDS: GABAPENTIN 300 MG CAP PO SCH (09:37)
[2018-08-09] MEDS: cloNIDine HCL 0.1 MG TAB PO SCH (09:38)
[2018-08-09] MEDS: FUROSEMIDE 20 MG TAB PO SCH ×2 (09:38→14:00)
[2018-08-09] MEDS: TRIAMCINOLONE ACE 0.1% CR 80GM TP SCH ×2 (10:00→14:00)
--- NOTE | 2018-08-09 12:35 | NUR ---
Physical Therapy Impression PT Non-billable visit to assist nursing staff. Pt with feet elevated in bed following his shower. Pt/CG note that orders in [place] recommended three times weekly retrograde compression wraps to be applied to B) lower legs to avoid issues related to cellulitis. Nursing to shower pt prior to PT arrival for application topical cream and short stretch bandage wraps, with layer of tensoflex beneath for skin protection. This is a non-billable therapy visit, as pt does not have wounds present and no weeping is apparent at this time. PT to coordinate a consult visit with out pt provider of lymphedema treatment to determine if an out pt setting would be effective for his further care. Home health has indicated to [facility] director, that they may not be able to resume care for this pt. Physical Therapy Goals 1. Mod I bed mobility. 2. Mod I transfers. 3. Mod I gait x 150' with appropriate assistive device. 4. SBA ascend/descend 4 stairs. Patient's Goals
[2018-08-09] MEDS: INSULIN HUM LISPRO 100 UN/ML 3 ML VIAL SUBQ PRN (12:55)
--- NOTE | 2018-08-09 13:21 | NUR ---
Physical Therapy Impression Pt received from nursing in shower room after shower. This PT assisted with [address] gowns and brief. Pt able to stand from showerchair twice with Min A and CGA. Pt tolerated ambulation x 20' with RW and showerchair follow. Per nursing, Pt with better physical performance that previously with them. Physical Therapy Goals 1. Mod I bed mobility. 2. Mod I transfers. 3. Mod I gait x 150' with appropriate assistive device. 4. SBA ascend/descend 4 stairs. Patient's Goals
--- NOTE | 2018-08-09 13:43 | NUR ---
Occupational Therapy Impression Pt alert, reporting increased fatigue this date. UB ther ex with blue theraband. CGA sit<>stand with RW. Min A UB dressing. Max A LB dressing. Pt declining further OT intervention. Continue POC. Occupational Therapy Goals 1) Pt will be Independent UB HEP. 2) Pt will be educated on energy conservation principles. 3) Pt will demonstrate improved activity tolerance indicated by engaging in 5 minutes of conintuous standing activities. Patient's Goal
[2018-08-09 15:51] VITALS: BP 111/44
--- NOTE | 2018-08-09 17:11 | NUR ---
Pt. called to be taken to rest room with gait belt and walker (pt. offered both walker and [id number], pt. chose the walker) and did alright moving into the restroom at around 16:55. Pt. was oriented to pull the call light cord when ready and confirmed that he would do so. After pt. was in the restroom, his son arrived. After about 15 minutes where he had not done utilized the call light, I entered the room to find the pt. on the son's knee leaning back but still upright after becoming weaker and not able to ambulate. I fetched the pt.'s chair and the son and I successfully got the pt. back in a sitting position in the chair. Addendum: 08/09/18 at 1716 by MATEO PHELPS CNA Amended: Links added. Addendum: 08/09/18 at 1717 by MATEO PHELPS CNA The restroom floor was wet with water and urine as if the toilet overflowed and there was water and BM in the toilet bowl. I cleaned the floor and ensured dryness as to avoid slipping.
--- NOTE | 2018-08-09 17:30 | NUR ---
KRYSTAL reported to the nurse that the patient had attempted to walk back to his bed from the bathroom independently. The patient's son was helping the patient and required additional assistance from the ORE CRUSHER to get his dad back into the chair safely. I assessed the patient and found his mental status to be changed from baseline and his apical heart rate to be 27 BPM. I immediately notifed Dr. Hernández and a stat EKG was ordered. The patient was then transferred to the ICU.
--- NOTE | 2018-08-09 18:16 | EKG ---
FACILITY: [facility] PATIENT NAME: YUMIKO MONIQUE : [id number] MR: [id number] V: [id number] EXAM DATE: ORDERING PHYSICIAN: HILARIA BARRETO TECHNOLOGIST: DERIAN Test Reason : MENTAL STATUS CHANGE Blood Pressure : / mmHG Vent. Rate : 028 BPM Atrial Rate : 046 BPM P-R Int : 000 ms QRS Dur : 098 ms QT Int : 474 ms P-R-T Axes : 022 -09 025 degrees QTc Int : 323 ms Sinus rhythm with 2nd degree SA block (Mobitz II) Minimal voltage criteria for LVH, may be normal variant Nonspecific T wave abnormality Abnormal ECG When compared with ECG of 15-MAY-2018 18:24, T wave inversion now evident in Inferior leads QT has shortened Confirmed by HILARIA BARRETO ([id number]) on 08/09/2018 10:01:47 PM Referred By: ESTEVAN Confirmed By:HILARIA BARRETO
--- NOTE | 2018-08-09 19:59 | Hospitalist Depart ---
Discharge Summary Reason for Hosp/Final Diag: (1) Bradycardia Status: Chronic Hospital Course & Plan: He did develop symptomatic bradycardia. He was transferred to the ICU for further management. Please see admission H&P for details. (2) Bacteremia Status: Acute Hospital Course & Plan: Continue therapy with imipenem. To complete 2 weeks from negative blood culture through 08.14.2018. GWENDOLYN was negative for vegetations, BCx cleared. No other source found and it is presumed recurrent infections are due to chronic edema and leg wounds. (3) Type 2 diabetes mellitus Status: Chronic Hospital Course & Plan: Will monitor with accuchecks ACHS, SSI if necessary. (4) Edema Status: Chronic Hospital Course & Plan: Continue wraps and elevation when sitting. (5) HTN (hypertension) Status: Chronic Hospital Course & Plan: On terazosin, amlodipine, clonidine. Continue and monitor. Departure Latest Vital Signs Vital Signs 08/09/18 08/09/18 15:35 15:51 Temp 97.6 Pulse 38 Resp 20 B/P (MAP) 111/44 (66) Pulse Ox 98 O2 Delivery Nasal Cannula O2 Flow Rate 2.0 Weight (Pounds): 263 Weight (Ounces): 2.0 Condition: Critical Discharge: Other Facility (ICU) Discharge Code Status: Full Code Discharge Instructions Home Meds Active Scripts Furosemide (LASIX) 20 Mg Tablet, 3 TAB PO QDAY, #90 TAB Prov:TETE MULLER Cecelia BELLSTAND ATTENDANT 05/31/18 Reported Medications Ertapenem (INVANZ) 1 Gm Injs, 0.5 GM IV Q24H INJECT 0.5G INTO VEIN Q24H FOR 8 DAYS 08/06/18 Clonidine Hcl (CATAPRES) 0.2 Mg Tablet, 0.2 MG PO BID, TAB 08/06/18 Amlodipine Besylate (AMLODIPINE BESYLATE) 5 Mg Tablet, 1 TAB PO DAILY, TAB 08/06/18 Acetaminophen (TYLENOL) 325 Mg Tablet, 2 TAB PO Q6H PRN for PAIN, TAB 08/06/18 Terazosin Hcl (TERAZOSIN HCL) 2 Mg Capsule, 2 MG PO BID, CAPSULE 08/06/18 Gabapentin (GABAPENTIN) 300 Mg Capsule, 300 MG PO QHS, CAPSULE 08/06/18 Gabapentin (GABAPENTIN) 300 Mg Capsule, 600 MG PO QAM, CAPSULE 08/06/18 Furosemide (FUROSEMIDE) 40 Mg Tablet, 60 MG PO DAILY, TAB 08/06/18 Ammonium Lactate (Lac-Hydrin Five) 5 % Lotion, TOP BID APPLY A MODERATE AMOUNT TOPICALLY TO AFFECTED AREA TWICE DAILY 08/06/18 Albuterol Sulfate 90 Mcg/Act (PROAIR HFA 90 MCG/ACT) 8.5 Gm Hfa.aer.ad, 2 PUFF IH Q4H PRN for SHORTNESS OF BREATH, INHALER 08/06/18 Allopurinol (ALLOPURINOL) 100 Mg Tablet, 1.5 TAB PO DAILY, #10 TAB 08/06/18 Aspirin (ASPIRIN EC) 81 Mg Tablet.dr, 81 MG PO QDAY, TAB 05/17/18 Acetaminophen With Codeine # 3 (TYLENOL WITH CODEINE #3 TABLET) 1 Each Tablet, 2 TAB PO HS PRN for PAIN, TAB 05/07/18 Triamcinolone Acetonide 0.1% Cr 15 Gm Tube (TRIAMCINOLONE ACETONIDE 0.1% CREAM) 15 Gm Cream..g., TP TID, TUBE APPLY TO AFFECTED AREA 3 TIMES DAILY 07/24/17 Sodium Chloride (SALINE NASAL SPRAY) 30 Ml Gans, 2 SPRAY NS Q2H PRN for CONGESTION, SPRAY 07/24/17 Clobetasol Propionate 0.05% Lotion (CLOBETASOL PROPIONATE 0.05% LOTION) 59 Ml Lotion, 0 TP BID, BOT APPLY TOPICALLY TO AFFECTED AREA TWICE DAILY 01/29/16 Ranitidine Hcl (ZANTAC) 150 Mg Tablet, 150 MG PO DAILY 01/18/14 Levothyroxine Sodium (SYNTHROID) 125 Mcg Tablet, 125 MCG PO QDAY 01/18/14 Simvastatin (SIMVASTATIN) 40 Mg Tablet, 40 MG PO QAM, TAB 01/18/14 Discontinued Reported Medications Clonidine (CLONIDINE 0.2 MG/DAY) 1 Each Patch.tdwk, 1 EACH TD Q7DAY, PATCH.WK 08/06/18 Ammonium Lactate (Ammonium Lactate) 12 % Cream..g., 1 SHIV TOP BIDAC 07/24/17 Discontinued Scripts Allopurinol (ALLOPURINOL) 100 Mg Tablet, 100 MG PO QDAY, #30 TAB Prov:TETE MULLER [employer]LLSTAND ATTENDANT 05/31/18 Insulin Glargine 100 Un/Ml Pen (LANTUS SOLOSTAR PEN) 100 Unit/1 Ml Insuln.pen, 10 UNIT SQ QHS, #3 PEN Prov:TETE MULLER [facility] 05/31/18 Terazosin Hcl (TERAZOSIN HCL) 1 Mg Capsule, 3 MG PO BID, #180 CAPSULE Prov:RENZOTETE Rai [facility] 05/31/18 Gabapentin (GABAPENTIN) 300 Mg Capsule, 300 MG PO BID, #60 CAPSULE Prov:ETTE MULLER Cecelia [facility] 05/31/18 Diet: Diabetic Activity: As Tolerated Venous Thromboembolism Antithrombotics Is Pt On Any Antithrombotics?: Yes HILARIA BARRETO DO Aug 09, 2018 19:59
--- NOTE | 2018-08-10 08:52 | OT ECF NOTE ---
Type of Note: Discharge Note Primary Medical Diagnosis: Generalized weakness and antibiotics s/p sepsis/cellulitis Occupational Therapy Evaluation Date: 08/06/18 SUBJECTIVE: Prior Hospitalization: [facility] 05/01/18 thru 05/05/18. ECF 05/05/18 thru 06/01/18. IM 07/15/18 thru 07/18/18. IM 07/28/18-07/30/18. [facility] 07/30/18-08/06/18. Please refer to EMR for details regarding hospitalizations Prior Level of Function: Assist for lower body dressing, bathing and all IADLs. Independent with upper body dressing and toileting. Pt owns a RW but prefers to ambulate without it. Pt reports sleeping in power recliner and spending majority of day in recliner. Prior Living Status: Single level house Living with family Assist by family Community Services: Support adequate Home health care-1x/week for bathing and assist with lower extremity wraps No known needs Home Accessibility: All needs on one level Tub/shower combination Equipment Owned: Front wheeled walker Cane Tub/shower chair Extended tub bench Medical Complications/Past Medical History: Chronic acquired lymphedema, hypothyroid, Type 2 DM, chronic renal failure, CAD, HTN, gout Psychosocial Support: Pt resides with supportive son, [id number], and grandsons Pain Scale (0-10): None reported at time of evaluation OBJECTIVE: Strength: MMT: Right Left Shoulder Flexion WFL WFL Elbow Flexion WFL WFL Wrist Extension WFL WFL Automatic Clipper WFL WFL (5= normal, 4= good, 3= fair, 2= poor, 1= trace) ROM: Both upper extremities, WFL Functional Transfer: Assistive Device: None Transfer Ability: SBA. SpO2 WNL on 2L during mobility. ADL: Upper body dressing: Assistive device: None Upper body dressing ability: Independent Lower body dressing: Assistive device: Declines education for LB AE education. Reports family assisted prior to admission and will assist upon discharge home. Lower body dressing ability: Moderate assistance, Maximum assistance Toileting: Assistive device: Grab rails Toileting ability: Modified Ind/AE Grooming/hygiene: Seated Assistive device: None Grooming ability: Independent Bathing: Assistive device: Shower chair. HomeHealth assists 1x/week with bathing. Bathing ability: Moderate assistance, Maximum assistance Standardized Assessment: Margareth Index of Activities of Daily Livin/20 upon initial evaluation. Pt is at baseline for engagement in ADLs. ASSESSMENT: Rizwan presents to [facility] with decreased activity tolerance for ADLs/IADLs s/p numerous recent hospital admissions. At [facility], family assisted with all ADLs/IADLs and resides with patient. Patient initially unable to identify specific concerns or needs for skilled OT services. After discussion and son's request, pt agreeable to OT services promote improved activity tolerance for engagement in ADLs/IADLs. Pt has been discharged to [facility] ICU for further management. Please refer to EMR for further details. Short Term Goals: 1) Pt will be Independent UB HEP. GOAL MET. 2) Pt will be educated on energy conservation principles. Progressing towards. 3) Pt will demonstrate improved activity tolerance indicated by engaging in 5 minutes of continuous standing activities. Goal not addressed. Fdc Goals: Return home with continued to assist from family and Home Health services. Patient Goals: Return home after antibiotics Rehabilitation Prognosis: Good Barriers to Discharge: Non-compliance PLAN: Pt has been discharged to [facility] ICU for further management. Please refer to EMR for further details. Thank you for this referral. If you have any questions, concerns, or comments about this report or plan, please contact me at . Melinda Monson MS, OTR/L Occupational Therapist [facility]
--- NOTE | 2018-08-10 10:48 | Medical Nutrition Therapy ---
Nutrition Anthropometrics Height (Inches): 71.00 Height (Calculated Centimeters: 180.847097 Weight (Pounds): 260 Weight (Calculated Kilograms): 117.934 Francisco Nutrition Score: Probably Inadequate Francisco Nutrition Risk Score: 17 Dietary Referral Nutrition Risk Factors: Nutrition Risk Comment: NA Physical Findings Physical Appearance: Obese BMI 30-39 Skin Appearance Skin Appearance: Edema Edema Location Modifier: Both Edema Location: Lower Extremity Type of Edema: Degree of Edema: 2+ Gastrointestinal Symptoms GI Symtoms: Tube Present: Bowel Sounds: Recent Bowel Pattern: Stool Characteristics: Nutritional Diagnosis Nutritional Risk Acuity 2: Sepsis Nutritional Risk Acuity 4: Good Appetite, Modified Diet Past Medical History: Skin Cam CAD, T2DM, hypercholesterolemia, COPD, CKD-3, HTN, hypothyroidism, chronic aquired lymphedema, BPH, Gout, diabetic neuropathy Nutritional Acuity: 3-Mild Nutrition Diagnosis: Increased Nutrient Needs Nutrition Etiology: Physiological Causes Nutrition Problem/Etiology/Sym: Increased nutrient needs as realted to physioloigcal causes as evidenced by bacteremia. Diet Type: Diabetic Nutrition Intervention: Cont diet as ordered, Encourage intake, Check glucose Drug: Diuretics Drug/Nutrition Recommendations: Check Serum K+ Nutrition Monitoring & Eval Nutrition Goals: Eat 50-100% Meal Nutrition Follow-Up: Good Intake RD Patient Assessment Time: [address] Assessment Type: RD Assessment Patient Nutrition Acuity: 3-Mild Follow Up Date: Aug 15, 2018 Nutritional Comment: Pt admitted to [facility] for management of bacteremia, PT, and OT. Hx of hypoxia, edema, CAD, T2DM, and HTN. Pt currently on ADA diet with 100% intakes. Whole blood glucose has ranged from 129-213. Pt has non-pitting edema in BLE. Pt on a K+ wasting diuretic, furosemide, monitor K+ levels, ranitidine, and two types of insulin. Continue to encourage adequate intake. Monitor blood glucose and serum K+. No ht or wt to assess nutritional needs as of 08/07. Follow up on 08/10 to assess nutritional needs. -AKG 08/10: Pt has elevated WBG levels of 148. Pt has been consuming 100% of his diabetic meals but has also been requesting foods that do not follow the diet. Continue monitoring K+ levels and glucose levels. -TATO PIERRE Aug 09, 2018 08:23
--- NOTE | 2018-08-10 14:51 | PT ECF NOTE ---
Type of Note: Discharge Summary Primary Medical Diagnosis: Generalized weakness and antibiotics s/p sepsis/cellulitis Physical Therapy Evaluation Date: 08/06/18 SUBJECTIVE: Prior Hospitalization: IM 05/01/18 thru 05/05/18. ECF 05/05/18 thru 06/01/18. [facility] 07/15/18 thru 07/18/18. [facility] 07/28/18-07/30/18. [facility] 07/30/18-08/06/18. Please refer to EMR for details regarding hospitalizations Prior Level of Function: Per Pt's son, Pt "motors around the house" using either a RW, cane, or no assistive device. Pt reports sleeping in power recliner and spending majority of day in recliner. Prior Living Status: Single level house, Living with family, Assist by family, 4 stairs with rail to enter Community Services: Support adequate, Home health care-1x/week for bathing and assist with lower extremity wraps Home Accessibility: 4 stairs with rail to enter, All needs on one level Equipment Owned: Front wheeled walker, Cane, Tub/shower chair, Extended tub bench Medical Complications/Past Medical History: Chronic acquired lymphedema, hypothyroid, Type 2 DM, chronic renal failure, CAD, HTN, gout Psychosocial Support: Pt resides with supportive son, [id number]-kit, and grandsons OBJECTIVE: Bed mobility: modA Transfers: Min A with RW Gait: x20' with RW ASSESSMENT: Pt discharged to [facility] ICU d/t bradycardia, please see EMR for details. Problem List/Current Limitations: Pain, Decreased activity tolerance, Decreased strength, Decreased ROM, Generalized weakness Short Term Goals: 1. Mod I bed mobility. 2. Mod I transfers. 3. Mod I gait x 150' with appropriate assistive device. 4. SBA ascend/descend 4 stairs. Retirement Goals: Return home to currently living arrangements. Patient Goals: "Walk" PLAN: The patient was discharged to [facility] ICU Thank you for this referral. If you have any questions, concerns, or comments about this report or plan, please contact me at . Jennifer Mittal, PT, DPT MTDD
== END 2018-08-09 19:00 | disposition still patient (30) | DRG 948 ==
LOC: ECF 12:26
PROVIDERS: ADMIT Internal Medicine; ATTEND Internal Medicine
DX: R53.1 Weakness (principal); R78.81 Bacteremia; R00.1 Bradycardia, unspecified; R60.9 Edema, unspecified; R09.02 Hypoxemia; I25.10 Atherosclerotic heart disease of native coronary artery without angina pectoris; E11.9 Type 2 diabetes mellitus without complications; I10 Essential (primary) hypertension; Z87.891 Personal history of nicotine dependence; Z79.4 Long term (current) use of insulin
CPT/HCPCS: 36416; 82948; 93005; 97162; 97165; J1335; J3535; J7050

== ENCOUNTER 2018-08-09 19:00 | Inpatient (IN) | payer MEDICARE, OTHER ==
[~2018-08-09] VITALS: Ht 172.7 cm; Wt 118.2 kg
[2018-08-09] VITALS (18 sets, daily range): BP systolic 130–172; BP diastolic 58–102
[~2018-08-09 19:00] MED LIST changes: +ACET-1966 PO; +ALBU8.5H IH; +AMLO-125 PO; +CLON-393 PO; +CLON1PAT20 TD; +ERTA1VIA IV; +FURO-47 PO; +[UNRECOGNIZED DRUG - CODE] TOP
[2018-08-09] MEDS ORDERED: ATROPINE SUL 0.1MG/ML 10ML SYR ONE (19:25)
[2018-08-09] MEDS ORDERED: ATROPINE SUL 0.1MG/ML 10ML SYR IM ONE (19:25)
[2018-08-09] MEDS ORDERED: NS(*) 0.9% 1000 ML BAG 1,000 ML IV PRN (19:37)
--- NOTE | 2018-08-09 19:57 | History & Physical ---
History of Present Illness Chief Complaint Bradycardia History of Present Illness This patient was on ECF when he was noted to be found on the ground after going to the bathroom. His vitals were recorded and he was noted to have a heart rate of 27bpm. History Problems: (1) Chronic edema Status: Acute (2) HCAP (healthcare-associated pneumonia) Onset Date: 08/16/2014 Status: Acute (3) COPD exacerbation Status: Chronic (4) Cellulitis Status: Acute (5) Status post nephrectomy Status: Resolved (6) Essential hypertension Status: Chronic (7) CAD (coronary artery disease) Status: Chronic (8) Hypothyroid Status: Chronic (9) BPH (benign prostatic hyperplasia) Status: Chronic (10) Diabetic neuropathy Status: Chronic (11) Type 2 diabetes mellitus Status: Chronic Home Meds Active Scripts Furosemide (LASIX) 20 Mg Tablet, 3 TAB PO QDAY, #90 TAB Prov:TETE MULLER Cecelia [employer]YING AG[employer] 05/31/18 Reported Medications Ertapenem (INVANZ) 1 Gm Injs, 0.5 GM IV Q24H INJECT 0.5G INTO VEIN Q24H FOR 8 DAYS 08/06/18 Clonidine Hcl (CATAPRES) 0.2 Mg Tablet, 0.2 MG PO BID, TAB 08/06/18 Amlodipine Besylate (AMLODIPINE BESYLATE) 5 Mg Tablet, 1 TAB PO DAILY, TAB 08/06/18 Acetaminophen (TYLENOL) 325 Mg Tablet, 2 TAB PO Q6H PRN for PAIN, TAB 08/06/18 Terazosin Hcl (TERAZOSIN HCL) 2 Mg Capsule, 2 MG PO BID, CAPSULE 08/06/18 Gabapentin (GABAPENTIN) 300 Mg Capsule, 300 MG PO QHS, CAPSULE 08/06/18 Gabapentin (GABAPENTIN) 300 Mg Capsule, 600 MG PO QAM, CAPSULE 08/06/18 Furosemide (FUROSEMIDE) 40 Mg Tablet, 60 MG PO DAILY, TAB 08/06/18 Ammonium Lactate (Lac-Hydrin Five) 5 % Lotion, TOP BID APPLY A MODERATE AMOUNT TOPICALLY TO AFFECTED AREA TWICE DAILY 08/06/18 Albuterol Sulfate 90 Mcg/Act (PROAIR HFA 90 MCG/ACT) 8.5 Gm Hfa.aer.ad, 2 PUFF IH Q4H PRN for SHORTNESS OF BREATH, INHALER 08/06/18 Allopurinol (ALLOPURINOL) 100 Mg Tablet, 1.5 TAB PO DAILY, #10 TAB 08/06/18 Aspirin (ASPIRIN EC) 81 Mg Tablet.dr, 81 MG PO QDAY, TAB 05/17/18 Acetaminophen With Codeine # 3 (TYLENOL WITH CODEINE #3 TABLET) 1 Each Tablet, 2 TAB PO HS PRN for PAIN, TAB 05/07/18 Triamcinolone Acetonide 0.1% Cr 15 Gm Tube (TRIAMCINOLONE ACETONIDE 0.1% CREAM) 15 Gm Cream..g., TP TID, TUBE APPLY TO AFFECTED AREA 3 TIMES DAILY 07/24/17 Sodium Chloride (SALINE NASAL SPRAY) 30 Ml Holt, 2 SPRAY NS Q2H PRN for CONGESTION, SPRAY 07/24/17 Clobetasol Propionate 0.05% Lotion (CLOBETASOL PROPIONATE 0.05% LOTION) 59 Ml Lotion, 0 TP BID, BOT APPLY TOPICALLY TO AFFECTED AREA TWICE DAILY 01/29/16 Ranitidine Hcl (ZANTAC) 150 Mg Tablet, 150 MG PO DAILY 01/18/14 Levothyroxine Sodium (SYNTHROID) 125 Mcg Tablet, 125 MCG PO QDAY 01/18/14 Simvastatin (SIMVASTATIN) 40 Mg Tablet, 40 MG PO QAM, TAB 01/18/14 Discontinued Reported Medications Clonidine (CLONIDINE 0.2 MG/DAY) 1 Each Patch.tdwk, 1 EACH TD Q7DAY, PATCH.WK 08/06/18 Ammonium Lactate (Ammonium Lactate) 12 % Cream..g., 1 SHIV TOP BIDAC 07/24/17 Discontinued Scripts Allopurinol (ALLOPURINOL) 100 Mg Tablet, 100 MG PO QDAY, #30 TAB Prov:TETE MULLER [facility] 05/31/18 Insulin Glargine 100 Un/Ml Pen (LANTUS SOLOSTAR PEN) 100 Unit/1 Ml Insuln.pen, 10 UNIT SQ QHS, #3 PEN Prov:TETE MULLER [facility] 05/31/18 Terazosin Hcl (TERAZOSIN HCL) 1 Mg Capsule, 3 MG PO BID, #180 CAPSULE Prov:TETE MULLER [facility] 05/31/18 Gabapentin (GABAPENTIN) 300 Mg Capsule, 300 MG PO BID, #60 CAPSULE Prov:TETE MULLER [facility] 05/31/18 Allergies: Coded Allergies: No Known Drug Allergies (Unverified , 07/28/17) Patient History: FH: cancer FATHER, Hx Smoking: Yes (quit 40 years ago) Smoking Status: Former Smoker Exposure to Second Hand Smoke?: No Caffeine Intake: Soda Caffeine/Cups Per Day: 2-3 Hx Alcohol Use: No Hx Substance Use Disorder: No Social Drug Use: Never Review of Systems All Systems Reviewed/Normal: Yes, Except as Noted Neurological: Weakness Exam Neuro: No Gross deficits Eyes: PERRLA Cardiovascular: Regular Rate and Rhythm GI: Abd Soft and Non-Tender Extremities: No Edema Integumentary: No Cyanosis Assessment and Plan Problems: (1) Bradycardia Status: Chronic Assessment & Plan: He did have an episode on ECF where he was unable to make it back from the rest room. He was noted to have bradycardia with a heart rate of 27bpm. An EKG confirmed this rate and also showed him to be in a second degree type 2 block. He was transferred to the ICU, pacer placed were place, and he was administered 0.5mg of atropine. This improved his rate into the high 40's, which is closer to his baseline. Troponin and electrolyte panels are pending. (2) Cellulitis Status: Acute Assessment & Plan: He has been receiving ertapenem, which has been continued. (3) Type 2 diabetes mellitus Status: Chronic Assessment & Plan: He has been on treatment with sliding scale level #2. (4) Diabetic neuropathy Status: Chronic Assessment & Plan: He is on chronic treatment with gabapentin, which has been placed on hold. (5) Essential hypertension Status: Chronic Assessment & Plan: He has been on treatment with amlodipine and clonidine. These are both currently on hold. (6) Hypothyroid Status: Chronic Assessment & Plan: He is on chronic treatment with Synthroid. (7) CAD (coronary artery disease) Status: Chronic Assessment & Plan: He is on chronic treatment with aspirin. (8) BPH (benign prostatic hyperplasia) Status: Chronic Assessment & Plan: He has been on treatment with terazosin, which is currently on hold. (9) Chronic edema Status: Acute Assessment & Plan: He has been on treatment with Lasix, which is currently on hold. Copies to: HILARIA MEDINA MD ; Venous Thromboembolism Antithrombotics Is Pt On Any Antithrombotics?: No HILARIA BARRETO DO Aug 09, 2018 19:57
[2018-08-09 20:12] LABS: PLATELET COUNT, AUTOMATED 207 K/uL (150-450)
[2018-08-09] MEDS: ERTAPENEM(*) 1 GM VIAL 0.5 GM in NS(*) 0.9% 50 ML BAG 50 ML IVPB SCH (20:48)
[2018-08-09] MEDS: INSULIN HUM LISPRO 100 UN/ML 3 ML VIAL SUBQ PRN (22:09)
[2018-08-10] VITALS (40 sets, daily range): BP systolic 81–171; BP diastolic 46–129; BMI 41.0
[2018-08-10] MEDS: LEVOTHYROXINE SOD 0.125 MG TAB PO SCH (06:00)
--- NOTE | 2018-08-10 06:27 | EKG ---
FACILITY: [facility] PATIENT NAME: YUMIKO MONIQUE : [id number] MR: [id number] V: [id number] EXAM DATE: ORDERING PHYSICIAN: HILARIA BARRETO TECHNOLOGIST: TIMA Taveras Reason : BRADYCARDIA Blood Pressure : / mmHG Vent. Rate : 048 BPM Atrial Rate : 050 BPM P-R Int : 000 ms QRS Dur : 108 ms QT Int : 442 ms P-R-T Axes : 049 019 065 degrees QTc Int : 394 ms Sinus bradycardia Septal infarct , age undetermined Abnormal ECG When compared with ECG of 09-AUG-2018 18:07, Sinus rhythm is no longer with 2nd degree SA block (Mobitz II) Vent. rate has increased BY 20 BPM Septal infarct is now present T wave inversion no longer evident in Inferior leads Nonspecific T wave abnormality, improved in Anterolateral leads QT has lengthened Confirmed by HILARIA BARRETO ([id number]) on 08/10/2018 6:29:42 AM Referred By: Confirmed By:HILARIA BARRETO
--- NOTE | 2018-08-10 07:35 | NUR ---
ECF Discharge Notice - Resident transferred emergently to ICU, no discharge notice provided due to urgent situation. Plan is to readmit once medically stable.
--- NOTE | 2018-08-10 08:08 | Hospitalist Progress Note ---
Subjective Progress Notes Subjective He denies SOB. No physical complaints. He doesn't know why he is in the ICU. Physical Exam Vital Signs Date Time Temp Pulse Resp B/P (MAP) Pulse Ox O2 Delivery O2 Flow Rate FiO2 08/10/18 06:30 97.2 50 21 171/64 (99) 98 Nasal Cannula 1.5 Intake and Output 08/10/18 07:00 Intake Total 835 ml Output Total 1365 ml Balance -530 ml Intake Oral 100 ml IV Total 735 ml Output Urine Total 1365 ml General Appearance: Alert, Awake, Other (appears dyspneic) Cardiovascular: Other (arianne, regular, 2-3/6 systolic murmur LSB) Respiratory: Clear to Auscultation Extremities: Edema (Legs wrapped, but appears edematous) Result Diagram: 08/09/18200508/09/182005 Assessment and Plan Problems: (1) Bradycardia Status: Chronic Assessment & Plan: He had an episode on ECF where he was unable to make it back from the rest room. He was noted to have bradycardia with a heart rate of 27bpm. An EKG confirmed this rate and also showed him to be in a second degree type 1 block. He was transferred to the ICU, pacer pads were place, and he was administered 0.5mg of atropine. This improved his rate into the high 40's. This morning he is consistently in the 50's, but will intermittently drop into the 20-30's for a few seconds. No reported symptoms. Troponin negative x2. Will watch him in the ICU today. If he continues to have intermittent low HR and/or is symptomatic, will need to discuss with Cardiology about a Pacemaker (he is willing to have one placed). (2) Cellulitis Status: Acute Assessment & Plan: He has been receiving ertapenem, which has been continued. (3) Type 2 diabetes mellitus Status: Chronic Assessment & Plan: He has been on treatment with sliding scale level #2. (4) Diabetic neuropathy Status: Chronic Assessment & Plan: He is on chronic treatment with gabapentin, which has been restarted, but at a reduced dose secondary to CKD. (5) Essential hypertension Status: Chronic Assessment & Plan: He has been on treatment with amlodipine and clonidine. These are both currently on hold. (6) Hypothyroid Status: Chronic Assessment & Plan: He is on chronic treatment with Synthroid. (7) CAD (coronary artery disease) Status: Chronic Assessment & Plan: He is on chronic treatment with aspirin. (8) BPH (benign prostatic hyperplasia) Status: Chronic Assessment & Plan: He has been on treatment with terazosin, which has been restarted. (9) Chronic edema Status: Acute Assessment & Plan: He has been on treatment with Lasix, which has been restarted. Exam Sepsis Risk: No Definite Risk SALVADOR GUEVARA MD Aug 10, 2018 08:08
[2018-08-10] MEDS: FUROSEMIDE 20 MG TAB PO SCH ×3 (08:43→14:33)
[2018-08-10] MEDS: TERAZOSIN HCL 1 MG CAP PO SCH ×2 (08:44→20:25)
[2018-08-10] MEDS: ALLOPURINOL 100 MG TAB PO SCH (08:44)
[2018-08-10] MEDS: RANITIDINE HCL 150 MG TAB PO SCH ×2 (08:44→20:25)
[2018-08-10] MEDS: ASPIRIN 81 MG ENTERIC COATED PO SCH (08:45)
[2018-08-10] MEDS: ENOXAPARIN 30 MG/0.3 ML SYR SC SCH (08:45)
[2018-08-10] MEDS ORDERED: GABAPENTIN 300 MG CAP PO SCH (09:00)
--- NOTE | 2018-08-10 11:25 | NUR ---
Physical Therapy Impression PT/OT co eval complete. PT requires John to pull to seated position. John for transfers d/t retropulsion upon standing. Ambulation x8' with RW and John for walker negotiation. VSS throughout session. Pt will need further rehab and may benefit from LT placement. PT re-wrapped bilateral LE wraps at end of session to decrease risk of skin breakdown in popliteal fossa. Physical Therapy Goals 1: Pt to complete transfers with SBA and least restrictive AD 2: Pt to ambulate 100' with SBA and least restrictive AD 3: Pt to asc/desc 4 stairs with railing and CGA Patient's Goals
--- NOTE | 2018-08-10 13:13 | NUR ---
Occupational Therapy Impression OT evaluation completed. Pt. would benefit from OT services 5x/ week to increase independence in ADL activities. OT would recommend pt. d/c to short term subacute rehab. Occupational Therapy Goals 1. Pt. to perform dressing activities with Min A. 2. Pt. to perform showering activities with Min A. 3. Pt. to perform grooming activities with I. 4. Pt. to perform toileting activities with Mod I. Patient's Goal
[2018-08-10] MEDS ORDERED: ERTAPENEM IV SCH (18:00)
[2018-08-10] MEDS: ERTAPENEM(*) 1 GM VIAL 0.5 GM in NS(*) 0.9% 50 ML BAG 50 ML IVPB SCH (20:25)
[2018-08-10] MEDS: GABAPENTIN 300 MG CAP PO SCH (20:25)
[2018-08-10] MEDS: INSULIN HUM LISPRO 100 UN/ML 3 ML VIAL SUBQ PRN (20:26)
[2018-08-11] VITALS (21 sets, daily range): BP systolic 131–181; BP diastolic 58–107
[2018-08-11] MEDS: LEVOTHYROXINE SOD 0.125 MG TAB PO SCH (04:45)
[2018-08-11 05:01] LABS: PLATELET COUNT, AUTOMATED 211 K/uL (150-450)
--- NOTE | 2018-08-11 08:52 | Hospitalist Progress Note ---
Subjective Progress Notes Subjective He is awake and alert. He is oriented to person, time, place. We had discussion regarding the heart block and he reaffirmed his wish that he does not want a pacemaker placed. Physical Exam Vital Signs Date Time Temp Pulse Resp B/P (MAP) Pulse Ox O2 Delivery O2 Flow Rate FiO2 08/11/18 07:25 9 Nasal Cannula 2.0 08/11/18 07:21 59 08/11/18 07:00 98.3 20 142/66 (91) Intake and Output 08/11/18 07:00 Intake Total 1033 ml Output Total 950 ml Balance 83 ml Intake Oral 920 ml IV Total 113 ml Output Urine Total 950 ml # Voids 11 # Bowel Movements 8 General Appearance: Alert, Awake Cardiovascular: Other (Regular with systolic murmur) Respiratory: Other (decreased at bases) GI: Soft and Non-Tender Extremities: Warm, Perfused, Edema Integumentary: Generalized Fragile Skin, Other (chronic changes both LE) Result Diagram: 08/11/1844208/11/18442 Assessment and Plan Problems: (1) Bradycardia Status: Chronic Assessment & Plan: He had an episode on ECF where he was unable to make it back from the rest room. He was noted to have bradycardia with a heart rate of 27bpm. An EKG confirmed this rate and also showed him to be in a second degree type 1 block. He was transferred to the ICU, pacer pads were place, and he was administered 0.5mg of atropine. This improved his rate into the high 40s. He is consistently in the 50-60s today. No reported symptoms. Troponin negative x2. If he continues to have intermittent low HR and/or is symptomatic, he would need a pacemaker. At this point, he is stating he does not want a pacemaker placed, but is unsure if he would want to have resuscitative efforts if he were to have cardiac/respiratory arrest. His son will be here later today and Rizwan would like to discuss more with him. (2) Cellulitis Status: Acute Assessment & Plan: He has been receiving ertapenem, which has been continued. (3) Type 2 diabetes mellitus Status: Chronic Assessment & Plan: He is on treatment with sliding scale level #2. (4) Diabetic neuropathy Status: Chronic Assessment & Plan: He is on chronic treatment with gabapentin, which has been restarted, but at a reduced dose secondary to CKD. (5) Essential hypertension Status: Chronic Assessment & Plan: He has been on treatment with amlodipine and clonidine. These are both currently on hold. (6) Hypothyroid Status: Chronic Assessment & Plan: He is on chronic treatment with Synthroid. (7) CAD (coronary artery disease) Status: Chronic Assessment & Plan: He is on chronic treatment with aspirin. (8) BPH (benign prostatic hyperplasia) Status: Chronic Assessment & Plan: He has been on treatment with terazosin, which has been restarted. (9) Chronic edema Status: Acute Assessment & Plan: He has been on treatment with Lasix, which has been restarted. Exam Sepsis Risk: No Definite Risk NORBERTO OBREGON MD Aug 11, 2018 08:52
[2018-08-11] MEDS: FUROSEMIDE 20 MG TAB PO SCH ×2 (09:24→14:00)
[2018-08-11] MEDS: ASPIRIN 81 MG ENTERIC COATED PO SCH (09:25)
[2018-08-11] MEDS: TERAZOSIN HCL 1 MG CAP PO SCH ×2 (09:25→20:20)
[2018-08-11] MEDS: RANITIDINE HCL 150 MG TAB PO SCH ×2 (09:25→20:20)
[2018-08-11] MEDS: ALLOPURINOL 100 MG TAB PO SCH (09:25)
[2018-08-11] MEDS: ENOXAPARIN 30 MG/0.3 ML SYR SC SCH (09:25)
--- NOTE | 2018-08-11 11:10 | NUR ---
Physical Therapy Impression Non-billable visit to reapply retrograde wraps to B) lower legs for edema management. No open wounds, skin intact and treated with prescription cream prior to wraps. Tensoflex short-stretch bandages removed as they were sliding down and PT applied coflex lite, 2 stage compression wraps. Physical Therapy Goals 1: Pt to complete transfers with SBA and least restrictive AD 2: Pt to ambulate 100' with SBA and least restrictive AD 3: Pt to asc/desc 4 stairs with railing and CGA Patient's Goals
[2018-08-11] MEDS: INSULIN HUM LISPRO 100 UN/ML 3 ML VIAL SUBQ PRN ×2 (11:45→20:20)
--- NOTE | 2018-08-11 14:30 | NUR ---
Occupational Therapy Impression Co-treat with PT. Pt. performed 3 sit <> stand transfers with use of FWW with CGA. Pt. also marched in place and took 2-3 steps forward and backwards during each trial standing. Pt.'s O2 sats above 85% (on 2 L of O2) and Heart rate above 80 bpm. Pt. very talkative throughout therapy session. (OT captured all billable therapy minutes for therapy session). Pt. will require more rehab prior to d/c to home. Continue with POC. Occupational Therapy Goals 1. Pt. to perform dressing activities with Min A. 2. Pt. to perform showering activities with Min A. 3. Pt. to perform grooming activities with I. 4. Pt. to perform toileting activities with Mod I. Patient's Goal
--- NOTE | 2018-08-11 17:21 | Antimicrobial Stewardship ---
Antimicrobial Time Out Antimicrobial Stewardship MD Service: Hospitalist Indications: Cellulitis Antimicrobial Used ERTAPENEM 500MG Start Date: Aug 08, 2018 Culture Results: N/A Eligible for PO Conversion Eligable for PO Conversion: No Reviewed with Provider Reviewed w/ Provider on Rounds: No Comments Comments Outside provider ordered for ertapenem to be continued 2 weeks from negative blood culture through 08.14.2018 for cellulitis. FRANTZ SKELTON Aug 11, 2018 17:21
[2018-08-11] MEDS ORDERED: INFLUENZA VIRUS VAC 0.5ML SYR IM ONLY ONE (19:40)
[2018-08-11] MEDS: GABAPENTIN 300 MG CAP PO SCH (20:20)
[2018-08-11] MEDS: ERTAPENEM(*) 1 GM VIAL 0.5 GM in NS(*) 0.9% 50 ML BAG 50 ML IVPB SCH (20:21)
[2018-08-11] MEDS ORDERED: QUEtiapine FUM 25 MG TAB PO ONE (21:35)
[2018-08-12] VITALS (11 sets, daily range): BP systolic 144–182; BP diastolic 56–76
[2018-08-12] MEDS: LEVOTHYROXINE SOD 0.125 MG TAB PO SCH (05:46)
[2018-08-12] MEDS: ENOXAPARIN 30 MG/0.3 ML SYR SC SCH (08:17)
[2018-08-12] MEDS: ALLOPURINOL 100 MG TAB PO SCH (08:17)
[2018-08-12] MEDS: FUROSEMIDE 20 MG TAB PO SCH ×2 (08:17→13:51)
[2018-08-12] MEDS: ASPIRIN 81 MG ENTERIC COATED PO SCH (08:18)
[2018-08-12] MEDS: TERAZOSIN HCL 1 MG CAP PO SCH ×2 (08:18→21:13)
[2018-08-12] MEDS: RANITIDINE HCL 150 MG TAB PO SCH ×2 (08:18→21:13)
--- NOTE | 2018-08-12 10:34 | Hospitalist Progress Note ---
Subjective Progress Notes Subjective This patient was admitted for bradycardia. He required treatment with Seroquel overnight. Patient Complains of: Cardiovascular: No: Chest Pain Respiratory: No: Shortness of Breath Physical Exam Vital Signs Date Time Temp Pulse Resp B/P (MAP) Pulse Ox O2 Delivery O2 Flow Rate FiO2 08/12/18 09:02 94 Nasal Cannula 4.0 08/12/18 08:20 76 08/12/18 08:00 98.0 22 169/76 (107) Intake and Output 08/12/18 07:00 Intake Total 305 ml Output Total 725 ml Balance -420 ml Intake Oral 250 ml IV Total 55 ml Output Urine Total 725 ml # Voids 9 # Bowel Movements 2 Cardiovascular: Regular Rate and Rhythm Respiratory: Clear to Auscultation Result Diagram: 08/11/1844208/11/18442 Assessment and Plan Problems: (1) Bradycardia Status: Chronic Assessment & Plan: He had an episode on ECF where he was unable to make it back from the rest room. He was noted to have bradycardia with a heart rate of 27bpm. An EKG confirmed this rate and also showed him to be in a second degree type 2 block. He was treated with atropine and his rate improved. He has continued to alternate between a first degree AV block and a Mobitz II. He has stated that he would not be interested in having a pacemaker placed. (2) Cellulitis Status: Acute Assessment & Plan: He has been receiving ertapenem, which has been continued. (3) Type 2 diabetes mellitus Status: Chronic Assessment & Plan: He is on treatment with sliding scale level #2. (4) Diabetic neuropathy Status: Chronic Assessment & Plan: He is on chronic treatment with gabapentin, which has been restarted, but at a reduced dose secondary to CKD. (5) Essential hypertension Status: Chronic Assessment & Plan: He has been on treatment with amlodipine and clonidine. These are both currently on hold. (6) Hypothyroid Status: Chronic Assessment & Plan: He is on chronic treatment with Synthroid. (7) CAD (coronary artery disease) Status: Chronic Assessment & Plan: He is on chronic treatment with aspirin. (8) BPH (benign prostatic hyperplasia) Status: Chronic Assessment & Plan: He has been on treatment with terazosin, which has been restarted. (9) Chronic edema Status: Acute Assessment & Plan: He has been on treatment with Lasix, which has been rest arted. (10) Agitation Assessment & Plan: He did require a dose of Seroquel last night. Exam Sepsis Risk: No Definite Risk HILARIA BARRETO DO Aug 12, 2018 10:34
--- NOTE | 2018-08-12 13:31 | NUR ---
Nurse has conversation with son Yoni. Yoni expresses desire for pt to get a pacemaker when it is appropriate as far as getting infection clear. Last antibiotic is 08/14 @ [address] Hernández informed of son's wish. Pt is sleeping today and is "not himself" per son. Pt is weak today - transferred from chair to bed with ignacio lift. Pt only awake for very short periods, then resumes sleep. Did not sleep the night before last. Became combative and confused last night and got a dose of Seroquel.
--- NOTE | 2018-08-12 15:25 | NUR ---
Physical Therapy Impression Nursing reports that pt is not medically appropriate for PT intervention at this time. Will continue with POC as medically appropriate. Physical Therapy Goals 1: Pt to complete transfers with SBA and least restrictive AD 2: Pt to ambulate 100' with SBA and least restrictive AD 3: Pt to asc/desc 4 stairs with railing and CGA Patient's Goals
[2018-08-12] MEDS ORDERED: QUEtiapine FUM 25 MG TAB PO SCH ×2 (21:00)
[2018-08-12] MEDS: GABAPENTIN 300 MG CAP PO SCH (21:13)
[2018-08-12] MEDS: INSULIN HUM LISPRO 100 UN/ML 3 ML VIAL SUBQ PRN (21:14)
[2018-08-12] MEDS ORDERED: NS(*) 0.9% 250 ML BAG 250 ML ONE (21:15)
[2018-08-12] MEDS: ERTAPENEM(*) 1 GM VIAL 0.5 GM in NS(*) 0.9% 50 ML BAG 50 ML IVPB SCH (21:16)
[2018-08-13] VITALS (7 sets, daily range): BP systolic 145–162; BP diastolic 57–69; Ht 172.7 cm; Wt 118.2 kg
[2018-08-13] MEDS: LEVOTHYROXINE SOD 0.125 MG TAB PO SCH (06:18)
[2018-08-13] MEDS: ENOXAPARIN 30 MG/0.3 ML SYR SC SCH (08:35)
[2018-08-13] MEDS: FUROSEMIDE 20 MG TAB PO SCH ×2 (08:35→14:47)
[2018-08-13] MEDS: TERAZOSIN HCL 1 MG CAP PO SCH ×2 (08:35→21:17)
[2018-08-13] MEDS: ALLOPURINOL 100 MG TAB PO SCH (08:35)
[2018-08-13] MEDS: ASPIRIN 81 MG ENTERIC COATED PO SCH (08:35)
[2018-08-13] MEDS: RANITIDINE HCL 150 MG TAB PO SCH ×2 (08:35→21:17)
[2018-08-13] MEDS ORDERED: ACETAMINOPHEN 500 MG TAB PO PRN (09:20)
--- NOTE | 2018-08-13 10:38 | Hospitalist Progress Note ---
Subjective Progress Notes Subjective Staff reports that he slept yesterday and last night. This morning he is much more alert and not agitated. He reports some mild pain in his LE and is wondering when he can go home. Physical Exam Vital Signs Date Time Temp Pulse Resp B/P (MAP) Pulse Ox O2 Delivery O2 Flow Rate FiO2 08/13/18 08:02 94 Nasal Cannula 4.0 08/13/18 08:00 98.3 70 16 149/69 (95) Intake and Output 08/13/18 07:00 Intake Total 926 ml Output Total 2102 ml Balance -1176 ml Intake Oral 926 ml Output Urine Total 2102 ml # Voids 2 General Appearance: Alert, Awake, No Acute Distress Cardiovascular: Regular Rate and Rhythm (2-3/6 systolic murmur across the precordium) Respiratory: Clear to Auscultation Extremities: Edema (In feet there is some edema, but compression dressings on.) Integumentary: No Jaundice, No Cyanosis Result Diagram: 08/11/183 08/11/18442 Assessment and Plan Problems: (1) Bradycardia Status: Chronic Assessment & Plan: He had an episode on ECF where he was unable to make it back from the rest room. He was noted to have bradycardia with a heart rate of 27bpm. An EKG confirmed this rate and also showed him to be in a second degree type 1 block. He was treated with atropine and his rate improved. He has cont inued to alternate between a first degree AV block (which is his baseline) and a Mobitz I. He has received Clonidine a total of four doses with the last on the 08/09 (day of the bradycardia event). He was discharged on clonidine from [facility] (08/06), but he had a 6 second pause while an inpatient and cardiology recommended no lisa blocking drugs. His heart rate is improving off the clonidine (probably needs a few more days to let it clear). Will see how he works with therapy. Continue telemetry. (2) Agitation Status: Resolved Assessment & Plan: Secondary to insomnia, which has resolved this morning. D/C one on one supervision. Will try melatonin HS. (3) Cellulitis Status: Acute Assessment & Plan: He has been receiving ertapenem. Done on 08/14. CRP tomorrow with CBC. (4) Essential hypertension Status: Chronic Assessment & Plan: He has been on treatment with amlodipine and clonidine. Restarting amlodipine, but at 2.5mg today. (5) Type 2 diabetes mellitus Status: Chronic Assessment & Plan: He is on treatment with sliding scale level #2. (6) Chronic edema Status: Acute Assessment & Plan: He has been on treatment with Lasix, which has been restarted. (7) Diabetic neuropathy Status: Chronic Assessment & Plan: He is on chronic treatment with gabapentin, which has been restarted, but at a reduced dose secondary to CKD. (8) CAD (coronary artery disease) Status: Chronic Assessment & Plan: He is on chronic treatment with aspirin. (9) BPH (benign prostatic hyperplasia) Status: Chronic Assessment & Plan: He has been on treatment with terazosin, which has been restarted. (10) Hypothyroid Status: Chronic Assessment & Plan: He is on chronic treatment with Synthroid. Exam Sepsis Risk: No Definite Risk SALVADOR GUEVARA MD Aug 13, 2018 10:38
[2018-08-13] MEDS: amLODIPine BESYL(*) 2.5 MG TAB PO SCH (10:51)
--- NOTE | 2018-08-13 12:43 | NUR ---
Occupational Therapy Impression Pt. ambulated from chair to bathroom with use of FWW with Min A due to pt. being retropulsive and leaning backwards in bathroom while turning to sit on toilet. Pt. with HR between 70-77 bpm and O2 saturations above 90% on 3.5 L of O2. Pt. refusing to have BLE's elevated (in clarisa chair) following therapy session. OT recommending d/c to group home subacute rehab. Continue with POC. Occupational Therapy Goals 1. Pt. to perform dressing activities with Min A. 2. Pt. to perform showering activities with Min A. 3. Pt. to perform grooming activities with I. 4. Pt. to perform toileting activities with Mod I. Patient's Goal
--- NOTE | 2018-08-13 17:50 | NUR ---
Physical Therapy Impression Non-billable visit to reapply 2 layer compression wraps to B) lower legs. Consult completed with lymphedema specialist and lymphedema treatment would be indicated if pt was more medically stable. Currently, aggressive redistribution of edema would further compromise pt's medical status. Once further fluid is reduced, pt may benefit from gentle progression of treatment on an out patient basis and progress back to juxtalite compression garments. Pt's son notes that he does have these garments available, however, due to recent edema they have been unable to apply them. Discussion with son regarding long-term management of this condition and compression garments importance and continued CG involvement to manage salt intake, elevation of LE's and application of compression prior to ambulation during each day. Physical Therapy Goals 1: Pt to complete transfers with SBA and least restrictive AD 2: Pt to ambulate 100' with SBA and least restrictive AD 3: Pt to asc/desc 4 stairs with railing and CGA Patient's Goals
--- NOTE | 2018-08-13 18:04 | NUR ---
Physical Therapy Impression Cues required to decrease impulsive mobility and ensure safety with lines and tubing. Pt tolerated ambulation to/from doorway with FWW and shoes applied for improved balance and safety. Nursing provided close chair follow, however, pt's VS remained in safe range throughout and pt was able to ambulate 40' and return to recliner for evening meal with O2 sats and HR still in safe range. Physical Therapy Goals 1: Pt to complete transfers with SBA and least restrictive AD 2: Pt to ambulate 100' with SBA and least restrictive AD 3: Pt to asc/desc 4 stairs with railing and CGA Patient's Goals
[2018-08-13] MEDS: ERTAPENEM(*) 1 GM VIAL 0.5 GM in NS(*) 0.9% 50 ML BAG 50 ML IVPB SCH (21:17)
[2018-08-13] MEDS: GABAPENTIN 300 MG CAP PO SCH (21:17)
[2018-08-13] MEDS: MELATONIN 3 MG TAB PO SCH (21:17)
[2018-08-13] MEDS: INSULIN HUM LISPRO 100 UN/ML 3 ML VIAL SUBQ PRN (21:22)
[2018-08-14 04:14] VITALS: BP 158/81
[2018-08-14] MEDS: LEVOTHYROXINE SOD 0.125 MG TAB PO SCH (06:08)
[2018-08-14 06:30] LABS: PLATELET COUNT, AUTOMATED 211 K/uL (150-450)
[2018-08-14 06:59] VITALS: BP 168/68
--- NOTE | 2018-08-14 09:27 | NUR ---
Physical Therapy Impression Patient transferred from chair in room to standing in walker SBA with max verbal cues for positioning and sequencing. Patient ambulated with FWW ~78 feet with CGA with LUNCHROOM ATTENDANT following with w/c for safety then another 100 feet. Patient is very impulsive and needs max cuing for safety as he tried to ditch his walker while ambulating and then suddenly sped up. With cuing patient will slow down but is at a high risk for falls due to impulsive behavior. Patient educated to call for help when getting up and not to get up on his own. Physical Therapy Goals 1: Pt to complete transfers with SBA and least restrictive AD 2: Pt to ambulate 100' with SBA and least restrictive AD 3: Pt to asc/desc 4 stairs with railing and CGA Patient's Goals
[2018-08-14] MEDS: FUROSEMIDE 20 MG TAB PO SCH ×3 (10:14→14:43)
[2018-08-14] MEDS: amLODIPine BESYL(*) 2.5 MG TAB PO SCH (10:14)
[2018-08-14] MEDS: ASPIRIN 81 MG ENTERIC COATED PO SCH (10:14)
[2018-08-14] MEDS: RANITIDINE HCL 150 MG TAB PO SCH ×2 (10:14→20:50)
[2018-08-14] MEDS: ENOXAPARIN 30 MG/0.3 ML SYR SC SCH (10:15)
[2018-08-14] MEDS: TERAZOSIN HCL 1 MG CAP PO SCH ×2 (10:15→20:51)
[2018-08-14] MEDS: ALLOPURINOL 100 MG TAB PO SCH (10:15)
[2018-08-14 12:10] VITALS: BP 157/82
[2018-08-14] MEDS: INSULIN HUM LISPRO 100 UN/ML 3 ML VIAL SUBQ PRN ×2 (12:18→20:55)
--- NOTE | 2018-08-14 16:07 | Hospitalist Progress Note ---
Subjective Progress Notes Subjective No new complaints. Physical Exam Vital Signs Date Time Temp Pulse Resp B/P (MAP) Pulse Ox O2 Delivery O2 Flow Rate FiO2 08/14/18 12:10 60 24 157/82 (107) 95 Nasal Cannula 3.0 08/14/18 06:59 97.6 Intake and Output 08/14/18 07:00 Intake Total 530 ml Balance 530 ml Intake Oral 480 ml IV Total 50 ml # Voids 4 # Bowel Movements 1 General Appearance: Alert, Awake, No Acute Distress Neuro: No Gross deficits Cardiovascular: Regular Rate and Rhythm, Other Respiratory: Other (Decreased BS throughout without rales, rhonchi or w heezing.) GI: Soft and Non-Tender Extremities: Warm, Other (Lower legs wrapped. ) Psych: Appropriate Mood & Affect Result Diagram: 08/14/1853508/14/18535 Assessment and Plan Problems: (1) Bradycardia Status: Chronic Assessment & Plan: He had an episode on ECF where he was unable to make it back from the rest room. He was noted to have bradycardia with a heart rate of 27bpm. An EKG confirmed this rate and also showed him to be in a second degree type 1 block. He was treated with atropine and his rate improved. He has continued to alternate between a first degree AV block (which is his baseline) and a Mobitz I. He has received Clonidine a total of four doses with the last on the 08/09 (day of the bradycardia event). He was discharged on clonidine from [facility] (08/06), but he had a 6 second pause while an inpatient, and cardiology recommended no lisa blocking drugs. His heart rate is improving off the clonidine (probably needs a few more days to let it clear). Will see how he works with therapy. Continue telemetry. (2) Agitation Status: Resolved Assessment & Plan: Secondary to insomnia, which has resolved. D/C one on one supervision. Will try melatonin HS. (3) Cellulitis Status: Acute Assessment & Plan: He has been receiving ertapenem. Done on 08/14. CRP today is 3.6. WBC is WNL. (4) Essential hypertension Status: Chronic Assessment & Plan: He has been on treatment with amlodipine and clonidine. Restarting amlodipine, but at 2.5mg today. Clonidine will be stopped and added to allergies. (5) Type 2 diabetes mellitus Status: Chronic Assessment & Plan: He is on treatment with sliding scale level #2. (6) Chronic edema Status: Acute Assessment & Plan: He has been on treatment with Lasix, which has been restarted. His legs are being wrapped. (7) Diabetic neuropathy Status: Chronic Assessment & Plan: He is on chronic treatment with gabapentin, which has been restarted, but at a reduced dose secondary to CKD. (8) CAD (coronary artery disease) Status: Chronic Assessment & Plan: He is on chronic treatment with aspirin. (9) BPH (benign prostatic hyperplasia) Status: Chronic Assessment & Plan: He has been on treatment with terazosin, which has been restarted. (10) Hypothyroid Status: Chronic Assessment & Plan: He is on chronic treatment with Synthroid. Time Spent on Plan of Care: < 30 min Exam Sepsis Risk: No Definite Risk SHASHI OBREGON MD Aug 14, 2018 16:07
[2018-08-14 19:13] VITALS: BP 178/72
[2018-08-14] MEDS: MELATONIN 3 MG TAB PO SCH (20:50)
[2018-08-14] MEDS: GABAPENTIN 300 MG CAP PO SCH ×2 (20:51→22:30)
[2018-08-14] MEDS: ERTAPENEM(*) 1 GM VIAL 0.5 GM in NS(*) 0.9% 50 ML BAG 50 ML IVPB SCH (20:51)
[2018-08-14 23:20] VITALS: BP 160/66
[2018-08-15 04:00] VITALS: BP 154/63
[2018-08-15] MEDS: LEVOTHYROXINE SOD 0.125 MG TAB PO SCH (06:17)
[2018-08-15] MEDS: RANITIDINE HCL 150 MG TAB PO SCH ×2 (08:26→20:32)
[2018-08-15] MEDS: ASPIRIN 81 MG ENTERIC COATED PO SCH (08:26)
[2018-08-15] MEDS: amLODIPine BESYL(*) 2.5 MG TAB PO SCH (08:26)
[2018-08-15] MEDS: FUROSEMIDE 20 MG TAB PO SCH ×2 (08:26→13:36)
[2018-08-15] MEDS: ALLOPURINOL 100 MG TAB PO SCH (08:26)
[2018-08-15] MEDS: TERAZOSIN HCL 1 MG CAP PO SCH ×2 (08:26→20:32)
[2018-08-15] MEDS: ENOXAPARIN 30 MG/0.3 ML SYR SC SCH (08:27)
--- NOTE | 2018-08-15 11:26 | Hospitalist Progress Note ---
Subjective Progress Notes Subjective He reports that he is still feeling weak, but thinks that he might be able to go home soon. No concerns from staff. Physical Exam Vital Signs Date Time Temp Pulse Resp B/P (MAP) Pulse Ox O2 Delivery O2 Flow Rate FiO2 08/15/18 10:41 60 08/15/18 10:14 94 Nasal Cannula 3.0 08/15/18 04:00 97.7 16 154/63 (93) Intake and Output 08/15/18 06:59 Intake Total 810 ml Balance 810 ml Intake Oral 760 ml IV Total 50 ml # Voids 5 # Bowel Movements 1 General Appearance: Alert, Awake, No Acute Distress Cardiovascular: Regular Rate and Rhythm (arianne.) Result Diagram: 08/14/1853508/14/18535 Assessment and Plan Problems: (1) Bradycardia Status: Chronic Assessment & Plan: He had an episode on ECF where he was unable to make it back from the rest room. He was noted to have bradycardia with a heart rate of 27bpm. An EKG confirmed this rate and also showed him to be in a second degree type 1 block. He was treated with atropine and his rate improved. He has continued to alternate between a first degree AV block (which is his baseline) and a Mobitz I. He has received Clonidine a total of four doses with the last on the 08/09 (day of the bradycardia event). He was discharged on clonidine from [facility] (08/06), but he had a 6 second pause while an inpatient, and cardiology recommended no lisa blocking drugs. His heart rate improved some off the clonidine (probably needs a few more days to let it clear). Will see how he works with therapy. Continue telemetry. (2) Agitation Status: Resolved Assessment & Plan: Secondary to insomnia, which has resolved. D/C one on one supervision. Will try melatonin HS. (3) Cellulitis Status: Acute Assessment & Plan: He has been receiving ertapenem. Done on 08/14. CRP/CBC tomorrow. (4) Essential hypertension Status: Chronic Assessment & Plan: He has been on treatment with amlodipine and clonidine. Increasing amlodipine to 5mg today. Clonidine was stopped (apparently wasn't on it at home) and added to allergies. (5) Type 2 diabetes mellitus Status: Chronic Assessment & Plan: Glucose 133-171. He is on treatment with sliding scale level #2. (6) Chronic edema Status: Acute Assessment & Plan: He has been on treatment with Lasix, which has been restarted. His legs are being wrapped. BMP tomorrow. (7) Diabetic neuropathy Status: Chronic Assessment & Plan: He is on chronic treatment with gabapentin, which has been restarted, but at a reduced dose secondary to CKD. (8) CAD (coronary artery disease) Status: Chronic Assessment & Plan: He is on chronic treatment with aspirin. (9) BPH (benign prostatic hyperplasia) Status: Chronic Assessment & Plan: He has been on treatment with terazosin, which has been restarted. (10) Hypothyroid Status: Chronic Assessment & Plan: He is on chronic treatment with Synthroid. Exam Sepsis Risk: No Definite Risk SALVADOR GUEVARA MD Aug 15, 2018 11:26
[2018-08-15 11:43] VITALS: BP 146/50
[2018-08-15] MEDS ORDERED: amLODIPine BESYL(*) 2.5 MG TAB PO ONE (12:00)
[2018-08-15] MEDS: INSULIN HUM LISPRO 100 UN/ML 3 ML VIAL SUBQ PRN ×2 (12:26→20:34)
[2018-08-15 15:47] VITALS: BP 149/71
[2018-08-15 20:23] VITALS: BP 149/63
[2018-08-15] MEDS: GABAPENTIN 300 MG CAP PO SCH (20:32)
[2018-08-15] MEDS: MELATONIN 3 MG TAB PO SCH (20:32)
[2018-08-15 22:24] VITALS: BP 134/77
[2018-08-16 03:40] VITALS: BP 145/65
[2018-08-16 05:59] LABS: PLATELET COUNT, AUTOMATED 239 K/uL (150-450)
[2018-08-16] MEDS: LEVOTHYROXINE SOD 0.125 MG TAB PO SCH (06:06)
[2018-08-16] MEDS: FUROSEMIDE 20 MG TAB PO SCH ×2 (09:49→13:53)
[2018-08-16] MEDS: ASPIRIN 81 MG ENTERIC COATED PO SCH (09:49)
[2018-08-16] MEDS: TERAZOSIN HCL 1 MG CAP PO SCH ×2 (09:49→21:39)
[2018-08-16] MEDS: RANITIDINE HCL 150 MG TAB PO SCH ×2 (09:49→21:40)
[2018-08-16] MEDS: amLODIPine BESYL(*) 5 MG TAB PO SCH (09:49)
[2018-08-16] MEDS: ENOXAPARIN 30 MG/0.3 ML SYR SC SCH (09:50)
[2018-08-16] MEDS: ALLOPURINOL 100 MG TAB PO SCH (09:50)
--- NOTE | 2018-08-16 11:17 | Hospitalist Progress Note ---
Subjective Progress Notes Subjective This patient was admitted for bradycardia. His rate has remained stable over the last several days. Patient Complains of: Cardiovascular: No: Chest Pain Respiratory: No: Shortness of Breath Physical Exam Vital Signs Date Time Temp Pulse Resp B/P (MAP) Pulse Ox O2 Delivery O2 Flow Rate FiO2 08/16/18 04:13 89 08/16/18 03:40 97.9 20 145/65 (91) 92 Nasal Cannula 2.0 Intake and Output 08/16/18 06:59 Intake Total 500 ml Balance 500 ml Intake Oral 500 ml # Voids 8 Cardiovascular: Regular Rate and Rhythm Respiratory: Clear to Auscultation Result Diagram: 08/16/1851908/16/18519 Assessment and Plan Problems: (1) Bradycardia Status: Chronic Assessment & Plan: He had an episode on ECF where he was unable to make it back from the rest room. He was noted to have bradycardia with a heart rate of 27bpm. An EKG confirmed this rate and also showed him to be in a second degree type 1 block. He was treated with atropine and his rate improved. 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 He has received Clonidine a total of four doses with the last on the 08/09 (day of the bradycardia event). He was discharged on clonidine from [facility] (08/06), but he had a 6 second pause while an inpatient, and cardiology recommended no lisa blocking drugs. His heart rate improved some off the clonidine (probably needs a few more days to let it clear). (2) Agitation Status: Resolved Assessment & Plan: Secondary to insomnia, which has resolved. D/C one on one supervision. Will try melatonin HS. (3) Cellulitis Status: Acute Assessment & Plan: He has been receiving ertapenem. Done on 08/14. CRP/CBC tomorrow. (4) Essential hypertension Status: Chronic Assessment & Plan: He has been on treatment with amlodipine and clonidine. Increasing amlodipine to 5mg today. Clonidine was stopped (apparently wasn't on it at home) and added to allergies. (5) Type 2 diabetes mellitus Status: Chronic Assessment & Plan: Glucose 133-171. He is on treatment with sliding scale level #2. (6) Chronic edema Status: Acute Assessment & Plan: He has been on treatment with Lasix, which has been restarted. His legs are being wrapped. BMP tomorrow. (7) Diabetic neuropathy Status: Chronic Assessment & Plan: He is on chronic treatment with gabapentin, which has been restarted, but at a reduced dose secondary to CKD. (8) CAD (coronary artery disease) Status: Chronic Assessment & Plan: He is on chronic treatment with aspirin. (9) BPH (benign prostatic hyperplasia) Status: Chronic Assessment & Plan: He has been on treatment with terazosin, which has been restarted. (10) Hypothyroid Status: Chronic Assessment & Plan: He is on chronic treatment with Synthroid. Exam Sepsis Risk: No Definite Risk HILARIA BARRETO DO Aug 16, 2018 11:16
[2018-08-16] MEDS: INSULIN HUM LISPRO 100 UN/ML 3 ML VIAL SUBQ PRN ×2 (11:55→21:40)
--- NOTE | 2018-08-16 13:23 | NUR ---
Occupational Therapy Impression SBA sit<>stands. SBA ambulation x50ft with RW. Pt at baseline for mobility/ADLs. Recommend discharge home with HH PT/wound care when medically appropriate. Pt agreeable with this plan and reports readiness to discharge home as soon as able. Occupational Therapy Goals 1. Pt. to perform dressing activities with Min A. 2. Pt. to perform showering activities with Min A. 3. Pt. to perform grooming activities with I. 4. Pt. to perform toileting activities with Mod I. Patient's Goal
[2018-08-16 15:04] VITALS: BP 159/73
--- NOTE | 2018-08-16 19:00 | NUR ---
Physical Therapy Impression Pt is due to have B) lower leg wraps changed today, however, shower was not coordinated with nursing earlier today. Pt requests to have them changed tonight rather than waiting to coordinate with shower tomorrow. Additional 30 minutes Non-billable time spent with pt to remove wraps and re-apply coflex lite 2 stage compression wraps to B) lower legs. Nursing was alerted that pt was back in chair but personal alarm had not been re-set. Physical Therapy Goals 1: Pt to complete transfers with SBA and least restrictive AD 2: Pt to ambulate 100' with SBA and least restrictive AD 3: Pt to asc/desc 4 stairs with railing and CGA Patient's Goals
[2018-08-16 19:31] VITALS: BP 147/64
[2018-08-16] MEDS: MELATONIN 3 MG TAB PO SCH (21:39)
[2018-08-16] MEDS: GABAPENTIN 300 MG CAP PO SCH (21:40)
[2018-08-17 02:40] VITALS: BP 139/72
[2018-08-17] MEDS: LEVOTHYROXINE SOD 0.125 MG TAB PO SCH (05:43)
[2018-08-17 07:43] VITALS: BP 153/68
[2018-08-17] MEDS: TERAZOSIN HCL 1 MG CAP PO SCH (08:36)
[2018-08-17] MEDS: amLODIPine BESYL(*) 5 MG TAB PO SCH (08:36)
[2018-08-17] MEDS: ALLOPURINOL 100 MG TAB PO SCH (08:36)
[2018-08-17] MEDS: FUROSEMIDE 20 MG TAB PO SCH ×3 (08:36→14:43)
[2018-08-17] MEDS: RANITIDINE HCL 150 MG TAB PO SCH (08:36)
[2018-08-17] MEDS: ENOXAPARIN 30 MG/0.3 ML SYR SC SCH (08:36)
[2018-08-17] MEDS: ASPIRIN 81 MG ENTERIC COATED PO SCH (08:36)
[2018-08-17] MEDS ORDERED: AMLO-125 PO (14:03)
--- NOTE | 2018-08-17 14:21 | Hospitalist Depart ---
Discharge Summary Reason for Hosp/Final Diag: (1) Bradycardia Status: Chronic Hospital Course & Plan: He had an episode on ECF where he was unable to make it back from the rest room. He was noted to have bradycardia with a heart rate of 27bpm. An EKG confirmed this rate and also showed him to be in a second degree type 1 block. He was treated with atropine and his rate improved. He has continued to alternate between a first degree AV block (which is his baseline) and a Mobitz I. He has received Clonidine a total of four doses with the last on the 08/09 (day of the bradycardia event). He was discharged on clonidine from [facility] (08/06), but he had a 6 second pause while an inpatient, and cardiology recommended no lisa blocking drugs. His heart rate improved some off the clonidine and he remained asymptomatic. (2) Agitation Status: Resolved Hospital Course & Plan: Secondary to insomnia, which has resolved. (3) Cellulitis Status: Acute Hospital Course & Plan: He has been receiving ertapenem. Done on 08/14. (4) Essential hypertension Status: Chronic Hospital Course & Plan: He has been on treatment with amlodipine and clonidine. Increased amlodipine to 5mg today. Clonidine was stopped (apparently wasn't on it at home) and added to allergies as it was recommended against by cardiology in [place]. (5) Type 2 diabetes mellitus Status: Chronic Hospital Course & Plan: Glucose 133-171. He is on treatment with sliding scale level #2. (6) Chronic edema Status: Acute Hospital Course & Plan: He has been on treatment with Lasix, which has been restarted. His legs are being wrapped. (7) Diabetic neuropathy Status: Chronic Hospital Course & Plan: He is on chronic treatment with gabapentin, which has been restarted, but at a reduced dose secondary to CKD. (8) CAD (coronary artery disease) Status: Chronic Hospital Course & Plan: He is on chronic treatment with aspirin. (9) BPH (benign prostatic hyperplasia) Status: Chronic Hospital Course & Plan: He has been on treatment with terazosin, which has been restarted. (10) Hypothyroid Status: Chronic Hospital Course & Plan: He is on chronic treatment with Synthroid. Departure Weight (Pounds): 260 Weight (Ounces): 8.0 Result Diagram: 08/16/1851908/16/18519 Condition: Improved Discharge: Home Health PT/OT Follow Up For: PT For Strengthening Home Health RN Follow Up For: Medication Management, Nursing Assessment, Wound Care Discharge Instructions Home Meds Reported Medications Ertapenem (INVANZ) 1 Gm Injs, 0.5 GM IV Q24H INJECT 0.5G INTO VEIN Q24H FOR 8 DAYS 08/06/18 Terazosin Hcl (TERAZOSIN HCL) 2 Mg Capsule, 2 MG PO BID, CAPSULE 08/06/18 Gabapentin (GABAPENTIN) 300 Mg Capsule, 300 MG PO QHS, CAPSULE 08/06/18 Gabapentin (GABAPENTIN) 300 Mg Capsule, 600 MG PO QAM, CAPSULE 08/06/18 Furosemide (FUROSEMIDE) 40 Mg Tablet, 120 MG PO DAILY, TAB 08/06/18 Allopurinol (ALLOPURINOL) 100 Mg Tablet, 1 TAB PO DAILY, #10 TAB 08/06/18 Aspirin (ASPIRIN EC) 81 Mg Tablet.dr, 81 MG PO QDAY, TAB 05/17/18 Ranitidine Hcl (ZANTAC) 150 Mg Tablet, 150 MG PO DAILY 01/18/14 Levothyroxine Sodium (SYNTHROID) 125 Mcg Tablet, 125 MCG PO QDAY 01/18/14 Discontinued Reported Medications Clonidine Hcl (CATAPRES) 0.2 Mg Tablet, 0.2 MG PO BID, TAB 08/06/18 Amlodipine Besylate (AMLODIPINE BESYLATE) 5 Mg Tablet, 1 TAB PO DAILY, TAB 08/06/18 Acetaminophen (TYLENOL) 325 Mg Tablet, 2 TAB PO Q6H PRN for PAIN, TAB 08/06/18 Ammonium Lactate (Lac-Hydrin Five) 5 % Lotion, TOP BID APPLY A MODERATE AMOUNT TOPICALLY TO AFFECTED AREA TWICE DAILY 08/06/18 Albuterol Sulfate 90 Mcg/Act (PROAIR HFA 90 MCG/ACT) 8.5 Gm Hfa.aer.ad, 2 PUFF IH Q4H PRN for SHORTNESS OF BREATH, INHALER 08/06/18 Acetaminophen With Codeine # 3 (TYLENOL WITH CODEINE #3 TABLET) 1 Each Tablet, 2 TAB PO HS PRN for PAIN, TAB 05/07/18 Triamcinolone Acetonide 0.1% Cr 15 Gm Tube (TRIAMCINOLONE ACETONIDE 0.1% CREAM) 15 Gm Cream..g., TP TID, TUBE APPLY TO AFFECTED AREA 3 TIMES DAILY 07/24/17 Sodium Chloride (SALINE NASAL SPRAY) 30 Ml [place], 2 SPRAY NS Q2H PRN for CONGESTION, SPRAY 07/24/17 Clobetasol Propionate 0.05% Lotion (CLOBETASOL PROPIONATE 0.05% LOTION) 59 Ml Lotion, 0 TP BID, BOT APPLY TOPICALLY TO AFFECTED AREA TWICE DAILY 01/29/16 Simvastatin (SIMVASTATIN) 40 Mg Tablet, 40 MG PO QAM, TAB 01/18/14 Diet: Regular Activity: As Tolerated Special Instructions: Follow up with PCP and wound care to continue treatment. Copies to: TYLER MEDINA MD ; Venous Thromboembolism Antithrombotics Is Pt On Any Antithrombotics?: No [id number] Certification Face to Face Home Health Certification Patient's Primary Care Provider: Tyler Medina MD Institutional Provider conducted the [id number] encounter. Electronic Undersigning Physician Certifies Home Health. I certify that the patient has been under my care and that I had a [id number] encounter that meets the physician [id number] encounter requirements with this patient. This patient is home-bound due to safety issues and continues to require assistance with ADL's. I certify that based on my findings, that Nursing, Aides and the following Home Health services are medically necessary: PT/OT, medication management, wound care Medical Necessity: Nursing, Rehab Date Face to Face Conducted: Aug 17, 2018 VON KRUSE DO Aug 17, 2018 14:21
== END 2018-08-17 15:14 | disposition home health service (06) | DRG 309 ==
LOC: ICU 19:00 → MED 08-12 13:00
PROVIDERS: ADMIT Family Medicine; ATTEND Family Medicine
DX: I44.1 Atrioventricular block, second degree (principal); I12.0 Hypertensive chronic kidney disease with stage 5 chronic kidney disease or end stage renal disease; L03.116 Cellulitis of left lower limb; L03.115 Cellulitis of right lower limb; R45.1 Restlessness and agitation; R60.0 Localized edema; E11.40 Type 2 diabetes mellitus with diabetic neuropathy, unspecified; Z79.4 Long term (current) use of insulin; N18.9 Chronic kidney disease, unspecified; I25.10 Atherosclerotic heart disease of native coronary artery without angina pectoris; Z79.82 Long term (current) use of aspirin; N40.0 Benign prostatic hyperplasia without lower urinary tract symptoms; E03.9 Hypothyroidism, unspecified; J44.9 Chronic obstructive pulmonary disease, unspecified; Z90.5 Acquired absence of kidney; Z87.891 Personal history of nicotine dependence; G47.00 Insomnia, unspecified; R53.1 Weakness; Z99.81 Dependence on supplemental oxygen; Z95.5 Presence of coronary angioplasty implant and graft; Z88.8 Allergy status to other drugs, medicaments and biological substances
CPT/HCPCS: 36415; 36416; 82040; 82247; 82310; 82374; 82435; 82565; 82947; 82948; 84075; 84132; 84155; 84295; 84450; 84460; 84484; 84520; 85025; 86140; 87040; 93005; 97161; 97165; C1758; J0461; J1335; J1642; J1650; J7030; J7050

== ENCOUNTER → 2018-08-23 | Outpatient (REF) | payer MEDICARE, OTHER ==
[2018-08-13 09:03] VITALS: BMI 38.9
== END ==
LOC: ZZSENDIN 17:34
PROVIDERS: ATTEND Family Medicine
DX: I33.0 Acute and subacute infective endocarditis (principal); B95.4 Other streptococcus as the cause of diseases classified elsewhere
CPT/HCPCS: 85651

== ENCOUNTER → 2018-08-27 | Outpatient (REF) | payer MEDICARE, OTHER ==
[2018-08-13 09:03] VITALS: BMI 38.9
[2018-08-27 13:31] LABS: PLATELET COUNT, AUTOMATED 253 K/uL (150-450)
== END ==
LOC: ZZSENDIN 13:24
PROVIDERS: ATTEND Family Medicine
DX: I33.0 Acute and subacute infective endocarditis (principal); B95.4 Other streptococcus as the cause of diseases classified elsewhere
CPT/HCPCS: 85025; 85651

== ENCOUNTER → 2018-09-03 | Outpatient (REF) | payer MEDICARE, OTHER ==
[2018-08-13 09:03] VITALS: BMI 38.9
[2018-09-03 11:49] LABS: PLATELET COUNT, AUTOMATED 273 K/uL (150-450)
== END ==
LOC: ZZSENDIN 11:39
PROVIDERS: ATTEND Family Medicine
DX: I33.0 Acute and subacute infective endocarditis (principal); B95.4 Other streptococcus as the cause of diseases classified elsewhere
CPT/HCPCS: 85025; 85651

== ENCOUNTER → 2018-09-10 | Outpatient (REF) | payer MEDICARE, OTHER ==
[2018-08-13 09:03] VITALS: BMI 38.9
[2018-09-10 11:11] LABS: PLATELET COUNT, AUTOMATED 276 K/uL (150-450)
== END ==
LOC: ZZLCC 10:35
PROVIDERS: ATTEND Family Medicine
DX: E03.9 Hypothyroidism, unspecified (principal); E78.00 Pure hypercholesterolemia, unspecified; I33.0 Acute and subacute infective endocarditis; B95.4 Other streptococcus as the cause of diseases classified elsewhere
CPT/HCPCS: 82465; 83718; 84443; 84478; 85025; 85651

== ENCOUNTER → 2018-09-17 | Outpatient (REF) | payer MEDICARE, OTHER ==
[2018-08-13 09:03] VITALS: BMI 38.9
[2018-09-17 11:32] LABS: PLATELET COUNT, AUTOMATED 237 K/uL (150-450)
== END ==
LOC: ZZSENDIN 11:23
PROVIDERS: ATTEND Family Medicine
DX: I33.0 Acute and subacute infective endocarditis (principal); B95.4 Other streptococcus as the cause of diseases classified elsewhere
CPT/HCPCS: 85025; 85651

== ENCOUNTER → 2018-09-22 | Outpatient (REF) | payer MEDICARE, OTHER ==
[2018-08-13 09:03] VITALS: BMI 38.9
== END ==
LOC: ZZSENDIN 12:52
PROVIDERS: ATTEND Family Medicine
DX: N18.9 Chronic kidney disease, unspecified (principal)
CPT/HCPCS: 82310; 82374; 82435; 82565; 82947; 84132; 84295; 84520

== ENCOUNTER → 2018-09-24 | Outpatient (REF) | payer MEDICARE, OTHER ==
[2018-08-13 09:03] VITALS: BMI 38.9
[2018-09-24 12:08] LABS: PLATELET COUNT, AUTOMATED 249 K/uL (150-450)
== END ==
LOC: ZZSENDIN 11:48
PROVIDERS: ATTEND Family Medicine
DX: I33.0 Acute and subacute infective endocarditis (principal); B95.4 Other streptococcus as the cause of diseases classified elsewhere
CPT/HCPCS: 85025; 85651

== ENCOUNTER → 2018-10-08 | Outpatient (REF) | payer MEDICARE, OTHER ==
[2018-08-13 09:03] VITALS: BMI 38.9
[~2018-10-08] MED LIST changes: +BUM2 PO; +CEPH250C37 PO; +SIMV-49 PO
[2018-10-08 12:47] LABS: PLATELET COUNT, AUTOMATED 241 K/uL (150-450)
== END ==
LOC: ZZSENDIN 12:32
PROVIDERS: ATTEND Family Medicine
DX: N18.9 Chronic kidney disease, unspecified (principal)
CPT/HCPCS: 82310; 82374; 82435; 82565; 82947; 84132; 84295; 84520; 85025; 85651

== ENCOUNTER 2018-10-11 11:24 | Inpatient (IN) | payer MEDICARE, OTHER ==
[~2018-10-11] VITALS: Ht 180.3 cm; Wt 129.9 kg
[~2018-10-11 11:24] MED LIST changes: -BUM2 PO; -CEPH250C37 PO; -SIMV-49 PO
[2018-10-11] MEDS ORDERED: EMS NS 0.9%(*) 1000 ML BAG 1,000 ML IV ONE (11:25)
--- NOTE | 2018-10-11 11:31 | ER Report ---
History and Physical Time Seen By MD: 11:29 HPI/ROS CHIEF COMPLAINT: Altered mental status HISTORY OF PRESENT ILLNESS: This an 88-year-old male who presents to the emergency department via EMS for altered mental status. Per family and EMS, isabel ent was "normal this morning, had normal breakfast at 8am, then around 9am he was shaking and shivering", then today was not acting appropriate, shivering, shaking. We will verbalize with painful stimulus. He is currently being treated for a wound on his right lower leg, according to the family "this is how he gets when he gets a bad infection". According to the son who is now at the bedside, is actively being treated for a "blood infection", that Dr. Medina has been monitoring, he gets weekly blood cultures done. He is febrile here. REVIEW OF SYSTEMS: Constitutional: As above. Eyes: No discharge. ENT: No sore throat. Cardiovascular: No chest pain, no palpitations. Respiratory: No cough, no shortness of breath. Gastrointestinal: No abdominal pain, no vomiting. Genitourinary: No hematuria. Musculoskeletal: No back pain. Skin: No rashes. Neurological: As above. Allergies: Coded Allergies: clonidine (Verified Allergy, Severe, Severe bradycardia, 10/11/18) Home Meds Reported Medications Hum Insulin Nph/Reg Insulin Hm (NOVOLIN 70-30 100 UNIT/ML VIAL) 100 Unit/1 Ml Vial, 1-10 UNIT SQ DIRECTED, VIAL 10/11/18 Cephalexin (KEFLEX) 250 Mg Capsule, 250 MG PO BID, #28 CAP 10/11/18 Albuterol Sulfate 90 Mcg/Act (PROAIR HFA 90 MCG/ACT) 8.5 Gm Hfa.aer.ad, 1 PUFF IH Q4-6H PRN for SHORTNESS OF BREATH, INHALER 10/11/18 Simvastatin (SIMVASTATIN) 20 Mg Tablet, 20 MG PO QDAY, TAB 10/11/18 Bumetanide (BUMETANIDE) 2 Mg Tab, 3 TAB PO BID, TAB 10/11/18 Terazosin Hcl (TERAZOSIN HCL) 2 Mg Capsule, 2 MG PO BID, CAPSULE 08/06/18 Gabapentin (GABAPENTIN) 300 Mg Capsule, 300 MG PO QHS, CAPSULE 08/06/18 Gabapentin (GABAPENTIN) 300 Mg Capsule, 600 MG PO QAM, CAPSULE 08/06/18 Allopurinol (ALLOPURINOL) 100 Mg Tablet, 1 TAB PO DAILY, #10 TAB 08/06/18 Aspirin (ASPIRIN EC) 81 Mg Tablet.dr, 81 MG PO QDAY, TAB 05/17/18 Ranitidine Hcl (ZANTAC) 150 Mg Tablet, 150 MG PO DAILY 01/18/14 Levothyroxine Sodium (SYNTHROID) 125 Mcg Tablet, 125 MCG PO QDAY 01/18/14 Discontinued Reported Medications Furosemide (FUROSEMIDE) 40 Mg Tablet, 120 MG PO DAILY, TAB 08/06/18 Discontinued Scripts Amlodipine Besylate (AMLODIPINE BESYLATE) 5 Mg Tablet, 5 MG PO QDAY for 30 Days, #30 TAB Prov:GABRIEL STILLVON DO 08/17/18 Past Medical/Surgical History The patient has a past medical and surgical history of hypothyroidism, tonsillectomy, wears glasses, hard of hearing, hearing aids, angina, coronary artery stent, hypercholesterolemia, murmur, hypertension, continuous use of oxygen, GERD,, disease, appendectomy, cholecystectomy, arthritis, breast surgery, chronic back pain, type II diabetes, smoke for 40 years, excessive bleeding, skin cancer. Reviewed Nurses Notes: Yes Hx Smoking: Yes (quit 40 years ago) Smoking Status: Former Smoker Exposure to Second Hand Smoke?: No Hx Substance Use Disorder: No Hx Alcohol Use: No Constitutional Vital Sign - Last 24 Hours 10/11/18 10/11/18 10/11/18 10/11/18 11:24 11:25 11:30 11:39 Temp 101.4 Pulse 105 103 Resp 41 33 B/P (MAP) 162/80 166/94 (118) Pulse Ox 93 97 O2 Delivery Nasal Cannula O2 Flow Rate 3.0 10/11/18 10/11/18 10/11/18 10/11/18 11:54 12:09 12:30 12:39 Pulse 106 100 95 Resp 33 34 8 B/P (MAP) 159/75 (103) Pulse Ox 98 97 97 10/11/18 10/11/18 10/11/18 10/11/18 12:54 13:00 13:09 13:14 Pulse 99 98 95 Resp 14 9 25 B/P (MAP) 153/70 (97) Pulse Ox 97 96 95 10/11/18 10/11/18 10/11/18 10/11/18 13:29 13:30 13:44 13:59 Pulse 92 91 90 Resp 12 14 6 B/P (MAP) 144/68 (93) Pulse Ox 97 93 95 10/11/18 10/11/18 10/11/18 10/11/18 14:00 14:05 14:20 14:30 Pulse 91 94 Resp 28 14 B/P (MAP) 129/64 (85) 118/73 (88) Pulse Ox 94 94 10/11/18 10/11/18 10/11/18 10/11/18 14:35 14:50 15:00 15:05 Pulse 94 92 90 Resp 13 26 13 B/P (MAP) 124/60 (81) Pulse Ox 89 89 89 10/11/18 10/11/18 10/11/18 15:20 15:30 15:35 Pulse 88 87 Resp 25 28 B/P (MAP) 133/58 (83) Pulse Ox 92 92 Physical Exam General Appearance: The patient is alert, has no immediate need for airway protection and no signs of toxicity. Eyes: 2 mm, Pupils equal and round no pallor or injection. An difficult to ascertain at this time however EOMs are intact. ENT, Mouth: Mucous membranes are dry. Respiratory: There are no retractions, lungs are clear to auscultation. Cardiovascular: Regular rate and rhythm. Grade 3 systolic murmur, no clicks or rubs. Gastrointestinal: Abdomen is very round, soft and non tender, no masses, I blacked bowel sounds, no abdominal bruits. Neurological: Alert and oriented 4, difficult to gather information from the patient as he does promptly fall asleep, moving all extremities slowly, no focal neuro deficits however it is difficult to ascertain due to the patient's somnolence. Skin/Extremities: There is an area to the right abdomen, mid axillary that is cellulitic in appearance, very hot to touch. Bilateral lower extremities significantly edematous, this is normal for the patient according to the son. Musculoskeletal: Neck is supple non tender. DIFFERENTIAL DIAGNOSIS: After history and physical exam differential diagnosis was considered for altered mental status including but not limited to hypoglycemia, infectious process, electrolyte abnormality, sepsis, head injury and intoxicants. Medical Decision Making Data Points Result Diagram: 10/11/18 1115 10/11/18 1115 Laboratory Hematology Test 10/11/18 11:15 10/11/18 12:04 10/11/18 12:45 Red Blood Count 4.11 M/uL (4.00-5.60) Mean Corpuscular Volume 91.7 fL (80.0-96.0) Mean Corpuscular Hemoglobin 29.9 pg (26.0-33.0) Mean Corpuscular Hemoglobin Concent 32.6 g/dL (32.0-36.0) Red Cell Distribution Width 15.7 % (11.5-14.5) Mean Platelet Volume 6.7 fL (7.2-11.1) Neutrophils (%) (Auto) 84.0 % (39.4-72.5) Lymphocytes (%) (Auto) 10.9 % (17.6-49.6) Monocytes (%) (Auto) 4.2 % (4.1-12.4) Eosinophils (%) (Auto) 0.4 % (0.4-6.7) Basophils (%) (Auto) 0.5 % (0.3-1.4) Nucleated RBC Relative Count (auto) 0.0 /100WBC Neutrophils # (Auto) 12.9 K/uL (2.0-7.4) Lymphocytes # (Auto) 1.7 K/uL (1.3-3.6) Monocytes # (Auto) 0.6 K/uL (0.3-1.0) Eosinophils # (Auto) 0.1 K/uL (0.0-0.5) Basophils # (Auto) 0.1 K/uL (0.0-0.1) Nucleated RBC Absolute Count (auto) 0.00 K/uL Prothrombin Time 12.8 seconds (12.0-14.4) Prothromb Time International Ratio 0.96 Activated Partial Thromboplast Time 27 seconds (23-35) Sodium Level 143 mmol/L (137-145) Potassium Level 4.2 mmol/L (3.5-5.0) Chloride Level 107 mmol/L (98-107) Carbon Dioxide Level 28 mmol/L (22-30) Blood Urea Nitrogen 43 mg/dl (9-21) Creatinine 3.10 mg/dl (0.66-1.25) Glomerular Filtration Rate Calc 19.2 Random Glucose 230 mg/dl (75-110) Calcium Level 8.7 mg/dl (8.4-10.2) Total Bilirubin 0.2 mg/dl (0.2-1.3) Aspartate Amino Transf (AST/SGOT) 21 U/L (0-35) Alanine Aminotransferase (ALT/SGPT) 23 U/L (0-56) Alkaline Phosphatase 105 U/L (0-126) Troponin I < 0.012 ng/ml Total Protein 6.6 g/dl (6.3-8.2) Albumin 3.6 g/dl (3.5-5.0) Thyroid Stimulating Hormone (TSH) 13.20 uIU/ml (0.46-4.68) Lactate 1.6 mmol/L (0.7-2.1) Urine Color Yellow Urine Clarity Clear Urine pH 6.0 pH (4.8-9.5) Urine Specific Reedy 1.020 Urine Protein 300 mg/dL (NEGATIVE) Urine Glucose (UA) 500 mg/dL (NEGATIVE) Urine Ketones Negative mg/dL (NEGATIVE) Urine Blood Small (NEGATIVE) Urine Nitrite Negative (NEGATIVE) Urine Bilirubin Negative (NEGATIVE) Urine Urobilinogen 0.2 mg/dL (0.2-1.9) Urine Leukocyte Esterase Negative (NEGATIVE) Urine RBC 0-1 /HPF (0-2/HPF) Urine WBC 0-1 /HPF (0-5/HPF) Urine Squamous Epithelial Cells Rare /LPF (NONE-FEW) Urine Transitional Epithelial Cells Rare /LPF (NONE-FEW) Urine Amorphous Crystals Few /HPF Urine Bacteria Negative /HPF (NONE-FEW) Urine Hyaline Casts Rare /LPF (NONE-FEW) Urine Granular Casts Rare /LPF (NONE) Urine Mucus Few /HPF (NONE-FEW) Urine Opiates Screen Negative Urine Barbiturates Screen Negative Ur Tricyclic Antidepressants Screen Negative Urine Phencyclidine Screen Negative Urine Amphetamines Screen Negative Urine Benzodiazepines Screen Negative Urine Cocaine Screen Negative Urine Cannabinoids Screen Negative Chemistry Test 10/11/18 11:15 10/11/18 12:04 10/11/18 12:45 White Blood Count 15.3 k/uL (4.5-11.0) Red Blood Count 4.11 M/uL (4.00-5.60) Hemoglobin 12.3 g/dL (14.0-18.0) Hematocrit 37.7 % (42.0-52.0) Mean Corpuscular Volume 91.7 fL (80.0-96.0) Mean Corpuscular Hemoglobin 29.9 pg (26.0-33.0) Mean Corpuscular Hemoglobin Concent 32.6 g/dL (32.0-36.0) Red Cell Distribution Width 15.7 % (11.5-14.5) Platelet Count 249 K/uL (150-450) Mean Platelet Volume 6.7 fL (7.2-11.1) Neutrophils (%) (Auto) 84.0 % (39.4-72.5) Lymphocytes (%) (Auto) 10.9 % (17.6-49.6) Monocytes (%) (Auto) 4.2 % (4.1-12.4) Eosinophils (%) (Auto) 0.4 % (0.4-6.7) Basophils (%) (Auto) 0.5 % (0.3-1.4) Nucleated RBC Relative Count (auto) 0.0 /100WBC Neutrophils # (Auto) 12.9 K/uL (2.0-7.4) Lymphocytes # (Auto) 1.7 K/uL (1.3-3.6) Monocytes # (Auto) 0.6 K/uL (0.3-1.0) Eosinophils # (Auto) 0.1 K/uL (0.0-0.5) Basophils # (Auto) 0.1 K/uL (0.0-0.1) Nucleated RBC Absolute Count (auto) 0.00 K/uL Prothrombin Time 12.8 seconds (12.0-14.4) Prothromb Time International Ratio 0.96 Activated Partial Thromboplast Time 27 seconds (23-35) Glomerular Filtration Rate Calc 19.2 Calcium Level 8.7 mg/dl (8.4-10.2) Total Bilirubin 0.2 mg/dl (0.2-1.3) Aspartate Amino Transf (AST/SGOT) 21 U/L (0-35) Alanine Aminotransferase (ALT/SGPT) 23 U/L (0-56) Alkaline Phosphatase 105 U/L (0-126) Troponin I < 0.012 ng/ml Total Protein 6.6 g/dl (6.3-8.2) Albumin 3.6 g/dl (3.5-5.0) Thyroid Stimulating Hormone (TSH) 13.20 uIU/ml (0.46-4.68) Lactate 1.6 mmol/L (0.7-2.1) Urine Color Yellow Urine Clarity Clear Urine pH 6.0 pH (4.8-9.5) Urine Specific Reedy 1.020 Urine Protein 300 mg/dL (NEGATIVE) Urine Glucose (UA) 500 mg/dL (NEGATIVE) Urine Ketones Negative mg/dL (NEGATIVE) Urine Blood Small (NEGATIVE) Urine Nitrite Negative (NEGATIVE) Urine Bilirubin Negative (NEGATIVE) Urine Urobilinogen 0.2 mg/dL (0.2-1.9) Urine Leukocyte Esterase Negative (NEGATIVE) Urine RBC 0-1 /HPF (0-2/HPF) Urine WBC 0-1 /HPF (0-5/HPF) Urine Squamous Epithelial Cells Rare /LPF (NONE-FEW) Urine Transitional Epithelial Cells Rare /LPF (NONE-FEW) Urine Amorphous Crystals Few /HPF Urine Bacteria Negative /HPF (NONE-FEW) Urine Hyaline Casts Rare /LPF (NONE-FEW) Urine Granular Casts Rare /LPF (NONE) Urine Mucus Few /HPF (NONE-FEW) Urine Opiates Screen Negative Urine Barbiturates Screen Negative Ur Tricyclic Antidepressants Screen Negative Urine Phencyclidine Screen Negative Urine Amphetamines Screen Negative Urine Benzodiazepines Screen Negative Urine Cocaine Screen Negative Urine Cannabinoids Screen Negative Coagulation Test 10/11/18 11:15 Prothrombin Time 12.8 seconds Prothromb Time International Ratio 0.96 Activated Partial Thromboplast Time 27 seconds Toxicology Test 10/11/18 12:45 Urine Opiates Screen Negative Urine Barbiturates Screen Negative Ur Tricyclic Antidepressants Screen Negative Urine Phencyclidine Screen Negative Urine Amphetamines Screen Negative Urine Benzodiazepines Screen Negative Urine Cocaine Screen Negative Urine Cannabinoids Screen Negative Urinalysis Test 10/11/18 12:45 Urine Color Yellow Urine Clarity Clear Urine pH 6.0 pH (4.8-9.5) Urine Specific Reedy 1.020 Urine Protein 300 mg/dL (NEGATIVE) Urine Glucose (UA) 500 mg/dL (NEGATIVE) Urine Ketones Negative mg/dL (NEGATIVE) Urine Blood Small (NEGATIVE) Urine Nitrite Negative (NEGATIVE) Urine Bilirubin Negative (NEGATIVE) Urine Urobilinogen 0.2 mg/dL (0.2-1.9) Urine Leukocyte Esterase Negative (NEGATIVE) Urine RBC 0-1 /HPF (0-2/HPF) Urine WBC 0-1 /HPF (0-5/HPF) Urine Squamous Epithelial Cells Rare /LPF (NONE-FEW) Urine Transitional Epithelial Cells Rare /LPF (NONE-FEW) Urine Amorphous Crystals Few /HPF Urine Bacteria Negative /HPF (NONE-FEW) Urine Hyaline Casts Rare /LPF (NONE-FEW) Urine Granular Casts Rare /LPF (NONE) Urine Mucus Few /HPF (NONE-FEW) EKG/Imaging EKG Interpretation 12 lead EKG: Time of EKG 1131. Rhythm: Sinus tachycardia, first-degree AV block, ventricular rate 103 bpm. [place]: normal QRS: normal ST segments: No ST depression or elevation identified, significant underlying artifact. Similar morphology when compared to the 08/10/2018 EKG,. Imaging PATIENT NAME: Rizwan Huertas : 1930 MR: [id number] V: [id number] EXAM DATE: ORDERING PHYSICIAN: FERNY GARCIA TECHNOLOGIST: Location: [facility] Patient: Rizwan Huertas : 1930 Visit/Account:[id number] Date of Sevice: 10/11/2018 CT Head without contrast Indication: Altered mental status. Comparison: 05/01/2018. Technique: Axial CT images were obtained through the brain from the skull base to the vertex without administration of IV contrast. Reformatted coronal and sagittal images were also obtained. One of the following dose optimization techniques was utilized in the performance of this exam: automated exposure control; adjustment of the mA and/or kV according to the patient's size; or use of an iterative reconstruction technique. Specific details can be referenced in the facility's radiology CT exam operational policy. Findings: No evidence of mass, mass effect, or midline shift. No acute intracranial hemorrhage or acute territorial infarction. No extra-axial fluid collection or hydrocephalus. Age-related cerebral atrophy. Periventricular white matter ischemic changes consistent small vessel disease. Hunt/white matter differentiation appears normal. Mild bilateral internal carotid artery calcifications. Bony structures show no fractures or lesions. Rightward deviation nasal septum. Mild mucosal thickening seen in the left frontal sinus. The remaining sinuses and mastoids visualized are clear. IMPRESSION: 1. Senescent changes without acute abnormality. 2. Mild left frontal sinus disease. Report Dictated By: Jacob John at 10/11/2018 12:51 PM Report E-Signed By: Jacob John at 10/11/2018 12:55 PM WSN:[id number] PATIENT NAME: Rizwan Huertas : 1930 MR: [id number] V: [id number] EXAM DATE: ORDERING PHYSICIAN: FERNY GARCIA TECHNOLOGIST: Location: [facility] Patient: Rizwan Huertas : 1930 Visit/Account:[id number] Date of Sevice: 10/11/2018 Technique: CHEST SINGLE AP HISTORY: ams Comparison studies: 07/28/2018 FINDINGS: Low degree of inspiration is noted. No acute airspace consolidation. Cardiac silhouette is unchanged. IMPRESSION: 1. Low degree of inspiration with no acute cardiopulmonary process. Report Dictated By: Jorge Cruz DO at 10/11/2018 1:02 PM Report E-Signed By: Jorge Cruz DO at 10/11/2018 1:04 PM WSN:[id number] Course/Re-evaluation Clinical Indication for ER IV: Hydration, IV Access ED Course The patient was admitted to room. A history and physical obtained. Differential diagnoses were considered. An IV was started. A CBC, CMP, lactate and blood cultures and UA were collected. As there was concern of sepsis initially the patient was started on a 30 mL/kg saline bolus.CBC showing a white count of 15.3 with a left shift, as compared to 3 days ago normal white count no shift, chemistry showing BUN 43, creatinine 3.10, this is similar to the patient's historical data, glucose 2:30, lactate 1.6 INR 0.96, UA showing small blood which could be from catheterization the patient does have history of renal disease, proteinuria, glucose, urine bilirubin and granular casts. CT of the hea d was for any acute pathology, chest x-ray negative for any acute cardiopulmonary process. Sepsis protocol was initiated, started on protocol vancomycin and Zosyn. I did speak with Dr. Ramos's, the infectious disease doctor in [place], we discussed the patient's recent visits and cultures since April, he felt that the patient could be safely admitted to our facility. I did speak with Dr. Young Garcia as noted below, he's accepted the patient with the hospitalist services. 10/11/2018 1:58:04 pm I did speak with Dr. isabella Garcia, the hospitalist sanitation technician regarding the patient's case, he will be down to see the patient's for possible admission. 10/11/2018 3:24:47 pm I did speak with Dr. Vargas the hospitalist sanitation technician, he's accepted the patient to the hospitalist services, patient will be admitted for sepsis and cellulitis. Decision to Disposition Date: Oct 11, 2018 Decision to Disposition Time: 15:24 Depart Departure Latest Vital Signs Vital Signs Date Time Temp Pulse Resp B/P (MAP) Pulse Ox O2 Delivery O2 Flow Rate FiO2 10/11/18 15:35 87 28 92 10/11/18 15:30 133/58 (83) 10/11/18 11:25 3.0 10/11/18 11:24 101.4 Nasal Cannula Core Temperature (Celsius): ??? Impression: Primary Impression: Cellulitis Additional Impression: Sepsis Condition: Improved Disposition: Admitted from ER Referrals: HILARIA MEDINA MD (PCP) Problem Qualifiers Primary Impression: Cellulitis Site of cellulitis: trunk Site of cellulitis of trunk: abdominal wall Qualified Codes: L03.311 - Cellulitis of abdominal wall Additional Impression: Sepsis Sepsis type: sepsis due to unspecified organism Qualified Codes: A41.9 - Sepsis, unspecified organism FERNY GARCIAP- Oct 11, 2018 11:30
[2018-10-11 11:38] LABS: PLATELET COUNT, AUTOMATED 249 K/uL (150-450)
[2018-10-11] MEDS ORDERED: NS 0.9% IV ONE (11:40)
[2018-10-11] MEDS ORDERED: ACETAMINOPHEN(*)1000 MG/100 ML 100 ML IVPB ONE (11:40)
[2018-10-11 11:47] LABS: INR 0.96
[2018-10-11] MEDS ORDERED: VANCOMYCIN(*) 1 GM VIAL 2.5 GM in NS(*) 0.9% 250 ML BAG 250 ML IVPB ONE (12:15)
[2018-10-11] MEDS ORDERED: PIPERACILLIN/TAZO*3.375GM VIAL 3.375 GM in NS(*) 0.9% 100 ML MINI-BAG 100 ML IVPB ONE (12:15)
--- NOTE | 2018-10-11 12:45 | EKG ---
[place] [facility] [place] NAME: YUMIKO MONIQUE : [id number] MR: [id number] V: [id number] EXAM DATE: ORDERING PHYSICIAN: FERNY GARCIA TECHNOLOGIST: Test Reason : Blood Pressure : / mmHG Vent. Rate : 103 BPM Atrial Rate : 103 BPM P-R Int : 244 ms QRS Dur : 102 ms QT Int : 336 ms P-R-T Axes : 084 -46 074 degrees QTc Int : 440 ms Sinus tachycardia with 1st degree AV block Left anterior fascicular block Left ventricular hypertrophy with repolarization abnormality Abnormal ECG When compared with ECG of 10-AUG-2018 05:31, VA interval has increased Vent. rate has increased BY 55 BPM Confirmed by SALVADOR GUEVARA ([id number]) on 10/11/2018 4:40:28 PM Referred By: Confirmed By:SALVADOR GUEVARA
--- NOTE | 2018-10-11 13:00 | RADIOLOGY IMAGING REPORT ---
FACILITY: [facility] PATIENT NAME: Rizwan Huertas : 1930 MR: [id number] V: [id number] EXAM DATE: ORDERING PHYSICIAN: FERNY GARCIA TECHNOLOGIST: Location: [facility] [place] Patient: Rizwan Huertas : 1930 Visit/Account:[id number] Date of Sevice: 10/11/2018 CT Head without contrast Indication: Altered mental status. Comparison: 05/01/2018. Technique: Axial CT images were obtained through the brain from the skull base to the vertex without administration of IV contrast. Reformatted coronal and sagittal images were also obtained. One of the following dose optimization techniques was utilized in the performance of this exam: autom ated exposure control; adjustment of the mA and/or kV according to the patient's size; or use of an i terative reconstruction technique. Specific details can be referenced in the facility's radiology CT exam operational policy. Findings: No evidence of mass, mass effect, or midline shift. No acute intracranial hemorrhage or acute territorial infarction. No extra-axial fluid collection or hydrocephalus. Age-related cerebral atrophy. Periventricular white matter ischemic changes consistent small vessel disease. Hunt/white matter differentiation appears n ormal. Mild bilateral internal carotid artery calcifications. Bony structures show no fractures or lesions. Rightward deviation nasal septum. Mild mucosal thickening seen in the left frontal sinus. The remaining sinuses and mastoids visualized are clear. IMPRESSION: 1. Senescent changes without acute abnormality. 2. Mild left frontal sinus disease. Report Dictated By: Jacob John at 10/11/2018 12:51 PM Report E-Signed By: Jacob John at 10/11/2018 12:55 PM WSN:[id number]
--- NOTE | 2018-10-11 13:08 | RADIOLOGY IMAGING REPORT ---
FACILITY: [facility] [place] PATIENT NAME: Rizwan Huertas : 1930 MR: [id number] V: [id number] EXAM DATE: ORDERING PHYSICIAN: FERNY GARCIA TECHNOLOGIST: Location: [facility] Patient: Rizwan Huertas : 1930 Visit/Account:[id number] Date of Sevice: 10/11/2018 Technique: CHEST SINGLE AP HISTORY: ams Comparison studies: 07/28/2018 FINDINGS: Low degree of inspiration is noted. No acute airspace consolidation. Cardiac silhouette i s unchanged. IMPRESSION: 1. Low degree of inspiration with no acute cardiopulmonary process. Report Dictated By: Jorge Cruz DO at 10/11/2018 1:02 PM Report E-Signed By: Jorge Cruz DO at 10/11/2018 1:04 PM WSN:[id number]
[2018-10-11] MEDS ORDERED: CEPH250C37 PO (13:32)
[2018-10-11] MEDS ORDERED: BUM2 PO (13:32)
[2018-10-11] MEDS ORDERED: ALBU8.5H IH (13:32)
[2018-10-11] MEDS ORDERED: SIMV-49 PO (13:32)
[2018-10-11] MEDS ORDERED: HUM100VI15 SQ (13:32)
[2018-10-11 16:29] VITALS: BP 134/59
[2018-10-11] MEDS ORDERED: ALBUTEROL 2.5 MG/3 ML NEB NEB PRN (19:15)
[2018-10-11] MEDS ORDERED: NS(*) 0.9% 1000 ML BAG 1,000 ML IV PRN (19:35)
[2018-10-11] MEDS ORDERED: ACETAMINOPHEN 500 MG TAB PO PRN (20:20)
--- NOTE | 2018-10-11 20:21 | History & Physical ---
History of Present Illness History of Present Illness 88yo male with chronic lymphedema, right thigh cellulitis 2x since April with bacteremia and T2DM who was brought to the ER for progressive acute onset of shaking chills, and confusion that started at about 0900. Most of this history is from family in the room. Presumably, based on an ESR that increased on 10/08, the patient was started on Keflex. At that time, he was asymptomatic. This morning he was without any complaints, but then at 0900 he developed shivering and confusion. He brought to the ER. He has had no trauma. His LE edema is relatively unchanged. In the ER, he was given 3 liters of IVF, Zosyn, and a loading dose of Vancomycin. History Problems: (1) Gout Status: Chronic (2) Chronic renal failure Status: Chronic (3) Coronary artery disease Status: Chronic (4) Edema Status: Chronic (5) HTN (hypertension) Status: Chronic (6) COPD exacerbation Status: Chronic (7) Diabetic neuropathy Status: Chronic (8) Type 2 diabetes mellitus Status: Chronic (9) BPH (benign prostatic hyperplasia) Status: Chronic (10) History of nephrectomy, right Status: Chronic Home Meds Reported Medications Hum Insulin Nph/Reg Insulin Hm (NOVOLIN 70-30 100 UNIT/ML VIAL) 100 Unit/1 Ml Vial, 1-10 UNIT SQ DIRECTED, VIAL 10/11/18 Cephalexin (KEFLEX) 250 Mg Capsule, 250 MG PO BID, #28 CAP 10/11/18 Albuterol Sulfate 90 Mcg/Act (PROAIR HFA 90 MCG/ACT) 8.5 Gm Hfa.aer.ad, 1 PUFF IH Q4-6H PRN for SHORTNESS OF BREATH, INHALER 10/11/18 Simvastatin (SIMVASTATIN) 20 Mg Tablet, 20 MG PO QDAY, TAB 10/11/18 Bumetanide (BUMETANIDE) 2 Mg Tab, 3 TAB PO BID, TAB 10/11/18 Terazosin Hcl (TERAZOSIN HCL) 2 Mg Capsule, 2 MG PO BID, CAPSULE 08/06/18 Gabapentin (GABAPENTIN) 300 Mg Capsule, 300 MG PO QHS, CAPSULE 08/06/18 Gabapentin (GABAPENTIN) 300 Mg Capsule, 600 MG PO QAM, CAPSULE 08/06/18 Allopurinol (ALLOPURINOL) 100 Mg Tablet, 1 TAB PO DAILY, #10 TAB 08/06/18 Aspirin (ASPIRIN EC) 81 Mg Tablet.dr, 81 MG PO QDAY, TAB 05/17/18 Ranitidine Hcl (ZANTAC) 150 Mg Tablet, 150 MG PO DAILY 01/18/14 Levothyroxine Sodium (SYNTHROID) 125 Mcg Tablet, 125 MCG PO QDAY 01/18/14 Discontinued Reported Medications Furosemide (FUROSEMIDE) 40 Mg Tablet, 120 MG PO DAILY, TAB 08/06/18 Discontinued Scripts Amlodipine Besylate (AMLODIPINE BESYLATE) 5 Mg Tablet, 5 MG PO QDAY for 30 Days, #30 TAB Prov:VON KRUSE DO 08/17/18 Allergies: Coded Allergies: clonidine (Verified Allergy, Severe, Severe bradycardia, 10/11/18) Patient History: FH: cancer FATHER, Hx Smoking: Yes (quit 40 years ago) Smoking Status: Former Smoker Exposure to Second Hand Smoke?: No Caffeine Intake: Soda Caffeine/Cups Per Day: 2-3 Hx Alcohol Use: No Hx Substance Use Disorder: No Social Drug Use: Never Review of Systems Other History limited because the patient is a bit confused. Exam Vital Signs Vital Signs Date Time Temp Pulse Resp B/P (MAP) Pulse Ox O2 Delivery O2 Flow Rate FiO2 10/11/18 16:29 101.2 83 20 134/59 (84) 95 Nasal Cannula 2.0 General Appearance: Alert, Awake, No Acute Distress Neuro: Other (Knows where he is, but doesn't know the events of the morning. No obvious focal) Cardiovascular: Regular Rate and Rhythm Respiratory: Clear to Auscultation (mild wob) GI: Abd Soft and Non-Tender Extremities: Edema (socks and compression over ankle and low leg) Integumentary: No Jaundice, No Cyanosis; Other (R flank with erythema. No areas of skin breakdown in the erythema. The borders marked. inguinal area on right with some skin breakdown at the skin fold) Medical Decision Making Data Points Result Diagram: 10/11/18 1115 10/11/18 1115 Item Value Date Time Lactate 1.6 mmol/L 10/11/18 1204 Thyroid Stimulating Hormone (TSH) 13.20 uIU/ml H 10/11/18 1115 Troponin I < 0.012 ng/ml 10/11/18 1115 Total Bilirubin 0.2 mg/dl 10/11/18 1115 Aspartate Amino Transf (AST/SGOT) 21 U/L 10/11/18 1115 Alanine Aminotransferase (ALT/SGPT) 23 U/L 10/11/18 1115 Urine Opiates Screen Negative 10/11/18 1245 Urine Barbiturates Screen Negative 10/11/18 1245 Ur Tricyclic Antidepressants Screen Negative 10/11/18 1245 Urine Phencyclidine Screen Negative 10/11/18 1245 Urine Amphetamines Screen Negative 10/11/18 1245 Urine Benzodiazepines Screen Negative 10/11/18 1245 Urine Cocaine Screen Negative 10/11/18 1245 Urine Cannabinoids Screen Negative 10/11/18 1245 Urine RBC 0-1 /HPF 10/11/18 1245 Urine WBC 0-1 /HPF 10/11/18 1245 Urine Bacteria Negative /HPF 10/11/18 1245 Urine Blood Small H 10/11/18 1245 Urine Urobilinogen 0.2 mg/dL 10/11/18 1245 Urine Leukocyte Esterase Negative 10/11/18 1245 Urine Amorphous Crystals Few /HPF 10/11/18 1245 Urine Granular Casts Rare /LPF H 10/11/18 1245 Neutrophils (%) (Auto) 84.0 % H 10/11/18 1115 Lymphocytes (%) (Auto) 10.9 % L 10/11/18 1115 Prothromb Time International Ratio 0.96 10/11/18 1115 Erythrocyte Sedimentation Rate 50 mm/HOUR H 10/08/18 1150 Erythrocyte Sedimentation Rate 28 mm/HOUR H 09/24/18 1040 Erythrocyte Sedimentation Rate 38 mm/HOUR H 09/17/18 1045 Erythrocyte Sedimentation Rate 46 mm/HOUR H 09/10/18 0830 Erythrocyte Sedimentation Rate 50 mm/HOUR H 09/03/18 1050 Erythrocyte Sedimentation Rate 54 mm/HOUR H 08/27/18 1130 Creatinine 3.20 mg/dl H 10/08/18 1150 Creatinine 2.90 mg/dl H 09/22/18 1040 Blood Urea Nitrogen 48 mg/dl H 09/22/18 1040 Blood Urea Nitrogen 46 mg/dl H 10/08/18 1150 Thyroid Stimulating Hormone (TSH) 13.10 uIU/ml H 09/10/18 0830 Blood Urea Nitrogen 44 mg/dl H 08/16/18 0520 Creatinine 2.70 mg/dl H 08/16/18 0520 EKG / Imaging EKG Interpretation Vent. Rate : 103 BPM Atrial Rate : 103 BPM P-R Int : 244 ms QRS Dur : 102 ms QT Int : 336 ms P-R-T Axes : 084 -46 074 degrees QTc Int : 440 ms Sinus tachycardia with 1st degree AV block Left anterior fascicular block Left ventricular hypertrophy with repolarization abnormality Abnormal ECG When compared with ECG of 10-AUG-2018 05:31, SC interval has increased Vent. rate has increased BY 55 BPM Confirmed by SALVADOR GUEVARA ([id number]) on 10/11/2018 4:40:28 PM Imaging CXR - 1. Low degree of inspiration with no acute cardiopulmonary process. Head CT - 1. Senescent changes without acute abnormality. 2. Mild left frontal sinus disease. Assessment and Plan Problems: (1) Cellulitis Status: Acute Assessment & Plan: He presented with a sudden change in mental status with shaking chills starting at about 0900 the morning of admission and a fever of 101.4. He has a right flank cellulitis with no obvious source. There is some s kin breakdown in the right inguinal area. He has had 2 previous right thigh to inguinal area cellulitis events as mention below. Blood cultures pending. BP/P stable. Lactate wnl. He was given Vancomycin and Zosyn in the ER. Both will not be continued. Ceftriaxone 2g q12 based on previous blood culture results. Blood cultures pending. (2) Altered mental status Status: Acute Assessment & Plan: Secondary to infection and fever. Improved after hydration, antibiotics and fever improved. Will follow. (3) Bacteremia Status: Resolved Assessment & Plan: April he was in for right thigh cellulitis and and grew streptococcus pseudoporcinus from the blood. He was on 4 weeks of Ceftriaxone for concern of endocarditis because of an abnormal appearing Aortic Valve. Repeat echo didn't show the Aortic valve abnormality in June. Mid July, he was admitted for a right thigh cellulitis and grew streptococcus mitis/oralis from the blood. He ended up getting transferred to [facility]. GWENDOLYN showed no valvular abnormalities. He then finished a 2 week course of Invanz. (4) CKD (chronic kidney disease) stage 4, GFR 15-29 ml/min Assessment & Plan: Baseline creatinine is 2.6-3.2. (5) CAD (coronary artery disease) Status: Chronic Assessment & Plan: Continue chronic ASA, but hold simvastatin. (6) Chronic edema Status: Chronic Assessment & Plan: Holding chronic Bumex for now. Continue LE wraps. (7) Type 2 diabetes mellitus Status: Chronic (8) BPH (benign prostatic hyperplasia) Status: Chronic Assessment & Plan: Continue chronic terazosin. (9) Diabetic neuropathy Status: Chronic Assessment & Plan: Continue chronic gabapentin (10) History of nephrectomy, right Status: Chronic Assessment & Plan: Done on 01/08/18 for TCC. Copies to: MARCO ANTONIO STROUD DO; ANDRES LAGUNAS MD ; Venous Thromboembolism Antithrombotics Is Pt On Any Antithrombotics?: No Exam Sepsis Risk: Possible Severe Sepsis Risk SALVADOR GUEVARA MD Oct 11, 2018 20:21
[2018-10-11 20:35] VITALS: BP 141/58
[2018-10-11] MEDS: GABAPENTIN 300 MG CAP PO SCH (20:46)
[2018-10-11] MEDS: TERAZOSIN HCL 1 MG CAP PO SCH (20:47)
[2018-10-11] MEDS: NYSTATIN 100,000 U/GM PWD 15GM TP SCH (20:47)
[2018-10-11] MEDS: cefTRIAXone 2 GM VIAL IVP SCH (20:56)
[2018-10-11] MEDS: INSULIN HUM LISPRO 100 UN/ML 3 ML VIAL SUBQ PRN (22:21)
[2018-10-11 23:44] VITALS: BP 127/54
[2018-10-12] MEDS: LEVOTHYROXINE SOD 0.137 MG TAB PO SCH (05:38)
[2018-10-12] MEDS ORDERED: LEVOTHYROXINE SOD 0.125 MG TAB PO SCH (06:00)
[2018-10-12 06:20] LABS: PLATELET COUNT, AUTOMATED 190 K/uL (150-450)
[2018-10-12 08:03] VITALS: BP 137/56
[2018-10-12] MEDS: GABAPENTIN 300 MG CAP PO SCH ×2 (08:23→20:38)
[2018-10-12] MEDS: ASPIRIN 81 MG ENTERIC COATED PO SCH (08:23)
[2018-10-12] MEDS: ENOXAPARIN 30 MG/0.3 ML SYR SC SCH (08:23)
[2018-10-12] MEDS: ALLOPURINOL 100 MG TAB PO SCH (08:23)
[2018-10-12] MEDS: TERAZOSIN HCL 1 MG CAP PO SCH ×2 (08:23→20:38)
[2018-10-12] MEDS: RANITIDINE HCL 150 MG TAB PO SCH (08:23)
[2018-10-12] MEDS: NYSTATIN 100,000 U/GM PWD 15GM TP SCH ×2 (08:24→20:39)
--- NOTE | 2018-10-12 09:05 | NUR ---
Physical Therapy Impression PT consulted for wound care/LE compression wrap change.Pt with bilateral [address], these are changed 2x/week (/thursday) by [facility] services. Pt with no wounds present on bilateral LEs, with a small weeping area of the dorsum of the L) foot. Pt cleansed bilateral LEs and placed moisture barrier cream over distal LEs and a telfa pad over the dorsum of the L) foot at draining area. PT applied bilateral 4 layer wraps and elevated pt's LEs. Plan for RN to take over care and change wraps on Thursday if pt is still admitted. No further PT visits planned. Physical Therapy Goals Patient's Goals
--- NOTE | 2018-10-12 09:45 | Hospitalist Progress Note ---
Subjective Progress Notes Subjective This patient was admitted for cellulitis of the right flank. He had no acute issues overnight. Patient Complains of: Cardiovascular: No: Chest Pain Respiratory: No: Shortness of Breath Physical Exam Vital Signs Date Time Temp Pulse Resp B/P (MAP) Pulse Ox O2 Delivery O2 Flow Rate FiO2 10/12/18 08:15 92 Nasal Cannula 2.0 10/12/18 08:03 97.7 61 20 137/56 (83) Intake and Output 10/12/18 06:59 Intake Total 2200 ml Output Total 850 ml Balance 1350 ml IV Total 2200 ml Output Urine Total 850 ml Cardiovascular: Regular Rate and Rhythm Integumentary: Other (Decreased erythema.) Result Diagram: 10/12/1853 10/12/1853 Assessment and Plan Problems: (1) Cellulitis Status: Acute Assessment & Plan: He presented with a sudden change in mental status, chills, and a fever of 101.4. He has a right flank cellulitis with no obvious source. He is on empiric treatment with ceftriaxone. (2) Altered mental status Status: Acute Assessment & Plan: Secondary to infection and fever. (3) Bacteremia Status: Resolved Assessment & Plan: April he was in for right thigh cellulitis and and grew streptococcus pseudoporcinus from the blood. He was on 4 weeks of Ceftriaxone for concern of endocarditis because of an abnormal appearing Aortic Valve. Repeat echo didn't show the Aortic valve abnormality in June. Mid July, he was admitted for a right thigh cellulitis and grew streptococcus mitis/oralis from the blood. He ended up getting transferred to [facility]. GWENDOLYN showed no valvular abnormalities. He then finished a 2 week course of Invanz. (4) CKD (chronic kidney disease) stage 4, GFR 15-29 ml/min Assessment & Plan: Baseline creatinine is 2.6-3.2. (5) CAD (coronary artery disease) Status: Chronic Assessment & Plan: Continue chronic ASA, but hold simvastatin. (6) Chronic edema Status: Chronic Assessment & Plan: Holding chronic Bumex for now. Continue LE wraps. (7) Type 2 diabetes mellitus Status: Chronic (8) BPH (benign prostatic hyperplasia) Status: Chronic Assessment & Plan: Continue chronic terazosin. (9) Diabetic neuropathy Status: Chronic Assessment & Plan: Continue chronic gabapentin (10) History of nephrectomy, right Status: Chronic Assessment & Plan: Done on 01/08/18 for TCC. Exam Sepsis Risk: No Definite Risk HILARIA BARRETO DO Oct 12, 2018 09:45
[2018-10-12] MEDS: INSULIN HUM LISPRO 100 UN/ML 3 ML VIAL SUBQ PRN ×3 (11:46→22:11)
[2018-10-12 13:57] VITALS: Ht 180.3 cm; Wt 129.9 kg
[2018-10-12 14:18] VITALS: BP 149/60
[2018-10-12 18:51] VITALS: BP 165/77
[2018-10-12] MEDS: cefTRIAXone 2 GM VIAL IVP SCH (20:38)
[2018-10-13] MEDS: LEVOTHYROXINE SOD 0.137 MG TAB PO SCH (05:58)
[2018-10-13 06:35] LABS: PLATELET COUNT, AUTOMATED 213 K/uL (150-450)
[2018-10-13] MEDS: TERAZOSIN HCL 1 MG CAP PO SCH ×2 (08:50→20:43)
[2018-10-13] MEDS: ASPIRIN 81 MG ENTERIC COATED PO SCH (08:50)
[2018-10-13] MEDS: ALLOPURINOL 100 MG TAB PO SCH (08:50)
[2018-10-13] MEDS: RANITIDINE HCL 150 MG TAB PO SCH (08:50)
[2018-10-13] MEDS: ENOXAPARIN 30 MG/0.3 ML SYR SC SCH (08:51)
[2018-10-13] MEDS: GABAPENTIN 300 MG CAP PO SCH ×2 (08:51→20:43)
[2018-10-13] MEDS: INSULIN HUM LISPRO 100 UN/ML 3 ML VIAL SUBQ PRN ×3 (12:03→20:46)
[2018-10-13 15:49] VITALS: BP 153/73
--- NOTE | 2018-10-13 16:03 | Antimicrobial Stewardship ---
Antimicrobial Stewardship Empiricly appropriate: Yes (Ceftriaxone - based on prior microbiology data) Significant PMH: Yes (Hypothyroidism angina, CAD s/p stent, HL, murmur, HTN, GERD, DM2, ) Support empiric regimen: Yes (Vanc, Zosyn in the ED, switched to Ceftriaxone alone for micro history) Approriate Cultures done: Yes (Blood Cx x 2 - Growing S. mitis/oralis --> oral thais) Cultures need repeate: Yes (Yes positive blood cultures, repeat cultures on 10/13/18 to assess clearance of bacteremia) Renal/Hepatic dosing: Yes (CKD, Scr 3.1 on admission, ceftriaxone no adjustment needed) Serum concentration checked: Yes (Vanco Random 18.75, not continued) Determine cumulative duration: Started on 10/11/18 Determine standard duration: Positive Blood Cx 10-14 days - depending Comment 88 yo M who presented with AMS, fever, and reports of shaking/shivering. Tmax 102.4 WBC 15.3 -->10.6 Neuts 84% --> 68% ESR 57 Scr 3.1, now 2.9 BUN 43 TSH 13.2 Vanco Random 18.75 mcg/mL UA (-) Head CT --> mild left frontal sinus disease Chest xray (-) Panorex xray of mouth pending (pt with complaint of bad teeth) Blood Cx x 2 --> 4/4 bottles growing S. mitis/oralis Repeat cx pending Given Zosyn + Vanc in the ED, stopped upon arrival to the floor, started on Ceftriaxone based on prior microbiology cultures. Repeat cultures pending, continue ceftriaxone for minimum of 7 days, but likely 10-14 days. Mavis Raman, PharmD, BCOP MAVIS RAMAN October 13, 2018 16:03
--- NOTE | 2018-10-13 16:14 | RADIOLOGY IMAGING REPORT ---
FACILITY: [facility] PATIENT NAME: Rizwan Huertas : 1930 MR: [id number] V: [id number] EXAM DATE: ORDERING PHYSICIAN: VON RICHARDSON TECHNOLOGIST: Location: [facility] [place] Patient: Rizwan Huertas : 1930 Visit/Account:[id number] Date of Sevice: 10/13/2018 Exam type: PANOREX History: bacteremic w mouth thais, oral pain Comparison: None. Findings: Patient is missing multiple teeth. Dental hardware is noted in teeth # 29 and 12. Dental caries a re noted involving teeth # 4 and 5 with lucencies around the roots. No acute fracture. IMPRESSION: 1. Dental caries involving teeth #4 and 5 in the right superior maxilla. Report Dictated By: Jacob Mejia MD at 10/13/2018 4:04 PM Report E-Signed By: Jacob Mejia MD at 10/13/2018 4:11 PM [id number]
[2018-10-13] MEDS ORDERED: INFLUENZA VIRUS VAC 0.5ML SYR IM ONLY ONE (18:55)
--- NOTE | 2018-10-13 18:56 | Hospitalist Progress Note ---
Physical Exam Vital Signs Date Time Temp Pulse Resp B/P (MAP) Pulse Ox O2 Delivery O2 Flow Rate FiO2 10/13/18 15:49 97.7 24 153/73 (99) 94 Nasal Cannula 2.0 10/12/18 18:51 70 Intake and Output 10/13/18 07:00 Intake Total 720 ml Output Total 1300 ml Balance -580 ml Intake Oral 720 ml Output Urine Total 1300 ml # Bowel Movements 1 General Appearance: Alert, Awake, No Acute Distress Neuro: No Gross deficits Cardiovascular: Normal Rhythm & Peripheral Pulses Respiratory: No Respiratory Distress Result Diagram: 10/13/1854710/13/18547 Assessment and Plan Problems: (1) Bacteremia Status: Resolved Assessment & Plan: April he was in for right thigh cellulitis and and grew streptococcus pseudoporcinus from the blood. He was on 4 weeks of Ceftriaxone for concern of endocarditis because of an abnormal appearing Aortic Valve. Repeat echo didn't show the Aortic valve abnormality in June. Mid July, he was admitted for a right thigh cellulitis and grew streptococcus mitis/oralis from the blood. He ended up getting transferred to [facility]. GWENDOLYN showed no valvular abnormalities. He then finished a 2 week course of Invanz. Again growing streptococcus mitis/oralis Panorex does show apical lucency on two teeth with dental carries which could be consistent with apical abscesses. Likely this is the source of bacteremia, will need 2 weeks IV antibiotic and dental consultation. (2) Cellulitis Status: Acute Assessment & Plan: He presented with a sudden change in mental status, chills, and a fever of 101.4. He has a possible right flank cellulitis but the source of blood infection is more likely oral. He is on empiric treatment with ceftria xone. (3) Altered mental status Status: Acute Assessment & Plan: Secondary to infection and fever. (4) CKD (chronic kidney disease) stage 4, GFR 15-29 ml/min Assessment & Plan: Baseline creatinine is 2.6-3.2. (5) CAD (coronary artery disease) Status: Chronic Assessment & Plan: Continue chronic ASA, but hold simvastatin. (6) Chronic edema Status: Chronic Assessment & Plan: Holding chronic Bumex for now. Continue LE wraps. (7) Type 2 diabetes mellitus Status: Chronic (8) BPH (benign prostatic hyperplasia) Status: Chronic Assessment & Plan: Continue chronic terazosin. (9) Diabetic neuropathy Status: Chronic Assessment & Plan: Continue chronic gabapentin (10) History of nephrectomy, right Status: Chronic Assessment & Plan: Done on 01/08/18 for TCC. Exam Sepsis Risk: No Definite Risk RIOS VON RICHARDSON DO October 13, 2018 18:56
[2018-10-13 19:36] VITALS: BP 160/67
[2018-10-13] MEDS: cefTRIAXone 2 GM VIAL IVP SCH (20:43)
[2018-10-13] MEDS: NYSTATIN 100,000 U/GM PWD 15GM TP SCH (21:00)
[2018-10-14] MEDS: LEVOTHYROXINE SOD 0.137 MG TAB PO SCH (05:20)
[2018-10-14 07:00] VITALS: BP 180/80
[2018-10-14 07:29] VITALS: BP 167/69
[2018-10-14] MEDS: ALLOPURINOL 100 MG TAB PO SCH (08:02)
[2018-10-14] MEDS: RANITIDINE HCL 150 MG TAB PO SCH (08:02)
[2018-10-14] MEDS: GABAPENTIN 300 MG CAP PO SCH (08:02)
[2018-10-14] MEDS: ASPIRIN 81 MG ENTERIC COATED PO SCH (08:02)
[2018-10-14] MEDS: ENOXAPARIN 30 MG/0.3 ML SYR SC SCH (08:02)
[2018-10-14] MEDS: NYSTATIN 100,000 U/GM PWD 15GM TP SCH (08:02)
[2018-10-14] MEDS: TERAZOSIN HCL 1 MG CAP PO SCH (08:02)
--- NOTE | 2018-10-14 08:23 | NUR ---
ECF Referral - PASRR negative. Met with patient, he is familiar with ECF and it's philosophy and routines. States he does not want OT/PT except to have PT do his LE wraps. Discussed removal of sparrow prior to admission with Janene Pinedo NP. Will qualify for fpc with daily IV antibiotics.
[2018-10-14 11:28] VITALS: BP 162/69
[2018-10-14] MEDS: INSULIN HUM LISPRO 100 UN/ML 3 ML VIAL SUBQ PRN (11:46)
--- NOTE | 2018-10-14 13:18 | Transfer Summary (ECF/SWB) ---
Transfer Summary (ECF/SWB) Problems: (1) Bacteremia Status: Resolved Assessment & Plan: April he was in for right thigh cellulitis and and grew streptococcus pseudoporcinus from the blood. He was on 4 weeks of Ceftriaxone for concern of endocarditis because of an abnormal appearing Aortic Valve. Repeat echo didn't show the Aortic valve abnormality in June. Mid July, he was admitted for a right thigh cellulitis and grew streptococcus mitis/oralis from the blood. He ended up getting transferred to [facility]. GWENDOLYN showed no valvular abnormalities. He then finished a 2 week course of Invanz. Again growing st reptococcus mitis/oralis Panorex does show apical lucency on two teeth with dental carries which could be consistent with apical abscesses. Likely this is the source of bacteremia, will need 2 weeks IV antibiotic and dental consultation. He will be transferred to [facility] ECF unit for continued antibiotic treatment. (2) Cellulitis Status: Acute Assessment & Plan: He presented with a sudden change in mental status, chills, and a fever of 101.4. He has a possible right flank cellulitis but the source of blood infection is more likely oral. He is on empiric treatment with ceftriaxone. (3) Altered mental status Status: Acute Assessment & Plan: Secondary to infection and fever. (4) CKD (chronic kidney disease) stage 4, GFR 15-29 ml/min Assessment & Plan: Baseline creatinine is 2.6-3.2. (5) CAD (coronary artery disease) Status: Chronic Assessment & Plan: Continue chronic ASA, but hold simvastatin. (6) Chronic edema Status: Chronic Assessment & Plan: Holding chronic Bumex for now. Continue LE wraps. (7) Type 2 diabetes mellitus Status: Chronic (8) BPH (benign prostatic hyperplasia) Status: Chronic Assessment & Plan: Continue chronic terazosin. (9) Diabetic neuropathy Status: Chronic Assessment & Plan: Continue chronic gabapentin (10) History of nephrectomy, right Status: Chronic Assessment & Plan: Done on 01/08/18 for TCC. Latest Vital Signs Vital Signs Date Time Temp Pulse Resp B/P (MAP) Pulse Ox O2 Delivery O2 Flow Rate FiO2 10/14/18 11:28 63 16 162/69 (100) 92 Nasal Cannula 2.0 10/14/18 07:00 97.6 Result Diagram: 10/13/18 0548 10/13/18547 Condition: Improved Disposition: SNF/NH Treatment Goals and Plan Patient requires fdc and/or skilled rehabilitation with the goal to increase independence with ADL's, functional strength and mobility. Continue and adjust medication regimen. Services Required: IV Medications TETE MULLER October 14, 2018 13:18
== END 2018-10-14 12:40 | DRG 872 ==
LOC: ER 11:33 → MED 15:37
PROVIDERS: ADMIT Internal Medicine; ATTEND Internal Medicine
DX: A40.8 Other streptococcal sepsis (principal); L03.311 Cellulitis of abdominal wall; N18.4 Chronic kidney disease, stage 4 (severe); E11.22 Type 2 diabetes mellitus with diabetic chronic kidney disease; I12.9 Hypertensive chronic kidney disease with stage 1 through stage 4 chronic kidney disease, or unspecified chronic kidney disease; K04.7 Periapical abscess without sinus; I25.10 Atherosclerotic heart disease of native coronary artery without angina pectoris; N40.0 Benign prostatic hyperplasia without lower urinary tract symptoms; E11.40 Type 2 diabetes mellitus with diabetic neuropathy, unspecified; I89.0 Lymphedema, not elsewhere classified; M1A.9XX0 Chronic gout, unspecified, without tophus (tophi); E03.9 Hypothyroidism, unspecified; E78.00 Pure hypercholesterolemia, unspecified; K21.9 Gastro-esophageal reflux disease without esophagitis; G89.29 Other chronic pain; Z90.5 Acquired absence of kidney; Z88.5 Allergy status to narcotic agent; Z95.5 Presence of coronary angioplasty implant and graft; Z99.81 Dependence on supplemental oxygen; Z90.49 Acquired absence of other specified parts of digestive tract; Z87.891 Personal history of nicotine dependence; Z85.828 Personal history of other malignant neoplasm of skin; Z79.4 Long term (current) use of insulin
CPT/HCPCS: 36415; 36416; 70355; 70450; 71045; 80202; 80305; 81001; 82040; 82247; 82310; 82374; 82435; 82565; 82947; 82948; 83605; 84075; 84132; 84155; 84295; 84443; 84450; 84460; 84484; 84520; 85025; 85610; 85651; 85730; 87040; 87077; 87186; 93005; 96361; 96365; 96367; 96368; 97161; 99285; C1758; J0131; J0696; J1650; J2543; J3370; J7030; J7050

== ENCOUNTER → 2018-10-11 | Outpatient (CLI) | payer MEDICARE, OTHER ==
[2018-10-12 13:57] VITALS: BMI 39.9
== END ==
LOC: AMB 10:40
PROVIDERS: ATTEND Nurse Practitioner
DX: M54.9 Dorsalgia, unspecified (principal); R53.1 Weakness; R41.82 Altered mental status, unspecified
CPT/HCPCS: A0425; A0427

== ENCOUNTER 2018-10-14 13:08 | Inpatient (IN) | payer MEDICARE, OTHER ==
[2018-10-12 13:57] VITALS: Ht 180.3 cm; Wt 130.6 kg
[~2018-10-14] VITALS: Ht 180.3 cm; Wt 130.6 kg
[~2018-10-14 13:08] MED LIST changes: +BUM2 PO; +CEPH250C37 PO; +SIMV-49 PO
[2018-10-14] MEDS ORDERED: ACETAMINOPHEN 500 MG TAB PO PRN (13:18)
[2018-10-14] MEDS ORDERED: ALBUTEROL 2.5 MG/3 ML NEB NEB PRN (13:18)
[2018-10-14] MEDS ORDERED: NS(*) 0.9% 1000 ML BAG 1,000 ML IV PRN (13:18)
[2018-10-14 13:30] VITALS: BP 183/73
[2018-10-14] MEDS ORDERED: NS(*) 0.9% 250 ML BAG 250 ML IVPB PRN (14:15)
[2018-10-14] MEDS: cefTRIAXone 2 GM VIAL IVP SCH (20:46)
[2018-10-14] MEDS: INSULIN HUM LISPRO 100 UN/ML 3 ML VIAL SUBQ PRN (20:46)
[2018-10-14] MEDS: NYSTATIN 100,000 U/GM PWD 15GM TP SCH (20:46)
[2018-10-14] MEDS: TERAZOSIN HCL 1 MG CAP PO SCH (20:47)
[2018-10-14] MEDS: GABAPENTIN 300 MG CAP PO SCH (20:47)
[2018-10-14] MEDS: CARBAMIDE PEROX 6.5% OT SOLN EACH EAR SCH (20:47)
[2018-10-15] MEDS: LEVOTHYROXINE SOD 0.137 MG TAB PO SCH (06:15)
[2018-10-15 08:30] VITALS: BP 183/67
[2018-10-15] MEDS: CARBAMIDE PEROX 6.5% OT SOLN EACH EAR SCH ×2 (08:52→20:22)
[2018-10-15] MEDS: ASPIRIN 81 MG ENTERIC COATED PO SCH (08:52)
[2018-10-15] MEDS: RANITIDINE HCL 150 MG TAB PO SCH (08:52)
[2018-10-15] MEDS: GABAPENTIN 300 MG CAP PO SCH ×2 (08:52→20:23)
[2018-10-15] MEDS: ALLOPURINOL 100 MG TAB PO SCH (08:52)
[2018-10-15] MEDS: TERAZOSIN HCL 1 MG CAP PO SCH ×2 (08:52→20:23)
[2018-10-15] MEDS: NYSTATIN 100,000 U/GM PWD 15GM TP SCH ×2 (08:52→20:23)
[2018-10-15] MEDS: ENOXAPARIN 30 MG/0.3 ML SYR SC SCH (08:52)
[2018-10-15] MEDS: INSULIN HUM LISPRO 100 UN/ML 3 ML VIAL SUBQ PRN ×2 (12:14→20:29)
--- NOTE | 2018-10-15 13:02 | Medical Nutrition Therapy ---
Nutrition Anthropometrics Height (Inches): 71 (sttaed) Weight (Pounds): 286 (from med unit 10/12/18) BMI: 40 [place] Nutrition Score: Probably Inadequate Francisco Nutrition Risk Score: 15 Dietary Referral Nutrition Risk Factors: Nutrition Risk Comment: NA Physical Findings Physical Appearance: Morbidly Obese 40+ Skin Appearance Skin Appearance: Edema Edema Location Modifier: Both Edema Location: Type of Edema: Degree of Edema: 3+ Gastrointestinal Symptoms GI Symtoms: Tube Present: Bowel Sounds: Recent Bowel Pattern: Stool Characteristics: Nutritional Diagnosis Nutritional Risk Acuity 3: Morbid Obesity Nutritional Risk Acuity 4: Good Appetite, Modified Diet Past Medical History: Skin Cam CAD, T2DM, hypercholesterolemia, COPD, CKD-3, HTN, hypothyroidism, chronic aquired lymphedema, BPH, Gout, diabetic neuropathy Nutritional Acuity: 3-Mild (cellulitis) Adjusted Energy Requirement Re: 2100 (HB adj for obesity) Protein Requirement: 80 (1gm/kg iBW) Fluid Requirement: 2100 (1ml/kcal) Diet Type: Diabetic Nutrition Intervention: Cont diet as ordered, Encourage intake, HS snack Nutrition Monitoring & Eval Nutrition Goals: Eat 75-100% Meal RD Patient Assessment Time: [address] Assessment Type: RD Assessment Patient Nutrition Acuity: 3-Mild Follow Up Date: October 19, 2018 Nutritional Comment: 5/ Pt admitted s/p sepsis with cellulitis. Pt on diabetic diet and eatinf 100%. RBG 148-207. Pt is recieving insulin. No wt obtained on ECF [place] pt 2863 on med unit. BMI is in class 3 obesity range. Will cont to monitor and encourage intake. DONALD CHOUDHARY October 15, 2018 13:02
--- NOTE | 2018-10-15 13:17 | Antimicrobial Stewardship Note ---
Antimicrobial Stewardship Note Note Patient Name: Rizwan Huertas Unit Number: [id number] Date of : 1930 Patient Status: Discharged Inpatient Attending Doctor: Young Garcia MD Antimicrobial Stewardship Antimicrobial Stewardship Empiricly appropriate: Yes (Ceftriaxone - based on prior microbiology data) Significant PMH: Yes (Hypothyroidism angina, CAD s/p stent, HL, murmur, HTN, GERD, DM2, ) Support empiric regimen: Yes (Vanc, Zosyn in the ED, switched to Ceftriaxone alone for micro history) Approriate Cultures done: Yes (Blood Cx x 2 - Growing S. mitis/oralis --> oral thais) Cultures need repeate: Yes (Yes positive blood cultures, repeat cultures on 10/13/18 to assess clearance of bacteremia) Renal/Hepatic dosing: Yes (CKD, Scr 3.1 on admission, ceftriaxone no adjustment needed) Serum concentration checked: Yes (Vanco Random 18.75, not continued) Determine cumulative duration: Started on 10/11/18 Determine standard duration: Positive Blood Cx 10-14 days - depending Comment 88 yo M who presented with AMS, fever, and reports of shaking/shivering. Tmax 102.4 WBC 15.3 -->10.6 Neuts 84% --> 68% ESR 57 Scr 3.1, now 2.9 BUN 43 TSH 13.2 Vanco Random 18.75 mcg/mL UA (-) Head CT --> mild left frontal sinus disease Chest xray (-) Panorex xray of mouth pending (pt with complaint of bad teeth) Blood Cx x 2 --> 4/4 bottles growing S. mitis/oralis Repeat cx pending Given Zosyn + Vanc in the ED, stopped upon arrival to the floor, started on Ceftriaxone based on prior microbiology cultures. Repeat cultures pending, continue ceftriaxone for minimum of 7 days, but likely 10-14 days. Mavis Chakraborty, PharmD, BCOP COPIED FROM INPATIENT RECORD - FRANTZ TITUS October 15, 2018 13:17
--- NOTE | 2018-10-15 13:22 | Consultant Pharmacy Review ---
[employer]ights Intern Review Medication Review Do All Mecications have a Diag: Yes Beers Criteria Medication 2014 Alpha 1 Blockers: Terazosin (HISTORY OF BPH) Other General Cautions Patient is 88 yo male High fall risk - patient is on insulin, gabapentin and Terazosin. All of these meds carry a risk for falls based on their actions. No other medication concerns at this time. Pneumococcal Vaccine HX Pneumo Vac (Orlhypc84): Yes (2016) HX Pneumo Vac (Pneumovax): Yes (@[place], 1998) Notified? Notified?: No FRANTZ SKELTON October 14, 2018 14:00
[2018-10-15 15:10] VITALS: BP 179/71
[2018-10-15] MEDS: cefTRIAXone 2 GM VIAL IVP SCH (20:22)
[2018-10-16] MEDS: LEVOTHYROXINE SOD 0.137 MG TAB PO SCH (06:18)
[2018-10-16 07:15] VITALS: BP 170/70
[2018-10-16] MEDS: NYSTATIN 100,000 U/GM PWD 15GM TP SCH ×3 (09:00→20:21)
[2018-10-16] MEDS: GABAPENTIN 300 MG CAP PO SCH ×2 (10:04→20:21)
[2018-10-16] MEDS: TERAZOSIN HCL 1 MG CAP PO SCH ×2 (10:04→20:21)
[2018-10-16] MEDS: RANITIDINE HCL 150 MG TAB PO SCH (10:04)
[2018-10-16] MEDS: ALLOPURINOL 100 MG TAB PO SCH (10:04)
[2018-10-16] MEDS: ASPIRIN 81 MG ENTERIC COATED PO SCH (10:04)
[2018-10-16] MEDS: CARBAMIDE PEROX 6.5% OT SOLN EACH EAR SCH ×2 (10:05→20:19)
[2018-10-16] MEDS: ENOXAPARIN 30 MG/0.3 ML SYR SC SCH (10:05)
[2018-10-16] MEDS: INSULIN HUM LISPRO 100 UN/ML 3 ML VIAL SUBQ PRN ×2 (12:19→21:46)
[2018-10-16 15:45] VITALS: BP 184/68
[2018-10-16] MEDS: cefTRIAXone 2 GM VIAL IVP SCH (20:21)
[2018-10-17] MEDS: LEVOTHYROXINE SOD 0.137 MG TAB PO SCH (05:48)
[2018-10-17 07:10] VITALS: BP 173/71
[2018-10-17] MEDS: ALLOPURINOL 100 MG TAB PO SCH (08:50)
[2018-10-17] MEDS: GABAPENTIN 300 MG CAP PO SCH ×2 (08:50→20:29)
[2018-10-17] MEDS: ASPIRIN 81 MG ENTERIC COATED PO SCH (08:51)
[2018-10-17] MEDS: NYSTATIN 100,000 U/GM PWD 15GM TP SCH ×2 (08:51→20:29)
[2018-10-17] MEDS: RANITIDINE HCL 150 MG TAB PO SCH (08:51)
[2018-10-17] MEDS: TERAZOSIN HCL 1 MG CAP PO SCH ×2 (08:51→20:29)
[2018-10-17] MEDS: CARBAMIDE PEROX 6.5% OT SOLN EACH EAR SCH ×2 (08:52→20:29)
[2018-10-17] MEDS: ENOXAPARIN 30 MG/0.3 ML SYR SC SCH (08:52)
[2018-10-17] MEDS: INSULIN HUM LISPRO 100 UN/ML 3 ML VIAL SUBQ PRN ×2 (12:01→20:30)
[2018-10-17 18:50] VITALS: BP 180/70
[2018-10-17] MEDS: cefTRIAXone 2 GM VIAL IVP SCH (20:29)
[2018-10-18] MEDS: LEVOTHYROXINE SOD 0.137 MG TAB PO SCH (06:05)
[2018-10-18 08:07] VITALS: BP 154/60
[2018-10-18] MEDS: TERAZOSIN HCL 1 MG CAP PO SCH ×2 (08:43→20:22)
[2018-10-18] MEDS: ENOXAPARIN 30 MG/0.3 ML SYR SC SCH (08:43)
[2018-10-18] MEDS: ALLOPURINOL 100 MG TAB PO SCH (08:43)
[2018-10-18] MEDS: NYSTATIN 100,000 U/GM PWD 15GM TP SCH ×2 (08:43→20:22)
[2018-10-18] MEDS: RANITIDINE HCL 150 MG TAB PO SCH (08:44)
[2018-10-18] MEDS: ASPIRIN 81 MG ENTERIC COATED PO SCH (08:44)
[2018-10-18] MEDS: GABAPENTIN 300 MG CAP PO SCH ×2 (08:44→20:22)
--- NOTE | 2018-10-18 09:57 | Transfer Summary (ECF/SWB) ---
Transfer Summary (ECF/SWB) Problems: (1) Bacteremia Status: Resolved Assessment & Plan: April he was in for right thigh cellulitis and and grew streptococcus pseudoporcinus from the blood. He was on 4 weeks of Ceftriaxone for concern of endocarditis because of an abnormal appearing Aortic Valve. Repeat echo didn't show the Aortic valve abnormality in June. Mid July, he was admitted for a right thigh cellulitis and grew streptococcus mitis/oralis from the blood. He ended up getting transferred to [facility]. GWENDOLYN showed no valvular abnormalities. He then finished a 2 week course of Invanz. Again growing st reptococcus mitis/oralis Panorex does show apical lucency on two teeth with dental carries which could be consistent with apical abscesses. Likely this is the source of bacteremia, will need 2 weeks IV antibiotic and dental consultation. He will be transferred to [facility] ECF unit for continued antibiotic treatment. (2) Cellulitis Status: Acute Assessment & Plan: He presented with a sudden change in mental status, chills, and a fever of 101.4. He has a possible right flank cellulitis but the source of blood infection is more likely oral. He is on empiric treatment with ceftriaxone. (3) Altered mental status Status: Acute Assessment & Plan: Secondary to infection and fever. (4) CKD (chronic kidney disease) stage 4, GFR 15-29 ml/min Assessment & Plan: Baseline creatinine is 2.6-3.2. (5) CAD (coronary artery disease) Status: Chronic Assessment & Plan: Continue chronic ASA, but hold simvastatin. (6) Chronic edema Status: Chronic Assessment & Plan: Holding chronic Bumex for now. Continue LE wraps. (7) Type 2 diabetes mellitus Status: Chronic (8) BPH (benign prostatic hyperplasia) Status: Chronic Assessment & Plan: Continue chronic terazosin. (9) Diabetic neuropathy Status: Chronic Assessment & Plan: Continue chronic gabapentin (10) History of nephrectomy, right Status: Chronic Assessment & Plan: Done on 01/08/18 for TCC. Latest Vital Signs Vital Signs Date Time Temp Pulse Resp B/P (MAP) Pulse Ox O2 Delivery O2 Flow Rate FiO2 10/14/18 11:28 63 16 162/69 (100) 92 Nasal Cannula 2.0 10/14/18 07:00 97.6 Result Diagram: 10/13/18 0548 10/13/18547 Condition: Improved Disposition: SNF/NH Treatment Goals and Plan Patient requires snf and/or skilled rehabilitation with the goal to increase independence with ADL's, functional strength and mobility. Continue and adjust medication regimen. Services Required: IV Medications TETE MULLER October 14, 2018 13:18 <Electronically signed by PAYTON HERNANDEZ> D/ [id number] KEAGAN/JAMAL CC: OMID
[2018-10-18] MEDS: INSULIN HUM LISPRO 100 UN/ML 3 ML VIAL SUBQ PRN ×2 (13:15→20:23)
[2018-10-18 16:17] VITALS: BP 136/63
[2018-10-18] MEDS: cefTRIAXone 2 GM VIAL IVP SCH (20:22)
[2018-10-19] MEDS: LEVOTHYROXINE SOD 0.137 MG TAB PO SCH (05:22)
[2018-10-19 07:30] VITALS: BP 137/60
[2018-10-19] MEDS: RANITIDINE HCL 150 MG TAB PO SCH (08:47)
[2018-10-19] MEDS: ALLOPURINOL 100 MG TAB PO SCH (08:47)
[2018-10-19] MEDS: ASPIRIN 81 MG ENTERIC COATED PO SCH (08:47)
[2018-10-19] MEDS: ENOXAPARIN 30 MG/0.3 ML SYR SC SCH (08:47)
[2018-10-19] MEDS: TERAZOSIN HCL 1 MG CAP PO SCH ×2 (08:47→20:42)
[2018-10-19] MEDS: GABAPENTIN 300 MG CAP PO SCH ×2 (08:47→20:42)
[2018-10-19] MEDS: NYSTATIN 100,000 U/GM PWD 15GM TP SCH ×2 (08:48→20:42)
--- NOTE | 2018-10-19 10:02 | ECF History & Physical ---
Transfer Summary (ECF/SWB) Problems: (1) Bacteremia Status: Resolved Assessment & Plan: April he was in for right thigh cellulitis and and grew streptococcus pseudoporcinus from the blood. He was on 4 weeks of Ceftriaxone for concern of endocarditis because of an abnormal appearing Aortic Valve. Repeat echo didn't show the Aortic valve abnormality in June. Mid July, he was admitted for a right thigh cellulitis and grew streptococcus mitis/oralis from the blood. He ended up getting transferred to [facility]. GWENDOLYN showed no valvular abnormalities. He then finished a 2 week course of Invanz. Again growing st reptococcus mitis/oralis Panorex does show apical lucency on two teeth with dental carries which could be consistent with apical abscesses. Likely this is the source of bacteremia, will need 2 weeks IV antibiotic and dental consultation. He will be transferred to [facility] ECF unit for continued antibiotic treatment. (2) Cellulitis Status: Acute Assessment & Plan: He presented with a sudden change in mental status, chills, and a fever of 101.4. He has a possible right flank cellulitis but the source of blood infection is more likely oral. He is on empiric treatment with ceftriaxone. (3) Altered mental status Status: Acute Assessment & Plan: Secondary to infection and fever. (4) CKD (chronic kidney disease) stage 4, GFR 15-29 ml/min Assessment & Plan: Baseline creatinine is 2.6-3.2. (5) CAD (coronary artery disease) Status: Chronic Assessment & Plan: Continue chronic ASA, but hold simvastatin. (6) Chronic edema Status: Chronic Assessment & Plan: Holding chronic Bumex for now. Continue LE wraps. (7) Type 2 diabetes mellitus Status: Chronic (8) BPH (benign prostatic hyperplasia) Status: Chronic Assessment & Plan: Continue chronic terazosin. (9) Diabetic neuropathy Status: Chronic Assessment & Plan: Continue chronic gabapentin (10) History of nephrectomy, right Status: Chronic Assessment & Plan: Done on 01/08/18 for TCC. Latest Vital Signs Vital Signs Date Time Temp Pulse Resp B/P (MAP) Pulse Ox O2 Delivery O2 Flow Rate FiO2 10/14/18 11:28 63 16 162/69 (100) 92 Nasal Cannula 2.0 10/14/18 07:00 97.6 Result Diagram: 10/13/18 0548 10/13/18547 Condition: Improved Disposition: SNF/NH Treatment Goals and Plan Patient requires group home and/or skilled rehabilitation with the goal to increase independence with ADL's, functional strength and mobility. Continue and adjust medication regimen. Services Required: IV Medications TETE MULLER October 14, 2018 13:18 <Electronically signed by PAYTON HERNANDEZ> D/ [id number] [id number] KEAGAN/JAMAL CC: OMID
[2018-10-19] MEDS: INSULIN HUM LISPRO 100 UN/ML 3 ML VIAL SUBQ PRN ×2 (12:13→20:42)
--- NOTE | 2018-10-19 12:24 | Medical Nutrition Therapy ---
Nutrition Anthropometrics Height (Inches): 71 (sttaed) Weight (Pounds): 288 Weight (Calculated Kilograms): 130.635 BMI: 40 Francisco Nutrition Score: Probably Inadequate Francisco Nutrition Risk Score: 15 Dietary Referral Nutrition Risk Factors: Nutrition Risk Comment: NA Physical Findings Physical Appearance: Morbidly Obese 40+ Skin Appearance Skin Appearance: Edema Edema Location Modifier: Both Edema Location: Type of Edema: Degree of Edema: 3+ Gastrointestinal Symptoms GI Symtoms: Tube Present: Bowel Sounds: Recent Bowel Pattern: Stool Characteristics: Nutrition/Food History Good Snacks: Refused Nutritional Diagnosis Nutritional Risk Acuity 3: Morbid Obesity Nutritional Risk Acuity 4: Good Appetite, Modified Diet Past Medical History: Skin Cam CAD, T2DM, hypercholesterolemia, COPD, CKD-3, HTN, hypothyroidism, chronic aquired lymphedema, BPH, Gout, diabetic neuropathy Nutritional Acuity: 3-Mild (cellulitis) Adjusted Energy Requirement Re: 2100 (HB adj for obesity) Protein Requirement: 80 (1gm/kg iBW) Fluid Requirement: 2100 (1ml/kcal) Diet Type: Diabetic Nutrition Intervention: Cont diet as ordered, Encourage intake, HS snack Nutrition Monitoring & Eval Nutrition Goals: Eat 75-100% Meal, Drink > 2 liters/day RD Patient Assessment Time: [address] Assessment Type: RD Re-Assessment Patient Nutrition Acuity: 3-Mild Follow Up Date: October 26, 2018 Nutritional Comment: 10/15 Pt admitted s/p sepsis with cellulitis. Pt on diabetic diet and eatinf 100%. RBG 148-207. Pt is recieving insulin. No wt obtained on ECF but pt 286# on med unit. BMI is in class 3 obesity range. Will cont to monitor and encourage intake. BK 10/19 Pt had a RBG of 243 on 10/17, but has been between 113-157 since 10/18. Wt. obtained in ECF as 288lb on 10/16. BMI is still a class 3 obesity. Pt has edema and will lose wt as it goes away. Will continue to monitor and encourage intake. MITCH WATERS October 19, 2018 08:48
--- NOTE | 2018-10-19 13:02 | NUR ---
5-day MDS completed with pt. C: 12, D: 04, E: no concerns, Q: referral already made for continued care with [facility], pt planning to return to home with family.
[2018-10-19 15:45] VITALS: BP 186/66
[2018-10-19] MEDS: cefTRIAXone 2 GM VIAL IVP SCH (19:41)
[2018-10-20] MEDS: LEVOTHYROXINE SOD 0.137 MG TAB PO SCH (05:39)
[2018-10-20 08:00] VITALS: BP 143/64
[2018-10-20] MEDS: ASPIRIN 81 MG ENTERIC COATED PO SCH (08:46)
[2018-10-20] MEDS: ALLOPURINOL 100 MG TAB PO SCH (08:46)
[2018-10-20] MEDS: RANITIDINE HCL 150 MG TAB PO SCH (08:46)
[2018-10-20] MEDS: GABAPENTIN 300 MG CAP PO SCH ×2 (08:46→20:52)
[2018-10-20] MEDS: TERAZOSIN HCL 1 MG CAP PO SCH ×2 (08:47→20:52)
[2018-10-20] MEDS: ENOXAPARIN 30 MG/0.3 ML SYR SC SCH (08:47)
[2018-10-20] MEDS: NYSTATIN 100,000 U/GM PWD 15GM TP SCH ×2 (09:00→20:38)
[2018-10-20] MEDS: INSULIN HUM LISPRO 100 UN/ML 3 ML VIAL SUBQ PRN ×2 (12:26→20:53)
--- NOTE | 2018-10-20 15:24 | Hospitalist Progress Note ---
Subjective Progress Notes Subjective He was admitted with cellulitis. He reports he has a wound to his right foot, which was bleeding yesterday. He feels his lymphedema wraps were not placed properly yesterday also. Patient Complains of: Cardiovascular: No: Chest Pain Respiratory: No: Shortness of Breath Physical Exam Vital Signs Date Time Temp Pulse Resp B/P (MAP) Pulse Ox O2 Delivery O2 Flow Rate FiO2 10/20/18 08:50 97 Nasal Cannula 2.5 10/20/18 08:00 98.3 59 18 143/64 (90) Intake and Output 10/20/18 00:59 Intake Total 680 ml Balance 680 ml Intake Oral 680 ml # Voids 1 General Appearance: Alert, Awake, No Acute Distress, Afebrile Neuro: No Gross deficits Cardiovascular: Regular Rate and Rhythm Respiratory: No Respiratory Distress, Clear to Auscultation Extremities: Warm, Perfused, Edema (lymphedema wraps to bilateral lower extremities) Integumentary: Other (unable to visualize wound) Psych: Alert & Oriented X3, Appropriate Mood & Affect Assessment and Plan Problems: (1) Bacteremia Status: Resolved Assessment & Plan: April he was in for right thigh cellulitis and and grew streptococcus pseudoporcinus from the blood. He was on 4 weeks of Ceftriaxone for concern of endocarditis because of an abnormal appearing Aortic Valve. Repeat echo didn't show the Aortic valve abnormality in June. Mid July, he was admitted for a right thigh cellulitis and grew streptococcus mitis/oralis from the blood. He ended up getting transferred to [facility]. GWENDOLYN showed no valvular abnormalities. He then finished a 2 week course of Invanz. Again growing streptococcus mitis/oralis Panorex does show apical lucency on two teeth with dental carries which could be consistent with apical abscesses. Likely this is the source of bacteremia, will need 2 weeks IV antibiotic and dental consultation. He was transferred to [facility] ECF unit for continued antibiotic treatment. (2) Cellulitis Status: Acute Assessment & Plan: He presented with a sudden change in mental status, chills, and a fever of 101.4. He has a possible right flank cellulitis but the source of blood infection is more likely oral. He is on empiric treatment with ceftriaxone. Last antibiotic dose 10/25. (3) CKD (chronic kidney disease) stage 4, GFR 15-29 ml/min Status: Chronic Assessment & Plan: Baseline creatinine is 2.6-3.2. (4) CAD (coronary artery disease) Status: Chronic Assessment & Plan: Continue chronic ASA, and will resume simvastatin. (5) Type 2 diabetes mellitus Status: Chronic (6) Chronic edema Status: Chronic Assessment & Plan: Will resume Bumex. Continue LE wraps. Will consult PT for evaluation of wraps and wound to right foot. (7) BPH (benign prostatic hyperplasia) Status: Chronic Assessment & Plan: Continue chronic terazosin. (8) Diabetic neuropathy Status: Chronic Assessment & Plan: Continue chronic gabapentin (9) History of nephrectomy, right Status: Chronic Assessment & Plan: Done on 01/08/18 for TCC. TETE MULLER [employer]ARY [employer] TANNER October 20, 2018 15:24
[2018-10-20 17:15] VITALS: BP 183/67
[2018-10-20] MEDS: cefTRIAXone 2 GM VIAL IVP SCH (19:25)
[2018-10-20] MEDS ORDERED: BUMETANIDE 2 MG TAB PO SCH (21:00)
--- NOTE | 2018-10-20 21:19 | NUR ---
Physical Therapy Impression Received order to PT wound assessment: "wound to right foot, pt reports bleeding to foot". PT reviewed medical record from previous PT wound evaluation from Thursday10/12/2018 during [facility] Med/Surg admission which states Pt's B LE wraps are typically changed Thursday/Thursday by home health nursing. PT wound evaluation from this date noted no wounds to bilateral LEs, small weeping area on dorsum of L foot, placement of 4-layer wraps, and deligation of next dressing change to nursing. Review of ECF nursing documentation from 10/19/2018 reports changing B LE wraps with no mention of wound to R LE and only "bloody drainage" noted on L dressing. Pt reports R LE wound and "blood on dressing" to this PT. This PT removed both LE wraps with thorough inspection of R LE - no drainage noted on dressing and no open areas were identified. Carmelina Portillo RN also present and also inspected R LE with no identification of open areas. Mr. Huertas was also asked if he could view any open areas to his R LE which he was unable to but also cannot adequately and independently view his own legs. With respect to L LE, small (approximately 0.5cm) crack noted on dorsum of foot at base of 1st/2nd toe. Minimal dried blood noted with no surrounding redness, no drainage, and no other signs of infection. No slough or necrotic tissue present, thus, debridement not indicated. No other open areas identified on L LE. Skin crack covered with telfa. Both LEs then were wrapped with four layer Fourflex compression system with the assistance of Carmelina Portillo RN. Discussed with Mr. Huertas that physical therapy care is not indicated of his legs as he currently does not have a wound requiring physical therapy (debridement) and that placement of his LE wraps would be carried out by the nursing staff. Carmelina Portillo RN also present for this conversation. Nursing to perform B LE wraps Thursday/Thursday to maintain 2x/wk schedule. No additional PT services needed. Physical Therapy Goals Patient's Goals
[2018-10-21] MEDS: LEVOTHYROXINE SOD 0.137 MG TAB PO SCH (06:14)
[2018-10-21 06:26] LABS: PLATELET COUNT, AUTOMATED 240 K/uL (150-450)
[2018-10-21 08:20] VITALS: BP 157/76
[2018-10-21] MEDS: TERAZOSIN HCL 1 MG CAP PO SCH ×2 (08:40→20:27)
[2018-10-21] MEDS: GABAPENTIN 300 MG CAP PO SCH ×2 (08:40→20:27)
[2018-10-21] MEDS: RANITIDINE HCL 150 MG TAB PO SCH (08:40)
[2018-10-21] MEDS: SIMVASTATIN 20 MG TAB PO SCH (08:40)
[2018-10-21] MEDS: ENOXAPARIN 30 MG/0.3 ML SYR SC SCH (08:40)
[2018-10-21] MEDS: ASPIRIN 81 MG ENTERIC COATED PO SCH (08:40)
[2018-10-21] MEDS: ALLOPURINOL 100 MG TAB PO SCH (08:40)
[2018-10-21] MEDS: NYSTATIN 100,000 U/GM PWD 15GM TP SCH ×2 (09:00→20:36)
[2018-10-21] MEDS: INSULIN HUM LISPRO 100 UN/ML 3 ML VIAL SUBQ PRN (12:39)
[2018-10-21] MEDS: BUMETANIDE 2 MG TAB PO SCH ×2 (13:53→14:00)
[2018-10-21] MEDS: cefTRIAXone 2 GM VIAL IVP SCH (19:16)
[2018-10-21 19:50] VITALS: BP 160/74
[2018-10-22] MEDS: BUMETANIDE 2 MG TAB PO SCH ×2 (05:48→13:56)
[2018-10-22] MEDS: LEVOTHYROXINE SOD 0.137 MG TAB PO SCH (05:48)
[2018-10-22 08:00] VITALS: BP 150/58
[2018-10-22] MEDS: ASPIRIN 81 MG ENTERIC COATED PO SCH (08:38)
[2018-10-22] MEDS: GABAPENTIN 300 MG CAP PO SCH ×2 (08:39→20:38)
[2018-10-22] MEDS: ALLOPURINOL 100 MG TAB PO SCH (08:39)
[2018-10-22] MEDS: SIMVASTATIN 20 MG TAB PO SCH (08:39)
[2018-10-22] MEDS: TERAZOSIN HCL 1 MG CAP PO SCH ×2 (08:39→20:38)
[2018-10-22] MEDS: RANITIDINE HCL 150 MG TAB PO SCH (08:39)
[2018-10-22] MEDS: ENOXAPARIN 30 MG/0.3 ML SYR SC SCH (08:40)
[2018-10-22] MEDS: NYSTATIN 100,000 U/GM PWD 15GM TP SCH ×2 (09:00→20:37)
[2018-10-22] MEDS: INSULIN HUM LISPRO 100 UN/ML 3 ML VIAL SUBQ PRN ×2 (12:42→20:41)
--- NOTE | 2018-10-22 17:15 | NUR ---
Pain Patient rates pain 6/10 "all over," primarily in legs. Patient states he uses tylenol with codeine at home, but only when pain is severe, stating 7-10/10. Patient states he takes tylenol with codeine less than once a day. Patient refusing to elevate legs at this time.
[2018-10-22 17:35] VITALS: BP 161/61
[2018-10-22] MEDS: cefTRIAXone 2 GM VIAL IVP SCH (19:29)
[2018-10-23] MEDS: LEVOTHYROXINE SOD 0.137 MG TAB PO SCH (06:15)
[2018-10-23] MEDS: BUMETANIDE 2 MG TAB PO SCH ×2 (06:15→14:25)
[2018-10-23 07:30] VITALS: BP 158/67
[2018-10-23] MEDS: GABAPENTIN 300 MG CAP PO SCH ×2 (08:49→21:36)
[2018-10-23] MEDS: RANITIDINE HCL 150 MG TAB PO SCH (08:49)
[2018-10-23] MEDS: TERAZOSIN HCL 1 MG CAP PO SCH ×2 (08:49→21:36)
[2018-10-23] MEDS: ALLOPURINOL 100 MG TAB PO SCH (08:49)
[2018-10-23] MEDS: SIMVASTATIN 20 MG TAB PO SCH (08:49)
[2018-10-23] MEDS: ASPIRIN 81 MG ENTERIC COATED PO SCH (08:49)
[2018-10-23] MEDS: NYSTATIN 100,000 U/GM PWD 15GM TP SCH ×2 (09:00→21:36)
[2018-10-23] MEDS: INSULIN HUM LISPRO 100 UN/ML 3 ML VIAL SUBQ PRN ×2 (12:42→21:37)
[2018-10-23 15:25] VITALS: BP 144/66
[2018-10-23] MEDS: cefTRIAXone 2 GM VIAL IVP SCH (21:39)
[2018-10-24] VITALS (16 sets, daily range): BP systolic 129–155; BP diastolic 53–70
[2018-10-24] MEDS: LEVOTHYROXINE SOD 0.137 MG TAB PO SCH (06:03)
[2018-10-24] MEDS: BUMETANIDE 2 MG TAB PO SCH ×2 (06:14→14:35)
[2018-10-24] MEDS: RANITIDINE HCL 150 MG TAB PO SCH (08:42)
[2018-10-24] MEDS: TERAZOSIN HCL 1 MG CAP PO SCH ×2 (08:42→20:30)
[2018-10-24] MEDS: ASPIRIN 81 MG ENTERIC COATED PO SCH (08:43)
[2018-10-24] MEDS: SIMVASTATIN 20 MG TAB PO SCH (08:43)
[2018-10-24] MEDS: GABAPENTIN 300 MG CAP PO SCH ×2 (08:43→20:30)
[2018-10-24] MEDS: NYSTATIN 100,000 U/GM PWD 15GM TP SCH ×2 (09:00→20:30)
[2018-10-24] MEDS: ALLOPURINOL 100 MG TAB PO SCH (09:48)
[2018-10-24] MEDS: INSULIN HUM LISPRO 100 UN/ML 3 ML VIAL SUBQ PRN ×3 (13:10→20:30)
[2018-10-24] MEDS: cefTRIAXone 2 GM VIAL IVP SCH (20:30)
[2018-10-25 04:00] VITALS: BP 154/56
[2018-10-25] MEDS: BUMETANIDE 2 MG TAB PO SCH ×2 (05:48→13:54)
[2018-10-25] MEDS: LEVOTHYROXINE SOD 0.137 MG TAB PO SCH (05:48)
[2018-10-25 08:00] VITALS: BP 123/52
[2018-10-25] MEDS: SIMVASTATIN 20 MG TAB PO SCH (08:26)
[2018-10-25] MEDS: GABAPENTIN 300 MG CAP PO SCH (08:26)
[2018-10-25] MEDS: ASPIRIN 81 MG ENTERIC COATED PO SCH (08:26)
[2018-10-25] MEDS: ALLOPURINOL 100 MG TAB PO SCH (08:26)
[2018-10-25] MEDS: RANITIDINE HCL 150 MG TAB PO SCH (08:26)
[2018-10-25] MEDS: TERAZOSIN HCL 1 MG CAP PO SCH (08:26)
[2018-10-25] MEDS: NYSTATIN 100,000 U/GM PWD 15GM TP SCH (08:28)
[2018-10-25] MEDS: INSULIN HUM LISPRO 100 UN/ML 3 ML VIAL SUBQ PRN ×2 (12:39→16:35)
--- NOTE | 2018-10-25 13:39 | NUR ---
DC MDS completed with pt. C: 15, D: 03, E: no concerns, Q; referral made for HHS at DC to home.
[2018-10-25] MEDS ORDERED: NYST15PO4 TP (14:26)
[2018-10-25] MEDS ORDERED: AMOX-359 PO (14:26)
--- NOTE | 2018-10-25 14:32 | Hospitalist Depart ---
Discharge Summary Reason for Hosp/Final Diag: (1) Bacteremia Status: Resolved Hospital Course & Plan: April he was in for right thigh cellulitis and and grew streptococcus pseudoporcinus from the blood. He was on 4 weeks of Ceftriaxone for concern of endocarditis because of an abnormal appearing Aortic Valve. Repeat echo didn't show the Aortic valve abnormality in June. Mid July, he was admitted for a right thigh cellulitis and grew streptococcus mitis/oralis from the blood. He ended up getting transferred to [facility]. GWENDOLYN showed no valvular abnormalities. He then finished a 2 week course of Invanz. Again growing streptococcus mitis/oralis Panorex does show apical lucency on two teeth with dental carries which could be consistent with apical abscesses. Likely this is the source of bacteremia, he received 2 weeks IV antibiotic and will schedule him a dental consultation prior to discharge. He was transferred to [facility] ECF unit for continued antibiotic treatment. He will continue 10 days of amoxicillin to cover dental treatment. (2) Cellulitis Status: Acute Hospital Course & Plan: He presented with a sudden change in mental status, chills, and a fever of 101.4. He has a possible right flank cellulitis but the source of blood infection is more likely oral. He was placed on empiric treatment with ceftriaxone. Last antibiotic dose 10/25. (3) CKD (chronic kidney disease) stage 4, GFR 15-29 ml/min Status: Chronic Hospital Course & Plan: Baseline creatinine is 2.6-3.2. (4) CAD (coronary artery disease) Status: Chronic Hospital Course & Plan: Continue chronic ASA, and will resume simvastatin. (5) Type 2 diabetes mellitus Status: Chronic (6) Chronic edema Status: Chronic Hospital Course & Plan: Will resume Bumex. Continue LE wraps. (7) BPH (benign prostatic hyperplasia) Status: Chronic Hospital Course & Plan: Continue chronic terazosin. (8) Diabetic neuropathy Status: Chronic Hospital Course & Plan: Continue chronic gabapentin (9) History of nephrectomy, right Status: Chronic Hospital Course & Plan: Done on 01/08/18 for TCC. Departure Latest Vital Signs Vital Signs 10/24/18 10/25/18 10/25/18 09:00 08:00 09:36 Temp 97.9 Pulse 63 Resp 20 B/P (MAP) 123/52 (75) Pulse Ox 98 O2 Delivery Nasal Cannula O2 Flow Rate 2.0 FiO2 98.0 Weight (Pounds): 288 Weight (Ounces): 6.0 Result Diagram: 10/21/1855810/21/18558 Condition: Improved Discharge: Home, Home Health Home Health RN Follow Up For: Nursing Assessment, Wound Care Discharge Instructions Home Meds Active Scripts Nystatin 100,000 Unit/Gm Top Powder (NYSTATIN 100,000 UNIT/GM TOP POWDER) 15 Gm Powder, 15 GM TP BID, #1 TUBE Prov:TETE MULLER [facility] 10/25/18 Amoxicillin (AMOXICILLIN) 250 Mg Capsule, 1 CAP PO BID for 10 Days, #20 CAPSULE Prov:TETE MULLER [employer] 10/25/18 Reported Medications Hum Insulin Nph/Reg Insulin Hm (NOVOLIN 70-30 100 UNIT/ML VIAL) 100 Unit/1 Ml Vial, 1-10 UNIT SQ DIRECTED, VIAL 10/11/18 Cephalexin (KEFLEX) 250 Mg Capsule, 250 MG PO BID, #28 CAP 10/11/18 Albuterol Sulfate 90 Mcg/Act (PROAIR HFA 90 MCG/ACT) 8.5 Gm Hfa.aer.ad, 1 PUFF IH Q4-6H PRN for SHORTNESS OF BREATH, INHALER 10/11/18 Simvastatin (SIMVASTATIN) 20 Mg Tablet, 20 MG PO QDAY, TAB 10/11/18 Bumetanide (BUMETANIDE) 2 Mg Tab, 3 TAB PO BID, TAB 10/11/18 Terazosin Hcl (TERAZOSIN HCL) 2 Mg Capsule, 2 MG PO BID, CAPSULE 08/06/18 Gabapentin (GABAPENTIN) 300 Mg Capsule, 300 MG PO QHS, CAPSULE 08/06/18 Gabapentin (GABAPENTIN) 300 Mg Capsule, 600 MG PO QAM, CAPSULE 08/06/18 Allopurinol (ALLOPURINOL) 100 Mg Tablet, 1 TAB PO DAILY, #10 TAB 08/06/18 Aspirin (ASPIRIN EC) 81 Mg Tablet.dr, 81 MG PO QDAY, TAB 05/17/18 Ranitidine Hcl (ZANTAC) 150 Mg Tablet, 150 MG PO DAILY 01/18/14 Levothyroxine Sodium (SYNTHROID) 125 Mcg Tablet, 125 MCG PO QDAY 01/18/14 Diet: Diabetic Activity: As Tolerated, With Walker Special Instructions: Follow up with Dentist as soon as possible. Take antibiotics until gone. Use Nystatin powder twice daily. Follow up with primary care provider in two weeks. Copies to: HILARIA MEDINA MD ; Venous Thromboembolism Antithrombotics Is Pt On Any Antithrombotics?: No [id number] Certification Face to Face Home Health Certification Patient's Primary Care Provider: Hilaria Medina MD Institutional Provider conducted the [id number] encounter. Electronic Undersigning Physician Certifies Home Health. I certify that the patient has been under my care and that I had a [id number] encounter that meets the physician [id number] encounter requirements with this patient. This patient is home-bound due to safety issues and continues to require assistance with ADL's. I certify that based on my findings, that Nursing, Aides and the following Home Health services are medically necessary: Medical Necessity: Nursing Date Face to Face Conducted: October 25, 2018 TETE MULLER October 25, 2018 14:32
[2018-10-25 16:40] VITALS: BP 149/53
[2018-10-25] MEDS: cefTRIAXone 2 GM VIAL IVP SCH (19:30)
--- NOTE | 2018-10-26 14:08 | Medical Nutrition Therapy ---
Nutrition Anthropometrics Height (Inches): 71 (sttaed) Weight (Pounds): 288 Weight (Calculated Kilograms): 130.635 BMI: 40 Francisco Nutrition Score: Adequate Francisco Nutrition Risk Score: 17 Dietary Referral Nutrition Risk Factors: Nutrition Risk Comment: NA Physical Findings Physical Appearance: Morbidly Obese 40+ Skin Appearance Skin Appearance: Edema Edema Location Modifier: Both Edema Location: Upper Extremity Type of Edema: Degree of Edema: 3+ Gastrointestinal Symptoms GI Symtoms: Tube Present: Bowel Sounds: Recent Bowel Pattern: Stool Characteristics: Nutrition/Food History No Significant Nutr. HX Good Nutritional Diagnosis Nutritional Risk Acuity 2: Chronic Renal Failure Nutritional Risk Acuity 3: Morbid Obesity Nutritional Risk Acuity 4: Good Appetite, Modified Diet Past Medical History: Skin Cam CAD, T2DM, hypercholesterolemia, COPD, CKD-3, HTN, hypothyroidism, chronic aquired lymphedema, BPH, Gout, diabetic neuropathy Nutritional Acuity: 2-Moderate Nutrition Diagnosis: Over-weight/Obesity Nutrition Etiology: Physiological Causes Nutrition Problem/Etiology/Sym: over-weight/obesity related to physiological causes as evidence by 3+ edema and CKD stage 4 Adjusted Energy Requirement Re: 2100 (HB adj for obesity) Protein Requirement: 80 (1gm/kg iBW) Fluid Requirement: 2100 (1ml/kcal) Diet Type: Diabetic Nutrition Intervention: Cont diet as ordered, Encourage intake, HS snack, Obtain Height and Weight Drug: Diuretics Nutrition Monitoring & Eval Nutrition Goals: Eat 50-100% Meal, Drink > 2 liters/day RD Patient Assessment Time: [address] Assessment Type: RD Re-Assessment Patient Nutrition Acuity: 3-Mild Follow Up Date: November 02, 2018 Nutritional Comment: 10/15 Pt admitted s/p sepsis with cellulitis. Pt on diabetic diet and eatinf 100%. RBG 148-207. Pt is recieving insulin. No wt obtained on ECF but pt 286# on med unit. BMI is in class 3 obesity range. Will cont to monitor and encourage intake. BK 10/19 Pt had a RBG of 243 on 10/17, but has been between 113-157 since 10/18. Wt. obtained in ECF as 288lb on 10/16. BMI is still a class 3 obesity. Pt has edema and will lose wt as it goes away. Will continue to monitor and encourage intake. CD 10/25 Pt has 3+ edema and was placed on a diuretic. Expect pt to lose wt as edema decreases. Pt is now has stage 4 CKD. Pt has a steadly increasing RBG has gotten up to 243 in the past 24 hours. Will continue to monitor. MITCH WATERS October 25, 2018 14:45
== END 2018-10-25 20:03 | disposition home health service (06) | DRG 603 ==
LOC: ECF 13:08
PROVIDERS: ADMIT Internal Medicine; ATTEND Internal Medicine
DX: L03.115 Cellulitis of right lower limb (principal); N18.4 Chronic kidney disease, stage 4 (severe); E11.22 Type 2 diabetes mellitus with diabetic chronic kidney disease; I25.10 Atherosclerotic heart disease of native coronary artery without angina pectoris; K04.7 Periapical abscess without sinus; R60.9 Edema, unspecified; N40.0 Benign prostatic hyperplasia without lower urinary tract symptoms; G62.9 Polyneuropathy, unspecified; Z90.5 Acquired absence of kidney
CPT/HCPCS: 36415; 36416; 82040; 82247; 82310; 82374; 82435; 82565; 82947; 82948; 84075; 84132; 84155; 84295; 84450; 84460; 84520; 85025; 97161; J0696; J1650

== ENCOUNTER → 2019-01-12 | Outpatient (REF) | payer MEDICARE, OTHER ==
[2018-10-12 13:57] VITALS: BMI 39.9
[~2019-01-12] MED LIST changes: +AMOX-359 PO; -BUM2 PO; +BUME2TAB17 PO; +NYST15PO4 TP; -RANI-366 PO; +RANI-54 PO
== END ==
LOC: ZZSENDIN 09:37
PROVIDERS: ATTEND Family Medicine
DX: N18.4 Chronic kidney disease, stage 4 (severe) (principal)
CPT/HCPCS: 82310; 82374; 82435; 82565; 82947; 84132; 84295; 84520